=== PATIENT | female | born 1965 | race Caucasian/White ===

== ENCOUNTER 2024-02-21 22:04 | Inpatient (IN) | payer OTHER, SELFPAY ==
--- NOTE | ~2024-02-21 | CT_ITS ---
EXAMINATION: CT ABDOMEN AND PELVIS WITH CONTRAST CLINICAL INFORMATION: Abdominal pain. COMPARISON: None available. TECHNIQUE: Multidetector volumetric images were obtained from the superior aspect of the liver through the pubic symphysis following administration 85 mL of Omnipaque 350 intravenous contrast. Sagittal and coronal reformatted images were obtained on the technologist's workstation. Oral contrast: No This CT examination was performed using dose optimization techniques as appropriate, variously including the following: *Automated exposure control *Adjustment of mA and/or kV according to patient size (this includes techniques or standardized protocols for targeted exams where dose is matched to indication/reason for exam; i.e. extremities or head) *Use of iterative reconstruction technique DLP: 675 mGy-cm FINDINGS: LUNG BASES: The visualized lung bases are unremarkable. LIVER, GALLBLADDER, AND BILIARY TREE: The liver is normal in size, shape, and attenuation. No focal hepatic lesion or biliary ductal dilatation is present. Gallbladder appears to be distended. Multiple gallstones are seen] including a 6 mm calculus at the neck of the gallbladder. There also appears to be gallbladder wall thickening. PANCREAS: Unremarkable. SPLEEN: Unremarkable. ADRENAL GLANDS: Unremarkable. KIDNEYS AND URETERS: The kidneys are normal in size, shape, and attenuation. No hydronephrosis, hydroureter, or calculi seen. No perinephric stranding. There is a 1 cm cyst upper pole left kidney. BLADDER: Unremarkable. GASTROINTESTINAL TRACT: There are diverticula of the descending and the sigmoid colon without diverticulitis. There has been a prior cholecystectomy. ABDOMINAL WALL: No significant hernia is appreciated. LYMPH NODES: Normal. VASCULAR: There is mild atherosclerotic plaque of the abdominal aorta. PELVIC VISCERA: Multiple uterine fibroids is seen including a 8 cm pedunculated uterine fibroid. OSSEOUS STRUCTURES: Unremarkable. CT/CT abdomen pelvis w IV con IMPRESSION: Distended gallbladder with gallstones and gallbladder wall thickening. Findings are suspicious for cholecystitis. Diverticulosis of the colon without evidence of diverticulitis. Fibroid uterus. Fleischner guidelines were followed. Electronically signed by: Yayo Wiley MD 02/22/2024 03:46 AM EDT
--- NOTE | ~2024-02-21 | US_ITS ---
EXAMINATION: US ABDOMEN LIMITED CLINICAL INFORMATION: Epigastric pain for one day. Pain after eating. Vomiting. COMPARISON: Chest CT from 2 hours earlier the same day. TECHNIQUE: Real-time imaging of the gallbladder and common bile duct. FINDINGS: LIVER: Incidentally visualized portion of the liver appears diffusely echogenic GALLBLADDER: Distended, measuring approximately 12.6 cm in sagittal dimension. Multiple subcentimeter gallstones. Gallbladder sludge. Mild diffuse gallbladder wall thickening. Trace pericholecystic fluid. No evidence of hyperemia. COMMON BILE DUCT: Measures 0.9 cm in diameter. Cm in diameter. US/US abdomen limited IMPRESSION: Distended gallbladder. Cholelithiasis and gallbladder sludge. Mild diffuse gallbladder wall thickening. Trace pericholecystic fluid. Mildly dilated common bile duct. Incidentally visualized fatty infiltration of the liver. Electronically signed by: Alan Elliott MD 02/22/2024 07:20 AM EDT
[2024-02-21 22:51] VITALS: BP 136/81; PULSE 70; RESP 18; TEMP 36.7; O2SAT 97; BMI 31.8
[2024-02-21 23:36] LABS: MANUAL DIFF FLAG NO
[2024-02-21 23:37] LABS: Basophils Percent Auto 0.4 % (0-2); Eosinophils Absolute Auto 0.1 X10*3/uL (0.0-0.4); Hematocrit 40.2 % (37.0-47.0); Hemoglobin 14.1 g/dl (12.0-16.0); Imm Gran Abs Auto 0.05 X10*3/uL (0.00-0.03); Imm Gran Pct Auto 0.5 % (0.0-0.4); Lymphocytes Absolute Auto 1.2 X10*3/uL (1.2-4.9); Lymphocytes Percent Auto 11.6 % (20-40); Mean Corpuscular HGB Conc 35.1 g/dl (31.0-35.0); Mean Corpuscular Hemoglobin 31.5 pg (27.0-33.0); Mean Corpuscular Volume 89.7 fL (80.0-98.0); Mean Platelet Volume 8.8 fL (9.4-12.3); Monocytes Absolute Auto 0.7 X10*3/uL (0.1-1.2); Monocytes Percent Auto 6.1 % (2-11); Neutrophils Absolute Auto 8.6 x10*3/uL (2.0-8.3); Neutrophils Percent Auto 80.4 % (45-73); Platelet Count 298 X10*3/uL (160-400); Red Blood Count 4.48 X10*6/uL (4.20-5.50); White Blood Count 10.7 X10*3/uL (4.8-10.8)
[2024-02-21 23:52] LABS: Alanine Aminotransferase 48 U/L (0-31); Albumin Level 4.6 g/dL (3.5-5.0); Alkaline Phosphatase 68 U/L (39-117); Anion Gap 13 (12-20); Aspartate Amino Transferase 49 U/L (5-31); Bilirubin Total 0.8 mg/dL (0.0-1.0); Blood Urea Nitrogen 16 mg/dL (9-16); Calcium 9.9 mg/dL (8.4-10.2); Carbon Dioxide 28 mmol/L (22-29); Chloride 106 mmol/L (96-108); Estimated Glomerular Filt Rate 56; Glucose Random 125 mg/dL (60-115); Lipase 18 U/L (8-78); Sodium 143 mmol/L (135-145); Total Protein 7.6 g/dL (6.5-8.0)
[2024-02-22] VITALS (26 sets, daily range): BP systolic 92–145; BP diastolic 54–89; PULSE 70–160; RESP 12–24; TEMP 36.3–37.3; O2SAT 92–98; BMI 28.6
--- NOTE | 2024-02-22 00:38 | ECG_ITS ---
Test Reason : TACHYCARDIA Blood Pressure : / mmHG Vent. Rate : 170 BPM Atrial Rate : 000 BPM P-R Int : 000 ms QRS Dur : 088 ms QT Int : 272 ms P-R-T Axes : 000 005 165 degrees QTc Int : 457 ms Atrial fibrillation with rapid ventricular response Marked ST abnormality, possible lateral subendocardial injury Abnormal ECG When compared with ECG of 14-JUN-2004 11:21, Atrial fibrillation has replaced Sinus rhythm Vent. rate has increased BY [address] now depressed in Anterolateral leads Nonspecific T wave abnormality no longer evident in Inferior leads Referred By: Generic ED Physician Electronically Signed By:Alfred Richard
--- NOTE | 2024-02-22 01:01 | ED.ABDPAIN ---
HPI - Abdominal Pain General Chief Complaint: Abdominal Pain Stated Complaint: Abdominal pain Time Seen by Provider: 02/22/24 00:54 Source: patient Mode of arrival: ambulatory Limitations: no limitations History of Present Illness ED Provider: Dr. Warren Goss HPI narrative: 58-year-old female with a history of hypertension recently started on medications, asthma, left breast cancer 1 year prior treated with resection and 6 weeks of radiation on tamoxifen, who presents emergency department for evaluation of severe abdominal pain with gradual onset at 17:00 hours. Patient states that her pain is a hard burning pain which is greater than 10/10. She denied fever, chills. She had nausea with no vomiting. She states she has been constipated. The patient does drink 5-6 alcoholic cell 2 drinks per day. She states this is her 1st episode of this type of pain. The patient was triaged and has been in the waiting room for proximally 3 hours. She complained of chest pain and was noted to be tachycardic. Patient's 12 EKG revealed atrial fibrillation which is a new diagnosis for the patient. Patient was a rapid ventricular response with a rate of [address] segment depression in leads 1, 3, aVL, V2 through V6. Related Data Allergies Allergy/AdvReac Type Severity Reaction Status Date / Time morphine AdvReac Hives Verified 02/21/24 22:53 Review of Systems Review of Systems Yes all other systems are reviewed and are negative [facility] Past Medical History [facility] Narrative: Social history: The patient is . Her is here in the emergency department. She does vape nicotine products. She drinks at least 5-6 alcoholic fdc drinks per day. She denies drug use. Social History Social History Smoked in Last 30 Days: Yes Use of substances other than those prescribed or required for medical reasons: No Advance Directives: No Advance Directives Information Provided: Yes Do you have a plan to hurt others: No Plan Patient : No Physical Exam ED Vital Signs: Vital Signs - 24 hr 02/21/24 22:51 02/22/24 00:40 02/22/24 01:26 Temperature 98.1 F 97.4 F 97.7 F Pulse Rate 70 144 H 150 H Respiratory Rate 18 18 18 Blood Pressure 136/81 109/82 98/62 Pulse Oximetry 97 96 96 Oxygen Delivery Method Room Air Room Air Room Air 02/22/24 01:32 02/22/24 02:00 Temperature Pulse Rate 160 H 136 H Respiratory Rate 24 H 18 Blood Pressure 101/64 99/67 Pulse Oximetry 92 98 Oxygen Delivery Method Room Air Room Air BMI result Body Mass Index 31.8 Initial vital signs were normal. Exam: General: Awake, alert, appears to be in distress secondary to her abdominal pain Head: Normocephalic, atraumatic EENT: PERRL, Lids normal, sclera normal, conjunctiva normal, nose normal , ears normal, throat without erythema or exudates Neck: Supple, no adenopathy Lung: breath sounds symmetric, no wheezing, rales or rhonchi Chest: symmetric movement, nontender Heart: Irregularly irregular tachycardia, no obvious murmurs Abdomen: soft, distended, diminished bowel sounds, diffuse nonlocalizing moderate abdominal tenderness Back: no vertebral tenderness, no CVAT Extremities: no deformities, moves all extremities symmetrically Neuro: Awake, alert, oriented, normal speech, cranial nerves intact, moves all extremities symmetrically Medical Decision Making Medical Decision Making MDM Narrative: 58-year-old female with a history of hypertension recently started on medications, asthma, left breast cancer 1 year prior treated with resection and 6 weeks of radiation on tamoxifen, who presents emergency department for evaluation of severe abdominal pain with gradual onset at 17:00 hours she describes as a hard burning pain which is greater than 10/10 associated with nausea but no vomiting, fever or chills. Patient was in the emergency depart waiting room for proximally 3 hours when she developed chest pain and palpitations and was found to be in atrial fibrillation with RVR 170 beats per minute with ST segment depression in leads 1, 2, L, V2 through V 6. Patient's initial vital signs were normal when she developed atrial fibrillation with RVR her systolic blood pressure was 89. Patient's abdomen is distended with moderate diffuse tenderness with no rebound no voluntary or involuntary guarding Differential diagnosis: ?Includes but is not limited to myocardial infarction, myocardial ischemia, perforated viscus, alcoholic gastritis, anemia, electrolyte abnormalities Course: 01:21 My interpretation patient's laboratory evaluation from 23:32 hours is as follows: Glucose elevated 125. AST and ALT elevated 49 and 48. Lipase was normal. I added troponin to the initial blood draw and ordered repeat CBC, CMP, lipase, lactic acid, ethanol level, troponin. Twelve EKG is concerning for inferior lateral ischemia. Given her hypotension and I ordered 2 L of normal saline IV, fentanyl 50 mcg IV for her abdominal pain and Zofran 4 mg IV for nausea. We will obtain a CT scan of the abdomen pelvis with IV contrast, patient will get this study once we stabilize her blood pressure. 02:40 Patient's initial troponin was below detectable limits, the repeat troponin is pending. Repeat CBC and CMP were unchanged from the initial blood draw. Lactic acid was normal at 0.7. Patient's blood pressure did improve after 2 L of IV fluid. Ordered 1/3 L of normal saline IV. Patient remains in atrial fibrillation with a rate of 150 beats per minute given her low blood pressure she was treated with digoxin 0.25 mg IV. At the end of my shift, patient's CT scan is pending and the patient's care was turned over to my colleague, Dr. Charu Winters. Admission/Observation Consideration of admission/observation: Escalation of care including admission/observation considered (Yes) Lab Data MDM Lab Attestation statement: I reviewed the patient's lab results. 02/22/24 01:11 02/22/24 01:11 Labs: Lab Results 02/21/24 02/22/24 Range/Units 23:32 01:11 WBC 10.7 11.3 H (4.8-10.8) X10*3/uL RBC 4.48 4.55 (4.20-5.50) X10*6/uL Hgb 14.1 14.2 (12.0-16.0) g/dl Hct 40.2 41.1 (37.0-47.0) % MCV 89.7 90.3 (80.0-98.0) fL MCH 31.5 31.2 (27.0-33.0) pg MCHC 35.1 H 34.5 (31.0-35.0) g/dl RDW 12.0 12.0 (11.0-16.0) % Plt Count 298 286 (160-400) X10*3/uL MPV 8.8 L 9.2 L (9.4-12.3) fL Immature Gran % (Auto) 0.5 H 0.4 (0.0-0.4) % Neut % (Auto) 80.4 H 84.4 H (45-73) % Lymph % (Auto) 11.6 L 9.1 L (20-40) % [place] % (Auto) 6.1 5.3 (2-11) % Eos % (Auto) 1.0 0.4 (0-4) % Baso % (Auto) 0.4 0.4 (0-2) % Lymph # (Auto) 1.2 1.0 L (1.2-4.9) X10*3/uL [place] # (Auto) 0.7 0.6 (0.1-1.2) X10*3/uL Eos # (Auto) 0.1 0.1 (0.0-0.4) X10*3/uL Baso # (Auto) 0.0 0.0 (0.0-0.2) X10*3/uL Abs Immat Gran (auto) 0.05 H 0.05 H (0.00-0.03) X10*3/uL Absolute Neuts (auto) 8.6 H 9.5 H (2.0-8.3) x10*3/uL Absolute Nucleated RBC 0.000 0.000 (0.0-0.012) X10*3/uL Nucleated RBC % (auto) 0.0 0.0 (0.0-0.2) /100WBC Sodium 143 142 (135-145) mmol/L Potassium 4.0 3.9 (3.3-5.1) mmol/L Chloride 106 105 (96-108) mmol/L Carbon Dioxide 28 23 (22-29) mmol/L Anion Gap 13 18 (12-20) BUN 16 18 H (9-16) mg/dL Creatinine 1.02 1.00 (0.5-1.4) mg/dL Estim Creat Clear Calc 63.0 64.3 Estimated GFR 56 57 Random Glucose 125 H 125 H (60-115) mg/dL Lactic Acid 0.7 (0.5-2.0) mmol/L Calcium 9.9 10.3 H (8.4-10.2) mg/dL Total Bilirubin 0.8 0.9 (0.0-1.0) mg/dL AST 49 H 48 H (5-31) U/L ALT 48 H 51 H (0-31) U/L Alkaline Phosphatase 68 69 (39-117) U/L Troponin I High Sens < 2.7 (<3.5-17.0) ng/L Total Protein 7.6 7.7 (6.5-8.0) g/dL Albumin 4.6 4.6 (3.5-5.0) g/dL Lipase 18 19 (8-78) U/L Ethyl Alcohol < 10 mg/dL Independent Interpretation I performed an independent interpretation of an: EKG Interpretation: My interpretation patient's 12 EKG done at 00:36 hours is as follows: Atrial fibrillation with RVR of 170 beats per minute, less than [address] segment depression in leads 1, 2 and aVL, to to [address] segment depression V2 through V6, no significant T-wave abnormalities. Medications Administered Discontinued Medications Generic Name Dose Route Start Last Admin Trade Name Abi PRN Reason Stop Dose Admin Fentanyl 50 mcg 02/22/24 01:12 02/22/24 01:23 Fentanyl Citrate/Pf 100 Mcg/2 Ml Vial IVPUSH 02/22/24 01:13 50 mcg ONCE ONE Administration Protocol Fentanyl 100 mcg 02/22/24 02:03 02/22/24 02:16 Fentanyl Citrate/Pf 100 Mcg/2 Ml Vial IVPUSH 02/22/24 02:04 100 mcg ONCE ONE Administration Protocol Sodium Chloride 1,000 mls @ 999 mls/hr 02/22/24 01:07 02/22/24 01:23 Ns IV 02/22/24 02:07 999 mls/hr .Q1H1M STA Administration Sodium Chloride 1,000 mls @ 999 mls/hr 02/22/24 01:08 02/22/24 01:23 Ns IV 02/22/24 02:08 999 mls/hr .Q1H1M STA Administration Iohexol 85 ml 02/22/24 02:37 02/22/24 02:37 Iohexol 350 Mg/Ml 100 Ml Infus..Btl IV 02/22/24 02:38 85 ml ONCE ONE Administration Ondansetron HCl 4 mg 02/22/24 01:02 02/22/24 01:23 Ondansetron Hcl 4 Mg/2 Ml Vial IVPUSH 02/22/24 01:03 4 mg ONCE ONE Administration Discharge Plan Discharge Clinical Impression: Atrial fibrillation, new onset, Abdominal pain, Atrial fibrillation with RVR, Acute hypotension Patient Disposition: Still a Patient Print Language: Albanian
--- NOTE | 2024-02-22 01:17 | PC.NURSE ---
Labs drawn and sent for analysis (2 green gel tubes, 1 lavender tube, and 1 walker tube). Had technical difficulty logging into [facility] link, labs sent with regular ED patient stickers, with this RN's mneumonics (SALENA), date (02/22/2024) and time (01:11AM). Results pending. Spoke with Franki in lab regarding the techincal difficulty.
[2024-02-22] MEDS: 0.9 % Sodium Chloride 1,000 ML 999 ML IV ×3 (01:23→02:57)
[2024-02-22] MEDS: fentaNYL citrate/PF 100 MCG/2 ML VIAL 50 MCG IVPUSH ×2 (01:23→02:56)
[2024-02-22] MEDS: ondansetron HCL 4 MG/2 ML VIAL IVPUSH (01:23)
[2024-02-22 01:24] LABS: MANUAL DIFF FLAG NO
[2024-02-22 01:26] LABS: Basophils Percent Auto 0.4 % (0-2); Eosinophils Absolute Auto 0.1 X10*3/uL (0.0-0.4); Eosinophils Percent Auto 0.4 % (0-4); Hematocrit 41.1 % (37.0-47.0); Hemoglobin 14.2 g/dl (12.0-16.0); Imm Gran Abs Auto 0.05 X10*3/uL (0.00-0.03); Imm Gran Pct Auto 0.4 % (0.0-0.4); Lymphocytes Percent Auto 9.1 % (20-40); Mean Corpuscular HGB Conc 34.5 g/dl (31.0-35.0); Mean Corpuscular Hemoglobin 31.2 pg (27.0-33.0); Mean Corpuscular Volume 90.3 fL (80.0-98.0); Mean Platelet Volume 9.2 fL (9.4-12.3); Monocytes Absolute Auto 0.6 X10*3/uL (0.1-1.2); Monocytes Percent Auto 5.3 % (2-11); Neutrophils Absolute Auto 9.5 x10*3/uL (2.0-8.3); Neutrophils Percent Auto 84.4 % (45-73); Platelet Count 286 X10*3/uL (160-400); Red Blood Count 4.55 X10*6/uL (4.20-5.50); White Blood Count 11.3 X10*3/uL (4.8-10.8)
[2024-02-22 01:36] LABS: Troponin-I High Sensitivity < 2.7 ng/L (<3.5-17.0)
[2024-02-22 01:39] LABS: Lactic Acid 0.7 mmol/L (0.5-2.0)
[2024-02-22 01:45] LABS: Alanine Aminotransferase 51 U/L (0-31); Albumin Level 4.6 g/dL (3.5-5.0); Alkaline Phosphatase 69 U/L (39-117); Anion Gap 18 (12-20); Aspartate Amino Transferase 48 U/L (5-31); Bilirubin Total 0.9 mg/dL (0.0-1.0); Blood Urea Nitrogen 18 mg/dL (9-16); Calcium 10.3 mg/dL (8.4-10.2); Carbon Dioxide 23 mmol/L (22-29); Chloride 105 mmol/L (96-108); Creatinine Clr Calc Pharmacy 64.3; Estimated Glomerular Filt Rate 57; Ethanol < 10 mg/dL; Glucose Random 125 mg/dL (60-115); Lipase 19 U/L (8-78); Potassium 3.9 mmol/L (3.3-5.1); Sodium 142 mmol/L (135-145); Total Protein 7.7 g/dL (6.5-8.0)
[2024-02-22] MEDS: fentaNYL citrate/PF 100 MCG/2 ML VIAL IVPUSH (02:16)
[2024-02-22] MEDS: iohexoL 350 MG/ML 100 ML INFUS..BTL 85 ML IV (02:37)
[2024-02-22] MEDS: Digoxin 0.5 MG/2 ML AMPUL 0.25 MG IVPUSH (02:56)
[2024-02-22 02:59] LABS: Troponin-I High Sensitivity < 2.7 ng/L (<3.5-17.0)
[2024-02-22] MEDS: dilTIAZem HCL 50 MG/10 ML VIAL 10 MG IVPUSH (03:57)
[2024-02-22 04:13] LABS: Appearance Urine Clear; Color Urine Yellow; Glucose Urine UA Negative (Negative); Leukocyte Esterase Urine Small (1+) (Negative); Nitrite Urine Negative (Negative); PH 5.5 (5.0-9.0); Specific Gravity - Urine >= 1.030 (1.005-1.025); UMIC TRIGGER UACC YES; Urine Blood Negative (Negative); Urine Ketones 80 mg/dL (Negative); Urine Protein Negative (Neg-Trace)
[2024-02-22 04:18] LABS: Bacteria Urine Trace (None Seen); Hyaline Casts Urine 0-2 /LPF (0-2); RBC Urine 0-2 /HPF (0-2); UACC Culture Trigger YES
[2024-02-22] MEDS: dilTIAZem HCL 125 MG in 0.9 % Sodium Chloride 100 ML 10 MG IVCONT (04:40)
[2024-02-22] MEDS: Piperacillin Sodium/Tazobactam 3.375 GM in 0.9 % Sodium Chloride 50 ML IV (05:04)
[2024-02-22] MEDS: HYDROmorphone HCl 1 MG/ML SYRINGE IVPUSH ×4 (05:04→19:59)
[2024-02-22] MEDS: Metoprolol Tartrate 5 MG/5 ML VIAL IVPUSH (05:24)
--- NOTE | 2024-02-22 06:17 | PM.IMHP ---
History of Present Illness Date of Service: 02/22/24 Chief Complaint: Abdominal pain This is a 58-year-old female with pertinent history of hypertension, asthma not on home oxygen, left breast cancer status post resection and radiation on tamoxifen, mood disorder who presents to the emergency department for evaluation of abdominal pain. Patient states she started having right upper abdominal pain on the evening of presentation. It was constant, nonradiating and without any relieving factors. Also had an episode of nonbloody emesis and has been having nausea. No fever, chills or diarrhea. States she has never had similar pains in the past. No chest pain, palpitations, shortness of breath, changes in urinary or bowel habits. Does endorse drinking 5-6 alcoholic drinks per day. No history of alcohol withdrawal. In the emergency department, patient was found to be in AFib with RVR and initiated on diltiazem drip. Imaging concerning for acute cholecystitis. Patient was given IV Zosyn Review of Systems Constitutional: Constitutional: Reports no additional constitutional complaints Cardiovascular: Cardiovascular: Reports no additional cardiovascular complaints Respiratory: Respiratory: Reports no additional respiratory complaints Gastrointestinal: Gastrointestinal: Reports abdominal pain, Reports nausea and Reports vomiting Genitourinary: Genitourinary: Reports no additional female genitourinary complaints [facility] Medical History Breast cancer, left Hypertension Asthma Mood disorder Pertinent family history: No family history of early CAD Social History Smoked in Last 30 Days: Yes Use of substances other than those prescribed or required for medical reasons: No Advance Directives: No Advance Directives Information Provided: Yes Do you have a plan to hurt others: No Plan Patient : No Meds Allergies Allergy/AdvReac Type Severity Reaction Status Date / Time morphine AdvReac Hives Verified 02/21/24 22:53 Active Medications: Current Medications Acetaminophen (Acetaminophen 325 Mg Tablet) 650 mg PO Q6H PRN PRN Reason: Pain, Mild (Pain Scale 1-3), fever or headache Calcium Carbonate (Calcium Carbonate 750 Mg Tab.Chew) 750 mg PO Q4H PRN PRN Reason: Heartburn Diltiazem HCl 125 mg/ Sodium (Chloride) 125 mls @ 0 mls/hr IVCONT .Q0M [facility]; Protocol Last Titration: 02/22/24 05:11 Dose: 15 mg/hr, 15 mls/hr Magnesium Hydroxide (Milk Of Magnesia 30 Ml Oral.Susp) 30 ml PO DAILY PRN PRN Reason: Constipation Melatonin (Melatonin 3 Mg Tablet) 6 mg PO BEDTIME PRN PRN Reason: Insomnia Sodium Chloride (0.9 % Sodium Chloride Flush 3 Ml Syringe) 3 ml IVFLUSH QSHIFT [facility] Physical Exam Vital Signs and Narrative: Vital Signs: Last Vital Signs Temp 98.2 F 02/22/24 04:00 Pulse 124 H 02/22/24 05:50 Resp 19 02/22/24 05:50 BP 126/88 02/22/24 05:50 Pulse Ox 95 02/22/24 05:50 O2 Del Method Nasal Cannula 02/22/24 05:50 O2 Flow Rate 3 02/22/24 05:50 BMI result Body Mass Index 31.8 Middle-aged female lying in bed in no distress Neck supple, no JVD Irregularly irregular, S1-S2 heard Regular breath sounds bilaterally, no wheezing or crackles appreciated Abdomen with right-sided tenderness, no rigidity Patient is awake, alert and oriented to self, place, time and person ; no focal motor deficit Psych: Normal mood No pedal edema Results Labs 02/22/24 01:11 02/22/24 01:11 Labs: Laboratory Results - last 24 hr 02/21/24 02/22/24 02/22/24 23:32 01:11 04:04 MCV 89.7 90.3 MCH 31.5 31.2 MCHC 35.1 H 34.5 RDW 12.0 12.0 Plt Count 298 286 MPV 8.8 L 9.2 L Immature Gran % (Auto) 0.5 H 0.4 Neut % (Auto) 80.4 H 84.4 H Lymph % (Auto) 11.6 L 9.1 L [place] % (Auto) 6.1 5.3 Eos % (Auto) 1.0 0.4 Baso % (Auto) 0.4 0.4 Lymph # (Auto) 1.2 1.0 L [place] # (Auto) 0.7 0.6 Eos # (Auto) 0.1 0.1 Baso # (Auto) 0.0 0.0 Abs Immat Gran (auto) 0.05 H 0.05 H Absolute Neuts (auto) 8.6 H 9.5 H Absolute Nucleated RBC 0.000 0.000 Nucleated RBC % (auto) 0.0 0.0 Anion Gap 13 18 Estim Creat Clear Calc 63.0 64.3 Estimated GFR 56 57 Random Glucose 125 H 125 H Lactic Acid 0.7 Calcium 9.9 10.3 H Total Bilirubin 0.8 0.9 AST 49 H 48 H ALT 48 H 51 H Alkaline Phosphatase 68 69 Troponin I High Sens < 2.7 < 2.7 Total Protein 7.6 7.7 Albumin 4.6 4.6 Lipase 18 19 Urine Color Yellow Urine Appearance Clear Urine pH 5.5 Ur Specific [place] >= 1.030 H Urine Protein Negative Urine Glucose (UA) Negative Urine Ketones 80 Urine Blood Negative Urine Nitrite Negative Ur Leukocyte Esterase Small (1+) H Urine RBC 0-2 Urine WBC 11-20 H Ur Squamous Epith Cells 11-20 Urine Bacteria Trace Hyaline Casts 0-2 Ethyl Alcohol < 10 Imaging Radiologist's Impressions: Impressions Abdomen/Pelvis CT 02/22/24 01:03 IMPRESSION: Distended gallbladder with gallstones and gallbladder wall thickening. Findings are suspicious for cholecystitis. Diverticulosis of the colon without evidence of diverticulitis. Fibroid uterus. Fleischner guidelines were followed. Electronically signed by: Yayo Wiley MD 02/22/2024 03:46 AM EDT RP Assessment and Plan (1) Acute cholecystitis: Status: Acute (2) Atrial fibrillation, new onset: Status: Acute Plan This is a 58-year-old female with pertinent history of hypertension, asthma not on home oxygen, left breast cancer status post resection and radiation on tamoxifen, mood disorder who presents to the emergency department for evaluation of abdominal pain. #. Acute calculous cholecystitis: Will admit patient with IV Zosyn. Will keep patient NPO and consult General surgery. IV opioids p.r.n. for analgesia. Abdominal ultrasound pending #. AFib with RVR, new diagnosis: Initiated on IV diltiazem drip in the ER. Obtaining TSH and echocardiogram. Consulting Cardiology. Chads Vasc score 2 #. Mood disorder: Continue home mood stabilizers once no longer NPO #. Hypertension: Hold antihypertensives until able to take p.o. #. Asthma: No exacerbation during admission. Continue home inhalers Med rec pending DVT prophylaxis: Mechanical Full code Admit as inpatient and will require two night minimum hospital stay for IV antibiotics, IV opiates p.r.n. (as above), which is not possible in a lesser acute setting. General surgery consult pending Quality Stroke Does the patient have a stroke diagnosis?: No VTE Prior VTE?: No VTE Risk Level:: Medical - moderate - high VTE Device Contraindication: N/A - Device Ordered VTE Drug Contraindication: Treatment Not Indicated
--- NOTE | 2024-02-22 07:00 | CA_ITS ---
Transthoracic Echocardiogram Patient (Last, First, Middle): Nat Rodriguez M Gender: Female Date of : 1965 Age: 58 Procedure Date: 02/22/2024 Procedure Type: Transthoracic Echocardiogram Location: ER Height: 162.56 cm Weight: 70.31 kg BSA: 1.76 m2 Heart Rate: bpm BP: 116 / 62 mmHg Patient Access Coordinator: Referring MD: Jaspreet Soto MD Symptoms: afib wtih rvr Study Quality: Adequate ECG Rhythm: Sinus Conclusions: - Normal left ventricular size and systolic function. There is mildly increased left ventricular wall thickness. The visually estimated ejection fraction is between 60-65%. - Normal right ventricular cavity size and systolic function. - There is no evidence of pericardial effusion. Findings Left Ventricle Normal left ventricular size and systolic function. There is mildly increased left ventricular wall thickness. The visually estimated ejection fraction is between 60-65%. There is no evidence of regional wall motion abnormalities. Diastolic function is normal for age. Right Ventricle Normal right ventricular cavity size and systolic function. Atria The left atrium is normal in size. Aortic Valve Normal aortic valve structure and function. There is no aortic valve stenosis. There is no aortic valve regurgitation. Mitral Valve Normal mitral valve structure and function. There is no mitral valve regurgitation. There is no mitral valve stenosis. Pulmonic Valve The pulmonic valve is normal. There is trace pulmonic valve regurgitation. Tricuspid Valve Normal tricuspid valve structure. There is trace tricuspid valve regurgitation. Great Vessels All visible segments of the aorta are normal in size. Venous The inferior vena cava is normal in size and collapses greater than 50% with inspiration. Pericardium/Pleural There is no evidence of pericardial effusion. Prior Study Comparison No prior study available for comparison. Measurements 2D Linear Measurements IVSd: 0.96 0.6-0.9/0.6-1.0 cm LVIDd: 4.49 3.9-5.3/4.2-5.9 cm LVIDd Index: 2.55 2.4-3.2/2.2-3.1 cm/m2 LVIDs: 2.91 2.0-3.6 cm LVPWd: 1.04 0.7-1.1 cm Ao Root: 3.30 2.1-3.5 cm LA Diam: 3.80 2.7-3.8/3.0-4.0 cm LAIDs Index: 2.16 1.5-2.3 cm/m2 LV Mass: 190.68 67-162/88-224 g LV Mass Index: 108.34 43-95/49-115 g/m2 LVOT Diam: 2.60 3.0+(-)1.3 cm Mitral Valve MV Pk E: 0.74 MV PK A: 0.52 MV Decel Time: 241.00 E/A: 1.40 E'Lateral: 13.60 E'Medial: 10.20 E/E' Med: 7.20 E/E' Lat: 5.40 PHT: 71.00 MVA PHT: 3.10 Decel [place]: 3.06 Aortic Valve AoV Pk Fidel: 1.62 AoV Mn Fidel: 1.05 AoV VTI: 0.32 AoV Pk Grad: 10.00 Aov Mn Grad: 5.00 MIKE Cont.VTI: 3.21 LVOT LVOT Pk Fidel: 1.09 LVOT Mn Fidel: 0.68 LVOT VTI: 0.19 LVOT Pk Grad: 5.00 LVOT Mn Grad: 2.00 LVOT Diam: 2.60 LVOT Area: 5.31 Diastolic Function MV Pk E: 0.74 MV Pk A: 0.52 E/A: 1.40 E'Medial: 10.20 E/E' Med: 7.20 E' Laterial: 13.60 E/E' Lat: 5.40 Right Ventricle TAPSE (mm): 22.00 Tricuspid Valve TR Pk Fidel: 2.05 TR Pk Grad: 17.00 RA Press: 3.00 RVSP: 20.00 Great Vessels Aorta Ao Root-2D: 3.30 2.0-3.7 cm Ao Asc: 3.30 2.1-3.4 cm Pulmonary Valve PV Pk Fidel: 1.14 Peak PV Grad: 5.00 Updated in Other Vendor System with Status of Final Alfred Richard MD electronically signed on 02/23/2024 8:57:53 AM with status of Final
[2024-02-22] MEDS: 0.9 % Sodium Chloride Flush 3 ML SYRINGE IVFLUSH ×3 (07:33→23:40)
--- NOTE | 2024-02-22 07:38 | PC.NURSE ---
Care of Pt assumed at change of shift. Pt is awake, A&Ox3 VSS Cardizem drip running @ 15/hr per JUN. Pt c/o pain 12/09 to middle abd--medicated per JUN. Pt is NPO, c/o dry mouth will supply with mouth swabs. Family at bedside and Pt is awaiting bed assignment. Per overnight RN, admission worksheet completed at this time.
[2024-02-22 08:08] LABS: Thyroid Stimulating Hormone 1.41 uIU/mL (0.32-4.0)
--- NOTE | 2024-02-22 08:49 | P.CONGS_ITS ---
History of Present Illness Consult details Consult date: 02/22/24 Narrative: 58 year old female with history of left breast cancer, hypertension, asthma, admitted via the ER last night because of abdominal pain. She says this started last night. He describes this as being on the right upper quadrant. She denies any previous similar episodes in the past. Her imaging studies suggest acute cholecystitis. She denies any fever or chills. She was however diagnosed to have new onset atrial fibrillation with rapid ventricular response so she was admitted to the hospitalist service. She denies any chest pain currently. She does admit to vaping. He has a history of appendectomy, and umbilical hernia repair. She has had lumpectomy of the left breast and re-excision for wider margins in the distant past for breast cancer. Review of Systems 2 Constitutional: Constitutional: Denies chills and Denies fever(s) Cardiovascular: Cardiovascular: Denies chest pain, Denies dyspnea and Denies dyspnea on exertion Respiratory: Respiratory: Denies cough, Denies dyspnea and Denies dyspnea on exertion Gastrointestinal: Gastrointestinal: Denies hematochezia and Denies change in bowel habits Genitourinary: Genitourinary: Denies hematuria Musculoskeletal: Musculoskeletal: Denies back pain and Denies limited range of motion Neurologic: Denies focal weakness and Denies convulsions Psychiatric: Psychiatric: Denies depression and Denies mood swings PMFSH Past Medical History Medical History Breast cancer, left Hypertension Asthma Mood disorder Social History Social History Household Members: Spouse Housing: House Are you a primary care process manager to a significant other at home: No Do you presently have visiting nurse or other home services: No Patient Tobacco Use Status: Current everyday Tobacco user Tobacco use type: Smokeless Tobacco e-Cigarette/Vaping Use: Currently Using Second Hand Smoke Exposure: No service: No Meds Allergies Allergy/AdvReac Type Severity Reaction Status Date / Time morphine Allergy Diarrhea Verified 02/23/24 12:12 Active Medications: Current Medications Acetaminophen (Acetaminophen 325 Mg Tablet) 650 mg PO Q6H PRN PRN Reason: Pain, Mild (Pain Scale 1-3), fever or headache Calcium Carbonate (Calcium Carbonate 750 Mg Tab.Chew) 750 mg PO Q4H PRN PRN Reason: Heartburn Hydromorphone HCl (Hydromorphone Hcl 1 Mg/Ml Syringe) 1 mg IVPUSH Q4H PRN; Protocol PRN Reason: Pain, Severe (Pain Scale 7-10) Last Admin: 02/22/24 07:34 Dose: 1 mg Diltiazem HCl 125 mg/ Sodium (Chloride) 125 mls @ 0 mls/hr IVCONT .Q0M [facility]; Protocol Last Titration: 02/22/24 05:11 Dose: 15 mg/hr, 15 mls/hr Piperacillin Sod/Tazobactam (Sod 4.5 gm/ Sodium Chloride) 100 mls @ 200 mls/hr IV Q6H [facility] Magnesium Hydroxide (Milk Of Magnesia 30 Ml Oral.Susp) 30 ml PO DAILY PRN PRN Reason: Constipation Melatonin (Melatonin 3 Mg Tablet) 6 mg PO BEDTIME PRN PRN Reason: Insomnia Ondansetron HCl (Ondansetron Hcl 4 Mg/2 Ml Vial) 4 mg IVPUSH Q8H PRN PRN Reason: Nausea and Vomiting Sodium Chloride (0.9 % Sodium Chloride Flush 3 Ml Syringe) [facility] Last Admin: 02/22/24 07:33 Dose: 3 ml Home Medications ?Medication ?Instructions ?Recorded ?Confirmed ?Last Taken ?Type albuterol sulfate 90 mcg/actuation 2 puff inhalation Q4H PRN 02/22/24 02/22/24 Unknown History aerosol inhaler SOB/wheezing clonazepam 1 mg tablet 1 mg PO BID 02/22/24 02/22/24 02/21/24 History clonazepam 1 mg tablet 1 mg PO DAILY PRN Anxiety 02/22/24 02/22/24 02/21/24 History fluticasone 250 mcg-salmeterol 50 1 ea inhalation BID 02/22/24 02/22/24 02/21/24 History mcg/dose blistr powdr for inhalation ([employer] Inhub) ibuprofen 800 mg tablet 800 mg PO TID PRN pain 02/22/24 02/22/24 Unknown History lisinopril 10 mg tablet 10 mg PO DAILY 02/22/24 02/22/24 02/21/24 History multivitamin 1 tab PO DAILY 02/22/24 02/22/24 02/21/24 History omeprazole 20 mg capsule,delayed 20 mg PO DAILY@0630 02/22/24 02/22/24 02/21/24 History release tamoxifen 10 mg tablet 5 mg PO DAILY 02/22/24 02/22/24 02/21/24 History Physical Exam 2 Vital Signs: Vital Signs: Last Vital Signs Temp 98.2 F 02/22/24 04:00 Pulse 99 02/22/24 07:24 Resp 18 02/22/24 07:34 BP 137/88 02/22/24 07:24 Pulse Ox 96 02/22/24 07:24 O2 Del Method Room Air 02/22/24 07:24 O2 Flow Rate 3 02/22/24 05:50 BMI result Body Mass Index 31.8 Const: General: comfortable and no acute distress O rientation/consciousness: patient oriented x3 Neck: Neck: Yes no lymphadenopathy Resp: Auscultation: clear to auscultation bilaterally Cardio: Rhythm: regular rhythm GI: Other: Tender on the right upper quadrant Palpation (GI): Soft to palpation, not firm, Tenderness to palpation present (GI) and no guarding Neuro: General: patient oriented x3 Results Labs 02/24/24 05:05 02/24/24 05:05 Labs: Abnormal lab results 02/21/24 02/22/24 02/22/24 Range/Units 23:32 01:11 04:04 WBC 11.3 H (4.8-10.8) X10*3/uL MCHC 35.1 H (31.0-35.0) g/dl MPV 8.8 L 9.2 L (9.4-12.3) fL Immature Gran % (Auto) 0.5 H (0.0-0.4) % Neut % (Auto) 80.4 H 84.4 H (45-73) % Lymph % (Auto) 11.6 L 9.1 L (20-40) % Lymph # (Auto) 1.0 L (1.2-4.9) X10*3/uL Abs Immat Gran (auto) 0.05 H 0.05 H (0.00-0.03) X10*3/uL Absolute Neuts (auto) 8.6 H 9.5 H (2.0-8.3) x10*3/uL BUN 18 H (9-16) mg/dL Random Glucose 125 H 125 H (60-115) mg/dL Calcium 10.3 H (8.4-10.2) mg/dL AST 49 H 48 H (5-31) U/L ALT 48 H 51 H (0-31) U/L Ur Specific [place] >= 1.030 H (1.005-1.025) Ur Leukocyte Esterase Small (1+) H (Negative) Urine WBC 11-20 H (0-5) /HPF Short CBC 02/21/24 02/22/24 Range/Units 23:32 01:11 WBC 10.7 11.3 H (4.8-10.8) X10*3/uL Hgb 14.1 14.2 (12.0-16.0) g/dl Hct 40.2 41.1 (37.0-47.0) % Plt Count 298 286 (160-400) X10*3/uL BMP 02/21/24 02/22/24 23:32 01:11 Sodium 143 142 Potassium 4.0 3.9 Chloride 106 105 Carbon Dioxide 28 23 BUN 16 18 H Creatinine 1.02 1.00 Calcium 9.9 10.3 H Liver Function 02/21/24 02/22/24 Range/Units 23:32 01:11 Total Bilirubin 0.8 0.9 (0.0-1.0) mg/dL AST 49 H 48 H (5-31) U/L ALT 48 H 51 H (0-31) U/L Alkaline Phosphatase 68 69 (39-117) U/L Albumin 4.6 4.6 (3.5-5.0) g/dL Urine 02/22/24 Range/Units 04:04 Urine Color Yellow Urine Appearance Clear Urine pH 5.5 (5.0-9.0) Ur Specific [place] >= 1.030 H (1.005-1.025) Urine Protein Negative (Neg-Trace) mg/dL Urine Glucose (UA) Negative (Negative) mg/dL All other labs normal. Imaging Abdomen CT scan report/results: report reviewed and image reviewed CT scan - pelvis: report reviewed and image reviewed Abdominal ultrasound report/results: report reviewed and image reviewed Assessment and Plan (1) Acute cholecystitis: Status: Acute Her imaging studies show acute cholecystitis with gallstones. However, she does have new onset atrial fibrillation with RVR. She has a benign exam otherwise. Her LFTs are normal. She does not appear septic. We will have her seen by Cardiology for cardiac workup in view of her new onset atrial fibrillation. I had explained to her the option of proceeding with cholecystectomy down the line. I reviewed with her the technique of this procedure as well as the risks, benefits, alternatives. Her was with her during the visit. She is considering this in view of her severe episode of pain. She has been started on IV abx. I will follow along while she is in the hospital. Procedures Date of Service Date of Service: 02/26/24
--- NOTE | 2024-02-22 09:16 | PHA.MEDREC ---
Pharmacy Consult ? Medication Reconciliation Pharmacy has completed the medication reconciliation, spoke to the patient at bedside, she confirmed all meds. Pt stated she takes clonazepam in the morning and bedtime and takes two tablets in the morning when she experiences higher anxiety. Pt also added she takes a multivitamin. Claims had a ciprofloxacin 250mg BID record but patient stated she was supposed to pick it up today and start it for a UTI but has not because she is here.
--- NOTE | 2024-02-22 09:50 | P.CONCA_ITS ---
History of Present Illness History of Present Illness Date of Service: 02/22/24 Chief complaint: Abdominal pain Narrative: 58-year-old female presenting with abdominal pain and concern for cholecystitis. She is noticed to be tachycardic and in AFib with RVR. She said she had some palpitations when she was in the waiting room but currently has no palpitations. Her main complaint is right upper quadrant pain. She is on antibiotics currently. No chest pain or shortness of breath. On Cardizem drip. PMFSH Past Medical History Medical History Breast cancer, left Hypertension Asthma Mood disorder Social History Social History service: No Meds Allergies Allergy/AdvReac Type Severity Reaction Status Date / Time morphine AdvReac Hives Verified 02/21/24 22:53 Active Medications: Current Medications Acetaminophen (Acetaminophen 325 Mg Tablet) 650 mg PO Q6H PRN PRN Reason: Pain, Mild (Pain Scale 1-3), fever or headache Calcium Carbonate (Calcium Carbonate 750 Mg Tab.Chew) 750 mg PO Q4H PRN PRN Reason: Heartburn Hydromorphone HCl (Hydromorphone Hcl 1 Mg/Ml Syringe) 1 mg IVPUSH Q4H PRN; Protocol PRN Reason: Pain, Severe (Pain Scale 7-10) Last Admin: 02/22/24 07:34 Dose: 1 mg Diltiazem HCl 125 mg/ Sodium (Chloride) 125 mls @ 0 mls/hr IVCONT .Q0M [facility]; Protocol Last Titration: 02/22/24 05:11 Dose: 15 mg/hr, 15 mls/hr Piperacillin Sod/Tazobactam (Sod 4.5 gm/ Sodium Chloride) 100 mls @ 200 mls/hr IV Q6H [facility] Magnesium Hydroxide (Milk Of Magnesia 30 Ml Oral.Susp) 30 ml PO DAILY PRN PRN Reason: Constipation Melatonin (Melatonin 3 Mg Tablet) 6 mg PO BEDTIME PRN PRN Reason: Insomnia Ondansetron HCl (Ondansetron Hcl 4 Mg/2 Ml Vial) 4 mg IVPUSH Q8H PRN PRN Reason: Nausea and Vomiting Sodium Chloride (0.9 % Sodium Chloride Flush 3 Ml Syringe) 3 ml IVFLUSH QSHIFT [facility] Last Admin: 02/22/24 07:33 Dose: 3 ml Home Medications ?Medication ?Instructions ?Recorded ?Confirmed ?Last Taken ?Type albuterol sulfate 90 mcg/actuation 2 puff inhalation Q4H PRN 02/22/24 02/22/24 Unknown History aerosol inhaler SOB/wheezing clonazepam 1 mg tablet 1 mg PO BID 02/22/24 02/22/24 02/21/24 History clonazepam 1 mg tablet 1 mg PO DAILY PRN Anxiety 02/22/24 02/22/24 02/21/24 History fluticasone 250 mcg-salmeterol 50 1 ea inhalation BID 02/22/24 02/22/24 02/21/24 History mcg/dose blistr powdr for inhalation ([employer] Inhub) ibuprofen 800 mg tablet 800 mg PO TID PRN pain 02/22/24 02/22/24 Unknown History lisinopril 10 mg tablet 10 mg PO DAILY 02/22/24 02/22/24 02/21/24 History multivitamin 1 tab PO DAILY 02/22/24 02/22/24 02/21/24 History omeprazole 20 mg capsule,delayed 20 mg PO DAILY@0630 02/22/24 02/22/24 02/21/24 History release tamoxifen 10 mg tablet 5 mg PO DAILY 02/22/24 02/22/24 02/21/24 History Physical Exam 2 Vital Signs: Vital Signs: Last Vital Signs Temp 98.2 F 02/22/24 04:00 Pulse 99 02/22/24 07:24 Resp 18 02/22/24 07:34 BP 137/88 02/22/24 07:24 Pulse Ox 96 02/22/24 07:24 O2 Del Method Room Air 02/22/24 07:24 O2 Flow Rate 3 02/22/24 05:50 BMI result Body Mass Index 31.8 GENERAL APPEARANCE: Distressed due to abdominal pain. SKIN: no suspicious lesions, warm and dry. HEART: no murmurs, irregular rate and rhythm. Tachycardic. LUNGS: clear to auscultation bilaterally. ABDOMEN: soft, tenderness right upper quadrant. EXTREMITIES: no edema. PERIPHERAL PULSES: equal. NEUROLOGIC: No gross deficits, AAO X 3 Objective Labs and Meds 02/22/24 01:11 02/22/24 01:11 Lab results: Laboratory Results - last 24 hr 02/21/24 02/22/24 02/22/24 23:32 01:11 04:04 WBC 10.7 11.3 H RBC 4.48 4.55 Hgb 14.1 14.2 Hct 40.2 41.1 MCV 89.7 90.3 MCH 31.5 31.2 MCHC 35.1 H 34.5 RDW 12.0 12.0 Plt Count 298 286 MPV 8.8 L 9.2 L Immature Gran % (Auto) 0.5 H 0.4 Neut % (Auto) 80.4 H 84.4 H Lymph % (Auto) 11.6 L 9.1 L [place] % (Auto) 6.1 5.3 Eos % (Auto) 1.0 0.4 Baso % (Auto) 0.4 0.4 Lymph # (Auto) 1.2 1.0 L [place] # (Auto) 0.7 0.6 Eos # (Auto) 0.1 0.1 Baso # (Auto) 0.0 0.0 Abs Immat Gran (auto) 0.05 H 0.05 H Absolute Neuts (auto) 8.6 H 9.5 H Absolute Nucleated RBC 0.000 0.000 Nucleated RBC % (auto) 0.0 0.0 Sodium 143 142 Potassium 4.0 3.9 Chloride 106 105 Carbon Dioxide 28 23 Anion Gap 13 18 BUN 16 18 H Creatinine 1.02 1.00 Estim Creat Clear Calc 63.0 64.3 Estimated GFR 56 57 Random Glucose 125 H 125 H Lactic Acid 0.7 Calcium 9.9 10.3 H Magnesium 2.0 Total Bilirubin 0.8 0.9 AST 49 H 48 H ALT 48 H 51 H Alkaline Phosphatase 68 69 Troponin I High Sens < 2.7 < 2.7 Total Protein 7.6 7.7 Albumin 4.6 4.6 Lipase 18 19 TSH 1.41 Urine Color Yellow Urine Appearance Clear Urine pH 5.5 Ur Specific [place] >= 1.030 H Urine Protein Negative Urine Glucose (UA) Negative Urine Ketones 80 Urine Blood Negative Urine Nitrite Negative Ur Leukocyte Esterase Small (1+) H Urine RBC 0-2 Urine WBC 11-20 H Ur Squamous Epith Cells 11-20 Urine Bacteria Trace Hyaline Casts 0-2 Ethyl Alcohol < 10 Imaging Radiologist's impression: Impressions Abdomen/Pelvis CT 02/22/24 01:03 IMPRESSION: Distended gallbladder with gallstones and gallbladder wall thickening. Findings are suspicious for cholecystitis. Diverticulosis of the colon without evidence of diverticulitis. Fibroid uterus. Fleischner guidelines were followed. Electronically signed by: Yayo Wiley MD 02/22/2024 03:46 AM EDT RP Abdomen Ultrasound 02/22/24 04:55 IMPRESSION: Distended gallbladder. Cholelithiasis and gallbladder sludge. Mild diffuse gallbladder wall thickening. Trace pericholecystic fluid. Mildly dilated common bile duct. Incidentally visualized fatty infiltration of the liver. Electronically signed by: Alan Elliott MD 02/22/2024 07:20 AM EDT RP Assessment and Plan (1) Atrial fibrillation with RVR: Status: Acute Plan [age] year female with AFib with RVR in the setting of acute cholecystitis. On Cardizem drip. Add metoprolol 2.5 mg q.6. Intermediate risk for surgery and should proceed as per surgical plan. We will follow along with you. Currently no indication for anticoagulation. Thank you for allowing me to participate in the care of your patient. Please feel free to contact me if you have any questions. Procedures Date of Service Date of Service: 02/22/24
--- NOTE | 2024-02-22 11:05 | PM.EVENT ---
Event Note Date of Service: 02/22/24 Event Note: Day hospitalist update S: c/o RUQ pain, no N/V in AF with RVR in 130s O: Temp Pulse Resp BP Pulse Ox O2 Del Method O2 Flow Rate 98.2 F 99 18 137/88 96 Room Air 3 02/22/24 04:00 02/22/24 07:24 02/22/24 07:34 02/22/24 07:24 02/22/24 07:24 02/22/24 07:24 02/22/24 05:50 Gen: in no acute distress HEENT: sclera anicteric, moist mucus membranes Neck: supple Lungs: clear to auscultation bilaterally Heart: irregular, rapid, no murmurs Abd: soft, RUQ tender, no rebound Ext: no edema Skin: warm/well-perfused Neuro: alert and oriented x3, no focal findings Psych: appropriate affect Laboratory Results - last 24 hr 02/21/24 02/22/24 02/22/24 23:32 01:11 04:04 WBC 10.7 11.3 H RBC 4.48 4.55 Hgb 14.1 14.2 Hct 40.2 41.1 MCV 89.7 90.3 MCH 31.5 31.2 MCHC 35.1 H 34.5 RDW 12.0 12.0 Plt Count 298 286 MPV 8.8 L 9.2 L Immature Gran % (Auto) 0.5 H 0.4 Neut % (Auto) 80.4 H 84.4 H Lymph % (Auto) 11.6 L 9.1 L [place] % (Auto) 6.1 5.3 Eos % (Auto) 1.0 0.4 Baso % (Auto) 0.4 0.4 Lymph # (Auto) 1.2 1.0 L [place] # (Auto) 0.7 0.6 Eos # (Auto) 0.1 0.1 Baso # (Auto) 0.0 0.0 Abs Immat Gran (auto) 0.05 H 0.05 H Absolute Neuts (auto) 8.6 H 9.5 H Absolute Nucleated RBC 0.000 0.000 Nucleated RBC % (auto) 0.0 0.0 Sodium 143 142 Potassium 4.0 3.9 Chloride 106 105 Carbon Dioxide 28 23 Anion Gap 13 18 BUN 16 18 H Creatinine 1.02 1.00 Estim Creat Clear Calc 63.0 64.3 Estimated GFR 56 57 Random Glucose 125 H 125 H Lactic Acid 0.7 Calcium 9.9 10.3 H Magnesium 2.0 Total Bilirubin 0.8 0.9 AST 49 H 48 H ALT 48 H 51 H Alkaline Phosphatase 68 69 Troponin I High Sens < 2.7 < 2.7 Total Protein 7.6 7.7 Albumin 4.6 4.6 Lipase 18 19 TSH 1.41 Urine Color Yellow Urine Appearance Clear Urine pH 5.5 Ur Specific [place] >= 1.030 H Urine Protein Negative Urine Glucose (UA) Negative Urine Ketones 80 Urine Blood Negative Urine Nitrite Negative Ur Leukocyte Esterase Small (1+) H Urine RBC 0-2 Urine WBC 11-20 H Ur Squamous Epith Cells 11-20 Urine Bacteria Trace Hyaline Casts 0-2 Ethyl Alcohol < 10 A/P: d1 58yo F with HTN, asthma, breast CA s/p resection + radiation on tamoxifen, mood disorder presenting with RUQ pain after eating spicy ribs found to have AF/RVR, cholecystitis acute calculous cholecystitis - NPO, pip-sue 02/21-, Gen Surg consulted, likely OR tomorrow AF/RVR, new - Card consulted, IV diltiazem gtt, IV metoprolol, TTE pending, no anticoagulation for now HTN - lisinopril asthma - Breo, prn albuterol hx breast CA - tamoxifen mood disorder - clonazepam VTE ppx - SCDs dispo - eventually home In my clinical judgment, the patient requires continued hospitalization for the following reasons: rate control, operative intervention Time Spent With Patient Time: Total time managing care of this patient today ____ minutes.
[2024-02-22] MEDS: Metoprolol Tartrate 5 MG/5 ML VIAL 2.5 MG IVPUSH ×3 (11:12→23:40)
[2024-02-22] MEDS: clonazePAM 1 MG TABLET PO (11:12)
--- NOTE | 2024-02-22 11:17 | MHC.CM.PN ---
pt lives with her is indepedent has no previous services has a ride home dc plan home no services
[2024-02-22] MEDS: dilTIAZem HCL 125 MG in 0.9 % Sodium Chloride 100 ML 15 MG IVCONT (11:22)
[2024-02-22] MEDS: Piperacillin Sodium/Tazobactam 4.5 GM in 0.9 % Sodium Chloride 100 ML IV ×3 (11:24→23:39)
--- NOTE | 2024-02-22 12:10 | PC.NURSE ---
Assumed care of patient at 1100, patient alert with anxiety, medicated per mar. Remains on cardizem drip , afib on monitor with HR between 100-120. Patient without sob or chest pain. 02 titrated to 1 liter. Patient aware she is NPO
--- NOTE | 2024-02-22 13:45 | PC.NURSE ---
Cardizem drip remains paused, HR between 68-75
--- NOTE | 2024-02-22 16:14 | PC.NURSE ---
per Dr. Villagran patient not scheduled for surgery today , can be started on clear liquid diet
--- NOTE | 2024-02-22 17:08 | P.EN_ITS ---
Event Note Date of Service: 02/22/24 Event Note: Patient is seen on afternoon rounds She says she still has some pain on the right upper quadrant although not severe No fever Heart rate down to 80s, off Cardizem drip As per nutrition aides teacher, okay to proceed with cholecystectomy tomorrow I reviewed with the technique of laparoscopic cholecystectomy and possible open cholecystectomy I explained the risks including but not limited to bleeding, infections, injury to other organs, bile leak, CBD injury, retained stones, as well as the benefits and alternatives She says she wants to proceed We will re-evaluate in the morning for possible cholecystectomy tomorrow Time Spent With Patient Time: Total time managing care of this patient today ____ minutes.
--- NOTE | 2024-02-22 18:59 | PC.NURSE ---
report received from Margaret JORGE, assume care of pt at this time
--- NOTE | 2024-02-22 20:08 | PC.NURSE ---
pt medicated for pain, O2 sats decreased to 88% on RA, pt placed on O2/2L/NC.
[2024-02-22] MEDS: Lactated Ringers 1,000 ML 100 ML IVCONT (23:40)
[2024-02-23] VITALS (16 sets, daily range): BP systolic 91–157; BP diastolic 53–83; PULSE 72–88; RESP 12–20; TEMP 36.2–37.5; O2SAT 91–97; BMI 28.7
--- NOTE | 2024-02-23 | ECG_ITS ---
Test Reason : rhythm Blood Pressure : / mmHG Vent. Rate : 070 BPM Atrial Rate : 070 BPM P-R Int : 166 ms QRS Dur : 090 ms QT Int : 416 ms P-R-T Axes : 023 000 -38 degrees QTc Int : 449 ms Normal sinus rhythm Cannot rule out Inferior infarct , age undetermined T wave abnormality, consider anterolateral ischemia Abnormal ECG When compared with ECG of 22-FEB-2024 00:36, Precordial t wave inversions present Sinus rhythm has replaced Afib Referred By: Boris Soto Electronically Signed By:Alfred Richard
[2024-02-23] MEDS: Piperacillin Sodium/Tazobactam 4.5 GM in 0.9 % Sodium Chloride 100 ML IV ×4 (04:24→22:30)
[2024-02-23] MEDS: Metoprolol Tartrate 5 MG/5 ML VIAL 2.5 MG IVPUSH ×3 (04:25→22:17)
[2024-02-23] MEDS: HYDROmorphone HCl 1 MG/ML SYRINGE IVPUSH ×3 (05:54→22:30)
[2024-02-23 06:24] LABS: Hematocrit 33.8 % (37.0-47.0); Hemoglobin 12.1 g/dl (12.0-16.0); Mean Corpuscular HGB Conc 35.8 g/dl (31.0-35.0); Mean Corpuscular Hemoglobin 32.3 pg (27.0-33.0); Mean Corpuscular Volume 90.1 fL (80.0-98.0); Mean Platelet Volume 9.6 fL (9.4-12.3); Platelet Count 207 X10*3/uL (160-400); Red Blood Count 3.75 X10*6/uL (4.20-5.50); Red Cell Distribution Width 12.5 % (11.0-16.0); White Blood Count 13.5 X10*3/uL (4.8-10.8)
[2024-02-23 07:22] LABS: Anion Gap 11 (12-20); Blood Urea Nitrogen 6 mg/dL (9-16); Calcium 8.6 mg/dL (8.4-10.2); Carbon Dioxide 24 mmol/L (22-29); Chloride 107 mmol/L (96-108); Creatinine Clr Calc Pharmacy 81.4; Estimated Glomerular Filt Rate > 60; Glucose Random 127 mg/dL (60-115); Potassium 3.5 mmol/L (3.3-5.1); Sodium 138 mmol/L (135-145)
[2024-02-23] MEDS: Lactated Ringers 1,000 ML 100 ML IVCONT ×2 (07:48→22:59)
[2024-02-23] MEDS: 0.9 % Sodium Chloride Flush 3 ML SYRINGE IVFLUSH (07:48)
--- NOTE | 2024-02-23 08:24 | PM.PNGS ---
Subjective Subjective Date of Service: 02/23/24 Interval history: No events overnight Feels much better overall but still has pain and tenderness on the right upper quadrant Off Cardizem drip Heart rate has been stable Physical Exam Vital Signs: Vital Signs: Last Vital Signs Temp 97.7 F 02/23/24 07:39 Pulse 72 02/23/24 07:39 Resp 18 02/23/24 07:39 BP 91/53 L 02/23/24 07:39 Pulse Ox 96 02/23/24 07:39 O2 Del Method Nasal Cannula 02/23/24 07:39 O2 Flow Rate 2 02/23/24 07:39 BMI result Body Mass Index 28.7 Const: Other: Anxious General: comfortable and no acute distress Resp: Effort & Inspection: normal respiratory effort Cardio: Rate: regular rate GI: Palpation (GI): Soft to palpation, not firm, Tenderness to palpation present (GI) (Some tenderness on right upper quadrant, Howell's sign) and no guarding Objective Data Active Medications Acetaminophen (Acetaminophen 325 Mg Tablet) 650 mg PO Q6H PRN PRN Reason: Pain, Mild (Pain Scale 1-3), fever or headache Albuterol Sulfate (Albuterol Sulfate 90 Mcg 8 Gm Inhaler) 2 puff INHALE RQ4H PRN PRN Reason: SOB/wheezing Calcium Carbonate (Calcium Carbonate 750 Mg Tab.Chew) 750 mg PO Q4H PRN PRN Reason: Heartburn Clonazepam (Clonazepam 1 Mg Tablet) 1 mg PO DAILY PRN PRN Reason: Anxiety Clonazepam (Clonazepam 1 Mg Tablet) 1 mg PO BID [facility] Last Admin: 02/22/24 23:30 Dose: Not Given Documented By: ARGELIA Non-Admin Reason: Patient Asleep Fluticasone/Vilanterol (Fluticasone/Vilanterol 100/25 Blst.W.Dev) 1 puff INHALE RDAILY [facility] Last Admin: 02/23/24 08:20 Dose: Not Given Documented By: GILBERTO Non-Admin Reason: Patient Refused Hydromorphone HCl (Hydromorphone Hcl 1 Mg/Ml Syringe) 1 mg IVPUSH Q4H PRN; Protocol PRN Reason: Pain, Severe (Pain Scale 7-10) Last Admin: 02/23/24 05:54 Dose: 1 mg Documented By: ARGELIA Diltiazem HCl 125 mg/ Sodium (Chloride) 125 mls @ 0 mls/hr IVCONT .Q0M [facility]; Protocol Last Titration: 02/22/24 18:47 Dose: Infused Documented By: YANCI Piperacillin Sod/Tazobactam (Sod 4.5 gm/ Sodium Chloride) 100 mls @ 200 mls/hr IV Q6H [facility] Last Infusion: 02/23/24 04:55 Dose: Infused Documented By: ARGELIA Lactated Ringer's (Lr) 1,000 mls @ 100 mls/hr IVCONT .Q10H [facility] Last Admin: 02/23/24 07:48 Dose: 100 mls/hr Documented By: JAYRO Lisinopril (Lisinopril 10 Mg Tablet) 10 mg PO DAILY [facility]; Protocol Magnesium Hydroxide (Milk Of Magnesia 30 Ml Oral.Susp) 30 ml PO DAILY PRN PRN Reason: Constipation Melatonin (Melatonin 3 Mg Tablet) 6 mg PO BEDTIME PRN PRN Reason: Insomnia Metoprolol Tartrate (Metoprolol Tartrate 5 Mg/5 Ml Vial) 2.5 mg IVPUSH Q6H [facility]; Protocol Last Admin: 02/23/24 04:25 Dose: 2.5 mg Documented By: ARGELIA Multivitamins/Vitamin C (Multivitamin Tablet) 1 tab PO DAILY [facility] Last Admin: 02/23/24 08:07 Dose: Not Given Documented By: JAYRO Non-Admin Reason: npo for surgery Nicotine (Nicotine 7 Mg Patch.Td24) 7 mg TRANSDERMA DAILY [facility] Last Admin: 02/22/24 23:31 Dose: Not Given Documented By: ARGELIA Non-Admin Reason: Patient declined Omeprazole (Omeprazole 20 Mg Capsule.) 20 mg PO DAILY@0630 [facility] Last Admin: 02/23/24 07:23 Dose: Not Given Documented By: ARGELIA Non-Admin Reason: Pt NPO per MD note. Ondansetron HCl (Ondansetron Hcl 4 Mg/2 Ml Vial) 4 mg IVPUSH Q8H PRN PRN Reason: Nausea and Vomiting Sodium Chloride (0.9 % Sodium Chloride Flush 3 Ml Syringe) 3 ml IVFLUSH QSHIFT [facility] Last Admin: 02/23/24 07:48 Dose: 3 ml Documented By: JAYRO Tamoxifen Citrate (Tamoxifen Citrate 10 Mg Tablet) 5 mg PO DAILY [facility] Labs 02/23/24 06:07 02/23/24 06:07 Labs: Laboratory Results - last 24 hr 02/22/24 02/23/24 01:11 06:07 MCV 90.1 MCH 32.3 MCHC 35.8 H RDW 12.5 Plt Count 207 D MPV 9.6 Absolute Nucleated RBC 0.000 Nucleated RBC % (auto) 0.0 Anion Gap 11 L Estim Creat Clear Calc 81.4 Estimated GFR > 60 Random Glucose 127 H Calcium 8.6 D Magnesium 2.0 Procedures Date of Service Date of Service: 02/23/24 Progress Note: A&P Assessment and plan (1) Acute cholecystitis: Status: Acute Assessment and Plan: Still with pain and tenderness although much improved Gallstone may be impacted at the neck based ultrasound study I therefore explained to the option of proceeding with cholecystectomy Reviewed the technique of lap lynda, possible open Option of IR cholecystostomy also explained Extensively explained the risks including but not limited to bleeding, infections, injury to other organs including bowel, liver, bile duct, blood clots, stroke, ID She has given consent I have discussed the above with the hospitalist service Patient has been evaluated by the pullman conductor and deemed to be okay to proceed with surgery I have discussed the above with the pullman conductor as well Time Spent With Patient Time: Total time managing care of this patient today ____ minutes. Quality Stroke Does the patient have a stroke diagnosis?: No VTE Prior VTE?: No VTE Risk Level:: Medical - moderate - high VTE Device Contraindication: N/A - Device Ordered VTE Drug Contraindication: Treatment Not Indicated
--- NOTE | 2024-02-23 09:54 | HO.PM.IMPN ---
Subjective Subjective Date of Service: 02/23/24 Interval History: c/o RUQ pain now in NSR, rate in 70s no EtOH withdrawal symptoms Review of Systems Review of Systems: Yes all other systems are reviewed and are negative Physical Exam Vital Signs: Vital Signs: Last Vital Signs Temp 97.7 F 02/23/24 07:39 Pulse 72 02/23/24 07:39 Resp 18 02/23/24 07:39 BP 91/53 L 02/23/24 07:39 Pulse Ox 96 02/23/24 07:39 O2 Del Method Nasal Cannula 02/23/24 07:39 O2 Flow Rate 2 02/23/24 07:39 BMI result Body Mass Index 28.7 Gen: in no acute distress HEENT: sclera anicteric, moist mucus membranes Neck: supple Lungs: clear to auscultation bilaterally Heart: regular rate and rhythm, no murmurs Abd: soft, RUQ tender, non-distended Ext: no edema Skin: warm/well-perfused Neuro: alert and oriented x3, no focal findings Psych: appropriate affect Objective Data Active Medications Acetaminophen (Acetaminophen 325 Mg Tablet) 650 mg PO Q6H PRN PRN Reason: Pain, Mild (Pain Scale 1-3), fever or headache Albuterol Sulfate (Albuterol Sulfate 90 Mcg 8 Gm Inhaler) 2 puff INHALE RQ4H PRN PRN Reason: SOB/wheezing Calcium Carbonate (Calcium Carbonate 750 Mg Tab.Chew) 750 mg PO Q4H PRN PRN Reason: Heartburn Clonazepam (Clonazepam 1 Mg Tablet) 1 mg PO DAILY PRN PRN Reason: Anxiety Clonazepam (Clonazepam 1 Mg Tablet) 1 mg PO BID [facility] Last Admin: 02/22/24 23:30 Dose: Not Given Documented By: ARGELIA Non-Admin Reason: Patient Asleep Fluticasone/Vilanterol (Fluticasone/Vilanterol 100/25 Blst.W.Dev) 1 puff INHALE RDAILY [facility] Last Admin: 02/22/24 23:31 Dose: Not Given Hydromorphone HCl (Hydromorphone Hcl 1 Mg/Ml Syringe) 1 mg IVPUSH Q4H PRN; Protocol PRN Reason: Pain, Severe (Pain Scale 7-10) Last Admin: 02/23/24 05:54 Dose: 1 mg Documented By: ARGELIA Diltiazem HCl 125 mg/ Sodium (Chloride) 125 mls @ 0 mls/hr IVCONT .Q0M [facility]; Protocol Last Titration: 02/22/24 18:47 Dose: Infused Documented By: YANCI Piperacillin Sod/Tazobactam (Sod 4.5 gm/ Sodium Chloride) 100 mls @ 200 mls/hr IV Q6H [facility] Last Infusion: 02/23/24 04:55 Dose: Infused Documented By: ARGELIA Lactated Ringer's (Lr) 1,000 mls @ 100 mls/hr IVCONT .Q10H [facility] Last Admin: 02/23/24 07:48 Dose: 100 mls/hr Documented By: JAYRO Lisinopril (Lisinopril 10 Mg Tablet) 10 mg PO DAILY [facility]; Protocol Magnesium Hydroxide (Milk Of Magnesia 30 Ml Oral.Susp) 30 ml PO DAILY PRN PRN Reason: Constipation Melatonin (Melatonin 3 Mg Tablet) 6 mg PO BEDTIME PRN PRN Reason: Insomnia Metoprolol Tartrate (Metoprolol Tartrate 5 Mg/5 Ml Vial) 2.5 mg IVPUSH Q6H [facility]; Protocol Last Admin: 02/23/24 04:25 Dose: 2.5 mg Documented By: ARGELIA Multivitamins/Vitamin C (Multivitamin Tablet) 1 tab PO DAILY [facility] Last Admin: 02/23/24 08:07 Dose: Not Given Documented By: JAYRO Non-Admin Reason: npo for surgery Nicotine (Nicotine 7 Mg Patch.Td24) 7 mg TRANSDERMA DAILY [facility] Last Admin: 02/22/24 23:31 Dose: Not Given Documented By: ARGELIA Non-Admin Reason: Patient declined Omeprazole (Omeprazole 20 Mg Capsule.) 20 mg PO DAILY@0630 [facility] Last Admin: 02/23/24 07:23 Dose: Not Given Documented By: ARGELIA Non-Admin Reason: Pt NPO per MD note. Ondansetron HCl (Ondansetron Hcl 4 Mg/2 Ml Vial) 4 mg IVPUSH Q8H PRN PRN Reason: Nausea and Vomiting Sodium Chloride (0.9 % Sodium Chloride Flush 3 Ml Syringe) 3 ml IVFLUSH QSHIFT [facility] Last Admin: 02/23/24 07:48 Dose: 3 ml Documented By: JAYRO Tamoxifen Citrate (Tamoxifen Citrate 10 Mg Tablet) 5 mg PO DAILY [facility] Labs 02/23/24 06:07 02/23/24 06:07 Labs: Laboratory Results - last 24 hr 02/23/24 06:07 MCV 90.1 MCH 32.3 MCHC 35.8 H RDW 12.5 Plt Count 207 D MPV 9.6 Absolute Nucleated RBC 0.000 Nucleated RBC % (auto) 0.0 Anion Gap 11 L Estim Creat Clear Calc 81.4 Estimated GFR > 60 Random Glucose 127 H Calcium 8.6 D Assessment and Plan (1) Atrial fibrillation with RVR: Status: Acute (2) Acute cholecystitis: Status: Acute Plan d2 58yo F with HTN, asthma, breast CA s/p resection + radiation on tamoxifen, mood disorder presenting with RUQ pain after eating spicy ribs found to have AF/RVR, cholecystitis acute calculous cholecystitis - NPO for lap lynda today, pip-sue 02/21- AF/RVR, brief - Cardiology consulted, no AC for now, will follow-up as outpt - was on IV diltiazem gtt and now on IV metoprolol which can be changed to PO postop - TTE 02/21: - Normal left ventricular size and systolic function. There is mildly increased left ventricular wall thickness. The visually estimated ejection fraction is between 60-65%. - Normal right ventricular cavity size and systolic function. - There is no evidence of pericardial effusion. HTN - hold lisinopril- BP soft asthma - Breo, prn albuterol hx breast CA - tamoxifen mood disorder - clonazepam excess EtOH intake - no signs of withdrawal VTE ppx - SCDs dispo - eventually home In my clinical judgment, the patient requires continued hospitalization for the following reasons: operative intervention Total time managing care of this patient today: 35 minutes. Quality Stroke Does the patient have a stroke diagnosis?: No VTE Prior VTE?: No VTE Risk Level:: Medical - moderate - high VTE Device Contraindication: N/A - Device Ordered VTE Drug Contraindication: Treatment Not Indicated
[2024-02-23] MEDS: Tamoxifen Citrate 10 MG TABLET 5 MG PO (10:25)
[2024-02-23] MEDS: Lactated Ringers 1,000 ML 80 ML IVCONT (12:11)
--- NOTE | 2024-02-23 12:27 | PM.PNCARD ---
Subjective Subjective Date of Service: 02/23/24 Interval history: Seen examined at bedside. For cholecystectomy today. Back in sinus rhythm. Physical Exam Vital Signs: Last Vital Signs Temp 99.5 F 02/23/24 12:03 Pulse 81 02/23/24 12:03 Resp 12 02/23/24 12:03 BP 105/59 L 02/23/24 12:03 Pulse Ox 95 02/23/24 12:03 O2 Del Method Room Air 02/23/24 12:03 O2 Flow Rate 2 02/23/24 07:39 BMI result Body Mass Index 28.7 GENERAL APPEARANCE: In no distress. SKIN: no suspicious lesions, warm and dry. HEART: no murmurs, regular rate and rhythm. LUNGS: clear to auscultation bilaterally. ABDOMEN: soft. EXTREMITIES: no edema. PERIPHERAL PULSES: equal. NEUROLOGIC: No gross deficits, AAO X 3 Objective Labs and Meds 02/23/24 06:07 02/23/24 06:07 Lab results: Laboratory Results - last 24 hr 02/23/24 06:07 WBC 13.5 H RBC 3.75 L Hgb 12.1 Hct 33.8 L MCV 90.1 MCH 32.3 MCHC 35.8 H RDW 12.5 Plt Count 207 D MPV 9.6 Absolute Nucleated RBC 0.000 Nucleated RBC % (auto) 0.0 Sodium 138 Potassium 3.5 Chloride 107 Carbon Dioxide 24 Anion Gap 11 L BUN 6 L Creatinine 0.75 Estim Creat Clear Calc 81.4 Estimated GFR > 60 Random Glucose 127 H Calcium 8.6 D Progress Note: A&P Assessment and plan (1) Acute cholecystitis: Status: Acute (2) Atrial fibrillation with RVR: Status: Acute Plan Pleasant 58 year female with paroxysmal atrial fibrillation in the setting of acute cholecystitis. She was started on antibiotics and with improvement in clinical status she has broken out of atrial fibrillation at this point. She is going for cholecystectomy today. We will monitor closely in the postop period because there is some risk of paroxysmal atrial fibrillation again. When she is improving I would start her on oral metoprolol 25 mg twice a day. Would favor not starting anticoagulation currently. Thank you for allowing me to participate in the care of your patient. Please feel free to contact me if you have any questions. Time Spent With Patient Time: Total time managing care of this patient today ____ minutes. Progress Note: Quality Stroke Does the patient have a stroke diagnosis?: No Procedures Date of Service Date of Service: 02/23/24
--- NOTE | 2024-02-23 12:42 | HO.ANESPROP2 ---
[facility] Active Problems Active Problems: All Active Problems Mood disorder (Acute) Asthma (Acute) Hypertension (Acute) Breast cancer, left (Acute) Acute cholecystitis (Acute) Acute hypotension (Acute) Atrial fibrillation with RVR (Acute) Past Medical History Medical History Breast cancer, left Hypertension Asthma Mood disorder Family History Family history of problems with anesthesia: No Surgical History History of Problems with Anesthesia: No Social History Social History Household Members: Spouse Housing: House Are you a primary manager home healthcare to a significant other at home: No Do you presently have visiting nurse or other home services: No Patient Tobacco Use Status: Current everyday Tobacco user Tobacco use type: Smokeless Tobacco e-Cigarette/Vaping Use: Currently Using Second Hand Smoke Exposure: No service: No Meds Allergies Allergy/AdvReac Type Severity Reaction Status Date / Time morphine Allergy Diarrhea Verified 02/23/24 12:12 Active Medications: Current Medications Acetaminophen (Acetaminophen 325 Mg Tablet) 650 mg PO Q6H PRN PRN Reason: Pain, Mild (Pain Scale 1-3), fever or headache Albuterol Sulfate (Albuterol Sulfate 90 Mcg 8 Gm Inhaler) 2 puff INHALE RQ4H PRN PRN Reason: SOB/wheezing Calcium Carbonate (Calcium Carbonate 750 Mg Tab.Chew) 750 mg PO Q4H PRN PRN Reason: Heartburn Clonazepam (Clonazepam 1 Mg Tablet) 1 mg PO DAILY PRN PRN Reason: Anxiety Clonazepam (Clonazepam 1 Mg Tablet) 1 mg PO BID [facility] Last Admin: 02/23/24 10:18 Dose: Not Given Fluticasone/Vilanterol (Fluticasone/Vilanterol 100/25 Blst.W.Dev) 1 puff INHALE RDAILY [facility] Last Admin: 02/23/24 09:59 Dose: Not Given Hydromorphone HCl (Hydromorphone Hcl 1 Mg/Ml Syringe) 1 mg IVPUSH Q4H PRN; Protocol PRN Reason: Pain, Severe (Pain Scale 7-10) Last Admin: 02/23/24 05:54 Dose: 1 mg Piperacillin Sod/Tazobactam (Sod 4.5 gm/ Sodium Chloride) 100 mls @ 200 mls/hr IV Q6H [facility] Last Infusion: 02/23/24 11:05 Dose: Infused Lactated Ringer's (Lr) 1,000 mls @ 100 mls/hr IVCONT .Q10H [facility] Last Infusion: 02/23/24 11:49 Dose: 0 mls/hr Lactated Ringer's (Lr) 1,000 mls @ 80 mls/hr IVCONT .[id number] [facility] Last Admin: 02/23/24 12:11 Dose: 80 mls/hr Lisinopril (Lisinopril 10 Mg Tablet) 10 mg PO DAILY [facility]; Protocol Last Admin: 02/23/24 10:14 Dose: Not Given Magnesium Hydroxide (Milk Of Magnesia 30 Ml Oral.Susp) 30 ml PO DAILY PRN PRN Reason: Constipation Melatonin (Melatonin 3 Mg Tablet) 6 mg PO BEDTIME PRN PRN Reason: Insomnia Metoprolol Tartrate (Metoprolol Tartrate 5 Mg/5 Ml Vial) 2.5 mg IVPUSH Q6H [facility]; Protocol Last Admin: 02/23/24 10:42 Dose: Not Given Multivitamins/Vitamin C (Multivitamin Tablet) 1 tab PO DAILY [facility] Last Admin: 02/23/24 08:07 Dose: Not Given Nicotine (Nicotine 7 Mg Patch.Td24) 7 mg TRANSDERMA DAILY [facility] Last Admin: 02/23/24 10:18 Dose: Not Given Omeprazole (Omeprazole 20 Mg Capsule.Dr) 20 mg PO DAILY@0630 [facility] Last Admin: 02/23/24 07:23 Dose: Not Given Ondansetron HCl (Ondansetron Hcl 4 Mg/2 Ml Vial) 4 mg IVPUSH Q8H PRN PRN Reason: Nausea and Vomiting Sodium Chloride (0.9 % Sodium Chloride Flush 3 Ml Syringe) 3 ml IVFLUSH QSHIFT [facility] Last Admin: 02/23/24 07:48 Dose: 3 ml Tamoxifen Citrate (Tamoxifen Citrate 10 Mg Tablet) 5 mg PO DAILY [facility] Last Admin: 02/23/24 10:25 Dose: 5 mg Home Medications ?Medication ?Instructions ?Recorded ?Confirmed ?Last Taken ?Type albuterol sulfate 90 mcg/actuation 2 puff inhalation Q4H PRN 02/22/24 02/22/24 Unknown History aerosol inhaler SOB/wheezing clonazepam 1 mg tablet 1 mg PO BID 02/22/24 02/22/24 02/21/24 History clonazepam 1 mg tablet 1 mg PO DAILY PRN Anxiety 02/22/24 02/22/24 02/21/24 History fluticasone 250 mcg-salmeterol 50 1 ea inhalation BID 02/22/24 02/22/24 02/21/24 History mcg/dose blistr powdr for inhalation (Wixela Inhub) ibuprofen 800 mg tablet 800 mg PO TID PRN pain 02/22/24 02/22/24 Unknown History lisinopril 10 mg tablet 10 mg PO DAILY 02/22/24 02/22/24 02/21/24 History multivitamin 1 tab PO DAILY 02/22/24 02/22/24 02/21/24 History omeprazole 20 mg capsule,delayed 20 mg PO DAILY@0630 02/22/24 02/22/24 02/21/24 History release tamoxifen 10 mg tablet 5 mg PO DAILY 02/22/24 02/22/24 02/21/24 History Exam Height,Weight and Vital Signs: Height 5 ft 4 in Weight 75.8 kg Last Vital Signs Temp 99.5 F 02/23/24 12:03 Pulse 81 02/23/24 12:03 Resp 12 02/23/24 12:03 BP 105/59 L 02/23/24 12:03 Pulse Ox 95 02/23/24 12:03 O2 Del Method Room Air 02/23/24 12:03 O2 Flow Rate 2 02/23/24 07:39 Pertinent Lab Results Pertinent Lab Results: jiLaboratory Tests 02/21/24 02/22/24 02/22/24 23:32 01:11 04:04 WBC 10.7 11.3 H RBC 4.48 4.55 Hgb 14.1 14.2 Hct 40.2 41.1 MCV 89.7 90.3 MCH 31.5 31.2 MCHC 35.1 H 34.5 RDW 12.0 12.0 Plt Count 298 286 MPV 8.8 L 9.2 L Immature Gran % (Auto) 0.5 H 0.4 Neut % (Auto) 80.4 H 84.4 H Lymph % (Auto) 11.6 L 9.1 L [place] % (Auto) 6.1 5.3 Eos % (Auto) 1.0 0.4 Baso % (Auto) 0.4 0.4 Lymph # (Auto) 1.2 1.0 L [place] # (Auto) 0.7 0.6 Eos # (Auto) 0.1 0.1 Baso # (Auto) 0.0 0.0 Abs Immat Gran (auto) 0.05 H 0.05 H Absolute Neuts (auto) 8.6 H 9.5 H Absolute Nucleated RBC 0.000 0.000 Nucleated RBC % (auto) 0.0 0.0 Sodium 143 142 Potassium 4.0 3.9 Chloride 106 105 Carbon Dioxide 28 23 Anion Gap 13 18 BUN 16 18 H Creatinine 1.02 1.00 Estim Creat Clear Calc 63.0 64.3 Estimated GFR 56 57 Random Glucose 125 H 125 H Lactic Acid 0.7 Calcium 9.9 10.3 H Magnesium 2.0 Total Bilirubin 0.8 0.9 AST 49 H 48 H ALT 48 H 51 H Alkaline Phosphatase 68 69 Troponin I High Sens < 2.7 < 2.7 Total Protein 7.6 7.7 Albumin 4.6 4.6 Lipase 18 19 TSH 1.41 Urine Color Yellow Urine Appearance Clear Urine pH 5.5 Ur Specific [place] >= 1.030 H Urine Protein Negative Urine Glucose (UA) Negative Urine Ketones 80 Urine Blood Negative Urine Nitrite Negative Ur Leukocyte Esterase Small (1+) H Urine RBC 0-2 Urine WBC 11-20 H Ur Squamous Epith Cells 11-20 Urine Bacteria Trace Hyaline Casts 0-2 Ethyl Alcohol < 10 02/22/ 06:07 WBC 13.5 H RBC 3.75 L Hgb 12.1 Hct 33.8 L MCV 90.1 MCH 32.3 MCHC 35.8 H RDW 12.5 Plt Count 207 D MPV 9.6 Immature Gran % (Auto) Neut % (Auto) Lymph % (Auto) [place] % (Auto) Eos % (Auto) Baso % (Auto) Lymph # (Auto) [place] # (Auto) Eos # (Auto) Baso # (Auto) Abs Immat Gran (auto) Absolute Neuts (auto) Absolute Nucleated RBC 0.000 Nucleated RBC % (auto) 0.0 Sodium 138 Potassium 3.5 Chloride 107 Carbon Dioxide 24 Anion Gap 11 L BUN 6 L Creatinine 0.75 Estim Creat Clear Calc 81.4 Estimated GFR > 60 Random Glucose 127 H Lactic Acid Calcium 8.6 D Magnesium Total Bilirubin AST ALT Alkaline Phosphatase Troponin I High Sens Total Protein Albumin Lipase TSH Urine Color Urine Appearance Urine pH Ur Specific [place] Urine Protein Urine Glucose (UA) Urine Ketones Urine Blood Urine Nitrite Ur Leukocyte Esterase Urine RBC Urine WBC Ur Squamous Epith Cells Urine Bacteria Hyaline Casts Ethyl Alcohol Airway Mallampati Class: II TM Dist: >3cm Neck ROM: Full Assessment and Plan Assessment Anesthesia Assessment: Anesthesia Plan Discussed and Chart Reviewed Final Anesthetic Review Family History of Problems with Anesthesia: No History of Problems with Anesthesia: No NPO: Yes ASA Class: III Final Preanesthetic Review: No Changes in Pt Med Stat, Meds/Allgs Chart Reviewed, Consent Obtained/Reviewed and Anes Risks/Benef Reviewed Patient Risk: Intermediate Procedure Risk: Intermediate Anesthetic Plan Anesthetic Plan: GA Disposition: Standard PACU
--- NOTE | 2024-02-23 14:25 | W.PM.OPN ---
Operative Note Operative Note Date of Service: 02/23/24 Narrative: Preop diagnosis: Acute calculous cholecystitis Postop diagnosis: Acute calculous cholecystitis, with hydrops Procedure: Laparoscopic cholecystectomy Surgeon: Russell Villagran MD assistant commissioner: HENNA Musa Findings: The gallbladder was markedly inflamed, very indurated and distended. There was note of significant inflammatory changes in the hilum and the neck. Dissection was difficult in view of the steady oozing throughout the procedure in view of the acute inflammation. There were multiple stones in the gallbladder. The patient is a 58 year old female admitted this morning because of right upper quadrant pain and tenderness with note of acute cholecystitis on imaging studies. There was seemed to be a stone impacted at the neck of the gallbladder. She initially was in new onset AFib with rapid ventricular rate and was started on Cardizem. She had converted to sinus yesterday. She remained stable overnight. The crayon sorting machine feeder has deemed her to be at slightly above average risk for preop cardiac events. The patient continued to have pain and tenderness. He wanted to proceed with cholecystectomy. She understood the planned technique of the procedure as well as the risks, benefits, and alternatives. She was brought to the operating room and placed supine under general anesthesia via endotracheal tube. The abdomen was prepped and draped in the usual sterile fashion. A surgical time-out was done. The patient was receiving scheduled IV antibiotics. A short supraumbilical incision was made on the skin with a blade 15. This was carried down through the full-thickness of the skin and subcutaneous fat down to the fascia. The fascia was incised. The peritoneum was entered. Through this incision a Castro port was introduced. Pneumoperitoneum was introduced to a pressure of 15 mm Hg. From here the rest of the procedure was done under vision with the 10 mm 0 degree laparoscope. With laparoscopic visualization I inserted a 5/12 mm port in the epigastric area and 2 5 mm ports in the right subcostal region along the entire suture line and the midclavicular line. Graspers were placed through these 2 working ports. The patient was placed in head up and [id number] position Examination of the subhepatic space revealed omentum to be tethered to this area. We are able to gently separate this to allow us to examined the subhepatic space. We had a little bit of difficulty initially identifying the gallbladder. Eventually was able to identify thickened, indurated and distended gallbladder little laterally under the liver. We decompress this with an aspirating needle. The aspirated fluid appeared to be consistent with hydrops of the gallbladder. This was clear and nonbilious. We were then able to apply a grasper at the fundus to retract the gallbladder cephalad. I was able to apply another grasper towards the pouch of the gallbladder to retract this laterally. The gallbladder was therefore being retracted in cephalad and lateral fashion to put the area of the cystic duct on stretch. There was note of a lot of adhesions tethering the stomach to the inferior wall of the gallbladder so I had to carefully separate this with the [place] dissector as well as with blunt dissection. There was also a lot of indurated fatty areolar tissue with significant inflammatory changes at the neck and dissection was difficult in view of significant oozing throughout the dissection. Eventually was able to achieve separation of the neck from the adherent distal stomach. I gently dissected the neck of the gallbladder using the [place] dissector until was able to visualize what appeared to be the cystic duct and the cystic artery. We had to do a lot of careful dissection as well of the inferior wall of the gallbladder to achieve a critical view of the hepatocystic triangle. I was able to confirm confluence of the neck of the gallbladder with the cystic duct and achieve a critical view. Once this was done, I proceeded to apply clips on the cystic duct with 2 clips being applied distally. The cystic duct was transected between clips with Endo scissors. The cystic artery was also clipped with 2 clips applied distally and this was dissected between clips with Endo scissors. Proceeded to continue to retract the gallbladder away from the liver bed. I used the hook electrocautery to carefully divide the hilum and dissected the very thickened, inflamed and edematous gallbladder wall. I proceeded with this dissection to carefully separate the gallbladder wall from the liver bed. This allowed me to define any of the dissection to separate the gallbladder from the liver bed. This dissection was still difficult in view of the acute inflammatory process. I continued to separate the gallbladder from the liver bed along this dissection using a combination of blunt dissection with the tip of the electrocautery spatula and electrocautery as well. We proceeded slowly all the way to the fundus anterior the entire gallbladder was completely The gallbladder was retrieved through an endobag through the umbilical incision. I reinserted all ports and re-insufflated. There was note of a lot of clots in the subhepatic space from the steady oozing throughout the dissection. We irrigated and suctioned as much of the clot as we could. I examined the subhepatic space carefully. There was no note of significant bleeding from the dissection. I placed Surgicel into the subhepatic space because of the steady oozing from earlier Observed all 4 quadrants and there was no evidence of any bile leak, or any other pathology or any bowel injury I we observed the subhepatic space for about another minute or 2. Once hemostasis was confirmed, I desufflated through the port sites I removed all ports under vision with the laparoscope. The umbilical port was removed last The fascia of the umbilical incision was closed with a [id number] suture of 0 stitch. Skin closure was achieved on all incisions using Polysorb 4-0 subcuticular running sutures. Steri-Strips and dressings were applied. All incisions were infiltrated with Marcaine 0.5 % for postop analgesia Patient tolerated the procedure well. There were no immediate complications. Initial final counts of sponges and instruments were correct. Estimated blood loss about 250 cc The patient was extubated without difficulty and transferred to the recovery room with stable vital signs.
--- NOTE | 2024-02-23 15:52 | PM.EVENT ---
Event Note Date of Service: 02/23/24 Event Note: Seen postop Underwent laparoscopic cholecystectomy earlier - very inflamed, indurated appendix, difficult dissection She looks comfortable Pain well controlled Abdomen is soft Stable vital signs Diet as tolerated Pain management Continue IV antibiotics Possible DC home tomorrow Remains in sinus rhythm at bedside, updated Time Spent With Patient Time: Total time managing care of this patient today ____ minutes.
[2024-02-23] MEDS: Docusate Sodium 100 MG CAPSULE PO (22:17)
[2024-02-24] VITALS (9 sets, daily range): BP systolic 90–115; BP diastolic 54–69; PULSE 72–77; RESP 18–20; TEMP 36.3–37.3; O2SAT 92–94
--- NOTE | 2024-02-24 | ECG_ITS ---
Test Reason : abn ekg Blood Pressure : / mmHG Vent. Rate : 073 BPM Atrial Rate : 073 BPM P-R Int : 146 ms QRS Dur : 098 ms QT Int : 432 ms P-R-T Axes : 015 -04 -15 degrees QTc Int : 475 ms Normal sinus rhythm Cannot rule out Inferior infarct (cited on or before 22-FEB-2024) Nonspecific T wave changes present Abnormal ECG When compared with ECG of 22-FEB-2024 21:58, T wave inversion no longer evident in Anterior leads Referred By: Narinder Nava Electronically Signed By:Alfred Richard
[2024-02-24] MEDS: Metoprolol Tartrate 5 MG/5 ML VIAL 2.5 MG IVPUSH ×2 (04:18→09:21)
[2024-02-24] MEDS: Piperacillin Sodium/Tazobactam 4.5 GM in 0.9 % Sodium Chloride 100 ML IV ×2 (04:18→10:28)
[2024-02-24] MEDS: Omeprazole 20 MG CAPSULE.DR PO (04:19)
[2024-02-24] MEDS: HYDROmorphone HCl 1 MG/ML SYRINGE IVPUSH ×2 (05:02→12:39)
[2024-02-24 06:56] LABS: Hematocrit 33.1 % (37.0-47.0); Hemoglobin 11.2 g/dl (12.0-16.0); Mean Corpuscular HGB Conc 33.8 g/dl (31.0-35.0); Mean Corpuscular Volume 91.7 fL (80.0-98.0); Mean Platelet Volume 10.5 fL (9.4-12.3); Platelet Count 181 X10*3/uL (160-400); Red Blood Count 3.61 X10*6/uL (4.20-5.50); Red Cell Distribution Width 12.6 % (11.0-16.0)
[2024-02-24 07:08] LABS: Alanine Aminotransferase 79 U/L (0-31); Alkaline Phosphatase 72 U/L (39-117); Anion Gap 12 (12-20); Aspartate Amino Transferase 77 U/L (5-31); Bilirubin Total 0.9 mg/dL (0.0-1.0); Blood Urea Nitrogen 6 mg/dL (9-16); Calcium 8.7 mg/dL (8.4-10.2); Carbon Dioxide 24 mmol/L (22-29); Chloride 106 mmol/L (96-108); Estimated Glomerular Filt Rate > 60; Glucose Random 143 mg/dL (60-115); Sodium 138 mmol/L (135-145); Total Protein 6.1 g/dL (6.5-8.0)
--- NOTE | 2024-02-24 08:58 | PM.PNGS ---
Subjective Subjective Date of Service: 02/25/24 Interval history: Some incisional pain and right shoulder pain Otherwise no events reported overnight Tolerating diet Physical Exam Vital Signs: Vital Signs: Last Vital Signs Temp 97.9 F 02/24/24 07:26 Pulse 72 02/24/24 07:26 Resp 18 02/24/24 07:26 BP 107/57 L 02/24/24 07:26 Pulse Ox 93 02/24/24 07:26 O2 Del Method Room Air 02/24/24 07:26 O2 Flow Rate 2 02/24/24 02:00 BMI result Body Mass Index 28.7 Const: Other: Looks well General: comfortable and no acute distress Eyes: Sclerae: sclerae normal Resp: Effort & Inspection: normal respiratory effort Cardio: Rate: regular rate GI: Other: Dressings dry Palpation (GI): Soft to palpation, not firm and no guarding Objective Data Active Medications Acetaminophen (Acetaminophen 325 Mg Tablet) 650 mg PO Q6H PRN PRN Reason: Pain, Mild (Pain Scale 1-3), fever or headache Albuterol Sulfate (Albuterol Sulfate 90 Mcg 8 Gm Inhaler) 2 puff INHALE RQ4H PRN PRN Reason: SOB/wheezing Calcium Carbonate (Calcium Carbonate 750 Mg Tab.Chew) 750 mg PO Q4H PRN PRN Reason: Heartburn Clonazepam (Clonazepam 1 Mg Tablet) 1 mg PO DAILY PRN PRN Reason: Anxiety Clonazepam (Clonazepam 1 Mg Tablet) 1 mg PO BID [facility] Last Admin: 02/23/24 22:31 Dose: Not Given Documented By: ARGELIA Non-Admin Reason: Patient Asleep Docusate Sodium (Docusate Sodium 100 Mg Capsule) 100 mg PO BID [facility] Last Admin: 02/23/24 22:17 Dose: 100 mg Documented By: ARGELIA Fluticasone/Vilanterol (Fluticasone/Vilanterol 100/25 Blst.W.Dev) 1 puff INHALE RDAILY [facility] Last Admin: 02/24/24 08:28 Dose: Not Given Documented By: NANCY Non-Admin Reason: Patient Refused Hydromorphone HCl (Hydromorphone Hcl 1 Mg/Ml Syringe) 1 mg IVPUSH Q3H PRN; Protocol PRN Reason: Pain, Severe (Pain Scale 7-10) Last Admin: 02/24/24 05:02 Dose: 1 mg Documented By: ARGELIA Piperacillin Sod/Tazobactam (Sod 4.5 gm/ Sodium Chloride) 100 mls @ 200 mls/hr IV Q6H [facility] Last Infusion: 02/24/24 04:59 Dose: Infused Documented By: ARGELIA Lactated Ringer's (Lr) 1,000 mls @ 100 mls/hr IVCONT .Q10H [facility] Last Admin: 02/23/24 22:59 Dose: 100 mls/hr Documented By: ARGELIA Lisinopril (Lisinopril 10 Mg Tablet) 10 mg PO DAILY [facility]; Protocol Last Admin: 02/23/24 10:14 Dose: Not Given Documented By: JAYRO Non-Admin Reason: Physician Held Med Magnesium Hydroxide (Milk Of Magnesia 30 Ml Oral.Susp) 30 ml PO DAILY PRN PRN Reason: Constipation Melatonin (Melatonin 3 Mg Tablet) 6 mg PO BEDTIME PRN PRN Reason: Insomnia Metoprolol Tartrate (Metoprolol Tartrate 5 Mg/5 Ml Vial) 2.5 mg IVPUSH Q6H [facility]; Protocol Last Admin: 02/24/24 04:18 Dose: 2.5 mg Documented By: ARGELIA Multivitamins/Vitamin C (Multivitamin Tablet) 1 tab PO DAILY [facility] Last Admin: 02/23/24 08:07 Dose: Not Given Documented By: JAYRO Non-Admin Reason: npo for surgery Nicotine (Nicotine 7 Mg Patch.Td24) 7 mg TRANSDERMA DAILY [facility] Last Admin: 02/23/24 10:18 Dose: Not Given Documented By: JAYRO Non-Admin Reason: scheduled surgery Omeprazole (Omeprazole 20 Mg Capsule.) 20 mg PO DAILY@0630 [facility] Last Admin: 02/24/24 04:19 Dose: 20 mg Documented By: ARGELIA Ondansetron HCl (Ondansetron Hcl 4 Mg/2 Ml Vial) 4 mg IVPUSH Q8H PRN PRN Reason: Nausea and Vomiting Oxycodone HCl (Oxycodone Hcl Immed Release 5 Mg Tablet) 5 mg PO Q4H PRN PRN Reason: Pain, Moderate(Pain Scale 4-6) Sodium Chloride (0.9 % Sodium Chloride Flush 3 Ml Syringe) 3 ml IVFLUSH QSHIFT [facility] Last Admin: 02/23/24 23:38 Dose: Not Given Documented By: ARGELIA Non-Admin Reason: IV Running Tamoxifen Citrate (Tamoxifen Citrate 10 Mg Tablet) 5 mg PO DAILY [facility] Last Admin: 02/23/24 10:25 Dose: 5 mg Documented By: JAYRO Labs 02/24/24 05:05 02/24/24 05:05 Labs: Laboratory Results - last 24 hr 02/24/24 05:05 MCV 91.7 MCH 31.0 MCHC 33.8 RDW 12.6 Plt Count 181 MPV 10.5 Absolute Nucleated RBC 0.000 Nucleated RBC % (auto) 0.0 Anion Gap 12 Estim Creat Clear Calc 86.0 Estimated GFR > 60 Random Glucose 143 H Calcium 8.7 Total Bilirubin 0.9 AST 77 H ALT 79 H Alkaline Phosphatase 72 Total Protein 6.1 L Albumin 3.0 L Microbiology Microbiology Results: Microbiology 02/22/24 Unknown Urine Culture - Final Urine clean catch - Clean Catch Midstream Strep agalactiae (Grp B) Procedures Date of Service Date of Service: 02/25/24 Progress Note: A&P Assessment and plan (1) Acute cholecystitis: Status: Acute Assessment and Plan: Status post laparoscopic cholecystectomy Gallbladder severely inflamed Looks well Pain management Heart rate still in sinus Incentive spirometry Plan to DC home tomorrow if medically stable at bedside Time Spent With Patient Time: Total time managing care of this patient today ____ minutes. Quality Stroke Does the patient have a stroke diagnosis?: No VTE Prior VTE?: No VTE Risk Level:: Medical - moderate - high VTE Device Contraindication: N/A - Device Ordered VTE Drug Contraindication: Treatment Not Indicated
[2024-02-24] MEDS: oxyCODONE HCl Immed Release 5 MG TABLET PO ×2 (09:21→17:08)
[2024-02-24] MEDS: Docusate Sodium 100 MG CAPSULE PO ×2 (09:21→21:03)
[2024-02-24] MEDS: Tamoxifen Citrate 10 MG TABLET 5 MG PO (09:21)
[2024-02-24] MEDS: clonazePAM 1 MG TABLET PO ×2 (09:22→21:03)
[2024-02-24] MEDS: Multivitamin TABLET 1 TAB PO (09:22)
[2024-02-24] MEDS: 0.9 % Sodium Chloride Flush 3 ML SYRINGE IVFLUSH ×3 (09:22→21:02)
[2024-02-24] MEDS: Lactated Ringers 1,000 ML 100 ML IVCONT (09:22)
--- NOTE | 2024-02-24 10:31 | HO.POSTANES ---
Post Anesthesia Evaluation Post Anesthesia Evaluation Date of Service: 02/23/24 Vital Signs: Vital Signs Temp Pulse Resp BP Pulse Ox O2 Del Method O2 Flow Rate 02/24/24 07:26 97.9 F 72 18 107/57 L 93 Room Air 02/24/24 06:02 18 02/24/24 05:01 74 115/69 02/24/24 04:15 77 99/61 02/24/24 02:00 97.7 F 73 18 101/59 L 94 Nasal Cannula 2 02/23/24 23:00 20 Anesthesia: General Endotracheal-GETA Mental Status: Awake Pain Control: Satisfactory Hydration: Adequate Anesthesia-Related Issues: No Anes. Related Issues
--- NOTE | 2024-02-24 10:31 | MHC.CM.PN ---
Per rounds, pt had surgery yesterday, anticipate DC to home tomorrow. DCP is home, self care, CM to follow and assist as needed with DC plan.
--- NOTE | 2024-02-24 10:59 | P.PNIM_ITS ---
Subjective Subjective Date of Service: 02/25/24 Interval History: Post D#2 s/p lap CCY has periop pain, tolerating regular diet Had a temp of 102 this morning, temp is now normal Review of Systems Review of Systems: Yes all other systems are reviewed and are negative Physical Exam 2 Vital Signs: Vital Signs: Last Vital Signs Temp 97.9 F 02/24/24 07:26 Pulse 72 02/24/24 07:26 Resp 18 02/24/24 07:26 BP 107/57 L 02/24/24 07:26 Pulse Ox 93 02/24/24 07:26 O2 Del Method Room Air 02/24/24 07:26 O2 Flow Rate 2 02/24/24 02:00 BMI result Body Mass Index 28.7 General: AO X 3, no acute distress Resp: CTA bilateral CVS: S1,S2,RRR GI: +BS, NT, no distention Skin: No rash Neuro: motor grossly intact Psych: appropriate affect Objective Data Active Medications Acetaminophen (Acetaminophen 325 Mg Tablet) 650 mg PO Q6H PRN PRN Reason: Pain, Mild (Pain Scale 1-3), fever or headache Albuterol Sulfate (Albuterol Sulfate 90 Mcg 8 Gm Inhaler) 2 puff INHALE RQ4H PRN PRN Reason: SOB/wheezing Calcium Carbonate (Calcium Carbonate 750 Mg Tab.Chew) 750 mg PO Q4H PRN PRN Reason: Heartburn Clonazepam (Clonazepam 1 Mg Tablet) 1 mg PO DAILY PRN PRN Reason: Anxiety Clonazepam (Clonazepam 1 Mg Tablet) 1 mg PO BID [facility] Last Admin: 02/24/24 09:22 Dose: 1 mg Documented By: ALEXANDRU Docusate Sodium (Docusate Sodium 100 Mg Capsule) 100 mg PO BID [facility] Last Admin: 02/24/24 09:21 Dose: 100 mg Documented By: ALEXANDRU Fluticasone/Vilanterol (Fluticasone/Vilanterol 100/25 Blst.W.Dev) 1 puff INHALE RDAILY [facility] Last Admin: 02/24/24 08:28 Dose: Not Given Documented By: NANCY Non-Admin Reason: Patient Refused Hydromorphone HCl (Hydromorphone Hcl 1 Mg/Ml Syringe) 1 mg IVPUSH Q3H PRN; Protocol PRN Reason: Pain, Severe (Pain Scale 7-10) Last Admin: 02/24/24 05:02 Dose: 1 mg Documented By: ARGELIA Piperacillin Sod/Tazobactam (Sod 4.5 gm/ Sodium Chloride) 100 mls @ 200 mls/hr IV Q6H [facility] Last Admin: 02/24/24 10:28 Dose: 200 mls/hr Documented By: ALEXANDRU Lactated Ringer's (Lr) 1,000 mls @ 100 mls/hr IVCONT .Q10H [facility] Last Admin: 02/24/24 09:22 Dose: 100 mls/hr Documented By: ALEXANDRU Lisinopril (Lisinopril 10 Mg Tablet) 10 mg PO DAILY [facility]; Protocol Last Admin: 02/23/24 10:14 Dose: Not Given Documented By: JAYRO Non-Admin Reason: Physician Held Med Magnesium Hydroxide (Milk Of Magnesia 30 Ml Oral.Susp) 30 ml PO DAILY PRN PRN Reason: Constipation Melatonin (Melatonin 3 Mg Tablet) 6 mg PO BEDTIME PRN PRN Reason: Insomnia Metoprolol Tartrate (Metoprolol Tartrate 5 Mg/5 Ml Vial) 2.5 mg IVPUSH Q6H [facility]; Protocol Last Admin: 02/24/24 09:21 Dose: 2.5 mg Documented By: ALEXANDRU Multivitamins/Vitamin C (Multivitamin Tablet) 1 tab PO DAILY [facility] Last Admin: 02/24/24 09:22 Dose: 1 tab Documented By: ALEXANDRU Nicotine (Nicotine 7 Mg Patch.Td24) 7 mg TRANSDERMA DAILY [facility] Last Admin: 02/24/24 09:16 Dose: Not Given Documented By: ALEXANDRU Non-Admin Reason: Patient Refused Omeprazole (Omeprazole 20 Mg Capsule.) 20 mg PO DAILY@0630 [facility] Last Admin: 02/24/24 04:19 Dose: 20 mg Documented By: ARGELIA Ondansetron HCl (Ondansetron Hcl 4 Mg/2 Ml Vial) 4 mg IVPUSH Q8H PRN PRN Reason: Nausea and Vomiting Oxycodone HCl (Oxycodone Hcl Immed Release 5 Mg Tablet) 5 mg PO Q4H PRN PRN Reason: Pain, Moderate(Pain Scale 4-6) Last Admin: 02/24/24 09:21 Dose: 5 mg Documented By: ALEXANDRU Sodium Chloride (0.9 % Sodium Chloride Flush 3 Ml Syringe) 3 ml IVFLUSH QSHIFT [facility] Last Admin: 02/24/24 09:22 Dose: 3 ml Documented By: ALEXANDRU Tamoxifen Citrate (Tamoxifen Citrate 10 Mg Tablet) 5 mg PO DAILY [facility] Last Admin: 02/24/24 09:21 Dose: 5 mg Documented By: ALEXANDRU Labs 02/24/24 05:05 02/24/24 05:05 Labs: Laboratory Results - last 24 hr 02/24/24 05:05 MCV 91.7 MCH 31.0 MCHC 33.8 RDW 12.6 Plt Count 181 MPV 10.5 Absolute Nucleated RBC 0.000 Nucleated RBC % (auto) 0.0 Anion Gap 12 Estim Creat Clear Calc 86.0 Estimated GFR > 60 Random Glucose 143 H Calcium 8.7 Total Bilirubin 0.9 AST 77 H ALT 79 H Alkaline Phosphatase 72 Total Protein 6.1 L Albumin 3.0 L Microbiology Microbiology Results: Microbiology 02/22/24 Unknown Urine Culture - Final Urine clean catch - Clean Catch Midstream Strep agalactiae (Grp B) Assessment and Plan (1) Atrial fibrillation with RVR: Status: Acute (2) Acute cholecystitis: Status: Acute Plan 58yo F with HTN, asthma, breast CA s/p resection + radiation on tamoxifen, mood disorder presenting with RUQ pain after eating spicy ribs found to have AF/RVR, cholecystitis acute calculous cholecystitis - s/p lap lynda 02/22, pip-sue 02/22. Changed to Augmentin Fever of 102, blood cultures drawn. AF/RVR, brief - Cardiology consulted, no AC for now, will follow-up as outpt - was on IV diltiazem gtt and PO metoprolol - TTE 02/21: - Normal left ventricular size and systolic function. There is mildly increased left ventricular wall thickness. The visually estimated ejection fraction is between 60-65%. - Normal right ventricular cavity size and systolic function. - There is no evidence of pericardial effusion. HTN - hold lisinopril- BP normal asthma - Breo, prn albuterol hx breast CA - tamoxifen mood disorder - clonazepam excess EtOH intake - no signs of withdrawal VTE ppx - SCDs dispo - eventually home tomorrow Total time managing care of this patient today: 35 minutes. Quality Stroke Does the patient have a stroke diagnosis?: No VTE Prior VTE?: No VTE Risk Level:: Medical - moderate - high VTE Device Contraindication: N/A - Device Ordered VTE Drug Contraindication: Treatment Not Indicated
--- NOTE | 2024-02-24 12:16 | P.PNCA_ITS ---
Subjective Subjective Date of Service: 02/24/24 Interval history: seen and examined at bedside. She is status post cholecystectomy at this point. She is complaining of abdominal pain. Her ECG yesterday showed precordial T- wave inversions. She has no chest pain or shortness of breath. Physical Exam Vital Signs: Last Vital Signs Temp 99.1 F 02/24/24 11:00 Pulse 75 02/24/24 11:00 Resp 18 02/24/24 11:00 BP 108/55 L 02/24/24 11:00 Pulse Ox 93 02/24/24 11:00 O2 Del Method Room Air 02/24/24 11:00 O2 Flow Rate 2 02/24/24 02:00 BMI result Body Mass Index 28.7 GENERAL APPEARANCE: In no distress. SKIN: no suspicious lesions, warm and dry. HEART: no murmurs, regular rate and rhythm. LUNGS: clear to auscultation bilaterally. ABDOMEN: soft. EXTREMITIES: no edema. PERIPHERAL PULSES: equal. NEUROLOGIC: No gross deficits, AAO X 3 Objective Labs and Meds 02/24/24 05:05 02/24/24 05:05 Lab results: Laboratory Results - last 24 hr 02/24/24 05:05 WBC 12.0 H RBC 3.61 L Hgb 11.2 L Hct 33.1 L MCV 91.7 MCH 31.0 MCHC 33.8 RDW 12.6 Plt Count 181 MPV 10.5 Absolute Nucleated RBC 0.000 Nucleated RBC % (auto) 0.0 Sodium 138 Potassium 4.0 Chloride 106 Carbon Dioxide 24 Anion Gap 12 BUN 6 L Creatinine 0.71 Estim Creat Clear Calc 86.0 Estimated GFR > 60 Random Glucose 143 H Calcium 8.7 Total Bilirubin 0.9 AST 77 H ALT 79 H Alkaline Phosphatase 72 Total Protein 6.1 L Albumin 3.0 L Progress Note: A&P Assessment and plan (1) PAF (paroxysmal atrial fibrillation): Status: Acute (2) T wave inversion in EKG: Status: Acute Plan Pleasant 58 year female who presented with acute cholecystitis and AFib with RVR. She reverted sinus rhythm on her own. Her EKG after reverting to sinus rhythm has shown precordial T-wave inversions. She has no chest pain or shortness of breath. She is now status post cholecystectomy and has abdominal pain but denying any chest pain or shortness of breath. Her high sensitivity troponin levels were less than 2.7. Repeat EKGs today. She may need ischemic evaluation-given recent surgery I think we let her improve from this and then do any testing. Obviously if she has any chest pain or shortness of breath then we may have to do testing inpatient. Thank you for allowing me to participate in the care of your patient. Please feel free to contact me if you have any questions. Time Spent With Patient Time: Total time managing care of this patient today ____ minutes. Progress Note: Quality Stroke Does the patient have a stroke diagnosis?: No Procedures Date of Service Date of Service: 02/24/24
[2024-02-24] MEDS: Amoxicillin/Potassium Clav 875 MG TABLET PO (21:03)
[2024-02-25] VITALS (18 sets, daily range): BP systolic 89–120; BP diastolic 50–71; PULSE 70–88; RESP 15–20; TEMP 36.7–38.8; O2SAT 91–96
[2024-02-25] MEDS: Omeprazole 20 MG CAPSULE.DR PO (05:22)
[2024-02-25] MEDS: HYDROmorphone HCl 1 MG/ML SYRINGE IVPUSH ×3 (05:22→21:59)
[2024-02-25] MEDS: Acetaminophen 325 MG TABLET 650 MG PO ×2 (05:22→13:01)
--- NOTE | 2024-02-25 05:39 | PM.EVENT ---
Event Note Date of Service: 02/25/24 Event Note: Nurse reported fever of 102 degrees F. Postoperative fever versus infection. Changed Augmentin to IV Zosyn. Obtaining lactic acid and blood culture. Time Spent With Patient Time: Total time managing care of this patient today ____ minutes.
[2024-02-25] MEDS: Lactated Ringers 1,000 ML 999 ML IV (06:11)
[2024-02-25] MEDS: Piperacillin Sodium/Tazobactam 4.5 GM in 0.9 % Sodium Chloride 100 ML IV ×3 (06:20→17:32)
[2024-02-25 07:17] LABS: Lactic Acid 0.6 mmol/L (0.5-2.0)
[2024-02-25] MEDS: Multivitamin TABLET 1 TAB PO (08:59)
[2024-02-25] MEDS: 0.9 % Sodium Chloride Flush 3 ML SYRINGE IVFLUSH ×3 (08:59→20:10)
[2024-02-25] MEDS: clonazePAM 1 MG TABLET PO ×2 (08:59→20:09)
[2024-02-25] MEDS: Docusate Sodium 100 MG CAPSULE PO ×2 (08:59→20:09)
[2024-02-25] MEDS: Tamoxifen Citrate 10 MG TABLET 5 MG PO (08:59)
--- NOTE | 2024-02-25 09:52 | PM.PNGS ---
Subjective Subjective Date of Service: 02/25/24 Interval history: Has been doing well Had temperature of102 at 05:00 o'clock this morning Afebrile now Passing flatus Physical Exam Vital Signs: Vital Signs: Last Vital Signs Temp 98.5 F 02/25/24 09:00 Pulse 79 02/25/24 09:00 Resp 18 02/25/24 09:00 BP 95/50 L 02/25/24 09:00 Pulse Ox 94 02/25/24 09:00 O2 Del Method Room Air 02/25/24 09:00 O2 Flow Rate 2 02/24/24 02:00 BMI result Body Mass Index 28.7 Const: Other: Looks well General: comfortable and no acute distress Eyes: Other: Anicteric sclerae Resp: Effort & Inspection: normal respiratory effort Cardio: Rate: regular rate GI: Other: Incisions clean and dry, mildly distended but soft Palpation (GI): Soft to palpation, not firm and no guarding Objective Data Active Medications Acetaminophen (Acetaminophen 325 Mg Tablet) 650 mg PO Q6H PRN PRN Reason: Pain, Mild (Pain Scale 1-3), fever or headache Last Admin: 02/25/24 05:22 Dose: 650 mg Documented By: MANISHA Albuterol Sulfate (Albuterol Sulfate 90 Mcg 8 Gm Inhaler) 2 puff INHALE RQ4H PRN PRN Reason: SOB/wheezing Calcium Carbonate (Calcium Carbonate 750 Mg Tab.Chew) 750 mg PO Q4H PRN PRN Reason: Heartburn Clonazepam (Clonazepam 1 Mg Tablet) 1 mg PO DAILY PRN PRN Reason: Anxiety Clonazepam (Clonazepam 1 Mg Tablet) 1 mg PO BID REPLACED BY [facility] Last Admin: 02/25/24 08:59 Dose: 1 mg Documented By: ALEXANDRU Docusate Sodium (Docusate Sodium 100 Mg Capsule) 100 mg PO BID REPLACED BY [facility] Last Admin: 02/25/24 08:59 Dose: 100 mg Documented By: ALEXANDRU Fluticasone/Vilanterol (Fluticasone/Vilanterol 100/25 Blst.W.Dev) 1 puff INHALE RDAILY REPLACED BY [facility] Last Admin: 02/24/24 08:28 Dose: Not Given Documented By: NANCY Non-Admin Reason: Patient Refused Hydromorphone HCl (Hydromorphone Hcl 1 Mg/Ml Syringe) 1 mg IVPUSH Q3H PRN; Protocol PRN Reason: Pain, Severe (Pain Scale 7-10) Last Admin: 02/25/24 05:22 Dose: 1 mg Documented By: MANISHA Piperacillin Sod/Tazobactam (Sod 4.5 gm/ Sodium Chloride) 100 mls @ 200 mls/hr IV Q6H REPLACED BY [facility] Last Infusion: 02/25/24 06:50 Dose: Infused Documented By: MANISHA Magnesium Hydroxide (Milk Of Magnesia 30 Ml Oral.Susp) 30 ml PO DAILY PRN PRN Reason: Constipation Melatonin (Melatonin 3 Mg Tablet) 6 mg PO BEDTIME PRN PRN Reason: Insomnia Metoprolol Tartrate (Metoprolol Tartrate 25 Mg Tablet) 25 mg PO BID REPLACED BY [facility]; Protocol Last Admin: 02/25/24 08:37 Dose: Not Given Documented By: ALEXANDRU Non-Admin Reason: Decreased Blood Pressure Multivitamins/Vitamin C (Multivitamin Tablet) 1 tab PO DAILY REPLACED BY [facility] Last Admin: 02/25/24 08:59 Dose: 1 tab Documented By: ALEXANDRU Nicotine (Nicotine 7 Mg Patch.Td24) 7 mg TRANSDERMA DAILY REPLACED BY [facility] Last Admin: 02/25/24 08:25 Dose: Not Given Documented By: ALEXANDRU Non-Admin Reason: Patient Refused Omeprazole (Omeprazole 20 Mg Capsule.) 20 mg PO DAILY@0630 REPLACED BY [facility] Last Admin: 02/25/24 05:22 Dose: 20 mg Documented By: MANISHA Ondansetron HCl (Ondansetron Hcl 4 Mg/2 Ml Vial) 4 mg IVPUSH Q8H PRN PRN Reason: Nausea and Vomiting Oxycodone HCl (Oxycodone Hcl Immed Release 5 Mg Tablet) 5 mg PO Q4H PRN PRN Reason: Pain, Moderate(Pain Scale 4-6) Last Admin: 02/24/24 17:08 Dose: 5 mg Documented By: ALEXANDRU Sodium Chloride (0.9 % Sodium Chloride Flush 3 Ml Syringe) 3 ml IVFLUSH QSHIFT REPLACED BY [facility] Last Admin: 02/25/24 08:59 Dose: 3 ml Documented By: ALEXANDRU Tamoxifen Citrate (Tamoxifen Citrate 10 Mg Tablet) 5 mg PO DAILY REPLACED BY [facility] Last Admin: 02/25/24 08:59 Dose: 5 mg Documented By: ALEXANDRU Labs 02/24/24 05:05 02/24/24 05:05 Labs: Laboratory Results - last 24 hr 02/25/24 06:05 Lactic Acid 0.6 Microbiology Microbiology Results: Microbiology 02/22/24 Unknown Urine Culture - Final Urine clean catch - Clean Catch Midstream Strep agalactiae (Grp B) Procedures Date of Service Date of Service: 02/25/24 Progress Note: A&P Assessment and plan (1) Acute cholecystitis: Status: Acute Assessment and Plan: Status post laparoscopic cholecystectomy Looks well Had a temperature early this morning Restart Zosyn Encouraged ambulation Doing well on incentive spirometry No nausea or vomiting Hold off on discharge today in view of fever from this morning Time Spent With Patient Time: Total time managing care of this patient today ____ minutes. Quality Stroke Does the patient have a stroke diagnosis?: No VTE Prior VTE?: No VTE Risk Level:: Medical - moderate - high VTE Device Contraindication: N/A - Device Ordered VTE Drug Contraindication: Treatment Not Indicated
--- NOTE | 2024-02-25 12:21 | PM.PNCARD ---
Subjective Subjective Date of Service: 02/25/24 Interval history: Seen examined at bedside. Feeling good. Physical Exam Vital Signs: Last Vital Signs Temp 99.7 F 02/25/24 12:02 Pulse 80 02/25/24 12:02 Resp 18 02/25/24 12:02 BP 120/69 02/25/24 12:02 Pulse Ox 96 02/25/24 12:02 O2 Del Method Room Air 02/25/24 12:02 O2 Flow Rate 2 02/24/24 02:00 BMI result Body Mass Index 28.7 GENERAL APPEARANCE: In no distress. SKIN: no suspicious lesions, warm and dry. HEART: no murmurs, regular rate and rhythm. LUNGS: clear to auscultation bilaterally. ABDOMEN: soft. EXTREMITIES: no edema. PERIPHERAL PULSES: equal. NEUROLOGIC: No gross deficits, AAO X 3 Objective Labs and Meds 02/24/24 05:05 02/24/24 05:05 Lab results: Laboratory Results - last 24 hr 02/25/24 06:05 Lactic Acid 0.6 Progress Note: A&P Assessment and plan (1) T wave inversion in EKG: Status: Acute (2) PAF (paroxysmal atrial fibrillation): Status: Acute Plan Pleasant 58 year female who presented with acute cholecystitis and was noticed to be in AFib with RVR. She reverted back to sinus rhythm spontaneously. Repeat ECG showed precordial T-wave inversions. These changes have improved on subsequent EKG. She has normal troponin, wall motion and no symptoms pointing to her ischemia. It is possible that these changes were related to cholecystitis as abdominal pathology can lead to ECG changes. In any case I have discussed with her that as she gets discharged we will arrange a coronary CTA for her at [facility]. She should be started on baby aspirin at discharge. From atrial fibrillation point of view, she has CHADS-VASc 2 based on gender and history of hypertension. Atrial fibrillation episode was in the setting of sepsis and has not reoccurred. We will decide about long-term anticoagulation as outpatient. Currently no plan to start anticoagulation. Thank you for allowing me to participate in the care of your patient. Please feel free to contact me if you have any questions. Time Spent With Patient Time: Total time managing care of this patient today ____ minutes. Progress Note: Quality Stroke Does the patient have a stroke diagnosis?: No Procedures Date of Service Date of Service: 02/25/24
[2024-02-25] MEDS: oxyCODONE HCl Immed Release 5 MG TABLET PO ×2 (13:09→20:09)
[2024-02-25] MEDS: Metoprolol Tartrate 25 MG TABLET PO (20:10)
[2024-02-25] MEDS: Calcium Carbonate 750 MG TAB.CHEW PO (21:59)
[2024-02-26] VITALS (8 sets, daily range): BP systolic 96–143; BP diastolic 52–97; PULSE 68–82; RESP 15–20; TEMP 36.5–37.7; O2SAT 92–96
[2024-02-26] MEDS: Piperacillin Sodium/Tazobactam 4.5 GM in 0.9 % Sodium Chloride 100 ML IV ×4 (00:11→17:10)
[2024-02-26] MEDS: Omeprazole 20 MG CAPSULE.DR PO (05:51)
--- NOTE | 2024-02-26 09:21 | PM.PNGS ---
Subjective Subjective Date of Service: 02/27/24 Interval history: had low grade temp at noon yesterday - no fever since denies N/V describes pain on incisions and shoulder - apporpriate to procedure still took IV pain meds early this AM ambulated well yesterday Physical Exam Vital Signs: Vital Signs: Last Vital Signs Temp 99.1 F 02/26/24 08:00 Pulse 82 02/26/24 08:00 Resp 18 02/26/24 08:00 BP 143/97 H 02/26/24 08:00 Pulse Ox 96 02/26/24 08:00 O2 Del Method Room Air 02/26/24 08:00 O2 Flow Rate 2 02/24/24 02:00 BMI result Body Mass Index 28.7 Const: General: comfortable and no acute distress Eyes: Other: anicteric sclerae Resp: Effort & Inspection: normal respiratory effort Cardio: Rate: regular rate GI: Other: incisions clean Palpation (GI): Soft to palpation, not firm and no guarding Objective Data Active Medications Acetaminophen (Acetaminophen 325 Mg Tablet) 650 mg PO Q6H PRN PRN Reason: Pain, Mild (Pain Scale 1-3), fever or headache Last Admin: 02/25/24 13:01 Dose: 650 mg Documented By: ALEXANDRU Albuterol Sulfate (Albuterol Sulfate 90 Mcg 8 Gm Inhaler) 2 puff INHALE RQ4H PRN PRN Reason: SOB/wheezing Calcium Carbonate (Calcium Carbonate 750 Mg Tab.Chew) 750 mg PO Q4H PRN PRN Reason: Heartburn Last Admin: 02/25/24 21:59 Dose: 750 mg Documented By: MANISHA Clonazepam (Clonazepam 1 Mg Tablet) 1 mg PO DAILY PRN PRN Reason: Anxiety Clonazepam (Clonazepam 1 Mg Tablet) 1 mg PO BID [facility] Last Admin: 02/25/24 20:09 Dose: 1 mg Documented By: MANISHA Docusate Sodium (Docusate Sodium 100 Mg Capsule) 100 mg PO BID [facility] Last Admin: 02/25/24 20:09 Dose: 100 mg Documented By: MANISHA Fluticasone/Vilanterol (Fluticasone/Vilanterol 100/25 Blst.W.Dev) 1 puff INHALE RDAILY [facility] Last Admin: 02/26/24 07:35 Dose: Not Given Documented By: TATO Non-Admin Reason: Patient Refused Hydromorphone HCl (Hydromorphone Hcl 1 Mg/Ml Syringe) 1 mg IVPUSH Q3H PRN; Protocol PRN Reason: Pain, Severe (Pain Scale 7-10) Last Admin: 02/25/24 21:59 Dose: 1 mg Documented By: MANISHA Piperacillin Sod/Tazobactam (Sod 4.5 gm/ Sodium Chloride) 100 mls @ 200 mls/hr IV Q6H [facility] Last Infusion: 02/26/24 06:21 Dose: Infused Documented By: MANISHA Magnesium Hydroxide (Milk Of Magnesia 30 Ml Oral.Susp) 30 ml PO DAILY PRN PRN Reason: Constipation Melatonin (Melatonin 3 Mg Tablet) 6 mg PO BEDTIME PRN PRN Reason: Insomnia Metoprolol Tartrate (Metoprolol Tartrate 25 Mg Tablet) 25 mg PO BID [facility]; Protocol Last Admin: 02/25/24 20:10 Dose: 25 mg Documented By: MANISHA Multivitamins/Vitamin C (Multivitamin Tablet) 1 tab PO DAILY [facility] Last Admin: 02/25/24 08:59 Dose: 1 tab Documented By: ALEXANDRU Nicotine (Nicotine 7 Mg Patch.Td24) 7 mg TRANSDERMA DAILY [facility] Last Admin: 02/25/24 08:25 Dose: Not Given Documented By: ALEXANDRU Non-Admin Reason: Patient Refused Omeprazole (Omeprazole 20 Mg Capsule.Dr) 20 mg PO DAILY@0630 [facility] Last Admin: 02/26/24 05:51 Dose: 20 mg Documented By: MANISHA Ondansetron HCl (Ondansetron Hcl 4 Mg/2 Ml Vial) 4 mg IVPUSH Q8H PRN PRN Reason: Nausea and Vomiting Oxycodone HCl (Oxycodone Hcl Immed Release 5 Mg Tablet) 5 mg PO Q4H PRN PRN Reason: Pain, Moderate(Pain Scale 4-6) Last Admin: 02/25/24 20:09 Dose: 5 mg Documented By: MANISHA Sodium Chloride (0.9 % Sodium Chloride Flush 3 Ml Syringe) 3 ml IVFLUSH QSHIFT [facility] Last Admin: 02/25/24 20:10 Dose: 3 ml Documented By: MANISHA Tamoxifen Citrate (Tamoxifen Citrate 10 Mg Tablet) 5 mg PO DAILY [facility] Last Admin: 02/25/24 08:59 Dose: 5 mg Documented By: ALEXANDRU Labs 02/27/24 05:50 02/27/24 05:50 Microbiology Microbiology Results: Microbiology 02/25/24 06:03 Blood Culture - Preliminary Blood - Venous No growth after 24 hours. 02/25/24 06:03 Blood Culture - Preliminary Blood - Venous No growth after 24 hours. Procedures Date of Service Date of Service: 02/27/24 Progress Note: A&P Assessment and plan (1) Acute cholecystitis: Status: Acute Assessment and Plan: s/p lap cholecystectomy remains in sinus abd soft incisions clean and dry had low grade temp 100.8 yesterday at noon encouraged ambulation incentive spirometry IV abx await to have no fever episodes prior to dc home she will need cardiology ffup as outpt Time Spent With Patient Time: Total time managing care of this patient today ____ minutes. Quality Stroke Does the patient have a stroke diagnosis?: No VTE Prior VTE?: No VTE Risk Level:: Medical - moderate - high VTE Device Contraindication: N/A - Device Ordered VTE Drug Contraindication: Treatment Not Indicated
[2024-02-26] MEDS: clonazePAM 1 MG TABLET PO ×2 (10:00→20:47)
[2024-02-26] MEDS: Metoprolol Tartrate 25 MG TABLET PO ×2 (10:00→20:47)
[2024-02-26] MEDS: Multivitamin TABLET 1 TAB PO (10:00)
[2024-02-26] MEDS: 0.9 % Sodium Chloride Flush 3 ML SYRINGE IVFLUSH ×2 (10:01→12:20)
[2024-02-26] MEDS: Tamoxifen Citrate 10 MG TABLET 5 MG PO (10:01)
[2024-02-26] MEDS: Docusate Sodium 100 MG CAPSULE PO ×2 (10:01→20:47)
[2024-02-26] MEDS: oxyCODONE HCl Immed Release 5 MG TABLET PO ×3 (10:01→20:46)
--- NOTE | 2024-02-26 12:10 | HO.PM.IMPN ---
Subjective Subjective Date of Service: 02/26/24 Interval History: Post D#3 s/p lap CCY has periop pain, tolerating regular diet No temp in 24 hrs Physical Exam Vital Signs: Vital Signs: Last Vital Signs Temp 98.8 F 02/26/24 09:55 Pulse 78 02/26/24 09:54 Resp 15 02/26/24 09:54 BP 111/67 02/26/24 09:54 Pulse Ox 96 02/26/24 09:54 O2 Del Method Room Air 02/26/24 09:54 O2 Flow Rate 2 02/24/24 02:00 BMI result Body Mass Index 28.7 General: AO X 3, no acute distress Resp: CTA bilateral CVS: S1,S2,RRR GI: +BS, NT, no distention Skin: No rash Neuro: motor grossly intact Psych: appropriate affect Objective Data Active Medications Acetaminophen (Acetaminophen 325 Mg Tablet) 650 mg PO Q6H PRN PRN Reason: Pain, Mild (Pain Scale 1-3), fever or headache Last Admin: 02/25/24 13:01 Dose: 650 mg Documented By: ALEXANDRU Albuterol Sulfate (Albuterol Sulfate 90 Mcg 8 Gm Inhaler) 2 puff INHALE RQ4H PRN PRN Reason: SOB/wheezing Calcium Carbonate (Calcium Carbonate 750 Mg Tab.Chew) 750 mg PO Q4H PRN PRN Reason: Heartburn Last Admin: 02/25/24 21:59 Dose: 750 mg Documented By: MANISHA Clonazepam (Clonazepam 1 Mg Tablet) 1 mg PO DAILY PRN PRN Reason: Anxiety Clonazepam (Clonazepam 1 Mg Tablet) 1 mg PO BID [facility] Last Admin: 02/26/24 10:00 Dose: 1 mg Documented By: ALEXANDRU Docusate Sodium (Docusate Sodium 100 Mg Capsule) 100 mg PO BID [facility] Last Admin: 02/26/24 10:01 Dose: 100 mg Documented By: ALEXANDRU Fluticasone/Vilanterol (Fluticasone/Vilanterol 100/25 Blst.W.Dev) 1 puff INHALE RDAILY [facility] Last Admin: 02/26/24 07:35 Dose: Not Given Documented By: TATO Non-Admin Reason: Patient Refused Hydromorphone HCl (Hydromorphone Hcl 1 Mg/Ml Syringe) 1 mg IVPUSH Q3H PRN; Protocol PRN Reason: Pain, Severe (Pain Scale 7-10) Last Admin: 02/25/24 21:59 Dose: 1 mg Documented By: MANISHA Piperacillin Sod/Tazobactam (Sod 4.5 gm/ Sodium Chloride) 100 mls @ 200 mls/hr IV Q6H [facility] Last Infusion: 02/26/24 06:21 Dose: Infused Documented By: MANISHA Magnesium Hydroxide (Milk Of Magnesia 30 Ml Oral.Susp) 30 ml PO DAILY PRN PRN Reason: Constipation Melatonin (Melatonin 3 Mg Tablet) 6 mg PO BEDTIME PRN PRN Reason: Insomnia Metoprolol Tartrate (Metoprolol Tartrate 25 Mg Tablet) 25 mg PO BID [facility]; Protocol Last Admin: 02/26/24 10:00 Dose: 25 mg Documented By: ALEXANDRU Multivitamins/Vitamin C (Multivitamin Tablet) 1 tab PO DAILY [facility] Last Admin: 02/26/24 10:00 Dose: 1 tab Documented By: ALEXANDRU Nicotine (Nicotine 7 Mg Patch.Td24) 7 mg TRANSDERMA DAILY [facility] Last Admin: 02/26/24 09:47 Dose: Not Given Documented By: ALEXANDRU Non-Admin Reason: Patient Refused Omeprazole (Omeprazole 20 Mg Capsule.) 20 mg PO DAILY@0630 [facility] Last Admin: 02/26/24 05:51 Dose: 20 mg Documented By: MANISHA Ondansetron HCl (Ondansetron Hcl 4 Mg/2 Ml Vial) 4 mg IVPUSH Q8H PRN PRN Reason: Nausea and Vomiting Oxycodone HCl (Oxycodone Hcl Immed Release 5 Mg Tablet) 5 mg PO Q4H PRN PRN Reason: Pain, Moderate(Pain Scale 4-6) Last Admin: 02/26/24 10:01 Dose: 5 mg Documented By: ALEXANDRU Sodium Chloride (0.9 % Sodium Chloride Flush 3 Ml Syringe) 3 ml IVFLUSH QSHIFT [facility] Last Admin: 02/26/24 10:01 Dose: 3 ml Documented By: ALEXANDRU Tamoxifen Citrate (Tamoxifen Citrate 10 Mg Tablet) 5 mg PO DAILY [facility] Last Admin: 02/26/24 10:01 Dose: 5 mg Documented By: ALEXANDRU Labs 02/24/24 05:05 02/24/24 05:05 Microbiology Microbiology Results: Microbiology 02/25/24 06:03 Blood Culture - Preliminary Blood - Venous No growth after 24 hours. 02/25/24 06:03 Blood Culture - Preliminary Blood - Venous No growth after 24 hours. Assessment and Plan (1) Atrial fibrillation with RVR: Status: Acute (2) Acute cholecystitis: Status: Acute Plan 58yo F with HTN, asthma, breast CA s/p resection + radiation on tamoxifen, mood disorder presenting with RUQ pain after eating spicy ribs found to have AF/RVR, cholecystitis acute calculous cholecystitis - s/p lap lynda 02/22, pip-sue 02/22. Changed to Augmentin Fever of 102 02/24, blood cultures drawn, fever resolved AF/RVR, brief - Cardiology consulted, no AC for now, will follow-up as outpt - was on IV diltiazem gtt and PO metoprolol - TTE 02/21: - Normal left ventricular size and systolic function. There is mildly increased left ventricular wall thickness. The visually estimated ejection fraction is between 60-65%. - Normal right ventricular cavity size and systolic function. - There is no evidence of pericardial effusion. -outpatient Coronary CT HTN - hold lisinopril- BP normal asthma - Breo, prn albuterol hx breast CA - tamoxifen mood disorder - clonazepam excess EtOH intake - no signs of withdrawal VTE ppx - SCDs dispo - possible dc later tomorrow Total time managing care of this patient today: 35 minutes. Quality Stroke Does the patient have a stroke diagnosis?: No VTE Prior VTE?: No VTE Risk Level:: Medical - moderate - high VTE Device Contraindication: N/A - Device Ordered VTE Drug Contraindication: Treatment Not Indicated
--- NOTE | 2024-02-26 12:22 | P.DS_ITS ---
DS: Providers Provider Date of Service: 02/27/24 Date of admission: 02/22/24 06:18 Primary care physician: Unknown Physician Consults: 02/22/24 06:15 Consult to General Surgery Routine Consulting Provider: [facility] General Surgeons Reason for consultation: acute cholecystitis 02/22/24 06:21 Consult to Cardiology Routine Consulting Provider: [facility] Reason for consultation: afib with rvr, new diagnosis DS: Diagnosis Discharge Diagnosis (1) Atrial fibrillation with RVR: Status: Acute (2) Acute cholecystitis: Status: Acute DS: Summary Hospital Course Hospital Course: Hospital course: Patient presented wtih abdominal pain and work up revealed acute cholecystitis, she was also found have new onset of afib with RVR. acute calculous cholecystitis--Treated with Zosyn and had cholecystectomy on 02/22 and has been doing overall well post op, although she still has some pain, she had fever on post op day 2 that has resolved well over 24 hours. Cultures have been negative, will change antibiotics to Augmentin for total of 10 days. AF/RVR, brief - Cardiology consulted, no Anticoagulation for now, will follow-up as outpt - was on IV diltiazem and now PO metoprolol - TTE 02/21: - Normal left ventricular size and systolic function. There is mildly increased left ventricular wall thickness. The visually estimated ejection fraction is between 60-65%. - Normal right ventricular cavity size and systolic function. - There is no evidence of pericardial effusion. -outpatient Coronary CT and further testing with Dr. Richard HTN--Blood pressures have been on lower side and has been started on Metoprolol, so will stop Lisinopril asthma - Breo, prn albuterol hx breast CA - tamoxifen mood disorder - clonazepam excess EtOH intake - no signs of withdrawal Hypokalemia--replaced 3.1 at time of discharge, given supplement and to repeat lab during the week Time Attestation Discharge Coordination Time (in mins): 45 Quality: Safe Use of Opioids Does Pt have an Active Cancer Diagnosis on the Problem List?: No Quality: Stroke Does the patient have a stroke diagnosis?: No Physical Exam Vital Signs: Vital Signs: Last Vital Signs Temp 98.8 F 02/26/24 09:55 Pulse 78 02/26/24 09:54 Resp 15 02/26/24 09:54 BP 111/67 02/26/24 09:54 Pulse Ox 96 02/26/24 09:54 O2 Del Method Room Air 02/26/24 09:54 O2 Flow Rate 2 02/24/24 02:00 BMI result Body Mass Index 28.7 General: AO X 3, no acute distress Resp: CTA bilateral CVS: S1,S2,RRR GI: +BS, NT, no distention Skin: No rash Neuro: motor grossly intact Psych: appropriate affect DS: Data Data Completed and Pending Pending studies at discharge: Pending at discharge 02/23/24 14:55 Surgical [PTH] Routine Labs on day of discharge: Preliminary micro results at discharge 02/25/24 06:03 Blood Culture - Preliminary Blood - Venous No growth after 24 hours. 02/25/24 06:03 Blood Culture - Preliminary Blood - Venous No growth after 24 hours. Discharge Plan Discharge Anticipated Discharge Date/Time: 02/27/24 10:00 Patient Disposition: Home, Self-Care Discharge Diagnosis: Acute cholecystitis, AFIB Referrals: Russell Villagran MD [Physician] - 2 Weeks Physician,Pat J [Primary Care Provider] - 1 Week Discharge Medications: New oxycodone-acetaminophen [Percocet] 5-325 mg tablet 1 tab PO Q4-6H PRN (Reason: pain) Qty: 20 0RF Rx Instructions: Partial Fill upon patient request. amoxicillin-pot clavulanate 875-125 mg tablet 1 tab PO BID Qty: 8 0RF metoprolol tartrate 25 mg Tablet 25 mg PO BID Qty: 180 0RF Protocol: Hold for SBP/HR < HOLD for SBP < : 90 HOLD for HR < : 60 potassium chloride 20 mEq tablet extended release 20 meq PO DAILY Qty: 2 0RF Continued fluticasone propion-salmeterol [Wixela Inhub] 250-50 mcg/dose blister with device 1 ea inhalation BID ibuprofen 800 mg tablet 800 mg PO TID PRN (Reason: pain) clonazepam 1 mg tablet 1 mg PO BID tamoxifen 10 mg tablet 5 mg PO DAILY omeprazole 20 mg capsule,delayed release(DR/EC) 20 mg PO DAILY@0630 albuterol sulfate 90 mcg/actuation HFA aerosol inhaler 2 puff inhalation Q4H PRN (Reason: SOB/wheezing) multivitamin Tablet 1 tab PO DAILY clonazepam 1 mg tablet 1 mg PO DAILY PRN (Reason: Anxiety) Discontinued lisinopril 10 mg tablet 10 mg PO DAILY Discharge Orders: Discharge Order (Routine); Ordered 02/27/24 Ordered By: Narinder Nava Diet: Advance to usual diet Activity on Discharge: As tolerated Stand Alone Forms: Patient Portal Discharge page Print Language: Vietnamese Other Ambulatory Orders: Basic Metabolic Panel Fasting (Routine) Timeframe: [id number] Facility: [facility] - Location: Laboratory Ordered By: Narinder Nava Activity Restrictions/Additional Instructions: If the incision area is tender, you may apply an ice pack for short intervals (No more than 20 minutes on, followed by at least 20 minutes off). Do not apply heat. Do not use creams, lotions, or topical antibiotics. These can cause infection or allergic reaction. Ok to shower. You have steri strips (small white cloth strips) covering your incision- these w ill fall off ~1 week. Follow up in office with Dr. Villagran in 2 weeks. ([phone]) No heavy lifting (>10-20lbs) or strenuous activity! Call Your Doctor If: -Your temperature exceeds 101.5? F -You experience excessive pain or swelling -You have an unexpected reaction to medication -You have excessive bleeding -You experience continued vomiting/nausea -Your incision begins to separate -Your incision shows signs of infection such as increased redness, swelling, excessive pain, drainage (light blood or clear fluid is normal) or heat Care Plan Goals: recovery from acute cholecystitis Health Concerns: Cholecystitis Atrial fibrillation Abnormal EKG Plan of Treatment: Take Augmentin as recommended Follow-up with Dr. Villagran Follow-up with your primary care doctor within a week call for appointment Follow-up with Dr. Richard the office will call you for a follow-up appointment in the Cardiology office stop taking lisinopril, instead take metoprolol for blood pressure eat banana daily to keep potassium up check potassium level in the middle of the week take potassium tab 1 daily for 2 days Assessment: See above Discharge Date/Time: 02/27/24 18:38
[2024-02-27] MEDS: 0.9 % Sodium Chloride Flush 3 ML SYRINGE IVFLUSH ×3 (00:09→17:04)
[2024-02-27] MEDS: Piperacillin Sodium/Tazobactam 4.5 GM in 0.9 % Sodium Chloride 100 ML IV ×4 (00:12→17:04)
[2024-02-27 00:39] VITALS: BP 93/63; PULSE 68; RESP 18; TEMP 36.2; O2SAT 94
[2024-02-27] MEDS: oxyCODONE HCl Immed Release 5 MG TABLET PO ×4 (03:28→17:16)
[2024-02-27 05:00] VITALS: BP 92/54; PULSE 65; RESP 18; TEMP 36.1; O2SAT 94
[2024-02-27] MEDS: Omeprazole 20 MG CAPSULE.DR PO (05:39)
[2024-02-27 06:34] LABS: Hematocrit 31.5 % (37.0-47.0); Hemoglobin 10.5 g/dl (12.0-16.0); Mean Corpuscular HGB Conc 33.3 g/dl (31.0-35.0); Mean Corpuscular Hemoglobin 30.6 pg (27.0-33.0); Mean Corpuscular Volume 91.8 fL (80.0-98.0); Mean Platelet Volume 9.8 fL (9.4-12.3); Platelet Count 292 X10*3/uL (160-400); Red Blood Count 3.43 X10*6/uL (4.20-5.50); Red Cell Distribution Width 12.9 % (11.0-16.0); White Blood Count 8.1 X10*3/uL (4.8-10.8)
[2024-02-27 06:52] LABS: Anion Gap 11 (12-20); Blood Urea Nitrogen 6 mg/dL (9-16); Calcium 8.7 mg/dL (8.4-10.2); Carbon Dioxide 30 mmol/L (22-29); Chloride 106 mmol/L (96-108); Creatinine Clr Calc Pharmacy 89.8; Estimated Glomerular Filt Rate > 60; Glucose Random 108 mg/dL (60-115); Sodium 144 mmol/L (135-145)
--- NOTE | 2024-02-27 07:56 | PM.PNGS ---
Subjective Subjective Date of Service: 02/27/24 Interval history: Feels well this morning Says she did not get dinner last night - her order was not taken She feels ready to go home today Has been ambulating Overall feels better Physical Exam Vital Signs: Vital Signs: Last Vital Signs Temp 96.9 F 02/27/24 05:00 Pulse 65 02/27/24 05:00 Resp 18 02/27/24 05:00 BP 92/54 L 02/27/24 05:00 Pulse Ox 94 02/27/24 05:00 O2 Del Method Room Air 02/27/24 05:00 O2 Flow Rate 2 02/24/24 02:00 BMI result Body Mass Index 28.7 Const: General: comfortable and no acute distress Eyes: Other: Anicteric sclerae Resp: Effort & Inspection: normal respiratory effort Cardio: Rate: regular rate GI: Other: Incisions all clean and dry Palpation (GI): Soft to palpation, not firm and no guarding Objective Data Active Medications Acetaminophen (Acetaminophen 325 Mg Tablet) 650 mg PO Q6H PRN PRN Reason: Pain, Mild (Pain Scale 1-3), fever or headache Last Admin: 02/25/24 13:01 Dose: 650 mg Documented By: ALEXANDRU Albuterol Sulfate (Albuterol Sulfate 90 Mcg 8 Gm Inhaler) 2 puff INHALE RQ4H PRN PRN Reason: SOB/wheezing Calcium Carbonate (Calcium Carbonate 750 Mg Tab.Chew) 750 mg PO Q4H PRN PRN Reason: Heartburn Last Admin: 02/25/24 21:59 Dose: 750 mg Documented By: MANISHA Clonazepam (Clonazepam 1 Mg Tablet) 1 mg PO DAILY PRN PRN Reason: Anxiety Clonazepam (Clonazepam 1 Mg Tablet) 1 mg PO BID [facility] Last Admin: 02/26/24 20:47 Dose: 1 mg Documented By: ALEXANDRU Docusate Sodium (Docusate Sodium 100 Mg Capsule) 100 mg PO BID [facility] Last Admin: 02/26/24 20:47 Dose: 100 mg Documented By: ALEXANDRU Fluticasone/Vilanterol (Fluticasone/Vilanterol 100/25 Blst.W.Dev) 1 puff INHALE RDAILY [facility] Last Admin: 02/26/24 07:35 Dose: Not Given Documented By: TATO Non-Admin Reason: Patient Refused Hydromorphone HCl (Hydromorphone Hcl 1 Mg/Ml Syringe) 1 mg IVPUSH Q3H PRN; Protocol PRN Reason: Pain, Severe (Pain Scale 7-10) Last Admin: 02/25/24 21:59 Dose: 1 mg Documented By: MANISHA Piperacillin Sod/Tazobactam (Sod 4.5 gm/ Sodium Chloride) 100 mls @ 200 mls/hr IV Q6H [facility] Last Infusion: 02/27/24 06:12 Dose: Infused Documented By: LIYAH Magnesium Hydroxide (Milk Of Magnesia 30 Ml Oral.Susp) 30 ml PO DAILY PRN PRN Reason: Constipation Melatonin (Melatonin 3 Mg Tablet) 6 mg PO BEDTIME PRN PRN Reason: Insomnia Metoprolol Tartrate (Metoprolol Tartrate 25 Mg Tablet) 25 mg PO BID [facility]; Protocol Last Admin: 02/26/24 20:47 Dose: 25 mg Documented By: ALEXANDRU Multivitamins/Vitamin C (Multivitamin Tablet) 1 tab PO DAILY [facility] Last Admin: 02/26/24 10:00 Dose: 1 tab Documented By: ALEXANDRU Nicotine (Nicotine 7 Mg Patch.Td24) 7 mg TRANSDERMA DAILY [facility] Last Admin: 02/26/24 09:47 Dose: Not Given Documented By: ALEXANDRU Non-Admin Reason: Patient Refused Omeprazole (Omeprazole 20 Mg Capsule.) 20 mg PO DAILY@0630 [facility] Last Admin: 02/27/24 05:39 Dose: 20 mg Documented By: LIYAH Ondansetron HCl (Ondansetron Hcl 4 Mg/2 Ml Vial) 4 mg IVPUSH Q8H PRN PRN Reason: Nausea and Vomiting Oxycodone HCl (Oxycodone Hcl Immed Release 5 Mg Tablet) 5 mg PO Q4H PRN PRN Reason: Pain, Moderate(Pain Scale 4-6) Last Admin: 02/27/24 03:28 Dose: 5 mg Documented By: LIYAH Sodium Chloride (0.9 % Sodium Chloride Flush 3 Ml Syringe) 3 ml IVFLUSH QSHIFT [facility] Last Admin: 02/27/24 00:09 Dose: 3 ml Documented By: LIYAH Tamoxifen Citrate (Tamoxifen Citrate 10 Mg Tablet) 5 mg PO DAILY [facility] Last Admin: 02/26/24 10:01 Dose: 5 mg Documented By: ALEXANDUR Labs 02/27/24 05:50 02/27/24 05:50 Labs: Laboratory Results - last 24 hr 02/27/24 05:50 MCV 91.8 MCH 30.6 MCHC 33.3 RDW 12.9 Plt Count 292 D MPV 9.8 Absolute Nucleated RBC 0.000 Nucleated RBC % (auto) 0.0 Anion Gap 11 L Estim Creat Clear Calc 89.8 Estimated GFR > 60 Random Glucose 108 Calcium 8.7 Microbiology Microbiology Results: Microbiology 02/25/24 06:03 Blood Culture - Preliminary Blood - Venous No growth after 24 hours. 02/25/24 06:03 Blood Culture - Preliminary Blood - Venous No growth after 24 hours. Procedures Date of Service Date of Service: 02/27/24 Progress Note: A&P Assessment and plan (1) Acute cholecystitis: Status: Acute Assessment and Plan: Status post laparoscopic cholecystectomy Doing well Abdomen soft and benign Has been tolerating diet Good pain control Okay to DC home today Discharge instructions reinforced with patient Time Spent With Patient Time: Total time managing care of this patient today ____ minutes. Quality Stroke Does the patient have a stroke diagnosis?: No VTE Prior VTE?: No VTE Risk Level:: Medical - moderate - high VTE Device Contraindication: N/A - Device Ordered VTE Drug Contraindication: Treatment Not Indicated
[2024-02-27 08:16] VITALS: BP 106/61; PULSE 64; RESP 18; TEMP 36.7; O2SAT 94
[2024-02-27 08:31] VITALS: BP 106/61; PULSE 64
[2024-02-27] MEDS: Docusate Sodium 100 MG CAPSULE PO (08:31)
[2024-02-27] MEDS: clonazePAM 1 MG TABLET PO (08:31)
[2024-02-27] MEDS: Metoprolol Tartrate 25 MG TABLET PO (08:31)
[2024-02-27] MEDS: Tamoxifen Citrate 10 MG TABLET 5 MG PO (08:32)
[2024-02-27] MEDS: Multivitamin TABLET 1 TAB PO (08:32)
[2024-02-27] MEDS: Potassium Chloride ER 20 MEQ TAB.ER.PRT 40 MEQ PO ×2 (10:34→17:16)
[2024-02-27 12:00] VITALS: BP 91/56; PULSE 74; RESP 18; TEMP 36.2; O2SAT 96
--- NOTE | 2024-02-27 13:50 | MHC.CM.PN ---
Addendum entered by Nadege Neville 02/27/24 15:11: Pt.'s DC has been cancelled. Original Note: Pt has been medically cleared for DC, she will go home via private transport, DC plan is home, self care.
[2024-02-27 14:53] LABS: Anion Gap 11 (12-20); Carbon Dioxide 28 mmol/L (22-29); Chloride 105 mmol/L (96-108); Potassium 3.1 mmol/L (3.3-5.1); Sodium 141 mmol/L (135-145)
[2024-02-27 15:34] VITALS: BP 120/67; PULSE 75; RESP 18; TEMP 37.4; O2SAT 98
[2024-02-27] MEDS: Acetaminophen 325 MG TABLET 650 MG PO (17:04)
== END 2024-02-27 18:38 | disposition home or self-care (01) | DRG 263 ==
LOC: HO.ED 02-22 03:17 → HO.EDOVER 02-22 06:19 → HO.IMC 02-22 19:18
PROVIDERS: Emergency Medicine Emergency Medical Services; Family Medicine; Surgery; Admitting Provider Student in an Organized Health Care Education/Training Program; Emergency Provider Internal Medicine; Visit Provider Internal Medicine
PROC: 0FT44ZZ Resection of Gallbladder, Percutaneous Endoscopic Approach (ICD-10-PCS; CPT 47562; principal; 2024-02-23 13:30)
DX: K80.01 Calculus of gallbladder with acute cholecystitis with obstruction (principal); K82.1 Hydrops of gallbladder; C50.912 Malignant neoplasm of unspecified site of left female breast; J45.909 Unspecified asthma, uncomplicated; I48.0 Paroxysmal atrial fibrillation; F17.210 Nicotine dependence, cigarettes, uncomplicated; F39 Unspecified mood [affective] disorder; I10 Essential (primary) hypertension; Z92.3 Personal history of irradiation; Z90.12 Acquired absence of left breast and nipple; Z71.6 Tobacco abuse counseling; Z79.51 Long term (current) use of inhaled steroids; Z79.810 Long term (current) use of selective estrogen receptor modulators (SERMs); Z79.899 Other long term (current) drug therapy
CPT/HCPCS: 36415; 74177; 76705; 80048; 80051; 80053; 80307; 81001; 83605; 83690; 83735; 84443; 84484; 85025; 85027; 87040; 87086; 87147; 88304; 93005; 93306; 99285; J1100; J1160; J1171; J2003; J2405; J2543; J2704; J2795; J3010; J7120; Q9957; Q9967

== ENCOUNTER 2024-02-22 06:18 | Outpatient (BNV) | payer OTHER, SELFPAY | END 2024-02-24 12:10 | PROVIDERS: Admitting Provider Student in an Organized Health Care Education/Training Program; Emergency Provider Internal Medicine; Visit Provider Internal Medicine Cardiovascular Disease | DX: R94.31 Abnormal electrocardiogram [ECG] [EKG] (principal) | CPT/HCPCS: 93010 ==

== ENCOUNTER 2024-02-22 06:18 | Outpatient (BNV) | payer OTHER, SELFPAY | END 2024-02-23 | PROVIDERS: Admitting Provider Student in an Organized Health Care Education/Training Program; Emergency Provider Internal Medicine; Visit Provider Internal Medicine Cardiovascular Disease | DX: R94.31 Abnormal electrocardiogram [ECG] [EKG] (principal) | CPT/HCPCS: 93010 ==

== ENCOUNTER → 2024-02-22 06:18 | Outpatient (BNV) | payer OTHER, SELFPAY | PROVIDERS: Admitting Provider Student in an Organized Health Care Education/Training Program; Emergency Provider Internal Medicine; Visit Provider Surgery | DX: K80.00 Calculus of gallbladder with acute cholecystitis without obstruction (principal) | CPT/HCPCS: 47562; 99024; 99223; 99499 ==

== ENCOUNTER → 2024-02-22 06:18 | Outpatient (BNV) | payer OTHER, SELFPAY | PROVIDERS: Admitting Provider Student in an Organized Health Care Education/Training Program; Emergency Provider Internal Medicine; Visit Provider Internal Medicine Cardiovascular Disease | DX: I48.91 Unspecified atrial fibrillation (principal); K81.0 Acute cholecystitis | CPT/HCPCS: 93010; 93306; 99223; 99233 ==

== ENCOUNTER → 2024-02-22 06:18 | Outpatient (BNV) | payer OTHER, SELFPAY | PROVIDERS: Admitting Provider Student in an Organized Health Care Education/Training Program; Emergency Provider Internal Medicine; Visit Provider Student in an Organized Health Care Education/Training Program | DX: I48.91 Unspecified atrial fibrillation (principal); K81.0 Acute cholecystitis | CPT/HCPCS: 99223; 99232; 99239; 99499 ==

== ENCOUNTER 2024-03-01 08:36 | Outpatient (REF) | payer OTHER, SELFPAY ==
[2024-03-01 09:16] LABS: Hematocrit 36.9 % (37.0-47.0); Mean Corpuscular HGB Conc 32.5 g/dl (31.0-35.0); Mean Corpuscular Hemoglobin 30.2 pg (27.0-33.0); Mean Corpuscular Volume 92.7 fL (80.0-98.0); Mean Platelet Volume 9.2 fL (9.4-12.3); Platelet Count 560 X10*3/uL (160-400); Red Blood Count 3.98 X10*6/uL (4.20-5.50); White Blood Count 8.5 X10*3/uL (4.8-10.8)
[2024-03-01 09:37] LABS: Anion Gap 14 (12-20); Blood Urea Nitrogen 8 mg/dL (9-16); Calcium 9.8 mg/dL (8.4-10.2); Carbon Dioxide 25 mmol/L (22-29); Chloride 106 mmol/L (96-108); Estimated Glomerular Filt Rate > 60; Glucose Fasting 106 mg/dL (60-99); Potassium 3.8 mmol/L (3.3-5.1); Sodium 141 mmol/L (135-145)
== END 2024-03-01 08:37 | disposition home or self-care (01) ==
LOC: HO.LAB 08:36
PROVIDERS: Absent Provider Surgery; PCP Internal Medicine; Visit Provider Internal Medicine
DX: E87.6 Hypokalemia (principal); K81.0 Acute cholecystitis
CPT/HCPCS: 36415; 80048; 85027

== ENCOUNTER 2024-04-11 08:41 | Outpatient (AMB) | payer OTHER, SELFPAY ==
--- NOTE | 2024-04-11 08:42 | MHC.OFFVIS ---
Vital Signs 04/11/24 08:49 Height 5 ft 4 in Weight 160 lb BMI 27.5 Intake Visit Reasons: pain at surg site Intake Note: This patient presents for surgical site pain, history of laparoscopic cholecystectomy 02/23/2024. Pt c/o; reports RUQ pain when takes a deep breathe or when she presses on the area. 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 Accompanied by: Self / Same As Patient Allergies morphine Allergy (Verified 04/11/24 08:49) Diarrhea Medication List - Last Reconciled 04/11/24 by Russell Villagran MD albuterol sulfate 90 mcg/actuation 2 puffs inhalation Q4H PRN amoxicillin-pot clavulanate 875-125 mg 1 tab PO BID clonazepam 1 mg PO BID clonazepam 1 mg PO DAILY PRN fluticasone propion-salmeterol 250-50 mcg/dose (Wixela Inhub) 1 ea inhalation BID ibuprofen 800 mg PO TID PRN metoprolol tartrate 25 mg See Protocol PO BID multivitamin 1 tab PO DAILY omeprazole 20 mg PO DAILY@0630 oxycodone-acetaminophen 5-325 mg (Percocet) 1 tab PO Q4-6H PRN potassium chloride ER 20 mEq PO DAILY tamoxifen 5 mg PO DAILY HPI HPI pain at surg site: Details: 58 year old female here for postop visit. She had undergone laparoscopic cholecystectomy for acute cholecystitis as an inpatient last 02/23/2024. She currently has good oral intake. She denies GI complaints. She does describes some periodic mild pain with deep inspiration on the right upper quadrant. Otherwise, she says she has been doing well. [facility] Medical History Breast cancer, left Hypertension Asthma Mood disorder Surgical History (Updated 04/11/24 @ 09:23 by Russell Villagran MD) Status post laparoscopic cholecystectomy History of laparoscopic cholecystectomy (~02/23/24) Social History Household Members: Spouse Housing: House Are you a primary hemodialysis patient care specialist to a significant other at home: No Do you presently have visiting nurse or other home services: No Patient Tobacco Use Status: Current everyday Tobacco user Tobacco use type: Smokeless Tobacco e-Cigarette/Vaping Use: Currently Using Second Hand Smoke Exposure: No service: No Review of Systems Const Denies chills and Denies fever(s) Card Denies chest pain, Denies dyspnea and Denies dyspnea on exertion Resp Denies cough, Denies dyspnea and Denies dyspnea on exertion GI Denies hematochezia and Denies change in bowel habits Denies hematuria Musc Denies back pain and Denies limited range of motion Neuro Denies focal weakness and Denies convulsions Psych Denies depression and Denies mood swings Physical Exam Vital Signs: BMI result Body Mass Index 27.5 Const General: comfortable and no acute distress Eyes Other: Anicteric GI Palpation (GI): Soft to palpation, not firm, nontender and no guarding Assessment & Plan Assessment & Plan (1) Status post laparoscopic cholecystectomy: Code(s): Z90.49 - Acquired absence of other specified parts of digestive tract Category: Surgical Plan: She is doing very well. Her abdominal exam is very benign. She has good oral intake and denies GI complaints I told that if she has problems down the line or any concerns, she can follow up with me on a p.r.n. basis. Coding Level of Care Code Global (33289) Diagnoses Status post laparoscopic cholecystectomy Z90.49
[2024-04-11 08:49] VITALS: BMI 27.5
--- OUTSIDE RECORDS SUMMARY | 2024-04-11 23:06 | XMS_ITS | Data Portability ---
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 chirag Weir MD [address], [place], [address] , [facility] 4 18:02:08 Generali zed abdomina l pain 107237098 Completed 201211/13/2013 RECORDED 05/13/19 13 10:39AM BY LORENZO BEVERLY/KIAN Weir MD [address], [place], [address] , [facility] 6 13:42:06 Mammogra phy abnormal 649991302 Completed 201111/13/2013 STORY: MRI WAS DONE 06/2009 FOR LEFT MAMMOSYM METRIC RITA TIKI AND THE MRI REVEALED NO EVIDENCE OF LEFT BREAST MALIGANC Y. HOWEVER, THERE WAS A NEW FINDING OF SMALL LESION IN THE RIGHT BREAST WITH RECOMMEN DATION FOR U/S FOLLOW UP.; RECORDED 12/09/19 12 2:17PM BY LORENZO BEVERLY/KIAN Weir MD [address] [facility] [address], [place], [address] , [facility] 6 13:42:06 Acute pharyngi tis 235668164 Completed 201311/13/2013 IMPRESSI ON: SYMPTOM SCORE OVERALL LOW BUT EXPOSURE RISK RAISES POSSIBIL ITY FOR STREP. WILL TREAT DESPITE NEGATIVE RAPID TEST AND D/C IF CULTURE IS NEGATIVE . SUPPORTI VE/SYMPT OMATIC TREATMEN T ADVISED IN MEANTIME .; RECORDED 06/21/19 14 9:20AM BY LORENZO BEVERLY/KIAN Weir MD [address], [place], [address] , [facility] 6 13:42:05 Acute sinusiti s 53229591 Completed 200811/13/2013 DATE: 12/14/19 09; RECORDED 12/09/19 12 2:17PM BY LORENZO BEVERLY ON/ADDEN T[facility]I [facility] 9 11:24:59 Gilda slade 43613596 Active 2013 Not Available [facility] 3 12:36:04 Allergic rhinitis 25512319 Completed 200711/13/2013 RECORDED 01/03/20 08 1:25PM BY LORENZO HODGE ON/ADDCATRACHO Weir MD [address], [place], [address] , [facility] 6 13:42:06 Anxiety state 622385649 Active 2013 Not Available [facility] 3 12:36:04 Dysthymi a 29212093 Completed 201311/13/2013 IMPRESSI ON: WE WILL GIVE HER A LIST OF PROVIDER S AND SHE WILL MAKE AN APPT; SHE WILL CONTINUE WITH KLONOPIN BUT HAS REFUSED AN ANTIDEPR ESSANT.; RECORDED 06/21/19 14 9:20AM BY LORENZO BEVERLY/KIAN Weir MD [address] [facility] [address], [place], [address] , [facility] 6 13:42:05 Asthma 593741653 Active 2013 Not Available [facility] 3 12:36:04 Intrinsi c asthma 848170552 Completed 201111/13/2013 RECORDED 12/09/19 12 2:17PM BY LORENZO BEVERLY/KIAN Weir MD [address], [place], [address] , [facility] 6 13:42:06 Acute asthma 522403612 Completed 200811/13/2013 RECORDED 12/14/19 09 1:04PM BY ZO BATESATI ON/ADDEN DUM [facility]erson [facility] 9 11:25:22 Screenin g for malignan t neoplasm of breast Completed 200811/13/2013 RECORDED 12/14/19 09 1:03PM BY LORENZO BATES ON/ADDEN DUM Zenobia Weir MD [address], [place], [address] , [facility] 6 13:42:06 Solitary cyst of breast 213161224 Completed 201111/13/2013 RECORDED 12/09/19 12 2:17PM BY LORENZO BEVERLY ON/ADDEN BRITTNI Weir MD [address], [place], [address] , [facility] 6 13:42:06 Disorder of lower limb 528459058 Completed 201111/13/2013 RECORDED 12/09/19 12 2:17PM BY LORENZO BEVERLY ON/KIAN Weir MD [address], [place], [address] , [facility] 6 13:42:06 Screenin g for malignan t neoplasm of cervix Completed 201111/13/2013 RECORDED 12/09/19 12 2:17PM BY LORENZO BEVERLY ON/KIAN Weir MD [address], [place], [address] , [facility] 6 13:42:06 Screenin g for malignan t neoplasm of colon Completed 201211/13/2013 RECORDED 12/28/19 13 10:05AM BY LORENZO BEVERLY ON/KIAN Weir MD [address], [place], [address] , [facility] 6 13:42:06 Contact dermatit is 53096452 Active 2013 Not Available [facility] 3 12:36:04 Cough 92900122 Completed 201111/13/2013 IMPRESSI ON: HX OF ASTHMA, SMOKER. COUGH, WHEEZE AND CHEST TIGHTNES S > 1 WEEK. NOT RESPONDI NG TO ALBUTERO L VIA NEB, ALTHOUGH USING ONLY IN AMS OR ADVAIR, WHICH SHE IS USING ONCE DAILY. DISCUSSE D TX OPTIONS, CHECK XRAY. EXAM SUSPICIO US FOR POSSIBLE R SIDED PNA. SHE IS RELUCTAN T TO START MEDS. INCREASE ALBUTERO L TO Q 4 HRS, ADVAIR TO BID. WILL START PRED IF LITTLE BENEFIT, AUGMENTI N IF + CXR.; RECORDED 12/09/19 12 2:17PM BY LORENZO BEVERLY ON/ADDEN DUM Zenobia Weir MD [address], [place], [address] , [facility] 6 13:42:06 Tobacco dependen ce syndrome 87785105 Completed 201311/13/2013 RECORDED 06/21/19 14 9:20AM BY LORENZO BEVERLY ON/ADDEN TIKI [facility] 9 11:26:31 Single major depressi ve episode Completed 201304/24/2020 GIVEN A HANDOUT WITH MENTAL HEALTH PROVIDER S AND SHE MAY CONTACT ONE FOR COUNSELI KWADWO Weir MD [address], [place], [address] , [facility] 0 12:18:28 Dizzines s and giddines s 465060132 Completed 200811/13/2013 RECORDED 12/14/19 09 1:04PM BY LORENZO BATES ON/ADDEN BRITTNI Weir MD [address], [place], [address] , [facility] 6 13:42:06 Influenz a vaccine needed 76793095329 06 Completed 201311/13/2013 RECORDED 06/21/19 14 9:20AM BY DAVID CRAIG I, LORENZO ON/KIAN Weir MD [address] [facility] [address], [place], [address] , [facility] 6 13:42:06 General examinat ion of patient Completed 200711/13/2013 RECORDED 12/24/19 08 11:52AM BY ZENOBIA PINEDA MD, LORENZO ON/KIAN Weir MD [address] [facility] [address], [place], [address] , [facility] 6 13:42:06 Impacted cerumen 51626002 Completed 201304/04/2014 RECORDED 11/06/19 14 11:40AM BY AKHIL CAMARENA MA, OFFICE VISIT Zenobia Weir MD [address] [facility] [address], [place], [address] , [facility] 6 13:42:05 Peripher al vascular disease 189228446 Completed 201111/13/2013 RECORDED 12/09/19 12 2:16PM BY LORENZO BEVERLY ON/KIAN Weir MD [address], [place], [address] , [facility] 6 13:42:05 Disorder of upper respirat ory system 280545824 Completed 201111/13/2013 IMPRESSI ON: 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 RESOLVED WITH TOPICAL ABX OINT.; RECORDED 12/09/19 12 2:16PM BY LORENZO BEVERLY ON/KIAN Weir MD [address] [facility] [address], [place], [address] , [facility] 6 13:42:06 Administ ration of bacteria l and viral vaccine Completed 200911/13/2013 RECORDED 08/16/19 10 4:02PM BY ZENOBIA PINEDA MD, OFFICE VISIT Zenobia Weir MD [address], [place], [address] , [facility] 6 13:42:06 Open wound of nose 737804490 Completed 200711/13/2013 RECORDED 02/07/20 08 11:58AM BY GERSON FULLER MA, LORENZO ON/ADDEN DUM Zenobia Weir MD [address], [place], [address] , [facility] 6 13:42:06 Pediculo sis capitis 10497115 Completed 200711/13/2013 RECORDED 02/16/20 08 2:44PM BY NICK SEVILLA, LORENZO ON/ADDEN DUM Zenobia Weir MD [address], [place], [address] , [facility] 6 13:42:05 Verruca plantari s 39447805 Completed 201311/13/2013 IMPRESSI ON: ADVISED OTC PRODUCTS ; RECORDED 06/21/19 14 9:20AM BY LORENZO BEVERLY ON/ADDEN DUM Zenobia Weir MD [address], [place], [address] , [facility] 6 13:42:05 Eruption 704045250 Completed 200711/13/2013 RESOLVED DATE: 12/24/19 08; RECORDED 12/24/19 08 11:52AM BY ZENOBIA PINEDA MD, LORENZO ON/ELFEGOEN BRITTNI Weir MD [address], [place], [address] , [facility] 6 13:42:06 Adult health examinat ion Completed 201111/13/2013 RECORDED 12/09/19 12 2:16PM BY LORENZO BEVERLY ON/KIAN Weir MD [address], [place], [address] , [facility] 6 13:42:06 Chronic sinusiti s 37469975 Completed 201211/13/2013 RECORDED 12/28/19 13 10:05AM BY LORENZO BEVERLY ON/KIAN Weir MD [address], [place], [address] , [facility] 6 13:42:06 Candidia sis of mouth 71185556 Completed 201211/13/2013 RECORDED 12/28/19 13 10:05AM BY LORENZO BEVERLY ON/KIAN Weir MD [address], [place], [address] , [facility] 6 13:42:05 Tobacco dependen ce syndrome 09419570 Completed 201309/06/2018 Removal Reason: quit Gerson Radha ackerman MA null, [facility] 9 11:26:31 Disorder of tongue 16950678 Completed 201111/13/2013 IMPRESSI ON: ALTHOUGH BLACK I ? THRUST GIVEN THE FACT YOU CAN SCRAPE OFF AND SHE HAS BEEN USING ADVAIR MORE. DISCUSSE D USE OF NYSTATIN WHICH SHE CURRENTL Y DECLINES . WILL CHECK IN 1 WEEK, IF NO BETTER TO START.; RECORDED 12/09/19 12 2:16PM BY LORENZO BEVERLY ON/KIAN Weir MD [address], [place], [address] , [facility] 6 13:42:06 Abnormal weight loss 050551295 Completed 201306/20/2014 RECORDED 11/06/19 14 11:40AM BY AKHIL CAMARENA MA, OFFICE VISIT Zenobia Weir MD [address] [facility] [address], [place], [address] , [facility] 6 13:42:06 Disorder of bone and articula r cartilag e 610092340 Completed 201111/13/2013 IMPRESSI ON: TENDERNE SS OVER XIPHOID PROCESS, HAS BEEN DOING ALOT OF YARDWORK , WILL CHECK AN XRAY BUT SUSPECT THIS IS JUST INFLAMMA TION, RECOMMEN D NSAIDS; RECORDED 12/09/19 12 2:16PM BY DAVID CRAIG I, ANNOTATI ON/ADDEN DUM Zenobia Weir MD [address] [facility] [address], [place], [address] , [facility] 6 13:42:06 Notes:Some problems listed i n Documents: #[id number], #[id number], #[id number] could not be added to this patient's chart. Please review these documents and add these problems to the patient's chart manually as needed. Problem Notes None recorded. Procedures Surgical History Date Name Laterality Status Provider Name and Address Organization Details Recorded Time 02/22 Laparoscopic cholecystectomy completed Prema Recio [facility] 4 13:49:10 08/19 Colonoscopy completed Prema Recio [facility] 3 10:54:36 06/15 lumpectomy of left breast completed Trey Recio [facility] 3 15:33:41 05/12 Most Recent Mammogram completed Prema Recio [facility] 3 09:26:43 02/16 Date of Last Pap Smear completed Ruth Hummel [facility] 2 11:19:40 03/23 Mammogram screening completed Ruth Shaheed [facility] 11:49:59 01/13 esophagogastroduodenoscopy completed Booker low Hummel [facility] 12:01:46 10/17 Date of Last Colonoscopy completed Torie Acuña [facility] 12:59:48 05/25 Mammogram one breast completed Gerson ackerman MA [facility] 9 11:27:42 09/30 Appendectomy completed David Dennis [facility] 5 11:03:40 05/02 Hernia Repair completed David Dennis [facility] 5 11:03:40 Breast Biopsy completed Dia Ren [facility] 09:25:51 Imaging Results Imaging Date Name Status LastModified by Organization Details LastModified Time 02/18/2024 MRI, brain, w/o contrast completed [address] [place], [address], 02/27/2024 11:36:57 02/22/2024 electrocardiogram completed Inform ation not available 03/01/2024 13:59:56 02/22/2024 CT, abdomen + pelvis, w/ contrast completed Information not available 03/01/2024 13:59:57 02/22/2024 US, abdomen, limited completed Inf ormation not available 03/01/2024 13:59:43 Procedure Notes None recorded. Medical Equipment None Reported. Allergies Allergen ID Allergen Name Allergen Category Reaction Reaction Severity Criticality Documentation Date Start Date Code Code System Note Provider Name and Address Organization Details Recorded Time 76425 morphine medicatio n hives moderate Not available 06/20/2014 7052 RxNorm David villegas [facility] 5 11:03:40 28726 azithromy vj medicatio n diarrhea severe Not available 07/19/2015 44708 RxNorm TIKI Fuchs, [facility] 6 11:40:28 23195 Substance with sulfonami de structure and antibacte rial mechanism of action (substanc e) medicatio n Not available Not available Not available 12/10/2021 65745 8003 SNOMED Gerson TIKI Hardy, [facility] 2 09:41:26 Medications Name Sig Start Date Stop Date Status Note LastModified by Organization Details LastModified Time amoxicill in 500 mg capsule TAKE 1 CAPSULE BY MOUTH EVERY 8 HOURS FOR 10 DAYS 03/17 completed Not Available Not Available Not Available azithromy vj 250 mg tablet TAKE 2 TABLETS (500 MG) BY ORAL ROUTE ONCE DAILY FOR 1 DAY THEN 1 TABLET (250 MG) BY ORAL ROUTE ONCE DAILY FOR 4 DAYS 11/25 completed Not Available Not Available Not Available ibuprofen 800 mg tablet TAKE 1 TABLET 3 TIMES A DAY BY ORAL ROUTE NEEDED, FOR PAIN. active Not Available Not Available No t Available fluconazo le 150 mg tablet TAKE 1 TABLET EVERY 72 HOURS BY ORAL ROUTE DIRECTED FOR 6 DAYS. 12/14 completed Not Available Not Available Not Available citalopra m 10 mg tablet DAILY 2013 active RECORDED 06/21/19 14 1:20PM BY ZENOBIA PINEDA MD, OFFICE VISIT; Not Available Not Available Not Available senna 8.6 mg tablet Take 2 tablets every day by oral route for 30 days. 05/17 completed Not Available Not Available Not Available fluconazo le 200 mg tablet QD 12/26 completed RECORDED 12/31/19 12 11:58AM BY ZENOBIA PINEDA MD, MEDICATI ON AUTO-KIERA CTIVATIO N; Not Available Not Available Not Available meloxicam 15 mg tablet TAKE 1 TABLET EVERY DAY BY MOUTH FOR 30 DAYS, FOR KNEE PAIN. 01/11 completed Not Available Not Available Not Available clonazepa m 0.5 mg tablet TAKE 1 TABLET BY MOUTH TWICE A DAY active Not Available Not Available No t Available clonazepa m 1 mg tablet TAKE 2 TABLETS BY MOUTH IN THE MORNING AND TAKE 1 TABLET IN THE EVENING NEEDED 2023 active Not Available Not Available Not Avai lable permethri n 5 % topical cream X1 02/06 completed RECORDED 02/07/20 10 3:00PM BY TIKI ORTIZ, ANNOTATI ON/KIAN ELKINS;THIS ORDER DISCONTI NUED PER [facility]. Not Available Not Available Not Available penicilli n V potassium 500 mg tablet TWO TIMES DAILY 01/12 completed Not Available Not Available Not Available Advair Diskus 100 mcg-50 mcg/dose powder for inhalatio n Inhale 1 puff twice a day by inhalati on route. 01/12 completed Not Available Not Available Not Available ciproflox acin 250 mg tablet TAKE 1 TABLET BY MOUTH EVERY 12 HOURS FOR 3 DAYS 04/04 completed Not Available Not Available Not Available Tamiflu 75 mg capsule active Not Available Not Available Not Available sulfameth oxazole 800 mg-trimet hoprim 160 mg tablet TWO TIMES DAILY 11/19 completed RECORDED 12/01/19 10 2:38PM BY HENNA BACH, MEDICATI ON AUTO-KIERA CTIVATIO N; Not Available Not Available Not Available peg-elect rolyte solution 420 gram oral solution TAKE DIRECTED (1 FULL GLASS) EVERY 15-30 MINUTES UNTIL FINISHED 12/14 completed Not Available Not Available Not Available omeprazol e 40 mg capsule,d elayed release 03/03 completed Not Available Not Available Not Available amoxicill in 500 mg tablet TID 07/13 completed RECORDED 07/22/19 07 9:39AM BY ALLAN BRAXTON MD, MEDICATI ON AUTO-KIERA CTIVATIO N; Not Available Not Available Not Available oxycodone -acetamin ophen 5 mg-325 mg tablet TAKE 1 TABLET BY MOUTH EVERY 4 TO 6 HOURS NEEDED FOR PAIN 04/04 completed Not Available Not Available Not Available amoxicill in 875 mg tablet Take 1 tablet twice a day by oral route for 5 days. 07/09 completed Not Available Not Available Not Available hydromorp jose 2 mg tablet 09/23 completed Not Available Not Available Not Available lorazepam 0.5 mg tablet DAILY PRN 05/22 completed RECORDED 05/22/19 11 5:49PM BY ZENOBIA PINEDA MD, LORENZO ON/ DUM; Not Available Not Available Not Available dicyclomi ne 20 mg tablet 03/03 completed Not Available Not Available Not Available tamoxifen 10 mg tablet TAKE 1/2 TABLET BY MOUTH ONCE A DAY active Not Available Not Available No t Available cephalexi n 500 mg capsule TAKE 1 CAPSULE BY MOUTH EVERY 12 HOURS 09/16 completed Not Available Not Available Not Available lisinopri l 10 mg tablet Take 1 tablet every day by oral route as directed for 90 days. 03/01 completed Not Available Not Available Not Available prednison e 50 mg tablet TAKE 1 TABLET BY MOUTH EVERY DAY FOR 5 DAYS 06/18 completed Not Available Not Available Not Available Klonopin 2 mg tablet Take 1 tablet twice a day by oral route as needed for 14 days. 11/08 completed Not Available Not Available Not Available mupirocin calcium 2 % topical cream APPLY A SMALL AMOUNT TO THE AFFECTED AREA BY TOPICAL ROUTE 3 TIMES PER DAY FOR 10 DAYS 09/23 completed Not Available Not Available Not Available omeprazol e 20 mg capsule,d elayed release TAKE 1 CAPSULE BY MOUTH EVERY DAY active Not Available Not Available No t Available diclofena c sodium 75 mg tablet,de layed release Take 1 tablet twice a day by oral route as needed for 30 days. 01/21 completed Not Available Not Available Not Available Jordan's wort 1,000 mg capsule active RECORDED 04/23/20 10 2:10PM BY ZENOBIA PINEDA MD, LORENZO ON/; Not Available Not Available Not Available mupirocin 2 % topical ointment BID to qtip - insert B nares (individ ually) x 10 days 09/23 completed RECORDED 08/16/19 10 2:37PM BY LORENZO PONCE ON/ DUM; Not Available Not Available Not Available Nasal Saline 0.65 % spray aerosol 07/02 completed RECORDED 07/03/19 11 5:47PM BY LORENZO READ ON/ADDEN DUM;THIS ORDER DISCONTI NUED PER [facility]. Not Available Not Available Not Available levofloxa vj 500 mg tablet Take 1 tablet every 24 hours by oral route for 10 days. active Not Available Not Available No t Available albuterol sulfate HFA 90 mcg/actua tion aerosol inhaler INHALE 2 PUFFS EVERY 4 HOURS BY INHALATI ON ROUTE NEEDED active Not Available Not Available No t Available ketoconaz ole 2 % topical cream APPLY TO THE AFFECTED AREA(S) BY TOPICAL ROUTE ONCE DAILY x 14 days 10/07 completed Not Available Not Available Not Available clotrimaz ole 1 % topical cream APPLY TO AFFECTED AREA TWICE A DAY FOR 14 DAYS active Not Available Not Available No t Available doxycycli ne hyclate 100 mg tablet TAKE 1 TABLET BY MOUTH TWICE A DAY FOR 28 DAYS 08/31 completed Not Available Not Available Not Available tamoxifen 20 mg tablet TAKE 1 TABLET BY MOUTH EVERY DAY 01/11 completed on 5mg 1 tablet daily Not Available Not Available Not Available mometason e 0.1 % topical cream 05/17 completed Not Available Not Available Not Available diazepam 5 mg tablet 06/06 completed Not Available Not Available Not Available amoxicill in 875 mg-potass ium clavulana te 125 mg tablet TAKE 1 TABLET BY MOUTH TWICE A DAY 04/04 completed Not Available Not Available Not Available Jordan's wort 300 mg capsule Take 1 capsule 3 times a day by oral route. 06/06 completed Not Available Not Available Not Available oxycodone 5 mg tablet TAKE 1 TABLET BY MOUTH EVERY 6 HOURS NEEDED FOR PAIN 09/16 completed Not Available Not Available Not Available albuterol (refill) 90 mcg/actua tion aerosol inhaler EVERY FOUR HOURS, NEEDED 2012 active RECORDED 12/31/19 13 7:53AM BY ZENOBIA PINEDA MD, REFILL REQUEST; Not Available Not Available Not Available azithromy vj 500 mg tablet active Not Available Not Available No t Available Wellbutri n XL 150 mg 24 hr tablet, extended release Take 1 tablet every day by oral route for 30 days. 2014 active Not Available Not Available Not Avai lable Multivita min 50 Plus tablet Take 1 tablet every day by oral route. active Not Available Not Available No t Available escitalop monique 5 mg tablet Take 1 tablet every day by oral route for 90 days. 06/18 completed Not Available Not Available Not Available metoprolo l tartrate 25 mg tablet TAKE 25 MG ORALLY 2 TIMES A DAY 03/01 completed Not Available Not Available Not Available Flovent HFA 110 mcg/actua tion aerosol inhaler Inhale 1 puff twice a day by inhalati on route as directed for 30 days. 09/23 completed Not Available Not Available Not Available Atrovent HFA 17 mcg/actua tion aerosol inhaler Inhale 2 puffs twice a day by inhalati on route. 06/06 completed Not Available Not Available Not Available Triamcino lone Acetate TWO TIMES DAILY 09/14 completed RECORDED 09/16/19 10 10:42AM BY ZENOBIA PINEDA MD, MEDICATI ON AUTO-KIERA CTIVATIO N; Not Available Not Available Not Available Flovent HFA TWO TIMES DAILY 03/13 completed RECORDED 03/13/20 13 5:20PM BY ZENOBIA PINEDA MD, ANNOTATI ON/ADDEN DUM; Not Available Not Available Not Available mupirocin 2 % ointment topical kit 3 TIMES PER DAY PRN 08/08 completed RECORDED 08/09/19 13 1:09PM BY DIA REN, OFFICE VISIT; Not Available Not Available Not Available Gavilax 17 gram/dose oral powder TAKE 17 GRAMS BY MOUTH EVERY DAY 07/19 completed Not Available Not Available Not Available potassium chloride ER 20 mEq tablet,ex tended release TAKE 1 TABLET BY MOUTH EVERY DAY 04/04 completed Not Available Not Available Not Available Asmanex HFA 100 mcg/actua tion aerosol inhaler INHALE 2 PUFF(S) TWICE A DAY BY INHALATI ON ROUTE. 09/23 completed Not Available Not Available Not Available Fluarix Quad 4464-3689 (PF) 60 mcg (15 mcg x 4)/0.5 mL IM syringe active Not Available Not Available Not Available Wixela Inhub 250 mcg-50 mcg/dose powder for inhalatio n INHALE 1 PUFF INTO THE LUNGS TWICE DAILY. 2023 active Not Available Not Available Not Avai lable Magnesium Complex 2 capsules 01/11 completed Not Available Not Available Not Available BinaxNOW COVID-19 Ag Self Test kit FOLLOW PACKAGE DIRECTIO NS 09/16 completed Not Available Not Available Not Available Paxlovid 300 mg (150 mg x 2)-100 mg tablets in a dose pack Take 3 tablets twice a day by oral route as directed for 5 days. 07/09 completed Not Available Not Available Not Available Vitals Date Recorded Body height Body mass index (BMI) Body weight Heart rate Oxygen saturation Oxygen saturation in Arterial blood by Pulse oximetry Body temperature Systolic blood pressure Diastolic blood pressure Provider Name and Address Organization Details Last Updated DateTime 4 161.29 cm 29.1 kg/m2 45644.6 3 g 66 /min 95 % 95 % 97.7 [degF] 115 mm[Hg] 81 mm[Hg] Katya Dorado MA [facility] 4 08:41:54 Date Recorded Body height Body mass index (BMI) Body weight Heart rate Oxygen saturation Oxygen saturation in Arterial blood by Pulse oximetry Body temperature Systolic blood pressure Diastolic blood pressure Provider Name and Address Organization Details Last Updated DateTime 4 161.29 cm 28.8 kg/m2 91545.4 4 g 71 /min 97 % 97 % 98.3 [degF] 125 mm[Hg] 83 mm[Hg] Veronique Schmidt LPN [facility] 4 08:32:21 Date Recorded Body height Provider Name an d Address Organization Details Last Updated DateTime 02/21/2024 161.29 cm Ivanna Maurice MA [facility] 02/21/2024 14:07:28 Date Recorded Body height Body mass index (BMI) Body weight Heart rate Oxygen saturation Oxygen saturation in Arterial blood by Pulse oximetry Body temperature Systolic blood pressure Diastolic blood pressure Provider Name and Address Organization Details Last Updated DateTime 4 161.29 cm 27.9 kg/m2 39760.7 8 g 66 /min 97 % 97 % 97.8 [degF] 101 mm[Hg] 69 mm[Hg] Rj dinero MA [facility] 4 09:32:22 Date Recorded Body height Body mass index (BMI) Body weight Oxygen saturation Oxygen saturation in Arterial blood by Pulse oximetry Heart rate Body temperature Systolic blood pressure Diastolic blood pressure Provider Name and Address Organization Details Last Updated DateTime 4 161.29 cm 28.2 kg/m2 95346.9 6 g 98 % 98 % 83 /min 98.3 [degF] 119 mm[Hg] 73 mm[Hg] Dia Ren MA [facility] 4 08:50:46 Social History Question Answer Notes LastModified by Organizat ion Details LastModified Time Tobacco Smoking Status Former Smoker quit 2019 Zenobia Weir MD [address], [address] 03/17/2022 12:43:57 Do You Have An Advance Directive? Yes [email or web address] Information not available 12/14/2021 What Is Your Level Of Alcohol Consumption? Heavy [email or web address] Information not available 03/03/2021 Is Blood Transfusion Acceptable In An Emergency? Yes [id number] Information not available 03/04/2020 What Is Your Level Of Caffeine Consumption? Occasional Green Tea Information not available 07/20/2023 How Much Tobacco Do You Chew? None [id number] Information not available 03/04/2020 In The 14 Days Before Symptom Onset, Have You Had Close Contact With A Laboratory-confi rmed COVID-19 While That Case Was Ill? No Information not available 12/14/2021 In The 14 Days Before Symptom Onset, Have You Had Close Contact With A Person Who Is Under Investigation For COVID-19 While That Person Was Ill? Yes Information not available 12/14/2021 Have You Been To An Area Known To Be High Risk For COVID-19? Yes [email or web address] Information not available 12/14/2021 Are You Currently Employed? Yes [email or web address] Information not available 03/03/2021 What Type Of Diet Are You Following? REGULAR [id number] Information not available 03/04/2020 Which Illicit Or Recreational Drugs Have You Used? None [id number] Information not available 03/04/2020 Do You Or Have You Ever Used E-cigarettes Or Vape? Current User Of Electronic Cigarettes [email or web address] Information not available 12/14/2021 What Is Your Occupation? [employer] Information not available 07/20/2023 When Did You Quit Smoking? 1-5yearssince felisa [email or web address] Information not available 03/03/2021 Live Alone Or With Others? With Others ([employer] [email or web address] Information not available 12/14/2021 Do You Take Precautions To Prevent Distracted Driving? Yes Information not available 06/18/2015 How Often Do You Need To Have Someone Help You When You Read Instructions, Pamphlets, Or Other Written Material From Your Doctor Or Pharmacy? Never Information not available 06/18/2015 Have You Served In The ? No Information not available 09/23/2016 Have You Or Anyone In Your Household Had Any Of The Following Symptoms In The Last 14 Days: Sore Throat, Cough, Chills, Body Aches For Unknown Reasons, Shortness Of Breath For Unknown Reasons, Loss Of Smell, Loss Of Taste, Fever At Or Greater Than 100 Degrees Fahrenheit? No [email or web address] Information not available 03/03/2021 Are You Or Anyone In Your Household A Health Care Provider Or Emergency Responder? Yes Information not available 04/24/2020 To The Best Of Your Knowledge Have You Been In Close Proximity To Any Individual Who Tested Positive For COVID-19? No Information not available 04/24/2020 Have You Recently Traveled To A COVID-19 High Risk Area Or Gathering In The Last 10 Days? No [email or web address] Information not available 03/03/2021 What Was The Date Of Your Most Recent Tobacco Screening? 07/20/2023 Information not available 07/20/2023 How Many Children Do You Have? 3 [id number] Information not available 03/04/2020 What Is Your Current Pack Years? 30ormorepacky ears [email or web address] Information not available 12/14/2021 Do You Use Protection During Sex? No [id number] Information not available 03/04/2020 Do You Use Your Seat Belt Or Car Seat Routinely? Yes [email or web address] Information not available 03/03/2021 Seat Belts Used Routinely Yes [email or web address] Information not available 12/14/2021 Are You Sexually Active? No [email or web address] Information not available 03/03/2021 Smoke Alarm In Home Yes [email or web address] Information not available 12/14/2021 Do You Have Smoke And Carbon Monoxide Detectors In Your Home? Yes [email or web address] Information not available 03/03/2021 At What Age Did You Start Smoking Tobacco? 19 [id number] Information not available 03/04/2020 Are You Passively Exposed To Smoke? No Information not available 03/03/2021 Do You Or Have You Ever Used Smokeless Tobacco? Never Used Smokeless Tobacco [id number] Information not available 03/04/2020 How Much Tobacco Do You Smoke? 1 PPD Information not available 04/24/2020 Do You Use Sunscreen Routinely? No [id number] Information not available 03/04/2020 How Many Years Have You Smoked Tobacco? 36 [id number] Information not available 03/04/2020 Do You Or Have You Ever Used Any Other Forms Of Tobacco Or Nicotine? Yes Vaping [email or web address] Information not available 03/17/2022 Sex: Unknown Functional Status Question Answer Note LastModified by Organization D etails LastModified Time Are you able to walk? YESWOREST [email or web address] Information not available 12/14/2021 Are you able to care for yourself? Yes [id number] Information not available 03/04/2020 What is your exercise level? None Information not available 07/20/2023 Mental Status None recorded. Family History Relationship Description Onset Age of this Age Resolved Age Notes LastModified by Organization Details LastModified Time Mother Malignant tumor of colon 70 [email or web address] Not available 09/01 10:50:57 Father Malignant tumor of colon 51 [email or web address] Not available 09/01 10:50:52 Father Alcohol abuse 51 [email or web address] Not available 01/22 10:30:52 Sister Seizure disorder 51 [email or web address] Not available 09/01 10:51:16 Sister Liver problem [email or web address] Not available 01/22 10:30:52 Sister Disease of liver [email or web address] Not available 01/22 10:30:52 Sister Anxiety disorder [email or web address] Not available 01/22 10:30:52 Son Asthma Not available 01/23/2020 10:30:53 Son Allergy Not availabl e 01/23/2020 10:30:53 Daughter Anxiety disorder [email or web address] Not available 1106/2020 09:47:02 Medical History Condition Response Other N Gout N Blood Diseases N Kidney Stones N Hyperthyroidism N Breast Cancer N Lung Disease Y COPD N Depression Y Hypothyroidism N Defects or Inherited Disease N Anesthesia Complications N Headaches/Migraines N Varicose Veins Y Anxiety Disorder Y Obesity N Vision or Eye Problems N Arthritis Y Head Injury/Concussion N Polyps N Infertility N Congenital Anomalies N Acid Reflux (GERD) Y Cancer N Stroke N ADHD N Endometriosis N High Cholesterol N Liver Disease N Fibromyalgia N Kidney Disease N Heart Problems N Ear or Hearing Problems N Hospitalizations Y Thyroid Problems N GI Problems Y Acne N Skin Problems N Eating Disorder N Anemia N Constipation N Bladder Problems N Mental Illness Y Ovarian Cancer N Diabetes N Blood Transfusions N Seizures/Epilepsy N Tuberculosis N AIDS/HIV N Congestive Heart Failure (CHF) N Eczema N Diverticulitis Y Abuse/Domestic Violence N Allergies Y Asthma Y Reflux/GERD N Hepatitis N Pulmonary Embolism N Hypertension N Osteoporosis N Chicken Pox Y Autism Spectrum Disorder (ASD) N Gynecological History Statement/Question Response Date of Last Pap Smear 02/16/2022 Date of Last Colonoscopy 10/17/2020 Most Recent Mammogram 05/12/2022 Obstetrics History GPAL:G 0 P 0 0 0 0 Immunizations Vaccine Type Date Status Note Provider Nam e and Address Organization Details Recorded Time Influenza, split virus, quadrivalent, preservative 8 completed Not Available [facility] 02/11/2023 12:36:05 Influenza, split virus, trivalent, preservative 9 completed Not Available [facility] 02/11/2023 12:36:06 COVID-19, mRNA, LNP-S, PF, 30 mcg/0.3 mL dose 1 completed Not Available [facility] 02/11/2023 12:36:05 COVID-19, mRNA, LNP-S, PF, 30 mcg/0.3 mL dose 1 completed Not Available [facility] 02/11/2023 12:36:05 Influenza, split virus, trivalent, preservative 1 completed Not Available [facility] 02/11/2023 12:36:06 COVID-19, mRNA, LNP-S, PF, 30 mcg/0.3 mL dose 1 completed Not Available [facility] 02/11/2023 12:36:05 MMR 8 completed Not Available [facility] 02/11/2023 12:36:05 MMR 8 completed Not Available [facility] 02/11/2023 12:36:05 Influenza, split virus, trivalent, PF 4 completed Not Available [facility] 02/11/2023 12:36:06 Influenza, split virus, quadrivalent, PF 0 completed Not Available [facility] 02/11/2023 12:36:06 Tdap 0 completed Not Available [facility] 02/11/2023 12:36:06 COVID-19, mRNA, LNP-S, PF, 30 mcg/0.3 mL dose, xiang-sucrose 2 completed Not Available [facility] 02/11/2023 12:36:05 Influenza, split virus, quadrivalent, PF 7 completed Not Available [facility] 02/11/2023 12:36:06 Influenza, split virus, quadrivalent, PF 6 completed Not Available [facility] 02/11/2023 12:36:06 Influenza, MDCK, quadrivalent, PF 2 completed Not Available [facility] 02/11/2023 12:36:05 COVID-19, mRNA, LNP-S, bivalent, PF, 30 mcg/0.3 mL dose 2 completed Not Available [facility] 02/11/2023 12:36:06 Influenza, MDCK, quadrivalent, PF 3 completed TIKI Nunez MA [facility] 05/06/2023 09:47:00 COVID-19, mRNA, LNP-S, PF, xiang-sucrose, 30 mcg/0.3 mL 3 completed Katya Dorado MA null, [facility] 05/06/2023 09:47:00 COVID-19, mRNA, LNP-S, PF, 50 mcg/0.5 mL 4 completed MYLENE Tejeda, [facility] 02/09/2024 08:32:34 Influenza, split virus, trivalent, preservative 7 completed Not Available [facility] 02/11/2023 12:36:06 Td (adult), 2 Lf tetanus toxoid, preservative free, adsorbed 8 completed Not Available [facility] 02/11/2023 12:36:06 Influenza, split virus, trivalent, preservative 2 completed Not Available [facility] 02/11/2023 12:36:06 Influenza, split virus, trivalent, preservative 4 completed Not Available [facility] 02/11/2023 12:36:06 Influenza, split virus, trivalent, preservative 6 completed Not Available [facility] 02/11/2023 12:36:06 Influenza, split virus, trivalent, preservative 7 completed Not Available [facility] 02/11/2023 12:36:06 Influenza, split virus, trivalent, preservative 8 completed Not Available [facility] 02/11/2023 12:36:06 Influenza, split virus, trivalent, preservative 9 completed Not Available [facility] 02/11/2023 12:36:06 Tdap 0 completed Not Available [facility] 02/11/2023 12:36:06 Influenza, split virus, trivalent, preservative 0 completed Not Available [facility] 02/11/2023 12:36:06 Influenza, split virus, trivalent, preservative 1 completed Not Available [facility] 02/11/2023 12:36:06 Influenza, split virus, trivalent, preservative 2 completed Not Available [facility] 02/11/2023 12:36:06 influenza, seasonal, intradermal, preservative free 3 completed Not Available [facility] 02/11/2023 12:36:06 Influenza, split virus, trivalent, PF 4 completed HENNA JUNG [address] [address], [place], [address], [facility] 01/12/2024 09:02:46 Past Encounters Encounter ID Performer Location Encounter Start Date Encounter Closed Date Diagnosis/Indication Diagnosis SNOMED-CT Code Diagnosis ICD10 Code [id number] autoEComm erce [address] [facility] [place] [address] 02/23/2006 00:00:00 [id number] autoEComm erce [address] [facility],[address] [place] [address] 12/11/2004 00:00:00 [id number] autoEComm erce [address] [facility],[address] [place] [address] 10/08/2004 00:00:00 [id number] autoEComm erce [address] [facility],[address] [place] [address] 06/15/2004 00:00:00 [id number] autoEComm erce [address] [facility],[address] [place] [address] 06/29/2006 00:00:00 [id number] autoEComm erce [address] [facility],[address] [place] [address] 07/12/2006 00:00:00 [id number] autoEComm erce [address] [facility],[address] [place] [address] 01/04/2007 00:00:00 [id number] autoEComm erce [address] [facility],[address] [place] [address] 03/22/2007 00:00:00 [id number] autoEComm erce [address] [facility],[address] [place] [address] 10/03/2007 00:00:00 [id number] autoEComm erce [address] [facility],[address] [place] [address] 10/05/2007 00:00:00 [id number] autoEComm erce [address] [facility] [address] [place] [address] 01/03/2008 00:00:00 [id number] auto[address]Comm erce [address] [place] [address] 02/01/2008 00:00:00 [id number] auto[address]Comm erce [address] [place] [address] 02/16/2008 00:00:00 [id number] autoEComm erce [address] [facility] [address] [place] [address] 07/19/2008 00:00:00 [id number] autoEComm erce [address] [facility] [address] [place] [address] 12/13/2008 00:00:00 [id number] autoEComm erce [address] [facility],[address] [place] [address] 05/06/2009 00:00:00 [id number] autoEComm erce [address] [facility],[address] [place] [address] 06/10/2009 00:00:00 [id number] autoEComm erce [address] [facility] [address] [place] [address] 08/15/2009 00:00:00 [id number] autoEComm erce [address] [facility],[address] [place] [address] 11/12/2009 00:00:00 [id number] autoEComm erce [address] [facility] [address] [place] [address] 02/18/2010 00:00:00 [id number] autoEComm erce [address] [facility] [address] [place] [address] 04/23/2010 00:00:00 [id number] autoEComm erce [address] [facility],[address] [place] [address] 05/20/2010 00:00:00 [id number] autoEComm erce [address] [place] [address] 08/19/2010 00:00:00 [id number] auto[address]Comm erce [address] [place] [address] 11/18/2010 00:00:00 [id number] autoEComm erce [address] [place] [address] 12/03/2010 00:00:00 [id number] autoEComm erce [address] [place] [address] 04/14/2011 00:00:00 [id number] autoEComm erce [address] [facility] [address] [place] [address] 08/18/2011 00:00:00 [id number] autoEComm erce [address] [facility] [address] [place] [address] 11/11/2011 00:00:00 [id number] autoEComm erce [address] [facility],[address] [place] [address] 12/22/2011 00:00:00 [id number] autoEComm erce [address] [facility],[address] [place] [address] 08/08/2012 00:00:00 [id number] autoEComm erce [address] [facility],[address] [place] [address] 12/27/2012 00:00:00 [id number] autoEComm erce [address] [facility],[address] [place] [address] 06/01/2013 00:00:00 [id number] autoEComm erce [address] [facility],[address] [place] [address] 06/21/2013 00:00:00 [id number] autoEComm erce [address] [facility],[address] [place] [address] 11/05/2013 00:00:00 [id number] Zenobia Weir MD Main Office [address] [place] [address] 02/02/2014 09:17:23 02/02/2014 09:32:25 Needs influenza immunization 894123727 [id number] Zenobia Weir MD Main Office [address] [address] [place] [address] 04/04/2014 13:12:45 04/04/2014 14:07:47 Single major depressive episode 838052590 Anxiety state 273757553 Agoraphobia 50830851 [id number] Zenobia Weir MD Main Office [address] [address] [place] [address] 06/20/2014 10:39:37 06/20/2014 11:42:56 Adult health examination 871990051 Agoraphobia 73631938 Anxiety state 775633454 Single keny or depressive episode 817145171 [id number] David Dennis Main Office [address] [address] [place] [address] 07/18/2014 12:47:57 07/18/2014 14:13:02 Anxiety state 490522320 Single keny or depressive episode 613331341 Screening for malignant neoplasm of colon 632337993 [id number] Gerson ackerman [place] Main Office [address] [place] [address] 10/28/2014 10:25:43 10/28/2014 11:21:21 Single major depressive episode 805750005 Acute sinusitis 71144087 [id number] Main Office [address] [address] [place] [address] 01/23/2015 12:40:24 01/23/2015 13:31:36 Acute sinusitis 14440750 Acute asthma 840703984 Recurrent sinusitis 7 32328 [id number] Zenobia Weir MD Main Office [address] [address] [place] [address] 03/04/2015 10:36:06 03/04/2015 11:19:24 Anxiety state 308055198 F41.1 Asthma 826586858 J45.90 9 [id number] Stacey Lee Main Office [address] [address] [place] [address] 06/18/2015 12:50:18 06/18/2015 13:49:33 Adult health examination 967800138 Z00.00 Screening for malignant neoplasm of cervix 551680148 Z12.4 Screening for malignant neoplasm of colon 897633736 Z12.11 Single keny or depressive episode 947422839 F33.1 Tobacco de pendence syndrome 36588879 F17.290 Anxiety state 199269010 F41.1 [id number] Alison ShahPetra suh Main Office [address] [facility] [address] [place] [address] 07/19/2015 10:59:12 07/19/2015 12:21:40 Pneumonia 544831035 J18.9 Influenza 9805809 J11.1 Ex-smoker 4205735 Z87.89 1 [id number] Carin Marie Main Office [address] [address] 12/15/2015 10:32:19 12/15/2015 11:35:53 Anxiety state 267063335 F41.1 Single keny or depressive episode 289743789 F33.1 Screening for malignant neoplasm of cervix 291444874 Z12.4 Screening for malignant neoplasm of colon 063685471 Z12.11 Radial sty loid tenosynovitis 47994955 M65.4 [id number] Olegario bowman Main Office [address] [address] 01/31/2016 10:11:30 01/31/2016 12:10:52 Needs influenza immunization 145027353 Z23 [id number] Zenobia Weir MD Main Office [address] [address] 03/31/2016 13:13:09 03/31/2016 14:18:03 Upper respiratory infection 59286334 J06.9 Methicilli n resistant Staphylococcus aureus infection 968587386 A49.02 Asthma 664150681 J45.30 Tobacco de pendence syndrome 04580951 F17.290 [id number] Zenobia Weir MD Main Office [address] [address] 09/23/2016 08:46:30 09/23/2016 10:03:53 Adult health examination 241494225 Z00.00 Asthma 768844618 J45.90 9 Screening for malignant neoplasm of colon 571757031 Z12.11 Anxiety state 610418988 F41.1 Agoraphobia 25805667 F40 .00 [id number] Zenobia Weir MD Main Office [address] [place] [address] 11/25/2016 10:04:51 11/25/2016 11:14:54 Anxiety state 657765453 F41.1 [id number] Alison ShahPetra suh Main Office [address] [place] [address] 12/31/2016 10:08:31 12/31/2016 10:30:40 Needs influenza immunization 554927733 Z23 [id number] Zenobia Weir MD Main Office [address] [place] [address] 01/12/2017 12:39:35 01/12/2017 13:17:50 Asthma 805545084 J45.909 Snoring 55469128 R06.83 [id number] Allan Braxton MD Main Office [address] [facility] [address] [place] [address] 01/14/2017 10:42:00 01/14/2017 12:19:46 Visual disturbance 19761687 H53.001 [id number] Zenobia Weir MD Main Office [address] [facility] [address] [place] [address] 07/18/2017 09:49:58 07/18/2017 11:02:04 Fever 734805816 R50.9 Acute asthma 064808287 J 45.901 [id number] Zenobia Weir MD Main Office [address] [address] [place] [address] 07/28/2017 11:12:30 07/28/2017 12:07:05 Asthma 204353543 J45.909 Fatigue 97756367 R53.83 [id number] Zenobia Weir MD Main Office [address] [facility] [address] [place] [address] 09/28/2017 10:23:13 09/28/2017 11:23:40 Adult health examination 844891530 Z00.00 Asthma 280984757 J45.90 9 Tobacco de pendence syndrome 24509155 F17.290 Single keny or depressive episode 864555569 F33.1 [id number] JEANNE Delarosa Main Office [address] [address] [place] [address] 06/06/2018 10:18:45 06/06/2018 11:02:02 Fever 055863165 R50.9 Cough 92184634 R05 Candidiasis of skin 4988 3006 B37.2 [id number] Zenobia Weir MD Main Office [address] [address] [place] [address] 09/06/2018 11:10:51 09/06/2018 12:03:26 Pain in coccyx 00053286 M53.3 [id number] Zenobia Weir MD Main Office [address] [address] [place] [address] 10/03/2018 10:41:31 10/03/2018 11:47:42 Adult health examination 576878072 Z00.00 Sleep apnea 62308281 G47 .30 Single keny or depressive episode 204215041 F33.1 Asthma 969349101 J45.90 9 [id number] Zenobia Weir MD Main Office [address] [address] [place] [address] 07/30/2019 08:20:42 07/30/2019 11:55:02 Asthma 564681906 J45.909 Anxiety state 832685107 F41.1 Obstructiv e sleep apnea syndrome 43054802 G47.33 [id number] Zenobia Weir MD Main Office [address] [address] [place] [address] 01/23/2020 10:15:11 01/23/2020 11:13:59 Adult health examination 203810102 Z00.00 Needs infl uenza immunization 219341620 Z23 Single keny or depressive episode 585065392 F33.1 Anxiety state 102342155 F41.1 Administra tion of viral vaccine 20661007 Z23 [id number] JEANNE Delarosa [facility] [address] [address] [place] [address] 04/24/2020 08:40:00 04/24/2020 10:09:05 Exposure to viral disease 1850689363 03113 Z03.818 Asthma 840744529 J45.90 9 Obstructiv e sleep apnea syndrome 00439453 G47.33 [id number] Karen Cuevas PA-C [facility] [address] [address] [place] [address] 08/25/2020 12:06:53 08/25/2020 13:32:20 Diverticulitis of colon 861921397 K57.32 [id number] Fabi Boykinjulianna Main Office [address] [address] [place] [address] 09/15/2020 11:00:26 09/15/2020 12:17:26 History of polyp of colon 598720059 Z86.010 Family his tory of cancer of colon 860565060 Z80.0 Gastritis 6719403 K29.70 Generalize d anxiety disorder 92347048 F41.1 Alcohol dependence 24025 003 F10.20 [id number] Zenobia Weir MD Main Office [address] [address] [place] [address] 03/03/2021 09:24:33 03/03/2021 11:05:02 Adult health examination 543421382 Z00.00 Asthma 784626490 J45.90 9 Anxiety state 235359062 F41.1 Major depr essive disorder 049717165 F32.1 Screening for malignant neoplasm of breast 832328222 Z12.39 Screening for malignant neoplasm of cervix 348641424 Z12.4 Skin lesion 12224395 L98 .9 Alcohol dependence 00876 003 F10.20 Screening for malignant neoplasm of lung 086664242 Z87.891 Gastroesop hageal reflux disease 416288432 K21.9 [id number] Zenobia Weir MD [facility] [address] [address] [place] [address] 04/23/2021 08:21:35 04/23/2021 15:43:31 Acute sinusitis 66976234 J01.90 [id number] Zenobia Weir MD Main Office [address] [address] [place] [address] 06/09/2021 11:19:38 06/09/2021 16:04:43 Chronic recurrent sinusitis 645157552 J32.9 [id number] Zenobia Weir MD [address] [address] [facility] [place] [address] 08/31/2021 09:26:16 09/01/2021 10:34:11 Anxiety state 958076685 F41.1 Pain of bi lateral knee joints 6552227756 52732 M25.561 M25.562 [id number] Alan Sow MD [address] [place] [address] 10/09/2021 13:58:31 10/09/2021 15:20:19 Dysuria 01238883 R30.9 Acute vaginitis 58612664 N76.0 [id number] Karen Cuevas PA-C [address] [place] [address] 12/14/2021 08:14:43 12/14/2021 10:14:17 Recurrent urinary tract infection 339636390 N39.0 [id number] ARTI ZAMARRIPA MD Main Office [facility] [place] [address] 01/21/2022 08:14:51 01/21/2022 08:52:57 Abdominal pain 71540321 R10.9 Constipation 72389330 K5 9.00 Diverticul osis of colon 538890310 K57.30 [id number] Zenobia Weir MD Main Office [facility] [address] [place] [address] 03/17/2022 09:08:56 03/17/2022 10:27:34 Adult health examination 693235472 Z00.00 Family his tory of Cardiovascular disease 650242704 Z82.49 Major depr essive disorder 829209049 F32.1 Agoraphobia 70905798 F40 .00 Anxiety state 423721520 F41.1 Asthma 479591226 J45.90 9 Alcohol dependence 44462 003 F10.20 [id number] Alan Sow MD [address] [place] [address] 06/18/2022 12:53:08 06/18/2022 14:48:57 COVID-19 485044692 U07.1 Asthma 666908919 J45.90 9 [id number] Zenobia Weir MD [address] [address] [place] [address] 09/16/2022 08:37:31 09/16/2022 11:55:34 Anxiety state 869560442 F41.1 Major depr essive disorder 008523444 F32.1 Asthma 493145288 J45.20 Ductal car cinoma in situ of breast 124063209 D05.12 [id number] Zenobia Weir MD [address] [address] [place] [address] 10/07/2022 14:41:44 10/07/2022 16:03:44 Dysuria 77647729 R30.0 Blood in urine 84243499 R31.9 [id number] Zenobia Weir MD [address] [address] [place] [address] 11/04/2022 12:45:56 11/04/2022 13:30:53 Headache 44279778 R51.9 [id number] Alan Sow MD [address] [address] [place] [address] 05/06/2023 09:11:15 05/06/2023 10:36:28 Constipation 34657882 K59.00 [id number] Bill Cuevas PA-C [address] [place] [address] 05/17/2023 09:09:51 05/17/2023 10:18:35 Ductal carcinoma in situ of left breast 5229164260 014246 D05.12 Constipation 15010269 K5 9.00 Pain in coccyx 49544907 M53.3 [id number] Zenobia Weir MD Main Office [address] [place] [address] [place] [address] 07/20/2023 08:52:48 07/20/2023 10:14:05 Adult health examination 872881182 Z00.00 Acute exac erbation of intrinsic asthma 505222666 J45.901 Anxiety state 794324455 F41.1 Asthma 548519326 J45.20 Ductal car cinoma in situ of breast 951266997 D05.12 Hyperlipidemia 25708868 E78.5 [id number] Zenobia Weir MD Main Office [address] [facility] [address] [place] [address] 08/06/2023 09:00:22 08/06/2023 09:44:59 Essential hypertension 88298643 I10 Anxiety state 251670723 F41.1 Palpitations 85201350 R0 0.2 [id number] HENNA JUNG Main Office [address] [address] [place] [address] 01/12/2024 08:14:52 01/12/2024 09:04:35 Needs influenza immunization 544404696 Z23 Essential hypertension 70686425 I10 [id number] HENNA JUNG Main Office [address] [address] [place] [address] 02/01/2024 08:15:07 02/01/2024 09:06:44 Headache 96970858 R51.9 [id number] Zenobia Weir MD Main Office [address] [address] [place] [address] 02/09/2024 08:18:37 02/09/2024 09:12:36 Essential hypertension 22882406 I10 Anxiety state 867682221 F41.1 [id number] Bill Cuevas PA-C [facility] [address] [address] [place] [address] 02/21/2024 13:15:23 02/21/2024 15:32:19 Dysuria 68451459 R30.0 Constipation 02662958 K5 9.00 [id number] Carin Marie Main Office [address] [address] [place] [address] 03/01/2024 09:17:48 03/01/2024 09:57:58 History of cholecystectomy 387500455 Z90.49 Atrial fibrillation 4943 6004 I48.91 Essential hypertension 54475312 I10 [id number] Zenobia Weir MD Main Office [address] [address] [place] [address] 04/04/2024 08:36:43 04/04/2024 09:32:50 Essential hypertension 78837315 I10 Anxiety state 109694074 F41.1 Asthma 249143286 J45.20 Health Concerns Section Related Observation LastModified by Organization Detai ls LastModified Time None Recorded Concern Status LastModified by Organization Details LastModified Time None Recorded Advance Directives Directive Y: Payers Encounter Date Sequence Insurance Name Policy Number Policy [place] Covered Member ID [place] Member ID Guarantor Name 02/01/2024 1 [facility] [id number] Indra Rodriguez [id number] Nat Rush Maleko 02/09/2024 1 [facility]) [id number] 3 Indra Rodriguez [id number] Nat Rush Maleko 02/21/2024 1 [facility]) [id number] 3 Indra Rodriguez [id number] Nat Rush Maleko 03/01/2024 1 [facility] [id number] 3 Indra Malekristina [id number] Nat Rush Maleko 04/04/2024 1 [facility] ([facility]) [id number] 3 Indra Rodriguez [id number] Nat Rush Maleko Notes Date Note Type Note Provider Name and Address Organization Details Recorded Time text/html HeadacheReported bypatient.Location:frontal Quality:similar to previous headaches Severity:mild Onset/Timing:abrupt onset; occur upon awakening; occur daily Context:not related to trauma Aggravating factors:nothing makes it worse Associated Symptoms:no vomiting; no sensitivity to light; tearing/watery eyes; no confusion; no slurred speech; no preceeding aura; no double vision; normal feeling/sensation; no dizziness; no hoarseness; no sore throat; no hearing loss;nosebleeds Nat is 58yr old F who presents for cc of headaches. Report of having daily headaches for >4 weeks. Denies of any associated vision changes, photo/sound sensitivity, dizziness, or n/v. Reports of having a tight pressure like sensation in the frontal lobe that radiates to the back of her head. Reports of having occasional nosebleeds that last <10 min. Duration is all day. Onset every morning. Worsens when bending forward. Reports nothing brings relief. Has not tried OTC medications. HENNA JUNG [address] [facility] [address], [place], [address], [facility] 02/01/2024 09:20:31 4 text/html Anxiety/DepressionReported bypatient.Severity:able to maintain relationships;interference with work Associated Symptoms:anxiety;anhedonia; social withdrawalHypertension F/UReported bypatient.Associated Symptoms:no dizziness; no lightheadedness; no chest pain; no shortness of breath; no palpitations; no edema; no calf pain with exertion Lifestyle:regular exercise; limiting/avoiding salt Medications:taking medications as directed; no side effects from medication Zenobia Weir MD [address] [address], [place], [address], [facility] 02/09/2024 09:19:20 4 text/html as per recent pt case:Good Morning, I took a UTI test and it came back positive they have them over the counter now and I have pain when I urinate. I for some reason are prone to them CARLOS why. What can you do and I also don't feel that well maybe because infection CARLOS! Thank You. Bill Cuevas PA-C [address] [address], [place], [address], [facility] 02/21/2024 15:12:47 4 text/html Nat is a 58yr old F who presents for a hospital f/u. [facility]: [facility] 02/27/24 Nat was evaluated at [facility] for abdominal pain- dx with cholecystitis. Found to have new onset of afic and RVR. Underwent cholecystectomy on 02/22. Currently on augmentin course. Has an appt with cardiology for new onset afib. Do not have hospital documentation in chart. Carin villegas, [facility] 03/13/2024 13:04:49 4 text/html Anxiety/DepressionReported bypatient.Severity:able to maintain relationships;interference with work Associated Symptoms:anxiety;anhedonia; social withdrawalHypertension F/UReported bypatient.Associated Symptoms:no dizziness; no lightheadedness; no chest pain; no shortness of breath; no palpitations; no edema; no calf pain with exertion Lifestyle:regular exercise; limiting/avoiding saltNotes:She was on lisinopril which was changed to metoprolol as an inpatient at [place] because of afib. This was eventually stopped because of low readings. She follows her BP and the systolic has remained <130. Asthma has been under good control with advair which she uses daily and she rarely uses her rescue inhaler. Zenobia Weir MD [address] [address], [place], [address], [facility] 04/04/2024 09:41:43 OBGyn Episode No OBEpisode recorded.
--- OUTSIDE RECORDS SUMMARY | 2024-04-11 23:06 | XMS_ITS | Continuity of Care Document ---
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 4:02PM BY MC PINEDA MD, OFFICE VISIT Mc Weir MD [address], [place], [address] , [facility] 6 13:42:06 Open wound of nose 922603090 Completed 200711/13/2013 RECORDED 02/07/20 08 11:58AM BY NIYAH FULLER MA, LORENZO ON/ BRITTNI Weir MD [address], [place], [address] , [facility] 6 13:42:06 Pediculo sis capitis 31783686 Completed 200711/13/2013 RECORDED 02/16/20 08 2:44PM BY LORENZO CHAVIRA ON/ADD DUM Mc Weir MD [address], [place], [address] , [facility] 6 13:42:05 Verruca plantari s 86729236 Completed 201311/13/2013 IMPRESSI ON: ADVISED OTC PRODUCTS ; RECORDED 06/21/19 14 9:20AM BY DAVID CRAIG I, LORENZO ON/ADDEN DUM Mc Weir MD [address], [place], [address] , [facility] 6 13:42:05 Eruption [id number] Completed 200711/13/2013 RESOLVED DATE: 12/24/19 08; RECORDED 12/24/19 08 11:52AM BY MC PINEDA MD, LORENZO ON/KIAN Weir MD [address] [facility] [address], [place], [address] , [facility] 6 13:42:06 Adult health examinat ion Completed 201111/13/2013 RECORDED 12/09/19 12 2:16PM BY LORENZO BEVERLY ON/KIAN Weir MD [address] [address], [place], [address] , [facility] 6 13:42:06 Chronic sinusiti s 09680742 Completed 201211/13/2013 RECORDED 12/28/19 13 10:05AM BY LORENZO BEVERLY ON/KIAN Weir MD [address] [address], [place], [address] , [facility] 6 13:42:06 Candidia sis of mouth 81054775 Completed 201211/13/2013 RECORDED 12/28/19 13 10:05AM BY LORENZO BEVERLY ON/KIAN Weir MD [address] [facility] [address], [place], [address] , [facility] 6 13:42:05 Tobacco dependen ce syndrome 50878951 Completed 201309/06/2018 Removal Reason: quit [facility]ah T[facility]I [facility] 9 11:26:31 Disorder of tongue 27951748 Completed 201111/13/2013 IMPRESSI ON: ALTHOUGH BLACK I ? THRUST GIVEN THE FACT YOU CAN SCRAPE OFF AND SHE HAS BEEN USING ADVAIR MORE. DISCUSSE D USE OF NYSTATIN WHICH SHE CURRENTL Y DECLINES . WILL CHECK IN 1 WEEK, IF NO BETTER TO START.; RECORDED 12/09/19 12 2:16PM BY LORENZO BEVERLY ON/KIAN Weir MD [address] [facility] [address], [place], [address] , [facility] 6 13:42:06 Abnormal weight loss 460515838 Completed 201306/20/2014 RECORDED 11/06/19 14 11:40AM BY AKHIL CAMARENA MA, OFFICE VISIT Mc Weir MD [address] [facility] [address], [place], [address] , [facility] 6 13:42:06 Disorder of bone and articula r cartilag e 505377252 Completed 201111/13/2013 IMPRESSI ON: TENDERNE SS OVER XIPHOID PROCESS, HAS BEEN DOING ALOT OF YARDWORK , WILL CHECK AN XRAY BUT SUSPECT THIS IS JUST INFLAMMA TION, RECOMMEN D NSAIDS; RECORDED 12/09/19 12 2:16PM BY LORENZO BEVERLY ON/KIAN Weir MD [address] [facility] [address], [place], [address] , [facility] 6 13:42:06 Notes:Some problems listed i n Documents: #[id number], #[id number], #[id number] could not be added to this patient's chart. Please review these documents and add these problems to the patient's chart manually as needed. Problem Notes None recorded. Procedures Surgical History Date Name Laterality Status Provider Name and Address Organization Details Recorded Time 02/22 Laparoscopic cholecystectomy completed Prema Recio [facility] 4 13:49:10 08/19 Colonoscopy completed Prema Recoi [facility] 3 10:54:36 06/15 lumpectomy of left breast completed Trey Recio [facility] 3 15:33:41 05/12 Most Recent Mammogram completed Prema Recio [facility] 3 09:26:43 02/16 Date of Last Pap Smear completed Ruth Hummel [facility] 2 11:19:40 03/23 Mammogram screening completed Ruth Hummel [facility] 1 11:49:59 01/13 esophagogastroduodenoscopy completed Booker Hummel [facility] 1 12:01:46 10/17 Date of Last Colonoscopy completed Torie Acuña [facility] 1 12:59:48 05/25 Mammogram one breast completed Niyah ackerman MA [facility] 9 11:27:42 09/30 Appendectomy completed David Dennis [facility] 5 11:03:40 05/02 Hernia Repair completed David Dennis [facility] 5 11:03:40 Breast Biopsy completed Rajwinder Ren MA [facility] 1 09:25:51 Imaging Results None recorded. Procedure Notes None recorded. Medical Equipment None Reported. Allergies Allergen ID Allergen Name Allergen Category Reaction Reaction Severity Criticality Documentation Date Start Date Code Code System Note Provider Name and Address Organization Details Recorded Time 21030 morphine medicatio n hives moderate Not available 06/20/2014 7052 RxNorm David villegas [facility] 5 11:03:40 35959 azithromy vj medicatio n diarrhea severe Not available 07/19/2015 30213 RxNorm TIKI Fuchs [facility] 6 11:40:28 42062 Substance with sulfonami de structure and antibacte rial mechanism of action (substanc e) medicatio n Not available Not available Not available 12/10/2021 75005 8003 SNOMED Niyah gomez MA [facility] 2 09:41:26 Medications Name Sig Start Date [...] 2013 active RECORDED 06/21/19 14 1:20PM BY MC PINEDA MD, OFFICE VISIT; Not Available Not Available Not Available senna 8.6 mg tablet Take 2 tablets every day by oral route for 30 days. 05/17 completed Not Available Not Available Not Available fluconazo le 200 mg tablet QD 12/26 completed RECORDED 12/31/19 12 11:58AM BY MC PINEDA MD, MEDICATI ON AUTO-KIERA CTIVATIO N; [...] 02/07/20 10 3:00PM BY TIKI ORTIZ, ANNOTATI ON/ADDEN DUM;THIS ORDER DISCONTI NUED PER [facility] N. Not Available Not Available Not Available [...] 07/13 completed RECORDED 07/22/19 07 9:39AM BY JAMILAH COLON MD, MEDICATI ON AUTO-KIERA CTIVATIO N; Not [...] 05/22 completed RECORDED 05/22/19 11 5:49PM BY MC PINEDA MD, ANNOTATI ON/ADDEN DUM; Not Available [...] completed Not Available Not Available Not Available [place]'s wort 1,000 mg capsule active RECORDED 04/23/20 10 2:10PM BY MC PINEDA MD, LORENZO ON/ADD DUM; Not Available Not Available Not Available mupirocin 2 % topical ointment BID to qtip - insert B nares (individ ually) x 10 days 09/23 completed RECORDED 08/16/19 10 2:37PM BY LORENZO PONCE ON/KIAN DUM; Not Available Not Available Not Available Nasal Saline 0.65 % spray aerosol 07/02 completed RECORDED 07/03/19 11 5:47PM BY LORENZO READ ON/KIAN DUM;THIS ORDER DISCONTI NUED PER [facility] N. Not Available Not Available Not Available [...] 2012 active RECORDED 12/31/19 13 7:53AM BY MC PINEDA MD, REFILL REQUEST; Not Available Not [...] 09/14 completed RECORDED 09/16/19 10 10:42AM BY MC PINEDA MD, MEDICATI ON AUTO-KIERA CTIVATIO N; Not Available Not Available Not Available Flovent HFA TWO TIMES DAILY 03/13 completed RECORDED 03/13/20 13 5:20PM BY MC PINEDA MD, ANNOTATI ON/ADDEN DUM; Not Available Not Available Not Available mupirocin 2 % ointment topical kit 3 TIMES PER DAY PRN 08/08 completed RECORDED 08/09/19 13 1:09PM BY RAJWINDER REN, OFFICE VISIT; Not Available Not Available [...] Available Not Available Not Available Fluarix Quad [id number] (PF) 60 mcg (15 mcg x 4)/0.5 [...] Updated DateTime 4 161.29 cm 27.9 kg/m2 88080.7 8 g 66 /min 97 % 97 % 97.8 [degF] 101 mm[Hg] 69 mm[Hg] Rj dinero [facility] 4 09:32:22 Social History Question Answer Notes LastModified by Organizat ion Details LastModified Time Tobacco Smoking Status Former Smoker quit 2019 Mc Weir MD [address], [address], [facility] 03/17/2022 12:43:57 Do You Have An Advance Directive? Yes [email or web address] Information not available 12/14/2021 What Is Your Level Of Alcohol Consumption? Heavy [email or web address] Information not available 03/03/2021 Is Blood Transfusion Acceptable In An Emergency? Yes [id number] Information not available 03/04/2020 What Is Your Level Of Caffeine Consumption? Occasional Green Tea Information not available 07/20/2023 How Much Tobacco Do You Chew? None [id number] Information not available 03/04/2020 In The 14 Days Before Symptom Onset, Have You Had Close Contact With A Laboratory-confi rmed COVID-19 While That Case Was Ill? No Information not available 12/14/2021 In The 14 Days Before Symptom Onset, Have You Had Close Contact With A Person Who Is Under Investigation For COVID-19 While That Person Was Ill? Yes [email or web address] Information not available 12/14/2021 Have You Been To An Area Known To Be High Risk For COVID-19? Yes [email or web address] Information not available 12/14/2021 Are You Currently Employed? Yes [email or web address] Information not available 03/03/2021 What Type Of Diet Are You Following? REGULAR [id number] Information not available 03/04/2020 Which Illicit Or Recreational Drugs Have You Used? None [id number] Information not available 03/04/2020 Do You Or Have You Ever Used E-cigarettes Or Vape? Current User Of Electronic Cigarettes Information not available 12/14/2021 What Is Your Occupation? [employer] Information not available 07/20/2023 When Did You Quit Smoking? 1-5yearssince lastcigarette [email or web address] Information not available 03/03/2021 Live Alone Or With Others? With Others ([place] Information not available 12/14/2021 Do You Take Precautions To Prevent Distracted Driving? Yes [email or web address] Information not available 06/18/2015 How Often Do You Need To Have Someone Help You When You Read Instructions, Pamphlets, Or Other Written Material From Your Doctor Or Pharmacy? Never HowDo Information not available 06/18/2015 Have You Served In The ? No HowDo Information not available 09/23/2016 Have You Or Anyone In Your Household Had Any Of The Following Symptoms In The Last 14 Days: Sore Throat, Cough, Chills, Body Aches For Unknown Reasons, Shortness Of Breath For Unknown Reasons, Loss Of Smell, Loss Of Taste, Fever At Or Greater Than 100 Degrees Fahrenheit? No [email or web address] Information not available 03/03/2021 Are You Or [...] Gathering In The Last 10 Days? No [email or web address] Information not available 03/03/2021 What Was The Date Of Your Most Recent Tobacco Screening? 07/20/2023 Information not available 07/20/2023 How Many Children Do You Have? 3 [id number] Information not available 03/04/2020 What Is Your Current Pack Years? 30ormorepacky ears [email or web address] Information not available 12/14/2021 Do You Use Protection During Sex? No [id number] Information not available 03/04/2020 Do You Use Your Seat Belt Or Car Seat Routinely? Yes [email or web address] Information not available 03/03/2021 Seat Belts Used Routinely Yes [email or web address] Information not available 12/14/2021 Are You Sexually Active? No [email or web address] Information not available 03/03/2021 Smoke Alarm In Home Yes [email or web address] Information not available 12/14/2021 Do You Have Smoke And Carbon Monoxide Detectors In Your Home? Yes [email or web address] Information not available 03/03/2021 At What Age Did You Start Smoking Tobacco? 19 [id number] Information not available 03/04/2020 Are You Passively Exposed To Smoke? No [email or web address] Information not available 03/03/2021 Do You Or Have You Ever Used Smokeless Tobacco? Never Used Smokeless Tobacco [id number] Information not available 03/04/2020 How Much Tobacco Do You Smoke? 1 PPD Information not available 04/24/2020 Do You Use Sunscreen Routinely? No [id number] Information not available 03/04/2020 How Many Years Have You Smoked Tobacco? 36 [id number] Information not available 03/04/2020 Do You Or Have You Ever Used Any Other Forms Of Tobacco Or Nicotine? Yes Vaping [email or web address] Information not available 03/17/2022 Sex: Unknown Functional Status Question Answer Note LastModified by Organization D etails LastModified Time Are you able to walk? YESWOREST [email or web address] Information not available 12/14/2021 Are you able to care for yourself? Yes [id number] Information not available 03/04/2020 What is your exercise level? None Information not available 07/20/2023 Mental Status None recorded. Family History Relationship Description Onset Age of this Age Resolved Age Notes LastModified by Organization Details LastModified Time Mother Malignant tumor of colon 70 [email or web address] Not available 09/01 10:50:57 Father Malignant tumor of colon 51 [email or web address] Not available 09/01 10:50:52 Father Alcohol abuse 51 Not available 01/22 10:30:52 Sister Seizure disorder 51 [email or web address] Not available 09/01 10:51:16 Sister Liver problem [email or web address] Not available 01/22 10:30:52 Sister Disease of liver [email or web address] Not available 01/22 10:30:52 Sister Anxiety disorder [email or web address] Not available 01/22 10:30:52 Son Asthma [email or web address] Not available 01/23/2020 10:30:53 Son Allergy [email or web address] Not availabl e 01/23/2020 10:30:53 Daughter Anxiety disorder [email or web address] Not available 06/2020 09:47:02 Medical History Condition Response Other N Gout N Blood Diseases N Kidney Stones N Hyperthyroidism N Breast Cancer N Hypothyroidism N Lung Disease Y Depression Y COPD N Defects or Inherited Disease N Anesthesia Complications N Headaches/Migraines N Varicose Veins Y Anxiety Disorder Y Obesity N Vision or Eye Problems N Arthritis Y Head Injury/Concussion N Infertility N Polyps N Congenital Anomalies N Acid Reflux (GERD) Y Cancer N Stroke N ADHD N Endometriosis N High Cholesterol N Liver Disease N Fibromyalgia N Kidney Disease N Heart Problems N Ear or Hearing Problems N Hospitalizations Y Thyroid Problems N GI Problems Y Acne N Eating Disorder N Skin Problems N Anemia N Constipation N Bladder Problems N Mental Illness Y Diabetes N Ovarian Cancer N Blood Transfusions N Seizures/Epilepsy N Tuberculosis N AIDS/HIV N Congestive Heart Failure (CHF) N Eczema N Abuse/Domestic Violence N Diverticulitis Y Asthma Y Allergies Y Reflux/GERD N Hepatitis N Pulmonary Embolism N Hypertension N Chicken Pox Y Autism Spectrum Disorder (ASD) N Osteoporosis N Gynecological History Statement/Question Response Date of Last Pap Smear 02/16/2022 Date of Last Colonoscopy 10/17/2020 Most Recent Mammogram 05/12/2022 Obstetrics History GPAL:G 0 P 0 0 0 0 Immunizations Vaccine Type Date Status Note Provider Nam e and Address Organization Details Recorded Time Influenza, split virus, quadrivalent, preservative 8 completed Not Available [facility] 02/11/2023 12:36:05 Influenza, split virus, trivalent, preservative 9 completed Not Available [facility] 02/11/2023 12:36:06 COVID-19, mRNA, LNP-S, PF, 30 mcg/0.3 mL dose 1 completed Not Available [facility] 02/11/2023 12:36:05 COVID-19, mRNA, LNP-S, PF, 30 mcg/0.3 mL dose 1 completed Not Available [facility] 02/11/2023 12:36:05 Influenza, split virus, trivalent, preservative 1 completed Not Available [email or web address] 02/11/2023 12:36:06 COVID-19, mRNA, LNP-S, PF, 30 mcg/0.3 mL dose 1 completed Not Available [facility] 02/11/2023 12:36:05 MMR 8 completed Not Available [facility] 02/11/2023 12:36:05 MMR 8 completed Not Available [facility] 02/11/2023 12:36:05 Influenza, split virus, trivalent, PF 4 completed Not Available [facility] 02/11/2023 12:36:06 Influenza, split virus, quadrivalent, PF 0 completed Not Available [facility] 02/11/2023 12:36:06 Tdap 0 completed Not Available [facility] 02/11/2023 12:36:06 COVID-19, mRNA, LNP-S, PF, 30 mcg/0.3 mL dose, xiang-sucrose 2 completed Not Available [facility] 02/11/2023 12:36:05 Influenza, split virus, quadrivalent, PF 7 completed Not Available [facility] 02/11/2023 12:36:06 Influenza, split virus, quadrivalent, PF 6 completed Not Available [facility] 02/11/2023 12:36:06 Influenza, MDCK, quadrivalent, PF 2 completed Not Available [facility] 02/11/2023 12:36:05 COVID-19, mRNA, LNP-S, bivalent, PF, 30 mcg/0.3 mL dose 2 completed Not Available [facility] 02/11/2023 12:36:06 Influenza, MDCK, quadrivalent, PF 3 completed Katya Dorado MA [facility] 05/06/2023 09:47:00 COVID-19, mRNA, LNP-S, PF, xiang-sucrose, 30 mcg/0.3 mL 3 completed TIKI Nunez, [facility] 05/06/2023 09:47:00 COVID-19, mRNA, LNP-S, PF, 50 mcg/0.5 mL 4 completed MYLENE Tejeda, [facility] 02/09/2024 08:32:34 Influenza, split virus, trivalent, preservative 7 completed Not Available [facility] 02/11/2023 12:36:06 Td (adult), 2 Lf tetanus toxoid, preservative free, adsorbed 8 completed Not Available [facility] 02/11/2023 12:36:06 Influenza, split virus, trivalent, preservative 2 completed Not Available [facility] 02/11/2023 12:36:06 Influenza, split virus, trivalent, preservative 4 completed Not Available [facility] 02/11/2023 12:36:06 Influenza, split virus, trivalent, preservative 6 completed Not Available [facility] 02/11/2023 12:36:06 Influenza, split virus, trivalent, preservative 7 completed Not Available [facility] 02/11/2023 12:36:06 Influenza, split virus, trivalent, preservative 8 completed Not Available [facility] 02/11/2023 12:36:06 Influenza, split virus, trivalent, preservative 9 completed Not Available [facility] 02/11/2023 12:36:06 Tdap 0 completed Not Available [facility] 02/11/2023 12:36:06 Influenza, split virus, trivalent, preservative 0 completed Not Available [facility] 02/11/2023 12:36:06 Influenza, split virus, trivalent, preservative 1 completed Not Available [facility] 02/11/2023 12:36:06 Influenza, split virus, trivalent, preservative 2 completed Not Available [facility] 02/11/2023 12:36:06 influenza, seasonal, intradermal, preservative free 3 completed Not Available [facility] 02/11/2023 12:36:06 Influenza, split virus, trivalent, PF 4 completed HENNA JUNG [address], [address], [facility] 01/12/2024 09:02:46 Past Encounters Encounter ID Performer Location Encounter Start Date Encounter Closed Date Diagnosis/Indication Diagnosis SNOMED-CT Code Diagnosis ICD10 Code [id number] HENNA JUNG Main Office [address] [address] 02/01/2024 08:15:07 02/01/2024 09:06:44 Headache 39762567 R51.9 [id number] Mc Weir MD Main Office [address] [address] 02/09/2024 08:18:37 02/09/2024 09:12:36 Essential hypertension 28580471 I10 Anxiety state 388736131 F41.1 [id number] Bill Cuevas PA-C [facility] [address] [address] 02/21/2024 13:15:23 02/21/2024 15:32:19 Dysuria 34332372 R30.0 Constipation 06530677 K5 9.00 [id number] Carin Marie Main Office [address] [address] 03/01/2024 09:17:48 03/01/2024 09:57:58 History of cholecystectomy 649708966 Z90.49 Atrial fibrillation 4943 6004 I48.91 Essential hypertension 06019172 I10 Health Concerns Section Related Observation LastModified by Organization Ramsey kaur LastModified Time None Recorded Concern Status LastModified by Organization Details LastModified Time None Recorded Payers Encounter Date Sequence Insurance Name Policy Number Policy [place] Covered Member ID [place] Member ID Guarantor Name 03/01/[address] [place], [place] [id number] ([facility]) [id number] 3 Indra Rodriguez [id number] Nat Rodriguez Notes Date Note Type Note Provider Name and Address Organization Details Recorded Time 03/01/2024 text/html Nat is a 58yr o ld F who presents for a hospital f/u. [facility]: [facility] of [facility]: 02/27/24 Nat was evaluated at [facility] for abdominal pain- dx with cholecystitis. Found to have new onset of afic and RVR. Underwent cholecystectomy on 02/22. Currently on augmentin course. Has an appt with cardiology for new onset afib. Do not have hospital documentation in chart. Carin villegas [place] - [facility] 03/13/2024 13:04:49 OBGyn Episode No OBEpisode recorded.
--- OUTSIDE RECORDS SUMMARY | 2024-04-11 23:06 | XMS_ITS | Continuity of Care Document ---
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 examinat ion Completed 201111/13/2013 RECORDED 12/09/19 12 2:16PM BY LORENZO BEVERLY/KIAN Weir MD [address] [address], [place], [address] , [facility] 6 13:42:06 Chronic sinusiti s [id number] Completed 201211/13/2013 RECORDED 12/28/19 13 10:05AM BY LORENZO BEVERLY ON/KIAN Weir MD [address] [address], [place], [address] , [facility] 6 13:42:06 Candidia sis of mouth [id number] Completed 201211/13/2013 RECORDED 12/28/19 13 10:05AM BY LORENZO BEVERLY ON/KIAN Weir MD [address] [facility] [address], [place], [address] , [facility] 6 13:42:05 Tobacco dependen ce syndrome [id number] Completed 201309/06/2018 Removal Reason: quit Niyah Radha-Tiki ackerman, TIKI null, [facility] 9 11:26:31 Disorder of tongue [id number] Completed 201111/13/2013 IMPRESSI ON: ALTHOUGH BLACK I ? THRUST GIVEN THE FACT YOU CAN SCRAPE OFF AND SHE HAS BEEN USING ADVAIR MORE. DISCUSSE D USE OF NYSTATIN WHICH SHE CURRENTL Y DECLINES . 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 Please review these documents and add these problems to the patient's chart manually as needed. Problem Notes None recorded. Procedures Surgical History Date Name Laterality Status Provider Name and Address Organization Details Recorded Time 02/22 Laparoscopic cholecystectomy completed Prema Recio [facility] 4 13:49:10 08/19 Colonoscopy completed Prema Recio [facility] 3 10:54:36 06/15 lumpectomy of left breast completed Trey Recio [facility] 3 15:33:41 05/12 Most Recent Mammogram completed Prema Recio [facility] 3 09:26:43 02/16 Date of Last Pap Smear completed Ruth Hummel [facility] 2 11:19:40 03/23 Mammogram screening completed Ruth Hummel [facility] 1 11:49:59 01/13 esophagogastroduodenoscopy completed Booker Hummel [facility] 1 12:01:46 10/17 Date of Last Colonoscopy completed Torie Acuña [facility] 1 12:59:48 05/25 Mammogram one breast completed Niyah ackerman MA [facility] 9 11:27:42 09/30 Appendectomy completed David Dennis [facility] 5 11:03:40 05/02 Hernia Repair completed David Dennis [facility] 5 11:03:40 Breast Biopsy completed Rajwinder Ren MA [facility] 1 09:25:51 Imaging Results None recorded. Procedure Notes None recorded. Medical Equipment None Reported. Allergies Allergen ID Allergen Name Allergen Category Reaction Reaction Severity Criticality Documentation Date Start Date Code Code System Note Provider Name and Address Organization Details Recorded Time 83452 morphine medicatio n hives moderate Not available 06/20/2014 7052 RxNorm David Garciarossbashir bakari [facility] 5 11:03:40 19140 azithromy vj medicatio n diarrhea severe Not available 07/19/2015 19581 RxNorm RajwinderTIKI Blancas, [facility] 6 11:40:28 44372 Substance with sulfonami de structure and antibacte rial mechanism of action (substanc e) medicatio n Not available Not available Not available 12/10/2021 43219 8003 SNOMED Niyah TIKI Hardy, [facility] 2 09:41:26 Medications Name Sig Start Date [...] ANNOTATI ON/KIAN ELKINS;THIS ORDER DISCONTI NUED PER MEDI-SPA N. Not Available Not Available Not Available [...] 05/22/19 11 5:49PM BY MC PINEDA MD, LORENZO ON/ DUM; Not Available [...] 10 2:10PM BY MC PINEDA MD, LORENZO ON/; Not Available Not Available Not Available mupirocin 2 % topical ointment BID to qtip - insert B nares (individ ually) x 10 days 09/23 completed RECORDED 08/16/19 10 2:37PM BY LORENZO PONCE ON/ADDEN DUM; Not Available Not Available Not Available Nasal Saline 0.65 % spray aerosol 07/02 completed RECORDED 07/03/19 11 5:47PM BY LORENZO READ ON/ADDEN DUM;THIS ORDER DISCONTI NUED PER [facility] N. Not Available Not Available Not Available [...] completed Not Available Not Available Not Available Foxholm's wort 300 mg capsule Take 1 capsule [...] Available Not Available Not Available Fluarix Quad 4540-5219 (PF) 60 mcg (15 mcg x 4)/0.5 [...] Updated DateTime 4 161.29 cm 28.2 kg/m2 37562.9 6 g 98 % 98 % 83 /min 98.3 [degF] 119 mm[Hg] 73 mm[Hg] Rajwinder Ren MA [facility] 4 08:50:46 Social History Question Answer Notes LastModified by Organizat ion Details LastModified Time Tobacco Smoking Status Former Smoker quit 2019 Mc Weir MD [address] [address], [place], [address], [facility] 03/17/2022 12:43:57 Do You Have An Advance Directive? Yes Information not available 12/14/2021 What Is Your Level Of Alcohol Consumption? Heavy [email or web address] Information not available 03/03/2021 Is Blood Transfusion Acceptable In An Emergency? Yes [id number] Information not available 03/04/2020 What Is Your Level Of Caffeine Consumption? Occasional Green Tea Information not available 07/20/2023 How Much Tobacco Do You Chew? None [id number] Information not available 03/04/2020 In The 14 Days Before Symptom Onset, Have You Had Close Contact With A Laboratory-confi rmed COVID-19 While That Case Was Ill? No [email or web address] Information not available 12/14/2021 In The 14 Days Before Symptom Onset, Have You Had Close Contact With A Person Who Is Under Investigation For COVID-19 While That Person Was Ill? Yes [email or web address] Information not available 12/14/2021 Have You Been To An Area Known To Be High Risk For COVID-19? Yes Information not available 12/14/2021 Are You Currently Employed? Yes [email or web address] Information not available 03/03/2021 What Type Of Diet Are You Following? REGULAR [id number] Information not available 03/04/2020 Which Illicit Or Recreational Drugs Have You Used? None [id number] Information not available 03/04/2020 Do You Or Have You Ever Used E-cigarettes Or Vape? Current User Of Electronic Cigarettes [email or web address] Information not available 12/14/2021 What Is Your Occupation? [employer] Information not available 07/20/2023 When Did You Quit Smoking? 1-5yearssince lastcigarette [email or web address] Information not available 03/03/2021 Live Alone Or With Others? With Others ([place]) [employer] [email or web address] Information not available 12/14/2021 Do You Take Precautions To Prevent Distracted Driving? Yes ThirstyVIPvannaCytoguidekristy Information not available 06/18/2015 How Often Do You Need To Have Someone Help You When You Read Instructions, Pamphlets, Or Other Written Material From Your Doctor Or Pharmacy? Never Scali Information not available 06/18/2015 Have You Served In The ? No Scali Information not available 09/23/2016 Have You Or Anyone In Your Household Had Any Of The Following Symptoms In The Last 14 Days: Sore Throat, Cough, Chills, Body Aches For Unknown Reasons, Shortness Of Breath For Unknown Reasons, Loss Of Smell, Loss Of Taste, Fever At Or Greater Than 100 Degrees Fahrenheit? No [email or web address] Information not available 03/03/2021 Are You Or Anyone In Your Household A Health Care Provider Or Emergency Responder? Yes [email or web address] Information not available 04/24/2020 To The Best Of Your Knowledge Have You Been In Close Proximity To Any Individual Who Tested Positive For COVID-19? No Information not available 04/24/2020 Have You Recently Traveled To A COVID-19 High Risk Area Or Gathering In The Last 10 Days? No [email or web address] Information not available 03/03/2021 What Was The Date Of Your Most Recent Tobacco Screening? 07/20/2023 Information not available 07/20/2023 How Many Children Do You Have? 3 [id number] Information not available 03/04/2020 What Is Your Current Pack Years? 30ormorepacky ears [email or web address] Information not available 12/14/2021 Do You Use Protection During Sex? No [id number] Information not available 03/04/2020 Do You Use Your Seat Belt Or Car Seat Routinely? Yes [email or web address] Information not available 03/03/2021 Seat Belts Used Routinely Yes [email or web address] Information not available 12/14/2021 Are You Sexually Active? No [email or web address] Information not available 03/03/2021 Smoke Alarm In Home Yes Information not available 12/14/2021 Do You Have Smoke And Carbon Monoxide Detectors In Your Home? Yes [email or web address] Information not available 03/03/2021 At What Age Did You Start Smoking Tobacco? 19 [id number] Information not available 03/04/2020 Are You Passively Exposed To Smoke? No Information not available 03/03/2021 Do You Or Have You Ever Used Smokeless Tobacco? Never Used Smokeless Tobacco [id number] Information not available 03/04/2020 How Much Tobacco Do You Smoke? 1 PPD Information not available 04/24/2020 Do You Use Sunscreen Routinely? No [id number] Information not available 03/04/2020 How Many Years Have You Smoked Tobacco? 36 [id number] Information not available 03/04/2020 Do You Or Have You Ever Used Any Other Forms Of Tobacco Or Nicotine? Yes Vaping [email or web address] Information not available 03/17/2022 Sex: Unknown Functional Status Question Answer Note LastModified by Organization D etails LastModified Time Are you able to walk? YESWOREST Information not available 12/14/2021 Are you able to care for yourself? Yes [id number] Information not available 03/04/2020 What is your exercise level? None Information not available 07/20/2023 Mental Status None recorded. Family History Relationship Description Onset Age of this Age Resolved Age Notes LastModified by Organization Details LastModified Time Mother Malignant tumor of colon 70 [email or web address] Not available 09/01 10:50:57 Father Malignant tumor of colon 51 [email or web address] Not available 09/01 10:50:52 Father Alcohol abuse 51 [email or web address] Not available 01/22 10:30:52 Sister Seizure disorder 51 [email or web address] Not available 09/01 10:51:16 Sister Liver problem [email or web address] Not available 01/22 10:30:52 Sister Disease of liver [email or web address] Not available 01/22 10:30:52 Sister Anxiety disorder [email or web address] Not available 01/22 10:30:52 Son Asthma [email or web address] Not available 01/23/2020 10:30:53 Son Allergy [email or web address] Not availabl e 01/23/2020 10:30:53 Daughter Anxiety disorder [email or web address] Not available 06/2020 09:47:02 Medical History Condition Response Other N Gout N Kidney Stones N Blood Diseases N Hyperthyroidism N Breast Cancer N Lung Disease Y Hypothyroidism N Depression Y COPD N Defects or Inherited [...] Eczema N Diverticulitis Y Abuse/Domestic Violence N Asthma Y Allergies Y Reflux/GERD N Hepatitis [...] virus, quadrivalent, preservative 8 completed Not Available [facility] 02/11/2023 12:36:05 Influenza, split virus, trivalent, preservative 9 completed Not Available [facility] 02/11/2023 12:36:06 COVID-19, mRNA, LNP-S, PF, 30 mcg/0.3 mL dose 1 completed Not Available [facility] 02/11/2023 12:36:05 COVID-19, mRNA, LNP-S, PF, 30 mcg/0.3 mL dose 1 completed Not Available [facility] 02/11/2023 12:36:05 Influenza, split virus, trivalent, preservative 1 completed Not Available [facility] 02/11/2023 12:36:06 COVID-19, mRNA, LNP-S, PF, 30 mcg/0.3 mL dose 1 completed Not Available [facility] 02/11/2023 12:36:05 MMR 8 completed Not Available [facility] 02/11/2023 12:36:05 MMR 8 completed Not Available [facility] 02/11/2023 12:36:05 Influenza, split virus, trivalent, PF 4 completed Not Available [facility] 02/11/2023 12:36:06 Influenza, split virus, quadrivalent, PF 0 completed Not Available [facility] 02/11/2023 12:36:06 Tdap 0 completed Not Available [facility] 02/11/2023 12:36:06 COVID-19, mRNA, LNP-S, PF, 30 mcg/0.3 mL dose, xiang-sucrose 2 completed Not Available [facility] 02/11/2023 12:36:05 Influenza, split virus, quadrivalent, PF 7 completed Not Available [facility] 02/11/2023 12:36:06 Influenza, split virus, quadrivalent, PF 6 completed Not Available [facility] 02/11/2023 12:36:06 Influenza, MDCK, quadrivalent, PF 2 completed Not Available [facility] 02/11/2023 12:36:05 COVID-19, mRNA, LNP-S, bivalent, PF, 30 mcg/0.3 mL dose 2 completed Not Available [facility] 02/11/2023 12:36:06 Influenza, MDCK, quadrivalent, PF 3 completed TIKI Nunez, [facility] 05/06/2023 09:47:00 COVID-19, mRNA, LNP-S, PF, xiang-sucrose, 30 mcg/0.3 mL 3 completed TIKI Nunez, [facility] 05/06/2023 09:47:00 COVID-19, mRNA, LNP-S, PF, 50 mcg/0.5 mL 4 completed MYLENE Tejeda, [facility] 02/09/2024 08:32:34 Influenza, split virus, trivalent, preservative 7 completed Not Available [facility] 02/11/2023 12:36:06 Td (adult), 2 Lf tetanus toxoid, preservative free, adsorbed 8 completed Not Available [facility] 02/11/2023 12:36:06 Influenza, split virus, trivalent, preservative 2 completed Not Available [facility] 02/11/2023 12:36:06 Influenza, split virus, trivalent, preservative 4 completed Not Available [facility] 02/11/2023 12:36:06 Influenza, split virus, trivalent, preservative 6 completed Not Available [facility] 02/11/2023 12:36:06 Influenza, split virus, trivalent, preservative 7 completed Not Available [facility] 02/11/2023 12:36:06 Influenza, split virus, trivalent, preservative 8 completed Not Available [facility] 02/11/2023 12:36:06 Influenza, split virus, trivalent, preservative 9 completed Not Available [facility] 02/11/2023 12:36:06 Tdap 0 completed Not Available [facility] 02/11/2023 12:36:06 Influenza, split virus, trivalent, preservative 0 completed Not Available [facility] 02/11/2023 12:36:06 Influenza, split virus, trivalent, preservative 1 completed Not Available [facility] 02/11/2023 12:36:06 Influenza, split virus, trivalent, preservative 2 completed Not Available [facility] 02/11/2023 12:36:06 influenza, seasonal, intradermal, preservative free 3 completed Not Available [facility] 02/11/2023 12:36:06 Influenza, split virus, trivalent, PF 4 completed HENNA JUNG [address], [address], [facility] 01/12/2024 09:02:46 Past Encounters Encounter ID Performer Location Encounter Start Date Encounter Closed Date Diagnosis/Indication Diagnosis SNOMED-CT Code Diagnosis ICD10 Code [id number] Mc Weir MD Main Office [address] [address] 04/04/2024 08:36:43 04/04/2024 09:32:50 Essential hypertension 11067439 I10 Anxiety state 380321626 F41.1 Asthma 227922202 J45.20 Health Concerns Section Related Observation LastModified by Organization Detai ls LastModified Time None Recorded Concern Status LastModified by Organization Details LastModified Time None Recorded Payers Encounter Date Sequence Insurance Name Policy Number Policy [place] Covered Member ID [place] Member ID Guarantor Name 04/04/[address] [place] [address] ([facility]) [id number] 3 Indra Rodriguez [id number] Nat Rodriguez Notes Date Note Type Note Provider Name and Address Organization Details Recorded Time 4 text/html Anxiety/DepressionReported bypatient.Severity:able to maintain relationships;interference with work Associated Symptoms:anxiety;anhedonia; social withdrawalHypertension F/UReported bypatient.Associated Symptoms:no dizziness; no lightheadedness; no chest pain; no shortness of breath; no palpitations; no edema; no calf pain with exertion Lifestyle:regular exercise; limiting/avoiding saltNotes:She was on lisinopril which was changed to metoprolol as an inpatient at [facility] because of afib. This was eventually stopped because of low readings. She follows her BP and the systolic has remained <130. Asthma has been under good control with advair which she uses daily and she rarely uses her rescue inhaler. Mc Weir MD [address] [address], [place], [address], [facility] 04/04/2024 09:41:43 OBGyn Episode No OBEpisode recorded.
--- OUTSIDE RECORDS SUMMARY | 2024-04-11 23:07 | XMS_ITS | Continuity of Care Document ---
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 INYAH FULLER MA, ZOATI ON/ADDEN DUM Mc Weir MD [address] [facility] [address], [place], [address] , [facility] 6 13:42:06 Pediculo sis capitis 44061127 Completed 200711/13/2013 RECORDED 02/16/20 08 2:44PM BY LORENZO CHAVIRA ON/ADDEN DUM Mc Weir MD [address] [facility] [address], [place], [address] , [facility] 6 13:42:05 Verruca plantari s 92866824 Completed 201311/13/2013 IMPRESSI ON: ADVISED OTC PRODUCTS ; RECORDED 06/21/19 14 9:20AM BY LORENZO BEVERLY ON/ADDEN DUM Mc Weir MD [address] [facility] [address], [place], [address] , [facility] 6 13:42:05 Eruption [id number] Completed 200711/13/2013 RESOLVED DATE: 12/24/19 08; RECORDED 12/24/19 08 11:52AM BY MC PINEDA MD, ZOATI ON/ADDEN DUM Mc Weir MD [address] [facility] [address], [place], [address] , [facility] 6 13:42:06 Adult health examinat ion Completed 201111/13/2013 RECORDED 12/09/19 12 2:16PM BY LORENZO BEVERLY ON/KIAN Weir MD [address] [facility] [address], [place], [address] , [facility] 6 13:42:06 Chronic sinusiti s 78378364 Completed 201211/13/2013 RECORDED 12/28/19 13 10:05AM BY LORENZO BEVERLY ON/KIAN Weir MD [address] [address], [place], [address] , [facility] 6 13:42:06 Candidia sis of mouth 66284056 Completed 201211/13/2013 RECORDED 12/28/19 13 10:05AM BY LORENZO BEVERLY ON/KIAN Weir MD [address] [address], [place], [address] , [facility] 6 13:42:05 Tobacco dependen ce syndrome 89762557 Completed 201309/06/2018 Removal Reason: quit Niyah ackerman MA null, [facility] 9 11:26:31 Disorder of tongue 78590526 Completed 201111/13/2013 IMPRESSI ON: ALTHOUGH BLACK I ? THRUST GIVEN THE FACT YOU CAN SCRAPE OFF AND SHE HAS BEEN USING ADVAIR MORE. DISCUSSE D USE OF NYSTATIN WHICH SHE CURRENTL Y DECLINES . WILL CHECK IN 1 WEEK, IF NO BETTER TO START.; RECORDED 12/09/19 12 2:16PM BY LORENZO BEVERLY ON/KIAN Weir MD [address] [facility] [address], [place], [address] , [facility] 6 13:42:06 Abnormal weight loss 917158440 Completed 201306/20/2014 RECORDED 11/06/19 14 11:40AM BY AKHIL CAMARENA MA, OFFICE VISIT Mc Weir MD [address] [facility] [address], [place], [address] , [facility] 6 13:42:06 Disorder of bone and articula r cartilag e 610293450 Completed 201111/13/2013 IMPRESSI ON: TENDERNE SS OVER XIPHOID PROCESS, HAS BEEN DOING ALOT OF YARDWORK , WILL CHECK AN XRAY BUT SUSPECT THIS IS JUST INFLAMMA TION, RECOMMEN D NSAIDS; RECORDED 12/09/19 12 2:16PM BY DAVID CRAIG I, ANNOTATI ON/ADDEN DUM Mc Weir MD [address] [facility] [address], [place], [address] , [facility] 6 13:42:06 Notes:Some problems listed i n Documents: #[id number], #[id number], #[id number] could not be added to this patient's chart. Please review these documents and add these problems to the patient's chart manually as needed. Problem Notes None recorded. Procedures Surgical History Date Name Laterality Status Provider Name and Address Organization Details Recorded Time 02/22 Laparoscopic cholecystectomy completed Prema Recio [facility] 4 13:49:10 08/19 Colonoscopy completed Prema Recio [facility] 3 10:54:36 06/15 lumpectomy of left breast completed Trey Recio [facility] 3 15:33:41 05/12 Most Recent Mammogram completed Prema Recio [facility] 3 09:26:43 02/16 Date of Last Pap Smear completed Ruth Hummel [facility] 2 11:19:40 03/23 Mammogram screening completed Ruth Hummel [facility] 1 11:49:59 01/13 esophagogastroduodenoscopy completed Booker Hummel [facility] 1 12:01:46 10/17 Date of Last Colonoscopy completed Torie Acuña [facility] 1 12:59:48 05/25 Mammogram one breast completed Niyah ackerman MA [facility] 9 11:27:42 09/30 Appendectomy completed David Dennis [facility] 5 11:03:40 05/02 Hernia Repair completed David Dennis [facility] 5 11:03:40 Breast Biopsy completed Rajwinder Ren MA [facility] 1 09:25:51 Imaging Results None recorded. Procedure Notes None recorded. Medical Equipment None Reported. Allergies Allergen ID Allergen Name Allergen Category Reaction Reaction Severity Criticality Documentation Date Start Date Code Code System Note Provider Name and Address Organization Details Recorded Time 75995 morphine medicatio n hives moderate Not available 06/20/2014 7052 RxNorm David villegas [facility] 5 11:03:40 08319 azithromy vj medicatio n diarrhea severe Not available 07/19/2015 02123 RxNorm TIKI Fuchs [facility] 6 11:40:28 66158 Substance with sulfonami de structure and antibacte rial mechanism of action (substanc e) medicatio n Not available Not available Not available 12/10/2021 97078 8003 SNOMED TIKI Woody [facility] 2 09:41:26 Medications Name Sig Start Date [...] 11 5:49PM BY MC PINEDA MD, ANNOTATI ON/KIAN DUM; Not Available Not Available Not [...] completed Not Available Not Available Not Available Cow[place]'s wort 1,000 mg capsule active RECORDED 04/23/20 10 2:10PM BY MC PINEDA MD, ZOATI ON/ADDEN DUM; Not Available Not Available Not Available mupirocin 2 % topical ointment BID to qtip - insert B nares (individ ually) x 10 days 09/23 completed RECORDED 08/16/19 10 2:37PM BY LORENZO PONCE ON/ADDEN DUM; Not Available Not Available Not Available Nasal Saline 0.65 % spray aerosol 07/02 completed RECORDED 07/03/19 11 5:47PM BY LORENZO READ ON/ADDEN DUM;THIS ORDER DISCONTI NUED PER [facility] N. Not Available Not Available Not [...] Available Not Available Not Available Fluarix Quad 8027-0267 (PF) 60 mcg (15 mcg x 4)/0.5 [...] Updated DateTime 4 161.29 cm 28.8 kg/m2 45839.4 4 g 71 /min 97 % 97 % 98.3 [degF] 125 mm[Hg] 83 mm[Hg] Veronique Schmidt LPN [facility] 4 08:32:21 Social History Question Answer Notes LastModified by Organizat ion Details LastModified Time Tobacco Smoking Status Former Smoker quit 2019 Mc Weir MD [address] [facility] [address], [place], [address], [facility] 03/17/2022 12:43:57 Do You Have An Advance Directive? Yes [email or web address] Information not available 12/14/2021 What Is Your Level Of Alcohol Consumption? Heavy [email or web address] Information not available 03/03/2021 Is Blood Transfusion Acceptable In An Emergency? Yes [id number] Information not available 03/04/2020 What Is Your Level Of Caffeine Consumption? Occasional Green Tea Information not available 07/20/2023 How Much Tobacco Do You Chew? None [id number] Information not available 03/04/2020 In The 14 Days Before Symptom Onset, Have You Had Close Contact With A Laboratory-confi rmed COVID-19 While That Case Was Ill? No [email or web address] Information not available 12/14/2021 In The 14 Days Before Symptom Onset, Have You Had Close Contact With A Person Who Is Under Investigation For COVID-19 While That Person Was Ill? Yes [email or web address] Information not available 12/14/2021 Have You Been To An Area Known To Be High Risk For COVID-19? Yes [email or web address] Information not available 12/14/2021 Are You Currently Employed? Yes [email or web address] Information not available 03/03/2021 What Type Of Diet Are You Following? REGULAR [id number] Information not available 03/04/2020 Which Illicit Or Recreational Drugs Have You Used? None [id number] Information not available 03/04/2020 Do You Or Have You Ever Used E-cigarettes Or Vape? 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 1-5yearssince [email or web address] [email or web address] Information not available 03/03/2021 Live Alone Or With Others? With Others ([place] [email or web address] Information not available 12/14/2021 Do You Take [...] Or Greater Than 100 Degrees Fahrenheit? No [email or web address] Information not available 03/03/2021 Are You Or [...] Gathering In The Last 10 Days? No [email or web address] Information not available 03/03/2021 What Was The Date Of Your Most Recent Tobacco Screening? 07/20/2023 Information not available 07/20/2023 How Many Children Do You Have? 3 [id number] Information not available 03/04/2020 What Is Your Current Pack Years? 30ormorepacky ears [email or web address] Information not available 12/14/2021 Do You Use Protection During Sex? No [id number] Information not available 03/04/2020 Do You Use Your Seat Belt Or Car Seat Routinely? Yes [email or web address] Information not available 03/03/2021 Seat Belts Used Routinely Yes [email or web address] Information not available 12/14/2021 Are You Sexually Active? No [email or web address] Information not available 03/03/2021 Smoke Alarm In Home Yes [email or web address] Information not available 12/14/2021 Do You Have Smoke And Carbon Monoxide Detectors In Your Home? Yes [email or web address] Information not available 03/03/2021 At What Age Did You Start Smoking Tobacco? 19 [id number] Information not available 03/04/2020 Are You Passively Exposed To Smoke? No [email or web address] Information not available 03/03/2021 Do You Or Have You Ever Used Smokeless Tobacco? Never Used Smokeless Tobacco [id number] Information not available 03/04/2020 How Much Tobacco Do You Smoke? 1 PPD Information not available 04/24/2020 Do You Use Sunscreen Routinely? No [id number] Information not available 03/04/2020 How Many Years Have You Smoked Tobacco? 36 [id number] Information not available 03/04/2020 Do You Or Have You Ever Used Any Other Forms Of Tobacco Or Nicotine? Yes Vaping [email or web address] Information not available 03/17/2022 Sex: Unknown Functional Status Question Answer Note LastModified by Organization D etails LastModified Time Are you able to walk? YESWOREST [email or web address] Information not available 12/14/2021 Are you able to care for yourself? Yes [id number] Information not available 03/04/2020 What is your exercise level? None Information not available 07/20/2023 Mental Status None recorded. Family History Relationship Description Onset Age of this Age Resolved Age Notes LastModified by Organization Details LastModified Time Mother Malignant tumor of colon 70 [email or web address] Not available 09/01 10:50:57 Father Malignant tumor of colon 51 [email or web address] Not available 09/01 10:50:52 Father Alcohol abuse 51 [email or web address] Not available 01/22 10:30:52 Sister Seizure disorder 51 [email or web address] Not available 09/01 10:51:16 Sister Liver problem [email or web address] Not available 01/22 10:30:52 Sister Disease of liver [email or web address] Not available 01/22 10:30:52 Sister Anxiety disorder [email or web address] Not available 01/22 10:30:52 Son Asthma [email or web address] Not available 01/23/2020 10:30:53 Son Allergy Not [...] virus, quadrivalent, preservative 8 completed Not Available [facility] 02/11/2023 12:36:05 Influenza, split virus, trivalent, preservative 9 completed Not Available [facility] 02/11/2023 12:36:06 COVID-19, mRNA, LNP-S, PF, 30 mcg/0.3 mL dose 1 completed Not Available [facility] 02/11/2023 12:36:05 COVID-19, mRNA, LNP-S, PF, 30 mcg/0.3 mL dose 1 completed Not Available [facility] 02/11/2023 12:36:05 Influenza, split virus, trivalent, preservative 1 completed Not Available [facility] 02/11/2023 12:36:06 COVID-19, mRNA, LNP-S, PF, 30 mcg/0.3 mL dose 1 completed Not Available [facility] 02/11/2023 12:36:05 MMR 8 completed Not Available [facility] 02/11/2023 12:36:05 MMR 8 completed Not Available [facility] 02/11/2023 12:36:05 Influenza, split virus, trivalent, PF 4 completed Not Available [facility] 02/11/2023 12:36:06 Influenza, split virus, quadrivalent, PF 0 completed Not Available [facility] 02/11/2023 12:36:06 Tdap 0 completed Not Available [facility] 02/11/2023 12:36:06 COVID-19, mRNA, LNP-S, PF, 30 mcg/0.3 mL dose, xiang-sucrose 2 completed Not Available [facility] 02/11/2023 12:36:05 Influenza, split virus, quadrivalent, PF 7 completed Not Available [facility] 02/11/2023 12:36:06 Influenza, split virus, quadrivalent, PF 6 completed Not Available [facility] 02/11/2023 12:36:06 Influenza, MDCK, quadrivalent, PF 2 completed Not Available [facility] 02/11/2023 12:36:05 COVID-19, mRNA, LNP-S, bivalent, PF, 30 mcg/0.3 mL dose 2 completed Not Available [facility] 02/11/2023 12:36:06 Influenza, MDCK, quadrivalent, PF 3 completed TIKI Nunez [facility] 05/06/2023 09:47:00 COVID-19, mRNA, LNP-S, PF, xiang-sucrose, 30 mcg/0.3 mL 3 completed TIKI Nunez [facility] 05/06/2023 09:47:00 COVID-19, mRNA, LNP-S, PF, 50 mcg/0.5 mL 4 completed [facility] 02/09/2024 08:32:34 Influenza, split virus, trivalent, preservative 7 completed Not Available [facility] 02/11/2023 12:36:06 Td (adult), 2 Lf tetanus toxoid, preservative free, adsorbed 8 completed Not Available [facility] 02/11/2023 12:36:06 Influenza, split virus, trivalent, preservative 2 completed Not Available [facility] 02/11/2023 12:36:06 Influenza, split virus, trivalent, preservative 4 completed Not Available [facility] 02/11/2023 12:36:06 Influenza, split virus, trivalent, preservative 6 completed Not Available [facility] 02/11/2023 12:36:06 Influenza, split virus, trivalent, preservative 7 completed Not Available [facility] 02/11/2023 12:36:06 Influenza, split virus, trivalent, preservative 8 completed Not Available [facility] 02/11/2023 12:36:06 Influenza, split virus, trivalent, preservative 9 completed Not Available [facility] 02/11/2023 12:36:06 Tdap 0 completed Not Available [facility] 02/11/2023 12:36:06 Influenza, split virus, trivalent, preservative 0 completed Not Available [facility] 02/11/2023 12:36:06 Influenza, split virus, trivalent, preservative 1 completed Not Available [facility] 02/11/2023 12:36:06 Influenza, split virus, trivalent, preservative 2 completed Not Available [facility] 12:36:06 influenza, seasonal, intradermal, preservative free 3 completed Not Available [facility] 02/11/2023 12:36:06 Influenza, split virus, trivalent, PF 4 completed HENNA JUNG [address] [address], [place], [address], [facility] 01/12/2024 09:02:46 Past Encounters Encounter ID Performer Location Encounter Start Date Encounter Closed Date Diagnosis/Indication Diagnosis SNOMED-CT Code Diagnosis ICD10 Code [id number] HENNA JUNG Main Office [address] [address] [place] [address] 01/12/2024 08:14:52 01/12/2024 09:04:35 Needs influenza immunization 086710024 Z23 Essential hypertension 05022998 I10 [id number] HENNA JUNG Main Office [address] [address] 02/01/2024 08:15:07 02/01/2024 09:06:44 Headache 94019633 R51.9 [id number] Mc Weir MD Main Office [address] [address] 02/09/2024 08:18:37 02/09/2024 09:12:36 Essential hypertension 31542544 I10 Anxiety state 078017547 F41.1 Health Concerns Section Related Observation LastModified by Organization Detai ls LastModified Time None Recorded Concern Status LastModified by Organization Details LastModified Time None Recorded Payers Encounter Date Sequence Insurance Name Policy Number Policy [place] Covered Member ID [place] Member ID Guarantor Name 02/09/2024 1 [facility]) [id number] 3 Indra Rodriguez [id number] Nat Rodriguez Notes Date Note Type Note Provider Name and Address Organization Details Recorded Time text/html Anxiety/DepressionReported bypatient.Severity:able to maintain relationships;interference with work Associated Symptoms:anxiety;anhedonia; social withdrawalHypertension F/UReported bypatient.Associated Symptoms:no dizziness; no lightheadedness; no chest pain; no shortness of breath; no palpitations; no edema; no calf pain with exertion Lifestyle:regular exercise; limiting/avoiding salt Medications:taking medications as directed; no side effects from medication Mc Weir MD [address], [address], [facility] 02/09/2024 09:19:20 OBGyn Episode No OBEpisode recorded.
--- OUTSIDE RECORDS SUMMARY | 2024-04-11 23:07 | XMS_ITS | Continuity of Care Document ---
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 Mc Weir MD [address] [address], [place], [address] , [facility] 6 13:42:06 Pediculo sis capitis 95278042 Completed 200711/13/2013 RECORDED 02/16/20 08 2:44PM BY LORENZO CHAVIRA ON/ADDCATRACHO DUM Mc Weir MD [address] [address], [place], [address] , [facility] 6 13:42:05 Verruca plantari s 32175130 Completed 201311/13/2013 IMPRESSI ON: ADVISED OTC PRODUCTS ; RECORDED 06/21/19 14 9:20AM BY LORENZO BEVERLY ON/ADDCATRACHO Weir MD [address] [facility] [address], [place], [address] , [facility] 6 13:42:05 Eruption [id number] Completed 200711/13/2013 RESOLVED DATE: 12/24/19 08; RECORDED 12/24/19 08 11:52AM BY MC PINEDA MD, LORENZO ON/KIAN Weir MD [address] [facility] [address], [place], [address] , [facility] 6 13:42:06 Adult health examinat ion Completed 201111/13/2013 RECORDED 12/09/19 12 2:16PM BY LORENZO BEVERLY ON/KIAN Weir MD [address] [facility] [address], [place], [address] , [facility] 6 13:42:06 Chronic sinusiti s 05375815 Completed 201211/13/2013 RECORDED 12/28/19 13 10:05AM BY LORENZO BEVERLY ON/KIAN Weir MD [address] [facility] [address], [place], [address] , [facility] 6 13:42:06 Candidia sis of mouth 38512801 Completed 201211/13/2013 RECORDED 12/28/19 13 10:05AM BY LORENZO BEVERLY ON/KIAN Weir MD [address] [facility] [address], [place], [address] , [facility] 6 13:42:05 Tobacco dependen ce syndrome 35535127 Completed 201309/06/2018 Removal Reason: quit Niyah Radha-Tiki ackerman MA null, [facility] 9 11:26:31 Disorder of tongue 20527045 Completed 201111/13/2013 IMPRESSI ON: ALTHOUGH BLACK I ? THRUST GIVEN THE FACT YOU CAN SCRAPE OFF AND SHE HAS BEEN USING ADVAIR MORE. DISCUSSE D USE OF NYSTATIN WHICH SHE CURRENTL Y DECLINES . WILL CHECK IN 1 WEEK, IF NO BETTER TO START.; RECORDED 12/09/19 12 2:16PM BY DAVID CRAIG I, LORENZO ON/KIAN Weir MD [address] [facility] [address], [place], [address] , [facility] 6 13:42:06 Abnormal weight loss 461958301 Completed 201306/20/2014 RECORDED 11/06/19 14 11:40AM BY AKHIL CAMARENA MA, OFFICE VISIT Mc Weir MD [address] [facility] [address], [place], [address] , [facility] 6 13:42:06 Disorder of bone and articula r cartilag e 634915920 Completed 201111/13/2013 IMPRESSI ON: TENDERNE SS OVER XIPHOID PROCESS, HAS BEEN DOING ALOT OF YARDWORK , WILL CHECK AN XRAY BUT SUSPECT THIS IS JUST INFLAMMA TION, RECOMMEN D NSAIDS; RECORDED 12/09/19 12 2:16PM BY DAVID CRAIG I, LORENZO ON/KIAN Weir MD [address] [facility] [address], [place], [address] , [facility] 6 13:42:06 Notes:Some problems listed i n Documents: #[id number], #[id number], #[id number] could not be added to this patient's chart. Please review these documents and add these problems to the patient's chart manually as needed. Problem Notes None recorded. Procedures Surgical History Date Name Laterality Status Provider Name and Address Organization Details Recorded Time 02/22 Laparoscopic cholecystectomy completed Prema Recio [facility] 4 13:49:10 08/19 Colonoscopy completed Prema Recio [facility] 3 10:54:36 06/15 lumpectomy of left breast completed Trey Recio [facility] 3 15:33:41 05/12 Most Recent Mammogram completed Prema Recio [facility] 3 09:26:43 02/16 Date of Last Pap Smear completed Ruth Hummel [facility] 2 11:19:40 03/23 Mammogram screening completed Ruth Hummel [facility] 1 11:49:59 01/13 esophagogastroduodenoscopy completed Booker Hummel [facility] 1 12:01:46 10/17 Date of Last Colonoscopy completed Torie Acuña [facility] 1 12:59:48 05/25 Mammogram one breast completed Niyah ackerman MA [facility] 9 11:27:42 09/30 Appendectomy completed David Dennis [facility] 5 11:03:40 05/02 Hernia Repair completed David Dennis [facility] 5 11:03:40 Breast Biopsy completed Rajwinder Ren MA [facility] 1 09:25:51 Imaging Results None recorded. Procedure Notes None recorded. Medical Equipment None Reported. Allergies Allergen ID Allergen Name Allergen Category Reaction Reaction Severity Criticality Documentation Date Start Date Code Code System Note Provider Name and Address Organization Details Recorded Time 63247 morphine medicatio n hives moderate Not available 06/20/2014 7052 RxNorm David villegas [facility] 5 11:03:40 73150 azithromy vj medicatio n diarrhea severe Not available 07/19/2015 22741 RxNorm TIKI [facility] 6 11:40:28 64618 Substance with sulfonami de structure and antibacte rial mechanism of action (substanc e) medicatio n Not available Not available Not available 12/10/2021 14752 8003 SNOMED Niyah gomez MA bakari, [facility] 2 09:41:26 Medications Name Sig Start [...] ANNOTATI ON/KIAN ELKINS;THIS ORDER DISCONTI NUED PER [facility]. Not Available Not Available Not [...] completed Not Available Not Available Not Available Walker [place]'s wort 1,000 mg capsule active RECORDED 04/23/20 10 2:10PM BY MC PINEDA MD, LORENZO ON/ DUM; Not Available Not Available Not Available mupirocin 2 % topical ointment BID to qtip - insert B nares (individ ually) x 10 days 09/23 completed RECORDED 08/16/19 10 2:37PM BY LORENZO PONCE ON/ DUM; Not Available Not Available Not Available Nasal Saline 0.65 % spray aerosol 07/02 completed RECORDED 07/03/19 11 5:47PM BY LORENZO READ ON/ DUM;THIS ORDER DISCONTI NUED PER MEDI-SPA N. Not [...] completed Not Available Not Available Not Available [place]'s wort 300 mg capsule Take 1 capsule [...] Available Not Available Not Available Fluarix Quad 8970-3569 (PF) 60 mcg (15 mcg x 4)/0.5 [...] Not Available Vitals Date Recorded Body height Provider Name an d Address Organization Details Last Updated DateTime 02/21/2024 161.29 cm Ivanna Maurice MA [facility] 02/21/2024 14:07:28 Social History Question Answer Notes LastModified by Organizat ion Details LastModified Time Tobacco Smoking Status Former Smoker quit 2019 Mc Weir MD [address] [facility] [address], [place], [address] 03/17/2022 12:43:57 Do You Have An Advance Directive? Yes [email or web address] Information not available 12/14/2021 What Is Your Level Of Alcohol Consumption? Heavy [email or web address] Information not available 03/03/2021 Is Blood Transfusion Acceptable In An Emergency? Yes [id number] Information not available 03/04/2020 What Is Your Level Of Caffeine Consumption? Occasional Green Tea Information not available 07/20/2023 How Much Tobacco Do You Chew? None [id number] Information not available 03/04/2020 In The 14 Days Before Symptom Onset, Have You Had Close Contact With A Laboratory-confi rmed COVID-19 While That Case Was Ill? No Information not available 12/14/2021 In The 14 Days Before Symptom Onset, Have You Had Close Contact With A Person Who Is Under Investigation For COVID-19 While That Person Was Ill? Yes [email or web address] Information not available 12/14/2021 Have You Been To An Area Known To Be High Risk For COVID-19? Yes [email or web address] Information not available 12/14/2021 Are You Currently Employed? Yes [email or web address] Information not available 03/03/2021 What Type Of Diet Are You Following? REGULAR [id number] Information not available 03/04/2020 Which Illicit Or Recreational Drugs Have You Used? None [id number] Information not available 03/04/2020 Do You Or Have You Ever Used E-cigarettes Or Vape? Current User Of Electronic Cigarettes Information not available 12/14/2021 What Is Your Occupation? [employer] Information not available 07/20/2023 When Did You Quit Smoking? 1-5yearssince felisa [email or web address] Information not available 03/03/2021 Live Alone Or [...] Or Greater Than 100 Degrees Fahrenheit? No [email or web address] Information not available 03/03/2021 Are You Or [...] Gathering In The Last 10 Days? No [email or web address] Information not available 03/03/2021 What Was The Date Of Your Most Recent Tobacco Screening? 07/20/2023 Information not available 07/20/2023 How Many Children Do You Have? 3 [id number] Information not available 03/04/2020 What Is Your Current Pack Years? 30ormorepacky ears [email or web address] Information not available 12/14/2021 Do You Use Protection During Sex? No [id number] Information not available 03/04/2020 Do You Use Your Seat Belt Or Car Seat Routinely? Yes [email or web address] Information not available 03/03/2021 Seat Belts Used Routinely Yes [email or web address] Information not available 12/14/2021 Are You Sexually Active? No Information not available 03/03/2021 Smoke Alarm In Home Yes [email or web address] Information not available 12/14/2021 Do You Have Smoke And Carbon Monoxide Detectors In Your Home? Yes [email or web address] Information not available 03/03/2021 At What Age Did You Start Smoking Tobacco? 19 [id number] Information not available 03/04/2020 Are You Passively Exposed To Smoke? No [email or web address] Information not available 03/03/2021 Do You Or Have You Ever Used Smokeless Tobacco? Never Used Smokeless Tobacco [id number] Information not available 03/04/2020 How Much Tobacco Do You Smoke? 1 PPD Information not available 04/24/2020 Do You Use Sunscreen Routinely? No [id number] Information not available 03/04/2020 How Many Years Have You Smoked Tobacco? 36 [id number] Information not available 03/04/2020 Do You Or Have You Ever Used Any Other Forms Of Tobacco Or Nicotine? Yes Vaping [email or web address] Information not available 03/17/2022 Sex: Unknown Functional Status Question Answer Note LastModified by Organization D etails LastModified Time Are you able to walk? YESWOREST Information not available 12/14/2021 Are you able to care for yourself? Yes [id number] Information not available 03/04/2020 What is your exercise level? None Information not available 07/20/2023 Mental Status None recorded. Family History Relationship Description Onset Age of this Age Resolved Age Notes LastModified by Organization Details LastModified Time Mother Malignant tumor of colon 70 [email or web address] Not available 09/01 10:50:57 Father Malignant tumor of colon 51 [email or web address] Not available 09/01 10:50:52 Father Alcohol abuse 51 [email or web address] Not available 01/22 10:30:52 Sister Seizure disorder 51 [email or web address] Not available 09/01 10:51:16 Sister Liver problem Not available 01/22 10:30:52 Sister Disease of liver [email or web address] Not available 01/22 10:30:52 Sister Anxiety disorder [email or web address] Not available 01/22 10:30:52 Son Asthma [email or web address] Not available 01/23/2020 10:30:53 Son Allergy [email or web address] Not availabl e 01/23/2020 10:30:53 Daughter Anxiety disorder [email or web address] Not available 06/2020 09:47:02 Medical History Condition Response Gout N Other N Kidney Stones N Blood Diseases N Hyperthyroidism N Breast Cancer N COPD N Depression Y Lung Disease Y Hypothyroidism N Defects or Inherited Disease N Anesthesia Complications N Headaches/Migraines N Anxiety Disorder Y Varicose Veins Y Obesity N Vision or Eye Problems [...] virus, quadrivalent, preservative 8 completed Not Available [facility] 02/11/2023 12:36:05 Influenza, split virus, trivalent, preservative 9 completed Not Available [facility] 02/11/2023 12:36:06 COVID-19, mRNA, LNP-S, PF, 30 mcg/0.3 mL dose 1 completed Not Available [facility] 02/11/2023 12:36:05 COVID-19, mRNA, LNP-S, PF, 30 mcg/0.3 mL dose 1 completed Not Available [facility] 02/11/2023 12:36:05 Influenza, split virus, trivalent, preservative 1 completed Not Available [facility] 02/11/2023 12:36:06 COVID-19, mRNA, LNP-S, PF, 30 mcg/0.3 mL dose 1 completed Not Available [facility] 02/11/2023 12:36:05 MMR 8 completed Not Available [facility] 02/11/2023 12:36:05 MMR 8 completed Not Available [facility] 02/11/2023 12:36:05 Influenza, split virus, trivalent, PF 4 completed Not Available [facility] 02/11/2023 12:36:06 Influenza, split virus, quadrivalent, PF 0 completed Not Available [facility] 02/11/2023 12:36:06 Tdap 0 completed Not Available [facility] 02/11/2023 12:36:06 COVID-19, mRNA, LNP-S, PF, 30 mcg/0.3 mL dose, xiang-sucrose 2 completed Not Available [facility] 02/11/2023 12:36:05 Influenza, split virus, quadrivalent, PF 7 completed Not Available [facility] 02/11/2023 12:36:06 Influenza, split virus, quadrivalent, PF 6 completed Not Available [facility] 02/11/2023 12:36:06 Influenza, MDCK, quadrivalent, PF 2 completed Not Available [facility] 02/11/2023 12:36:05 COVID-19, mRNA, LNP-S, bivalent, PF, 30 mcg/0.3 mL dose 2 completed Not Available [facility] 02/11/2023 12:36:06 Influenza, MDCK, quadrivalent, PF 3 completed Katya Dorado MA [facility] 05/06/2023 09:47:00 COVID-19, mRNA, LNP-S, PF, xiang-sucrose, 30 mcg/0.3 mL 3 completed Katya Dorado MA null, [facility] 05/06/2023 09:47:00 COVID-19, mRNA, LNP-S, PF, 50 mcg/0.5 mL 4 completed Veronique Schmidt LPN null, [facility] 02/09/2024 08:32:34 Influenza, split virus, trivalent, preservative 7 completed Not Available [facility] 02/11/2023 12:36:06 Td (adult), 2 Lf tetanus toxoid, preservative free, adsorbed 8 completed Not Available [facility] 02/11/2023 12:36:06 Influenza, split virus, trivalent, preservative 2 completed Not Available [facility] 02/11/2023 12:36:06 Influenza, split virus, trivalent, preservative 4 completed Not Available [facility] 02/11/2023 12:36:06 Influenza, split virus, trivalent, preservative 6 completed Not Available [facility] 02/11/2023 12:36:06 Influenza, split virus, trivalent, preservative 7 completed Not Available [facility] 02/11/2023 12:36:06 Influenza, split virus, trivalent, preservative 8 completed Not Available [facility] 02/11/2023 12:36:06 Influenza, split virus, trivalent, preservative 9 completed Not Available [facility] 02/11/2023 12:36:06 Tdap 0 completed Not Available [facility] 02/11/2023 12:36:06 Influenza, split virus, trivalent, preservative 0 completed Not Available [facility] 02/11/2023 12:36:06 Influenza, split virus, trivalent, preservative 1 completed Not Available [facility] 02/11/2023 12:36:06 Influenza, split virus, trivalent, preservative 2 completed Not Available [facility] 02/11/2023 12:36:06 influenza, seasonal, intradermal, preservative free 3 completed Not Available [facility] 02/11/2023 12:36:06 Influenza, split virus, trivalent, PF 4 completed HENNA JUNG [address] [facility] [address], [place], [address], [facility] 01/12/2024 09:02:46 Past Encounters Encounter ID Performer Location Encounter Start Date Encounter Closed Date Diagnosis/Indication Diagnosis SNOMED-CT Code Diagnosis ICD10 Code [id number] HENNA JUNG Main Office [address] [facility] [address] [place] [address] 02/01/2024 08:15:07 02/01/2024 09:06:44 Headache 22137396 R51.9 [id number] Mc Weir MD Main Office [address] [facility] [address] [place] [address] 02/09/2024 08:18:37 02/09/2024 09:12:36 Essential hypertension 35415779 I10 Anxiety state 343175973 F41.1 [id number] Bill Cuevas PA-C [facility] [address] [facility] [address] [place] [address] 02/21/2024 13:15:23 02/21/2024 15:32:19 Dysuria 74858949 R30.0 Constipation 65229597 K5 9.00 Health Concerns Section Related Observation LastModified by Organization Detai ls LastModified Time None Recorded Concern Status LastModified by Organization Details LastModified Time None Recorded Payers Encounter Date Sequence Insurance Name Policy Number Policy [place] Covered Member ID [place] Member ID Guarantor Name 02/21/2024 1 [facility] [id number] 3 Indra Rodriguez [id number] Nat Rodriguez Notes Date Note Type Note Provider Name and Address Organization Details Recorded Time 02/21/2024 text/html as per recent pt case:Good Morning, I took a UTI test and it came back positive they have them over the counter now and I have pain when I urinate. I for some reason are prone to them CARLOS why. What can you do and I also don't feel that well maybe because infection CARLOS! Thank You. Bill Cuevas PA-C [address] [facility] [address], [place], [address], [facility] 02/21/2024 15:12:47 OBGyn Episode No OBEpisode recorded.
--- OUTSIDE RECORDS SUMMARY | 2024-04-11 23:08 | XMS_ITS | Continuity of Care Document ---
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 [address] [facility] [address], [place], [address] , [facility] 6 13:42:06 Administ ration of bacteria l and viral vaccine Completed 200911/13/2013 RECORDED 08/16/19 10 4:02PM BY MC PINEDA MD, OFFICE VISIT Mc Weir MD [address] [address], [place], [address] , [facility] 6 13:42:06 Open wound of nose [id number] Completed 200711/13/2013 RECORDED 02/07/20 08 11:58AM BY NIYAH FULLER MA, LORENZO ON/ DUM Mc Weir MD [address] [facility] [address], [place], [address] , [facility] 6 13:42:06 Pediculo sis capitis 14505574 Completed 200711/13/2013 RECORDED 02/16/20 08 2:44PM BY LORENZO CHAVIRA ON/ DUM Mc Weir MD [address] [facility] [address], [place], [address] , [facility] 6 13:42:05 Verruca plantari s [id number] Completed 201311/13/2013 IMPRESSI ON: ADVISED OTC PRODUCTS ; RECORDED 06/21/19 14 9:20AM BY LORENZO BEVERLY ON/IKAN Weir MD [address] [facility] [address], [place], [address] , [facility] 6 13:42:05 Eruption [id number] Completed 200711/13/2013 RESOLVED DATE: 12/24/19 08; RECORDED 12/24/19 08 11:52AM BY MC PINEDA MD, LORENZO ON/KIAN Weir MD [address] [facility] [address], [place], [address] , [facility] 6 13:42:06 Adult health examinat ion Completed 201111/13/2013 RECORDED 12/09/19 12 2:16PM BY LORENZO BEVERLY ON/KIAN Weir MD [address] [facility] [address], [place], [address] , [facility] 6 13:42:06 Chronic sinusiti s 37608127 Completed 201211/13/2013 RECORDED 12/28/19 13 10:05AM BY LORENZO BEVERLY/KIAN Weir MD [address] [facility] [address], [place], [address] , [facility] 6 13:42:06 Candidia sis of mouth 47842882 Completed 201211/13/2013 RECORDED 12/28/19 13 10:05AM BY LORENZO BEVERLY ON/KIAN Weir MD [address] [facility] [address], [place], [address] , [facility] 6 13:42:05 Tobacco dependen ce syndrome 84715026 Completed 201309/06/2018 Removal Reason: quit Niyah Radha ackerman MA null, [facility] 9 11:26:31 Disorder of tongue 34020835 Completed 201111/13/2013 IMPRESSI ON: ALTHOUGH BLACK I ? THRUST GIVEN THE FACT YOU CAN SCRAPE OFF AND SHE HAS BEEN USING ADVAIR MORE. DISCUSSE D USE OF NYSTATIN WHICH SHE CURRENTL Y DECLINES . WILL CHECK IN 1 WEEK, IF NO BETTER TO START.; RECORDED 12/09/19 12 2:16PM BY DAVID CRAIG I, LORENZO ON/KIAN Weir MD [address] [facility] [address], [place], [address] , [facility] 6 13:42:06 Abnormal weight loss 812018632 Completed 201306/20/2014 RECORDED 11/06/19 14 11:40AM BY AKHIL CAMARENA MA, OFFICE VISIT Mc Weir MD [address] [facility] [address], [place], [address] , [facility] 6 13:42:06 Disorder of bone and articula r cartilag e [id number] Completed 201111/13/2013 IMPRESSI ON: TENDERNE SS OVER XIPHOID PROCESS, HAS BEEN DOING ALOT OF YARDWORK , WILL CHECK AN XRAY BUT SUSPECT THIS IS JUST INFLAMMA TION, RECOMMEN D NSAIDS; RECORDED 12/09/19 12 2:16PM BY DAVID CRAIG I, LORENZO ON/KIAN Weir MD [address] [facility] [address], [place], [address] , [facility] 6 13:42:06 Notes:Some problems listed i n Documents: #[id number], #[id number], #[id number] could not be added to this patient's chart. Please review these documents and add these problems to the patient's chart manually as needed. Problem Notes None recorded. Procedures Surgical History Date Name Laterality Status Provider Name and Address Organization Details Recorded Time 02/22 Laparoscopic cholecystectomy completed Prema Recio [facility] 4 13:49:10 08/19 Colonoscopy completed Prema Recio [facility] 3 10:54:36 06/15 lumpectomy of left breast completed Trey Recio [facility] 3 15:33:41 05/12 Most Recent Mammogram completed Prema Recio [facility] 3 09:26:43 02/16 Date of Last Pap Smear completed Ruth Hummel [facility] 2 11:19:40 03/23 Mammogram screening completed Ruth Hummel [facility] 1 11:49:59 01/13 esophagogastroduodenoscopy completed Booker Hummel [facility] 1 12:01:46 10/17 Date of Last Colonoscopy completed Torie Acuña [facility] 1 12:59:48 05/25 Mammogram one breast completed Niyah ackerman MA [facility] 9 11:27:42 09/30 Appendectomy completed David Dennis [facility] 5 11:03:40 05/02 Hernia Repair completed David Dennis [facility] 5 11:03:40 Breast Biopsy completed Rajwinder Ren MA [facility] 1 09:25:51 Imaging Results None recorded. Procedure Notes None recorded. Medical Equipment None Reported. Allergies Allergen ID Allergen Name Allergen Category Reaction Reaction Severity Criticality Documentation Date Start Date Code Code System Note Provider Name and Address Organization Details Recorded Time 92998 morphine medicatio n hives moderate Not available 06/20/2014 7052 RxNorm David villegas [facility] 5 11:03:40 15039 azithromy vj medicatio n diarrhea severe Not available 07/19/2015 57363 RxNorm TIKI Fuchs [facility] 6 11:40:28 03136 Substance with sulfonami de structure and antibacte rial mechanism of action (substanc e) medicatio n Not available Not available Not available 12/10/2021 84557 8003 SNMELISSA AlexandreTIKI [place], [facility] 2 09:41:26 Medications Name Sig Start [...] permethri n 5 % topical cream X1 06/05/ 2008 10/08 /2010 completed RECORDED 02/07/20 10 3:00PM BY TIKI ORTIZ, ANNOTATI ON/KIAN ELKINS;THIS ORDER DISCONTI NUED PER [facility]. Not Available Not Available Not [...] 11 5:49PM BY MC PINEDA MD, ANNOTATI ON/ DUM; Not Available Not Available Not [...] completed Not Available Not Available Not Available Wawona's wort 1,000 mg capsule active RECORDED 04/23/20 10 2:10PM BY MC IPNEDA MD, LORENZO ON/ DUM; Not Available Not Available Not Available mupirocin 2 % topical ointment BID to qtip - insert B nares (individ ually) x 10 days 09/23 completed RECORDED 08/16/19 10 2:37PM BY LORENZO PONCE ON/ DUM; Not Available Not Available Not Available Nasal Saline 0.65 % spray aerosol 07/02 completed RECORDED 07/03/19 11 5:47PM BY LORENZO READ ON/ADD DUM;THIS ORDER DISCONTI NUED PER [facility]-SP[facility] N. [...] Available Not Available Not Available Fluarix Quad 6068-2409 (PF) 60 mcg (15 mcg x 4)/0.5 [...] Updated DateTime 4 161.29 cm 28.8 kg/m2 38473.7 4 g 75 /min 98 % 98 % 97.9 [degF] 156 mm[Hg] 103 mm[Hg] Katya Salamanca [facility] 08:30:40 Date Recorded Systolic blood pressure Diastolic blood pressure Provider Name and Address Organization Details Last Updated DateTime 01/12/2024 142 mm[Hg] 88 mm[Hg] HENNA JUNG [address], [address], [facility] 01/12/2024 09:03:03 Social History Question Answer Notes LastModified by Organizat ion Details LastModified Time Tobacco Smoking Status Former Smoker quit 2019 Mc Weir MD [address], [address], [facility] 03/17/2022 12:43:57 Do You Have An Advance Directive? Yes [email or web address] Information not available 12/14/2021 What Is Your Level Of Alcohol Consumption? Heavy [email or web address] Information not available 03/03/2021 Is Blood Transfusion Acceptable In An Emergency? Yes [id number] Information not available 03/04/2020 What Is Your Level Of Caffeine Consumption? Occasional Green Tea Information not available 07/20/2023 How Much Tobacco Do You Chew? None [id number] Information not available 03/04/2020 In The 14 Days Before Symptom Onset, Have You Had Close Contact With A [facility] While That Case Was Ill? No [email or web address] Information not available 12/14/2021 In The 14 Days Before Symptom Onset, Have You Had Close Contact With A Person Who Is Under Investigation For COVID-19 While That Person Was Ill? Yes [email or web address] Information not available 12/14/2021 Have You Been To An Area Known To Be High Risk For COVID-19? Yes [email or web address] Information not available 12/14/2021 Are You Currently Employed? Yes [email or web address] Information not available 03/03/2021 What Type Of Diet Are You Following? REGULAR [id number] Information not available 03/04/2020 Which Illicit Or Recreational Drugs Have You Used? None [id number] Information not available 03/04/2020 Do You Or Have You Ever Used E-cigarettes Or Vape? Current User Of Electronic Cigarettes Information not available 12/14/2021 What Is Your Occupation? [employer] Information not available 07/20/2023 When Did You Quit Smoking? 1-5yearssince lastcigarette [email or web address] Information not available 03/03/2021 Live Alone Or With Others? With Others ([place] Information not available 12/14/2021 Do You Take Precautions To Prevent Distracted Driving? Yes [employer] Information not available 06/18/2015 How Often Do You Need To Have Someone Help You When You Read Instructions, Pamphlets, Or Other Written Material From Your Doctor Or Pharmacy? Never [employer] Information not available 06/18/2015 Have You Served In The ? No [employer] Information not available 09/23/2016 Have You Or Anyone In Your Household Had Any Of The Following Symptoms In The Last 14 Days: Sore Throat, Cough, Chills, Body Aches For Unknown Reasons, Shortness Of Breath For Unknown Reasons, Loss Of Smell, Loss Of Taste, Fever At Or Greater Than 100 Degrees Fahrenheit? No [email or web address] Information not available 03/03/2021 Are You Or [...] Gathering In The Last 10 Days? No [email or web address] Information not available 03/03/2021 What Was The Date Of Your Most Recent Tobacco Screening? 07/20/2023 Information not available 07/20/2023 How Many Children Do You Have? 3 [id number] Information not available 03/04/2020 What Is Your Current Pack Years? 30ormorepacky ears [email or web address] Information not available 12/14/2021 Do You Use Protection During Sex? No [id number] Information not available 03/04/2020 Do You Use Your Seat Belt Or Car Seat Routinely? Yes [email or web address] Information not available 03/03/2021 Seat Belts Used Routinely Yes Information not available 12/14/2021 Are You Sexually Active? No [email or web address] Information not available 03/03/2021 Smoke Alarm In Home Yes [email or web address] Information not available 12/14/2021 Do You Have Smoke And Carbon Monoxide Detectors In Your Home? Yes [email or web address] Information not available 03/03/2021 At What Age Did You Start Smoking Tobacco? 19 [id number] Information not available 03/04/2020 Are You Passively Exposed To Smoke? No [email or web address] Information not available 03/03/2021 Do You Or Have You Ever Used Smokeless Tobacco? Never Used Smokeless Tobacco [id number] Information not available 03/04/2020 How Much Tobacco Do You Smoke? 1 PPD Information not available 04/24/2020 Do You Use Sunscreen Routinely? No [id number] Information not available 03/04/2020 How Many Years Have You Smoked Tobacco? 36 [id number] Information not available 03/04/2020 Do You Or Have You Ever Used Any Other Forms Of Tobacco Or Nicotine? Yes Vaping [email or web address] Information not available 03/17/2022 Sex: Unknown Functional Status Question Answer Note LastModified by Organization D etails LastModified Time Are you able to walk? YESWOREST [email or web address] Information not available 12/14/2021 Are you able to care for yourself? Yes [id number] Information not available 03/04/2020 What is your exercise level? None Information not available 07/20/2023 Mental Status None recorded. Family History Relationship Description Onset Age of this Age Resolved Age Notes LastModified by Organization Details LastModified Time Mother Malignant tumor of colon 70 [email or web address] Not available 09/01 10:50:57 Father Malignant tumor of colon 51 [email or web address] Not available 09/01 10:50:52 Father Alcohol abuse 51 [email or web address] Not available 01/22 10:30:52 Sister Seizure disorder 51 [email or web address] Not available 09/01 10:51:16 Sister Liver problem [email or web address] Not available 01/22 10:30:52 Sister Disease of liver [email or web address] Not available 01/22 10:30:52 Sister Anxiety disorder [email or web address] Not available 01/22 10:30:52 Son Asthma [email or web address] Not available 01/23/2020 10:30:53 Son Allergy Not [...] virus, quadrivalent, preservative 8 completed Not Available [facility] 02/11/2023 12:36:05 Influenza, split virus, trivalent, preservative 9 completed Not Available [facility] 02/11/2023 12:36:06 COVID-19, mRNA, LNP-S, PF, 30 mcg/0.3 mL dose 1 completed Not Available [facility] 02/11/2023 12:36:05 COVID-19, mRNA, LNP-S, PF, 30 mcg/0.3 mL dose 1 completed Not Available [facility] 02/11/2023 12:36:05 Influenza, split virus, trivalent, preservative 1 completed Not Available [facility] 02/11/2023 12:36:06 COVID-19, mRNA, LNP-S, PF, 30 mcg/0.3 mL dose 1 completed Not Available [facility] 02/11/2023 12:36:05 MMR 8 completed Not Available [facility] 02/11/2023 12:36:05 MMR 8 completed Not Available [facility] 02/11/2023 12:36:05 Influenza, split virus, trivalent, PF 4 completed Not Available [facility] 02/11/2023 12:36:06 Influenza, split virus, quadrivalent, PF 0 completed Not Available [facility] 02/11/2023 12:36:06 Tdap 0 completed Not Available [facility] 02/11/2023 12:36:06 COVID-19, mRNA, LNP-S, PF, 30 mcg/0.3 mL dose, xiang-sucrose 2 completed Not Available [facility] 02/11/2023 12:36:05 Influenza, split virus, quadrivalent, PF 7 completed Not Available [facility] 02/11/2023 12:36:06 Influenza, split virus, quadrivalent, PF 6 completed Not Available [facility] 02/11/2023 12:36:06 Influenza, MDCK, quadrivalent, PF 2 completed Not Available [facility] 02/11/2023 12:36:05 COVID-19, mRNA, LNP-S, bivalent, PF, 30 mcg/0.3 mL dose 2 completed Not Available [facility] 02/11/2023 12:36:06 Influenza, MDCK, quadrivalent, PF 3 completed Katya Dorado MA null, [facility] 05/06/2023 09:47:00 COVID-19, mRNA, LNP-S, PF, xiang-sucrose, 30 mcg/0.3 mL 3 completed Katya Dorado MA null, [facility] 05/06/2023 09:47:00 COVID-19, mRNA, LNP-S, PF, 50 mcg/0.5 mL 4 completed Veronique Schmidt LPN null, [facility] 02/09/2024 08:32:34 Influenza, split virus, trivalent, preservative 7 completed Not Available [facility] 02/11/2023 12:36:06 Td (adult), 2 Lf tetanus toxoid, preservative free, adsorbed 8 completed Not Available [facility] 02/11/2023 12:36:06 Influenza, split virus, trivalent, preservative 2 completed Not Available [facility] 02/11/2023 12:36:06 Influenza, split virus, trivalent, preservative 4 completed Not Available [facility] 02/11/2023 12:36:06 Influenza, split virus, trivalent, preservative 6 completed Not Available [facility] 02/11/2023 12:36:06 Influenza, split virus, trivalent, preservative 7 completed Not Available [facility] 02/11/2023 12:36:06 Influenza, split virus, trivalent, preservative 8 completed Not Available [facility] 02/11/2023 12:36:06 Influenza, split virus, trivalent, preservative 09/21/200 9 completed Not Available [facility] 02/11/2023 12:36:06 Tdap 0 completed Not Available [facility] 02/11/2023 12:36:06 Influenza, split virus, trivalent, preservative 0 completed Not Available [facility] 02/11/2023 12:36:06 Influenza, split virus, trivalent, preservative 1 completed Not Available [facility] 02/11/2023 12:36:06 Influenza, split virus, trivalent, preservative 2 completed Not Available [facility] 02/11/2023 12:36:06 influenza, seasonal, intradermal, preservative free 3 completed Not Available [facility] 02/11/2023 12:36:06 Influenza, split virus, trivalent, PF 4 completed HENNA JUNG [address], [address], [facility] 01/12/2024 09:02:46 Past Encounters Encounter ID Performer Location Encounter Start Date Encounter Closed Date Diagnosis/Indication Diagnosis SNOMED-CT Code Diagnosis ICD10 Code [id number] HENNA JUNG Main Office [address] [address] 01/12/2024 08:14:52 01/12/2024 09:04:35 Needs influenza immunization 594134518 Z23 Essential hypertension 26755451 I10 Health Concerns Section Related Observation LastModified by Organization Detai ls LastModified Time None Recorded Concern Status LastModified by Organization Details LastModified Time None Recorded Payers Encounter Date Sequence Insurance Name Policy Number Policy [place] Covered Member ID [place] Member ID Guarantor Name 01/12/2024 1 [facility] [id number] Indra Rodriguez [id number] Nat Rodriguez Notes Date Note Type Note Provider Name and Address Organization Details Recorded Time 01/12/2024 text/html Nat is a 58yr old F who presents for elevated BP readings at home and at an OV with breast specialist. At breast specialist BP was 173/110 then 162/93. Has been monitoring BP at home with systolic readings remaining in the 150-160s range. Assocated symptoms of BAÑUELOS. Denies of any cardiac symptoms or SOB. Reports she does exercise on a treadmill every morning. HENNA JUNG [address] [address], [place], [address], [facility] 01/12/2024 09:09:57 OBGyn Episode No OBEpisode recorded.
--- OUTSIDE RECORDS SUMMARY | 2024-04-11 23:08 | XMS_ITS | Continuity of Care Document ---
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 and viral vaccine Completed 200911/13/2013 RECORDED 08/16/19 10 4:02PM BY MC PINEDA MD, OFFICE VISIT Mc Weir MD [address] [facility] [address] [facility] [address], [place], [address] , [facility] 6 13:42:06 Open wound of nose 073654928 Completed 200711/13/2013 RECORDED 02/07/20 08 11:58AM BY NIYAH FULLER MA, LORENZO ON/KIAN Weir MD [address], [place], [address] , [facility] 6 13:42:06 Pediculo sis capitis 93596629 Completed 200711/13/2013 RECORDED 02/16/20 08 2:44PM BY LORENZO CHAVIRA ON/KIAN Weir MD [address], [place], [address] , [facility] 6 13:42:05 Verruca plantari s [id number] Completed 201311/13/2013 IMPRESSI ON: ADVISED OTC PRODUCTS ; RECORDED 06/21/19 14 9:20AM BY LORENZO BEVERLY ON/KIAN Weir MD [address] [facility] [address] [facility] [address], [place], [address] , [facility] 6 13:42:05 Eruption [id number] Completed 200711/13/2013 RESOLVED DATE: 12/24/19 08; RECORDED 12/24/19 08 11:52AM BY MC PINEDA MD, LORENZO ON/KIAN Weir MD [address] [facility] [address], [place], [address] , [facility] 6 13:42:06 Adult health examinat ion Completed 201111/13/2013 RECORDED 12/09/19 12 2:16PM BY LORENZO BEVERLY ON/KIAN Weir MD [address] [facility] [address], [place], [address] , [facility] 6 13:42:06 Chronic sinusiti s 79429540 Completed 201211/13/2013 RECORDED 12/28/19 13 10:05AM BY LORENZO BEVERLY ON/KIAN Weir MD [address] [facility] [address], [place], [address] , [facility] 6 13:42:06 Candidia sis of mouth 44563515 Completed 201211/13/2013 RECORDED 12/28/19 13 10:05AM BY LORENZO BEVERLY ON/KIAN Weir MD [address] [facility] [address], [place], [address] , [facility] 6 13:42:05 Tobacco dependen ce syndrome 66853059 Completed 201309/06/2018 Removal Reason: [facility] 9 11:26:31 Disorder of tongue 30369091 Completed 201111/13/2013 IMPRESSI ON: ALTHOUGH BLACK I ? THRUST GIVEN THE FACT YOU CAN SCRAPE OFF AND SHE HAS BEEN USING ADVAIR MORE. DISCUSSE D USE OF NYSTATIN WHICH SHE CURRENTL Y DECLINES . WILL CHECK IN 1 WEEK, IF NO BETTER TO START.; RECORDED 12/09/19 12 2:16PM BY LORENZO BEVERLY ON/KIAN Weir MD [address] [facility] [address] [facility] [address], [place], [address] , [facility] 6 13:42:06 Abnormal weight loss 422267818 Completed 201306/20/2014 RECORDED 11/06/19 14 11:40AM BY AKHIL CAMARENA MA, OFFICE VISIT Mc Weir MD [address] [facility] [address], [place], [address] , [facility] 6 13:42:06 Disorder of bone and articula r cartilag e 605089928 Completed 201111/13/2013 IMPRESSI ON: TENDERNE SS OVER XIPHOID PROCESS, HAS BEEN DOING ALOT OF YARDWORK , WILL CHECK AN XRAY BUT SUSPECT THIS IS JUST INFLAMMA TION, RECOMMEN D NSAIDS; RECORDED 12/09/19 12 2:16PM BY LORENZO BEVERLY ON/KIAN Weir MD [address] [facility] [address] [facility] [address], [place], [address] , [facility] 6 13:42:06 Notes:Some problems listed i n Documents: #[id number], #[id number], #[id number] could not be added to this patient's chart. Please review these documents and add these problems to the patient's chart manually as needed. Problem Notes None recorded. Procedures Surgical History Date Name Laterality Status Provider Name and Address Organization Details Recorded Time 02/22 Laparoscopic cholecystectomy completed Prema Recio [facility] 4 13:49:10 08/19 Colonoscopy completed Prema Recio [facility] 3 10:54:36 06/15 lumpectomy of left breast completed Trey Recio [facility] 3 15:33:41 05/12 Most Recent Mammogram completed Premaangie Recio [facility] 3 09:26:43 02/16 Date of Last Pap Smear completed Rtuh Shaheed [facility] 2 11:19:40 03/23 Mammogram screening completed Ruth Shaheed [facility] 1 11:49:59 01/13 esophagogastroduodenoscopy completed Veronikamichael maranda Shaheed [facility] 1 12:01:46 10/17 Date of Last Colonoscopy completed Torie Domenico [facility] 1 12:59:48 05/25 Mammogram one breast completed Niyah ackerman MA [facility] 9 11:27:42 09/30 Appendectomy completed David Dennis [facility] 5 11:03:40 05/02 Hernia Repair completed David Dennis [facility] 5 11:03:40 Breast Biopsy completed Rajwinder Ren MA [facility] 1 09:25:51 Imaging Results None recorded. Procedure Notes None recorded. Medical Equipment None Reported. Allergies Allergen ID Allergen Name Allergen Category Reaction Reaction Severity Criticality Documentation Date Start Date Code Code System Note Provider Name and Address Organization Details Recorded Time 25188 morphine medicatio n hives moderate Not available 06/20/2014 [address] [facility] 5 11:03:40 53583 azithromy vj medicatio n diarrhea severe Not available 07/19/[address] [facility] 6 11:40:28 29819 Substance with sulfonami de structure and antibacte rial mechanism of action (substanc e) medicatio n Not available Not available Not available 12/10/2021 77987 8003 SNOMED Niyah TIKI Hardy [facility] 2 09:41:26 Medications Name Sig [...] completed Not Available Not Available Not Available [place]'s wort 1,000 mg capsule active RECORDED 04/23/20 10 2:10PM BY MC PINEDA MD, LORENZO ON/KIAN DUM; Not Available Not Available Not Available mupirocin 2 % topical ointment BID to qtip - insert B nares (individ ually) x 10 days 09/23 completed RECORDED 08/16/19 10 2:37PM BY LORENZO PONCE ON/KIAN DUM; Not Available Not Available Not Available Nasal Saline 0.65 % spray aerosol 07/02 completed RECORDED 07/03/19 11 5:47PM BY LORENZO READ ON/KIAN DUM;THIS ORDER DISCONTI NUED PER [facility] Not Available Not Available [...] Available Not Available Not Available Fluarix Quad 8436-5820 (PF) 60 mcg (15 mcg x 4)/0.5 [...] oral route as directed for 5 days. 03/10 /2023 completed Not Available Not Available Not Available Vitals Date Recorded Body height Body mass index (BMI) Body weight Heart rate Oxygen saturation Oxygen saturation in Arterial blood by Pulse oximetry Body temperature Systolic blood pressure Diastolic blood pressure Provider Name and Address Organization Details Last Updated DateTime 4 161.29 cm 29.1 kg/m2 85227.6 3 g 66 /min 95 % 95 % 97.7 [degF] 115 mm[Hg] 81 mm[Hg] [facility] 4 08:41:54 Social History Question Answer Notes LastModified by Organizat ion Details LastModified Time Tobacco Smoking Status Former Smoker quit 2019 Mc Weir MD [address], [address] 03/17/2022 12:43:57 Do You Have An Advance Directive? Yes [email or web address] Information not available 12/14/2021 What Is Your Level Of Alcohol Consumption? Heavy [email or web address] Information not available 03/03/2021 Is Blood Transfusion Acceptable In An Emergency? Yes [id number] Information not available 03/04/2020 What Is Your Level Of Caffeine Consumption? Occasional Green Tea Information not available 07/20/2023 How Much Tobacco Do You Chew? None [id number] Information not available 03/04/2020 In The 14 Days Before Symptom Onset, Have You Had Close Contact With A Laboratory-confi rmed COVID-19 While That Case Was Ill? No [email or web address] Information not available 12/14/2021 In The 14 Days Before Symptom Onset, Have You Had Close Contact With A Person Who Is Under Investigation For COVID-19 While That Person Was Ill? Yes [email or web address] Information not available 12/14/2021 Have You Been To An Area Known To Be High Risk For COVID-19? Yes [email or web address] Information not available 12/14/2021 Are You Currently Employed? Yes [email or web address] Information not available 03/03/2021 What Type Of Diet Are You Following? REGULAR [id number] Information not available 03/04/2020 Which Illicit Or Recreational Drugs Have You Used? None [id number] Information not available 03/04/2020 Do You Or Have You Ever Used E-cigarettes Or Vape? Current User Of Electronic Cigarettes [email or web address] Information not available 12/14/2021 What Is Your Occupation? [employer] Information not available 07/20/2023 When Did You Quit Smoking? 1-5yearssince lastcigarryette [email or web address] Information not available 03/03/2021 Live Alone Or With Others? With Others ([place] [email or web address] Information not available 12/14/2021 Do You Take Precautions To Prevent Distracted Driving? Yes Information not available 06/18/2015 How Often Do You Need To Have Someone Help You When You Read Instructions, Pamphlets, Or Other Written Material From Your Doctor Or Pharmacy? Never Information not available 06/18/2015 Have You Served In The ? No [email or web address] Information not available 09/23/2016 Have You Or Anyone In Your Household Had Any Of The Following Symptoms In The Last 14 Days: Sore Throat, Cough, Chills, Body Aches For Unknown Reasons, Shortness Of Breath For Unknown Reasons, Loss Of Smell, Loss Of Taste, Fever At Or Greater Than 100 Degrees Fahrenheit? No [email or web address] Information not available 03/03/2021 Are You Or [...] Gathering In The Last 10 Days? No [email or web address] Information not available 03/03/2021 What Was The Date Of Your Most Recent Tobacco Screening? 07/20/2023 Information not available 07/20/2023 How Many Children Do You Have? 3 [id number] Information not available 03/04/2020 What Is Your Current Pack Years? 30ormorepacky ears [email or web address] Information not available 12/14/2021 Do You Use Protection During Sex? No [id number] Information not available 03/04/2020 Do You Use Your Seat Belt Or Car Seat Routinely? Yes [email or web address] Information not available 03/03/2021 Seat Belts Used Routinely Yes [email or web address] Information not available 12/14/2021 Are You Sexually Active? No [email or web address] Information not available 03/03/2021 Smoke Alarm In Home Yes [email or web address] Information not available 12/14/2021 Do You Have Smoke And Carbon Monoxide Detectors In Your Home? Yes [email or web address] Information not available 03/03/2021 At What Age Did You Start Smoking Tobacco? 19 [id number] Information not available 03/04/2020 Are You Passively Exposed To Smoke? No [email or web address] Information not available 03/03/2021 Do You Or Have You Ever Used Smokeless Tobacco? Never Used Smokeless Tobacco [id number] Information not available 03/04/2020 How Much Tobacco Do You Smoke? 1 PPD Information not available 04/24/2020 Do You Use Sunscreen Routinely? No [id number] Information not available 03/04/2020 How Many Years Have You Smoked Tobacco? 36 [id number] Information not available 03/04/2020 Do You Or Have You Ever Used Any Other Forms Of Tobacco Or Nicotine? Yes Vaping [email or web address] Information not available 03/17/2022 Sex: Unknown Functional Status Question Answer Note LastModified by Organization D etails LastModified Time Are you able to walk? YESWOREST [email or web address] Information not available 12/14/2021 Are you able to care for yourself? Yes [id number] Information not available 03/04/2020 What is your exercise level? None Information not available 07/20/2023 Mental Status None recorded. Family History Relationship Description Onset Age of this Age Resolved Age Notes LastModified by Organization Details LastModified Time Mother Malignant tumor of colon 70 [email or web address] Not available 09/01 10:50:57 Father Malignant tumor of colon 51 [email or web address] Not available 09/01 10:50:52 Father Alcohol abuse 51 [email or web address] Not available 01/22 10:30:52 Sister Seizure disorder 51 [email or web address] Not available 09/01 10:51:16 Sister Liver problem [email or web address] Not available 01/22 10:30:52 Sister Disease of liver [email or web address] Not available 01/22 10:30:52 Sister Anxiety disorder Not available 01/22 10:30:52 Son Asthma [email or web address] Not available 01/23/2020 10:30:53 Son Allergy [email or web address] Not availabl e 01/23/2020 10:30:53 Daughter Anxiety [...] virus, quadrivalent, preservative 8 completed Not Available [facility] 02/11/2023 12:36:05 Influenza, split virus, trivalent, preservative 9 completed Not Available [facility] 02/11/2023 12:36:06 COVID-19, mRNA, LNP-S, PF, 30 mcg/0.3 mL dose 1 completed Not Available [facility] 02/11/2023 12:36:05 COVID-19, mRNA, LNP-S, PF, 30 mcg/0.3 mL dose 1 completed Not Available [facility] 02/11/2023 12:36:05 Influenza, split virus, trivalent, preservative 1 completed Not Available [facility] 02/11/2023 12:36:06 COVID-19, mRNA, LNP-S, PF, 30 mcg/0.3 mL dose 1 completed Not Available [facility] 02/11/2023 12:36:05 MMR 8 completed Not Available [facility] 02/11/2023 12:36:05 MMR 8 completed Not Available [facility] 02/11/2023 12:36:05 Influenza, split virus, trivalent, PF 4 completed Not Available [facility] 02/11/2023 12:36:06 Influenza, split virus, quadrivalent, PF 0 completed Not Available [facility] 02/11/2023 12:36:06 Tdap 0 completed Not Available [facility] 02/11/2023 12:36:06 COVID-19, mRNA, LNP-S, PF, 30 mcg/0.3 mL dose, xiang-sucrose 2 completed Not Available [facility] 02/11/2023 12:36:05 Influenza, split virus, quadrivalent, PF 7 completed Not Available [facility] 02/11/2023 12:36:06 Influenza, split virus, quadrivalent, PF 6 completed Not Available [facility] 02/11/2023 12:36:06 Influenza, MDCK, quadrivalent, PF 2 completed Not Available [facility] 02/11/2023 12:36:05 COVID-19, mRNA, LNP-S, bivalent, PF, 30 mcg/0.3 mL dose 2 completed Not Available [facility] 02/11/2023 12:36:06 Influenza, MDCK, quadrivalent, PF [address] [facility] 05/06/2023 09:47:00 COVID-19, mRNA, LNP-S, PF, xiang-sucrose, 30 mcg/0.3 mL 3 completed Katya Dorado MA null, [facility] 05/06/2023 09:47:00 COVID-19, mRNA, LNP-S, PF, 50 mcg/0.5 mL 4 completed Veronique Schmidt LPN null, [facility] 02/09/2024 08:32:34 Influenza, split virus, trivalent, preservative 7 completed Not Available [facility] 02/11/2023 12:36:06 Td (adult), 2 Lf tetanus toxoid, preservative free, adsorbed 8 completed Not Available [facility] 02/11/2023 12:36:06 Influenza, split virus, trivalent, preservative 2 completed Not Available [facility] 02/11/2023 12:36:06 Influenza, split virus, trivalent, preservative 4 completed Not Available [facility] 02/11/2023 12:36:06 Influenza, split virus, trivalent, preservative 6 completed Not Available [facility] 02/11/2023 12:36:06 Influenza, split virus, trivalent, preservative 7 completed Not Available [facility] 02/11/2023 12:36:06 Influenza, split virus, trivalent, preservative 8 completed Not Available [facility] 02/11/2023 12:36:06 Influenza, split virus, trivalent, preservative 9 completed Not Available [facility] 02/11/2023 12:36:06 Tdap 0 completed Not Available [facility] 02/11/2023 12:36:06 Influenza, split virus, trivalent, preservative 0 completed Not Available [facility] 02/11/2023 12:36:06 Influenza, split virus, trivalent, preservative 1 completed Not Available [facility] 02/11/2023 12:36:06 Influenza, split virus, trivalent, preservative 2 completed Not Available [facility] 02/11/2023 12:36:06 influenza, seasonal, intradermal, preservative free 3 completed Not Available [facility] 02/11/2023 12:36:06 Influenza, split virus, trivalent, PF 4 completed HENNA JUNG [address], [place], [address], [facility] 01/12/2024 09:02:46 Past Encounters Encounter ID Performer Location Encounter Start Date Encounter Closed Date Diagnosis/Indication Diagnosis SNOMED-CT Code Diagnosis ICD10 Code [id number] HENNA JUNG Main Office [address] [facility] [address] [place] [address] 01/12/2024 08:14:52 01/12/2024 09:04:35 Needs influenza immunization 563567542 Z23 Essential hypertension 49890083 I10 [id number] HENNA JUNG Main Office [address] [address] 02/01/2024 08:15:07 02/01/2024 09:06:44 Headache 97316680 R51.9 Health Concerns Section Related Observation LastModified by Organization Detai ls LastModified Time None Recorded Concern Status LastModified by Organization Details LastModified Time None Recorded Payers Encounter Date Sequence Insurance Name Policy Number Policy [place] Covered Member ID [place] Member ID Guarantor Name 02/01/2024 1 [employer] [facility] [id number] Indra Rodriguez [id number] Nat Rodriguez Notes Date Note Type Note Provider Name and Address Organization Details Recorded Time 02/01/2024 text/html HeadacheReported bypatient.Location:[facility] Quality:similar to previous headaches Severity:mild Onset/Timing:abrupt onset; [...] not tried OTC medications. HENNA JUNG [address] [address], [place], [address], [facility] 02/01/2024 09:20:31 OBGyn Episode No OBEpisode recorded.
== END 2024-04-11 09:17 | disposition home or self-care (01) ==
PROVIDERS: PCP Internal Medicine; Visit Provider Surgery
DX: Z90.49 Acquired absence of other specified parts of digestive tract (principal)
CPT/HCPCS: 99024

== ENCOUNTER 2024-05-04 06:30 | Outpatient (REF) | payer OTHER, SELFPAY ==
--- OUTSIDE RECORDS SUMMARY | 2024-05-04 06:33 | XMS_ITS | Continuity of Care Document ---
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 [facility] [address], [place], [address] , [facility] 6 13:42:06 Adult health examinat ion Completed 201111/13/2013 RECORDED 12/09/19 12 2:16PM BY LORENZO BEVERLY ON/KIAN Weir MD [address] [address], [place], [address] , [facility] 6 13:42:06 Chronic sinusiti s 32130118 Completed 201211/13/2013 RECORDED 12/28/19 13 10:05AM BY LORENZO BEVERLY/KIAN Weir MD [address] [address], [place], [address] , [facility] 6 13:42:06 Candidia sis of mouth 43071855 Completed 201211/13/2013 RECORDED 12/28/19 13 10:05AM BY LORENZO BEVERLY/KIAN BRITTNI Weir MD [address] [facility] [address], [place], [address] , [facility] 6 13:42:05 Tobacco dependen ce syndrome 88775279 Completed 201309/06/2018 Removal Reason: quit Niyah Radha-Tiki ackerman [facility] 9 11:26:31 Disorder of tongue 56098355 Completed 201111/13/2013 IMPRESSI ON: ALTHOUGH BLACK I ? THRUST GIVEN THE FACT YOU CAN SCRAPE OFF AND SHE HAS BEEN USING ADVAIR MORE. DISCUSSE D USE OF NYSTATIN WHICH SHE CURRENTL Y DECLINES . WILL CHECK IN 1 WEEK, IF NO BETTER TO START.; RECORDED 12/09/19 12 2:16PM BY LORNEZO BEVERLY ON/ BRITTNI Weir MD [address] [address], [place], [address] , [facility] 6 13:42:06 Abnormal weight loss [id number] Completed 201306/20/2014 RECORDED 11/06/19 14 11:40AM BY AKHIL CAMARENA MA, OFFICE VISIT Mc Weir MD [address] [address], [place], [address] , [facility] 6 13:42:06 Disorder of bone and articula r cartilag e [id number] Completed 201111/13/2013 IMPRESSI ON: TENDERNE SS OVER XIPHOID PROCESS, HAS BEEN DOING ALOT OF YARDWORK , WILL CHECK AN XRAY BUT SUSPECT THIS IS JUST INFLAMMA TION, RECOMMEN D NSAIDS; RECORDED 12/09/19 12 2:16PM BY LORENZO BEVERLY ON/KIAN Weir MD [address] [facility] [address], [place], [address] , [facility] 6 13:42:06 Notes:Some problems listed i n Documents: #[id number], #[id number], #[id number] could not be added to this patient's chart. Please review these documents and add these problems to the patient's chart manually as needed. Problem Notes None recorded. Procedures Surgical History Date Name Laterality Status Provider Name and Address Organization Details Recorded Time 02/22 Laparoscopic cholecystectomy completed Prema Recio [facility] 4 13:49:10 08/19 Colonoscopy completed Prema Recio [facility] 3 10:54:36 06/15 lumpectomy of left breast completed Trey Recio [facility] 3 15:33:41 05/12 Most Recent Mammogram completed Prema Recio [facility] 3 09:26:43 02/16 Date of Last Pap Smear completed Ruth Hummel [facility] 2 11:19:40 03/23 Mammogram screening completed Ruth Hummel [facility] 1 11:49:59 01/13 esophagogastroduodenoscopy completed Booker Hummel [facility] 1 12:01:46 10/17 Date of Last Colonoscopy completed Torie Acuña [facility] 1 12:59:48 05/25 Mammogram one breast completed Niyah ackerman MA [facility] 9 11:27:42 09/30 Appendectomy completed David Dennis [facility] 5 11:03:40 05/02 Hernia Repair completed David Dennis [facility] 5 11:03:40 Breast Biopsy completed Rajwinder Ren MA [facility] 1 09:25:51 Imaging Results None recorded. Procedure Notes None recorded. Medical Equipment None Reported. Allergies Allergen ID Allergen Name Allergen Category Reaction Reaction Severity Criticality Documentation Date Start Date Code Code System Note Provider Name and Address Organization Details Recorded Time 63891 morphine medicatio n hives moderate Not available 06/20/2014 7052 RxNorm David Garciadon villegas [facility] 5 11:03:40 54467 azithromy vj medicatio n diarrhea severe Not available 07/19/2015 95257 RxNorm TIKI Fuchs, [facility] 6 11:40:28 88804 Substance with sulfonami de structure and antibacte rial mechanism of action (substanc e) medicatio n Not available Not available Not available 12/10/2021 96871 8003 SNOMED Niyah TIKI Hardy, [facility] 2 09:41:26 Medications Name Sig Start [...] Available Not Available ibuprofen 800 mg tablet Take 1 tablet 3 times a day by oral route as needed, for pain. active Not Available Not Available No t [...] TAKE 1 TABLET IN THE EVENING NEEDED active Not Available Not Available No t Available permethri n 5 % topical cream X1 02/06 completed RECORDED 02/07/20 10 3:00PM BY TIKI ORTIZ, ANNOTATI ON/KIAN DUM;THIS ORDER DISCONTI NUED PER MEDI-SPA N. [...] READ ON/ADDEN DUM;THIS ORDER DISCONTI NUED PER [facility]. Not Available Not Available Not Available levofloxa vj 500 mg tablet Take 1 tablet every 24 hours by oral route for 10 days. active Not Available Not Available No t Available albuterol sulfate HFA 90 mcg/actua tion aerosol inhaler Inhale 2 puffs every 4 hours by inhalati on route as needed. active Not Available Not Available No t [...] completed Not Available Not Available Not Available Dennard's wort 300 mg capsule Take 1 capsule [...] Available Not Available Not Available Fluarix Quad 4772-5946 (PF) 60 mcg (15 mcg x 4)/0.5 [...] Updated DateTime 4 161.29 cm 28.2 kg/m2 39915.9 6 g 98 % 98 % 83 /min 98.3 [degF] 119 mm[Hg] 73 mm[Hg] Rajwinder Ren MA [facility] [place] 08:50:46 Social History Question Answer Notes LastModified by Organizat ion Details LastModified Time Tobacco Smoking Status Former Smoker quit 2019 Mc Weir MD [address] [address], [place], [address], [facility] [place] 03/17/2022 12:43:57 Do You Have An Advance Directive? Yes [email or web address] Information not available 12/14/2021 What Is Your Level Of Alcohol Consumption? Heavy [email or web address] Information not available 03/03/2021 Is Blood Transfusion Acceptable In An Emergency? Yes [id number] Information not available 03/04/2020 What Is Your Level Of Caffeine Consumption? Occasional Green Tea Information not available 07/20/2023 How Much Tobacco Do You Chew? None [id number] Information not available 03/04/2020 In The 14 Days Before Symptom Onset, Have You Had Close Contact With A Laboratory-confi rmed COVID-19 While That Case Was Ill? No [email or web address] Information not available 12/14/2021 In The 14 Days Before Symptom Onset, Have You Had Close Contact With A Person Who Is Under Investigation For COVID-19 While That Person Was Ill? Yes [email or web address] Information not available 12/14/2021 Have You Been To An Area Known To Be High Risk For COVID-19? Yes [email or web address] Information not available 12/14/2021 Are You Currently Employed? Yes [email or web address] Information not available 03/03/2021 What Type Of Diet Are You Following? REGULAR [id number] Information not available 03/04/2020 Which Illicit Or Recreational Drugs Have You Used? None [id number] Information not available 03/04/2020 Do You Or Have You Ever Used E-cigarettes Or Vape? Current User Of Electronic Cigarettes [email or web address] Information not available 12/14/2021 What Is Your Occupation? [employer] Information not available 07/20/2023 When Did You Quit Smoking? 1-5yearssince lastcigarette [email or web address] Information not available 03/03/2021 Live Alone Or With Others? With Others ([place]) [employer] 2 Sons [email or web address] Information not available 12/14/2021 Do You Take Precautions To Prevent Distracted Driving? Yes [email or web address] Information not available 06/18/2015 How Often Do You Need To Have Someone Help You When You Read Instructions, Pamphlets, Or Other Written Material From Your Doctor Or Pharmacy? Never [email or web address] Information not available 06/18/2015 Have You Served In The ? No OutTrippin Information not available 09/23/2016 Have You Or Anyone In Your Household Had Any Of The Following Symptoms In The Last 14 Days: Sore Throat, Cough, Chills, Body Aches For Unknown Reasons, Shortness Of Breath For Unknown Reasons, Loss Of Smell, Loss Of Taste, Fever At Or Greater Than 100 Degrees Fahrenheit? No [email or web address] Information not available 03/03/2021 Are You Or Anyone In Your Household A Health Care Provider Or Emergency Responder? Yes [email or web address] Information not available 04/24/2020 To The Best Of Your Knowledge Have You Been In Close Proximity To Any Individual Who Tested Positive For COVID-19? No Information not available 04/24/2020 Have You Recently Traveled To A COVID-19 High Risk Area Or Gathering In The Last 10 Days? No [email or web address] Information not available 03/03/2021 What Was The Date Of Your Most Recent Tobacco Screening? 07/20/2023 Information not available 07/20/2023 How Many Children Do You Have? 3 [id number] Information not available 03/04/2020 What Is Your Current Pack Years? 30ormorepacky ears [email or web address] Information not available 12/14/2021 Do You Use Protection During Sex? No [id number] Information not available 03/04/2020 Do You Use Your Seat Belt Or Car Seat Routinely? Yes [email or web address] Information not available 03/03/2021 Seat Belts Used Routinely Yes [email or web address] Information not available 12/14/2021 Are You Sexually Active? No [email or web address] Information not available 03/03/2021 Smoke Alarm In Home Yes [email or web address] Information not available 12/14/2021 Do You Have Smoke And Carbon Monoxide Detectors In Your Home? Yes [email or web address] Information not available 03/03/2021 At What Age Did You Start Smoking Tobacco? 19 [id number] Information not available 03/04/2020 Are You Passively Exposed To Smoke? No [email or web address] Information not available 03/03/2021 Do You Or Have You Ever Used Smokeless Tobacco? Never Used Smokeless Tobacco [id number] Information not available 03/04/2020 How Much Tobacco Do You Smoke? 1 PPD Information not available 04/24/2020 Do You Use Sunscreen Routinely? No [id number] Information not available 03/04/2020 How Many Years Have You Smoked Tobacco? 36 [id number] Information not available 03/04/2020 Do You Or Have You Ever Used Any Other Forms Of Tobacco Or Nicotine? Yes Vaping [email or web address] Information not available 03/17/2022 Sex: Unknown Functional Status Question Answer Note LastModified by Organization D etails LastModified Time Are you able to walk? YESWOREST [email or web address] Information not available 12/14/2021 Are you able to care for yourself? Yes [id number] Information not available 03/04/2020 What is your exercise level? None Information not available 07/20/2023 Mental Status None recorded. Family History Relationship Description Onset Age of this Age Resolved Age Notes LastModified by Organization Details LastModified Time Mother Malignant tumor of colon 70 [email or web address] Not available 09/01 10:50:57 Father Malignant tumor of colon 51 [email or web address] Not available 09/01 10:50:52 Father Alcohol abuse 51 [email or web address] Not available 01/22 10:30:52 Sister Seizure disorder 51 [email or web address] Not available 09/01 10:51:16 Sister Liver problem [email or web address] Not available 01/22 10:30:52 Sister Disease of liver [email or web address] Not available 01/22 10:30:52 Sister Anxiety disorder [email or web address] Not available 01/22 10:30:52 Son Asthma [email or web address] Not available 01/23/2020 10:30:53 Son Allergy [email or web address] Not availabl e 01/23/2020 10:30:53 Daughter Anxiety [...] virus, quadrivalent, preservative 8 completed Not Available [facility] 02/11/2023 12:36:05 Influenza, split virus, trivalent, preservative 9 completed Not Available [facility] 02/11/2023 12:36:06 COVID-19, mRNA, LNP-S, PF, 30 mcg/0.3 mL dose 1 completed Not Available [facility] 02/11/2023 12:36:05 COVID-19, mRNA, LNP-S, PF, 30 mcg/0.3 mL dose 1 completed Not Available [facility] 02/11/2023 12:36:05 Influenza, split virus, trivalent, preservative 1 completed Not Available [facility] 02/11/2023 12:36:06 COVID-19, mRNA, LNP-S, PF, 30 mcg/0.3 mL dose 1 completed Not Available [facility] 02/11/2023 12:36:05 MMR 8 completed Not Available [facility] 02/11/2023 12:36:05 MMR 8 completed Not Available [facility] 02/11/2023 12:36:05 Influenza, split virus, trivalent, PF 4 completed Not Available [facility] 02/11/2023 12:36:06 Influenza, split virus, quadrivalent, PF 0 completed Not Available [facility] 02/11/2023 12:36:06 Tdap 0 completed Not Available [facility] 02/11/2023 12:36:06 COVID-19, mRNA, LNP-S, PF, 30 mcg/0.3 mL dose, xiang-sucrose 2 completed Not Available [facility] 02/11/2023 12:36:05 Influenza, split virus, quadrivalent, PF 7 completed Not Available [facility] 02/11/2023 12:36:06 Influenza, split virus, quadrivalent, PF 6 completed Not Available [facility] 02/11/2023 12:36:06 Influenza, MDCK, quadrivalent, PF 2 completed Not Available [facility] 02/11/2023 12:36:05 COVID-19, mRNA, LNP-S, bivalent, PF, 30 mcg/0.3 mL dose 2 completed Not Available [facility] 02/11/2023 12:36:06 Influenza, MDCK, quadrivalent, PF 3 completed TIKI Nunez, [facility] 05/06/2023 09:47:00 COVID-19, mRNA, LNP-S, PF, xiang-sucrose, 30 mcg/0.3 mL 3 completed TIKI Nunez, [facility] 05/06/2023 09:47:00 COVID-19, mRNA, LNP-S, PF, 50 mcg/0.5 mL 4 completed MYLENE Tejeda, [facility] 02/09/2024 08:32:34 Influenza, split virus, trivalent, preservative 7 completed Not Available [facility] 02/11/2023 12:36:06 Td (adult), 2 Lf tetanus toxoid, preservative free, adsorbed 8 completed Not Available [facility] 02/11/2023 12:36:06 Influenza, split virus, trivalent, preservative 2 completed Not Available [facility] 02/11/2023 12:36:06 Influenza, split virus, trivalent, preservative 4 completed Not Available [facility] 02/11/2023 12:36:06 Influenza, split virus, trivalent, preservative 6 completed Not Available [facility] 02/11/2023 12:36:06 Influenza, split virus, trivalent, preservative 7 completed Not Available [facility] 02/11/2023 12:36:06 Influenza, split virus, trivalent, preservative 8 completed Not Available [facility] 02/11/2023 12:36:06 Influenza, split virus, trivalent, preservative 9 completed Not Available [facility] 02/11/2023 12:36:06 Tdap 0 completed Not Available [facility] 02/11/2023 12:36:06 Influenza, split virus, trivalent, preservative 0 completed Not Available [facility] 02/11/2023 12:36:06 Influenza, split virus, trivalent, preservative 1 completed Not Available [facility] 02/11/2023 12:36:06 Influenza, split virus, trivalent, preservative 2 completed Not Available [facility] 02/11/2023 12:36:06 influenza, seasonal, intradermal, preservative free 3 completed Not Available [facility] 02/11/2023 12:36:06 Influenza, split virus, trivalent, PF 4 completed HENNA JUNG [address], [address], [facility] 01/12/2024 09:02:46 Past Encounters Encounter ID Performer Location Encounter Start Date Encounter Closed Date Diagnosis/Indication Diagnosis SNOMED-CT Code Diagnosis ICD10 Code Diagnosis Note [id number] Mc Weir MD Main Office [address] [address] 04/04/2024 08:36:43 04/04/2024 09:32:50 Essential hypertension 16790384 I10 Good control w/o meds. She will continue to follow at home and will send a message if the systolic is consistent ly>130. Anxiety state 842715213 F41.1 Currently taking clonazepam which has been controllin g her anxiety. She tried an SSRI which didn't help and she doesn't want to try another one. Asthma 852712790 J45.20 Continue with advair daily and proair as needed. Currently under good control and rarely needs to use her rescue inhaler. Health Concerns Section Related Observation LastModified by Organization Detai ls LastModified Time None Recorded Concern Status LastModified by Organization Details LastModified Time None Recorded Payers Encounter Date Sequence Insurance Name Policy Number Policy [place] Covered Member ID [place] Member ID Guarantor Name 04/04/2024 1 [facility] [id number] Indra Rodriguez [id number] Nat Rodriguez Notes Date Note Type Note [...] changed to metoprolol as an inpatient at [place] because of afib. This was eventually stopped because of low readings. She follows her BP and the systolic has remained <130. Asthma has been under good control with advair which she uses daily and she rarely uses her rescue inhaler. Mc Weir MD [address] [address], [place], [address], [facility] 04/04/2024 09:41:43 OBGyn Episode No OBEpisode recorded.
--- OUTSIDE RECORDS SUMMARY | 2024-05-04 06:33 | XMS_ITS | Continuity of Care Document ---
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 [address] , [facility] 6 13:42:06 Adult health examinat ion Completed 201111/13/2013 RECORDED 12/09/19 12 2:16PM BY LORENZO BEVERLY ON/KIAN Weir MD [address] [address], [place], [address] , [facility] 6 13:42:06 Chronic sinusiti s 58327946 Completed 201211/13/2013 RECORDED 12/28/19 13 10:05AM BY LORENZO BEVERLY ON/KIAN Weir MD [address] [facility] [address], [place], [address] , [facility] 6 13:42:06 Candidia sis of mouth 81006607 Completed 201211/13/2013 RECORDED 12/28/19 13 10:05AM BY LORENZO BEVERLY ON/KIAN Weir MD [address] [facility] [address], [place], [address] , [facility] 6 13:42:05 Tobacco dependen ce syndrome 39862929 Completed 201309/06/2018 Removal Reason: quit Niyah TIKI Hood, [facility] 9 11:26:31 Disorder of tongue 42319962 Completed 201111/13/2013 IMPRESSI ON: ALTHOUGH BLACK I ? THRUST GIVEN THE FACT YOU CAN SCRAPE OFF AND SHE HAS BEEN USING ADVAIR MORE. DISCUSSE D USE OF NYSTATIN WHICH SHE CURRENTL Y DECLINES . WILL CHECK IN 1 WEEK, IF NO BETTER TO START.; RECORDED 12/09/19 12 2:16PM BY LORENZO BEVERLY ON/KIAN Weir MD [address] [facility] [address], [place], [address] , [facility] 6 13:42:06 Abnormal weight loss 008411590 Completed 201306/20/2014 RECORDED 11/06/19 14 11:40AM BY AKHIL CAMARENA MA, OFFICE VISIT Mc Weir MD [address] [facility] [address], [place], [address] , [facility] 6 13:42:06 Disorder of bone and articula r cartilag e 588149684 Completed 201111/13/2013 IMPRESSI ON: TENDERNE SS OVER XIPHOID PROCESS, HAS BEEN DOING ALOT OF YARDWORK , WILL CHECK AN XRAY BUT SUSPECT THIS IS JUST INFLAMMA TION, RECOMMEN D NSAIDS; RECORDED 12/09/19 12 2:16PM BY LORENZO BEEVRLY ON/KIAN Weir MD [address] [facility] [address], [place], [address] , [facility] 6 13:42:06 Notes:Some problems listed i n Documents: #[id number], #[id number], #[id number] could not be added to this patient's chart. Please review these documents and add these problems to the patient's chart manually as needed. Problem Notes None recorded. Procedures Surgical History Date Name Laterality Status Provider Name and Address Organization Details Recorded Time 02/22 Laparoscopic cholecystectomy completed Prema Recio [facility] 4 13:49:10 08/19 Colonoscopy completed Prema Recio [facility] 3 10:54:36 06/15 lumpectomy of left breast completed Trey Recio [facility] 3 15:33:41 05/12 Most Recent Mammogram completed Prema Recio [facility] 3 09:26:43 02/16 Date of Last Pap Smear completed Ruth Hummel [facility] 2 11:19:40 03/23 Mammogram screening completed Ruth Hummel [facility] 1 11:49:59 01/13 esophagogastroduodenoscopy completed Booker Hummel [facility] 1 12:01:46 10/17 Date of Last Colonoscopy completed Torie Acuña [facility] 1 12:59:48 05/25 Mammogram one breast completed Niyah ackerman MA [facility] 9 11:27:42 09/30 Appendectomy completed David Dennis [facility] 5 11:03:40 05/02 Hernia Repair completed David Dennis [facility] 5 11:03:40 Breast Biopsy completed Rajwinder Ren MA [facility] 1 09:25:51 Imaging Results None recorded. Procedure Notes None recorded. Medical Equipment None Reported. Allergies Allergen ID Allergen Name Allergen Category Reaction Reaction Severity Criticality Documentation Date Start Date Code Code System Note Provider Name and Address Organization Details Recorded Time 16109 morphine medicatio n hives moderate Not available 06/20/2014 7052 RxNorm David villegas [facility] 5 11:03:40 99627 azithromy vj medicatio n diarrhea severe Not available 07/19/2015 49149 RxNorm TIKI Fuchs [facility] 6 11:40:28 76185 Substance with sulfonami de structure and antibacte rial mechanism of action (substanc e) medicatio n Not available Not available Not available 12/10/2021 39002 8003 SNOMED TIKI Woody, [facility] 09:41:26 Medications Name Sig Start Date Stop [...] ANNOTATI ON/ADDEN DUM;THIS ORDER DISCONTI NUED PER [facility]. Not Available Not Available Not Available [...] RECORDED 08/16/19 10 2:37PM BY LORENZO PONCE ON/ADD DUM; Not Available Not Available Not Available Nasal Saline 0.65 % spray aerosol 07/02 completed RECORDED 07/03/19 11 5:47PM BY LORENZO READ ON/KIAN DUM;THIS ORDER DISCONTI NUED PER [facility]. Not Available Not Available Not Available [...] Available Not Available Not Available Fluarix Quad [id number] (PF) 60 mcg (15 mcg x 4)/0.5 [...] Updated DateTime 4 161.29 cm 27.9 kg/m2 86162.7 8 g 66 /min 97 % 97 % 97.8 [degF] 101 mm[Hg] 69 mm[Hg] Rj dinero [facility] 4 09:32:22 Social History Question Answer Notes LastModified by Organizat ion Details LastModified Time Tobacco Smoking Status Former Smoker quit 2019 Mc Weir MD [address], [address], [facility] 03/17/2022 12:43:57 Do You Have An Advance Directive? Yes [email or web address] Information not available 12/14/2021 What Is Your Level Of Alcohol Consumption? Heavy [email or web address] Information not available 03/03/2021 Is Blood Transfusion Acceptable In An Emergency? Yes [id number] Information not available 03/04/2020 What Is Your Level Of Caffeine Consumption? Occasional Green Tea Information not available 07/20/2023 How Much Tobacco Do You Chew? None [id number] Information not available 03/04/2020 In The 14 Days Before Symptom Onset, Have You Had Close Contact With A Laboratory-confi rmed COVID-19 While That Case Was Ill? No [email or web address] Information not available 12/14/2021 In The 14 Days Before Symptom Onset, Have You Had Close Contact With A Person Who Is Under Investigation For COVID-19 While That Person Was Ill? Yes [email or web address] Information not available 12/14/2021 Have You Been To An Area Known To Be High Risk For COVID-19? Yes Information not available 12/14/2021 Are You Currently Employed? Yes Information not available 03/03/2021 What Type Of Diet Are You Following? REGULAR [id number] Information not available 03/04/2020 Which Illicit Or Recreational Drugs Have You Used? None [id number] Information not available 03/04/2020 Do You Or Have You Ever Used E-cigarettes Or Vape? Current User Of Electronic Cigarettes [email or web address] Information not available 12/14/2021 What Is Your Occupation? [employer] Information not available 07/20/2023 When Did You Quit Smoking? 1-5yearssince lastcigarette [email or web address] Information not available 03/03/2021 Live Alone Or With Others? With Others ([place] [email or web address] Information not available 12/14/2021 Do You Take Precautions To Prevent Distracted Driving? Yes GMI Ratingskristy Information not available 06/18/2015 How Often Do You Need To Have Someone Help You When You Read Instructions, Pamphlets, Or Other Written Material From Your Doctor Or Pharmacy? Never [place] Information not available 06/18/2015 Have You Served In The ? No [place] Information not available 09/23/2016 Have You Or Anyone In Your Household Had Any Of The Following Symptoms In The Last 14 Days: Sore Throat, Cough, Chills, Body Aches For Unknown Reasons, Shortness Of Breath For Unknown Reasons, Loss Of Smell, Loss Of Taste, Fever At Or Greater Than 100 Degrees Fahrenheit? No [email or web address] Information not available 03/03/2021 Are You Or [...] Gathering In The Last 10 Days? No [email or web address] Information not available 03/03/2021 What Was The Date Of Your Most Recent Tobacco Screening? 07/20/2023 Information not available 07/20/2023 How Many Children Do You Have? 3 [id number] Information not available 03/04/2020 What Is Your Current Pack Years? 30ormorepacky ears [email or web address] Information not available 12/14/2021 Do You Use Protection During Sex? No [id number] Information not available 03/04/2020 Do You Use Your Seat Belt Or Car Seat Routinely? Yes [email or web address] Information not available 03/03/2021 Seat Belts Used Routinely Yes Information not available 12/14/2021 Are You Sexually Active? No [email or web address] Information not available 03/03/2021 Smoke Alarm In Home Yes Information not available 12/14/2021 Do You Have Smoke And Carbon Monoxide Detectors In Your Home? Yes [email or web address] Information not available 03/03/2021 At What Age Did You Start Smoking Tobacco? 19 [id number] Information not available 03/04/2020 Are You Passively Exposed To Smoke? No [email or web address] Information not available 03/03/2021 Do You Or Have You Ever Used Smokeless Tobacco? Never Used Smokeless Tobacco [id number] Information not available 03/04/2020 How Much Tobacco Do You Smoke? 1 PPD Information not available 04/24/2020 Do You Use Sunscreen Routinely? No [id number] Information not available 03/04/2020 How Many Years Have You Smoked Tobacco? 36 [id number] Information not available 03/04/2020 Do You Or Have You Ever Used Any Other Forms Of Tobacco Or Nicotine? Yes Vaping [email or web address] Information not available 03/17/2022 Sex: Unknown Functional Status Question Answer Note LastModified by Organization D etails LastModified Time Are you able to walk? YESWOREST [email or web address] Information not available 12/14/2021 Are you able to care for yourself? Yes [id number] Information not available 03/04/2020 What is your exercise level? None Information not available 07/20/2023 Mental Status None recorded. Family History Relationship Description Onset Age of this Age Resolved Age Notes LastModified by Organization Details LastModified Time Mother Malignant tumor of colon 70 [email or web address] Not available 09/01 10:50:57 Father Malignant tumor of colon 51 [email or web address] Not available 09/01 10:50:52 Father Alcohol abuse 51 [email or web address] Not available 01/22 10:30:52 Sister Seizure disorder 51 [email or web address] Not available 09/01 10:51:16 Sister Liver problem [email or web address] Not available 01/22 10:30:52 Sister Disease of liver [email or web address] Not available 01/22 10:30:52 Sister Anxiety disorder [email or web address] Not available 01/22 10:30:52 Son Asthma [email or web address] Not available 01/23/2020 10:30:53 Son Allergy [email or web address] Not availabl e 01/23/2020 10:30:53 Daughter Anxiety [...] virus, quadrivalent, preservative 8 completed Not Available [facility] 02/11/2023 12:36:05 Influenza, split virus, trivalent, preservative 9 completed Not Available [facility] 02/11/2023 12:36:06 COVID-19, mRNA, LNP-S, PF, 30 mcg/0.3 mL dose 1 completed Not Available [facility] 02/11/2023 12:36:05 COVID-19, mRNA, LNP-S, PF, 30 mcg/0.3 mL dose 1 completed Not Available [facility] 02/11/2023 12:36:05 Influenza, split virus, trivalent, preservative 1 completed Not Available [facility] 02/11/2023 12:36:06 COVID-19, mRNA, LNP-S, PF, 30 mcg/0.3 mL dose 1 completed Not Available [facility] 02/11/2023 12:36:05 MMR 8 completed Not Available [facility] 02/11/2023 12:36:05 MMR 8 completed Not Available [facility] 02/11/2023 12:36:05 Influenza, split virus, trivalent, PF 4 completed Not Available [facility] 02/11/2023 12:36:06 Influenza, split virus, quadrivalent, PF 0 completed Not Available [facility] 02/11/2023 12:36:06 Tdap 0 completed Not Available [facility] 02/11/2023 12:36:06 COVID-19, mRNA, LNP-S, PF, 30 mcg/0.3 mL dose, xiang-sucrose 2 completed Not Available [facility] 02/11/2023 12:36:05 Influenza, split virus, quadrivalent, PF 7 completed Not Available [facility] 02/11/2023 12:36:06 Influenza, split virus, quadrivalent, PF 6 completed Not Available [facility] 02/11/2023 12:36:06 Influenza, MDCK, quadrivalent, PF 2 completed Not Available [facility] 02/11/2023 12:36:05 COVID-19, mRNA, LNP-S, bivalent, PF, 30 mcg/0.3 mL dose 2 completed Not Available [facility] 02/11/2023 12:36:06 Influenza, MDCK, quadrivalent, PF 3 completed TIKI Nunez [facility] 05/06/2023 09:47:00 COVID-19, mRNA, LNP-S, PF, xiang-sucrose, 30 mcg/0.3 mL 3 completed Katya Dorado MA null, [facility] 05/06/2023 09:47:00 COVID-19, mRNA, LNP-S, PF, 50 mcg/0.5 mL 4 completed Veronique Schmidt LPN [facility], [facility] 02/09/2024 08:32:34 Influenza, split virus, trivalent, preservative 7 completed Not Available [facility] 02/11/2023 12:36:06 Td (adult), 2 Lf tetanus toxoid, preservative free, adsorbed 8 completed Not Available [facility] 02/11/2023 12:36:06 Influenza, split virus, trivalent, preservative 2 completed Not Available [facility] 02/11/2023 12:36:06 Influenza, split virus, trivalent, preservative 4 completed Not Available [facility] 02/11/2023 12:36:06 Influenza, split virus, trivalent, preservative 6 completed Not Available [facility] 02/11/2023 12:36:06 Influenza, split virus, trivalent, preservative 7 completed Not Available [facility] 02/11/2023 12:36:06 Influenza, split virus, trivalent, preservative 8 completed Not Available [facility] 02/11/2023 12:36:06 Influenza, split virus, trivalent, preservative 9 completed Not Available [facility] 02/11/2023 12:36:06 Tdap 0 completed Not Available [facility] 02/11/2023 12:36:06 Influenza, split virus, trivalent, preservative 0 completed Not Available [facility] 02/11/2023 12:36:06 Influenza, split virus, trivalent, preservative 1 completed Not Available [facility] 02/11/2023 12:36:06 Influenza, split virus, trivalent, preservative 2 completed Not Available [facility] 02/11/2023 12:36:06 influenza, seasonal, intradermal, preservative free 3 completed Not Available [facility] 02/11/2023 12:36:06 Influenza, split virus, trivalent, PF 4 completed HENNA JUNG [address], [address], [facility] 01/12/2024 09:02:46 Past Encounters Encounter ID Performer Location Encounter Start Date Encounter Closed Date Diagnosis/Indication Diagnosis SNOMED-CT Code Diagnosis ICD10 Code [id number] HENNA JUNG Main Office [address] [address] 02/01/2024 08:15:07 02/01/2024 09:06:44 Headache 51436772 R51.9 [id number] Mc Weir MD Main Office [address] [address] 02/09/2024 08:18:37 02/09/2024 09:12:36 Essential hypertension 35592106 I10 Anxiety state 657408206 F41.1 [id number] Bill Cuevas PA-C [facility] [address] [address] 02/21/2024 13:15:23 02/21/2024 15:32:19 Dysuria 86968086 R30.0 Constipation 85008011 K5 9.00 [id number] Carin Marie Main Office [address] [address] 03/01/2024 09:17:48 03/01/2024 09:57:58 History of cholecystectomy 788901517 Z90.49 Atrial fibrillation 4943 6004 I48.91 Essential hypertension 35029245 I10 Health Concerns Section Related Observation LastModified by Organization Detai ls LastModified Time None Recorded Concern Status LastModified by Organization Details LastModified Time None Recorded Payers Encounter Date Sequence Insurance Name Policy Number Policy [place] Covered Member ID [place] Member ID Guarantor Name 03/01/2024 1 [facility] ([facility] [id number] Indra Rodriguez [id number] Nat Rodriguez Notes Date Note Type Note Provider Name and Address Organization Details Recorded Time 03/01/2024 text/html Nat is a 58yr o ld F who presents for a hospital f/u. [facility]: 02/27/24 Nat was evaluated at [facility] for abdominal pain- dx with cholecystitis. Found to have new onset of afic and RVR. Underwent cholecystectomy on 02/22. Currently on augmentin course. Has an appt with cardiology for new onset afib. Do not have hospital documentation in chart. Carin villegas [place] - [facility] 03/13/2024 13:04:49 OBGyn Episode No OBEpisode recorded.
--- OUTSIDE RECORDS SUMMARY | 2024-05-04 06:34 | XMS_ITS | Continuity of Care Document ---
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 , [facility], [place] 6 13:42:06 Administ ration of bacteria l and viral vaccine Completed 200911/13/2013 RECORDED 08/16/19 10 4:02PM BY MC PINEDA MD, OFFICE VISIT Mc Weir MD [address], [place], [address] , [facility], [place] 6 13:42:06 Open wound of nose 181973322 Completed 200711/13/2013 RECORDED 02/07/20 08 11:58AM BY NIYAH FULLER MA, LORENZO ON/ Mc Weir MD [address] [facility] [address], [place], [address] , [facility], [place] 6 13:42:06 Pediculo sis capitis 59563185 Completed 200711/13/2013 RECORDED 02/16/20 08 2:44PM BY LORENZO CHAVIRA ON/ Mc Weir MD [address], [place], [address] , [facility], [place] 6 13:42:05 Verruca plantari s 74020822 Completed 201311/13/2013 IMPRESSI ON: ADVISED OTC PRODUCTS ; RECORDED 06/21/19 14 9:20AM BY LORENZO BEVERLY ON/KIAN Weir MD [address] [address], [place], [address] , [facility], [place] 6 13:42:05 Eruption [id number] Completed 200711/13/2013 RESOLVED DATE: 12/24/19 08; RECORDED 12/24/19 08 11:52AM BY MC PINEDA MD, LORENZO ON/KIAN Weir MD [address] [address], [place], [address] , [facility], [place] 6 13:42:06 Adult health examinat ion Completed 201111/13/2013 RECORDED 12/09/19 12 2:16PM BY LORENZO BEVERLY/KIAN Weir MD [address] [address], [place], [address] , [facility], [place] 6 13:42:06 Chronic sinusiti s 11404366 Completed 201211/13/2013 RECORDED 12/28/19 13 10:05AM BY LORENZO BEVERLY/KIAN Weir MD [address] [address], [place], [address] , [facility], [place] 6 13:42:06 Candidia sis of mouth 35696719 Completed 201211/13/2013 RECORDED 12/28/19 13 10:05AM BY LORENZO BEVERLY/KIAN Weir MD [address] [address], [place], [address] , [facility], [place] 6 13:42:05 Tobacco dependen ce syndrome 93561397 Completed 201309/06/2018 Removal Reason: quit Niyah Radha ackerman MA null, [facility] 9 11:26:31 Disorder of tongue 62765180 Completed 201111/13/2013 IMPRESSI ON: ALTHOUGH BLACK I ? THRUST GIVEN THE FACT YOU CAN SCRAPE OFF AND SHE HAS BEEN USING ADVAIR MORE. DISCUSSE D USE OF NYSTATIN WHICH SHE CURRENTL Y DECLINES . WILL CHECK IN 1 WEEK, IF NO BETTER TO START.; RECORDED 12/09/19 12 2:16PM BY LORENZO BEVERLY ON/KIAN Weir MD [address] [facility] [address], [place], [address] , [facility], [place] 6 13:42:06 Abnormal weight loss 402576588 Completed 201306/20/2014 RECORDED 11/06/19 14 11:40AM BY AKHIL CAMARENA MA, OFFICE VISIT Mc Weir MD [address] [facility] [address], [place], [address] , [facility], [place] 6 13:42:06 Disorder of bone and articula r cartilag e 236875170 Completed 201111/13/2013 IMPRESSI ON: TENDERNE SS OVER XIPHOID PROCESS, HAS BEEN DOING ALOT OF YARDWORK , WILL CHECK AN XRAY BUT SUSPECT THIS IS JUST INFLAMMA TION, RECOMMEN D NSAIDS; RECORDED 12/09/19 12 2:16PM BY LORENZO BEVERLY ON/KIAN Weir MD [address] [facility] [address], [place], [address] , [facility], [place] 6 13:42:06 Notes:Some problems listed i n Documents: #[id number], #[id number], #[id number] could not be added to this patient's chart. Please review these documents and add these problems to the patient's chart manually as needed. Problem Notes None recorded. Procedures Surgical History Date Name Laterality Status Provider Name and Address Organization Details Recorded Time 02/22 Laparoscopic cholecystectomy completed Prema Recio [facility] 4 13:49:10 08/19 Colonoscopy completed Prema Recio [facility] 3 10:54:36 06/15 lumpectomy of left breast completed Trey rohit Hasmukh Recio [facility] 3 15:33:41 05/12 Most Recent Mammogram completed Prema Recio [facility] 3 09:26:43 02/16 Date of Last Pap Smear completed Ruth Hummel [facility] 2 11:19:40 03/23 Mammogram screening completed Ruth Hummel [facility] 1 11:49:59 01/13 esophagogastroduodenoscopy completed Booker Hummel [facility] 1 12:01:46 10/17 Date of Last Colonoscopy completed Torie Acuña [facility] 1 12:59:48 05/25 Mammogram one breast completed Niyah ackerman [place] [facility] 9 11:27:42 09/30 Appendectomy completed David Dennis [facility] 5 11:03:40 05/02 Hernia Repair completed David Dennis [facility] 5 11:03:40 Breast Biopsy completed Rajwinder Ren MA [facility] 1 09:25:51 Imaging Results None recorded. Procedure Notes None recorded. Medical Equipment None Reported. Allergies Allergen ID Allergen Name Allergen Category Reaction Reaction Severity Criticality Documentation Date Start Date Code Code System Note Provider Name and Address Organization Details Recorded Time 10014 morphine medicatio n hives moderate Not available 06/20/2014 7052 RxNorm David villegas [facility] 5 11:03:40 52297 azithromy vj medicatio n diarrhea severe Not available 07/19/2015 92271 RxNorm TIKI Fuchs, [facility] [place] 6 11:40:28 39880 Substance with sulfonami de structure and antibacte rial mechanism of action (substanc e) medicatio n Not available Not available Not available 12/10/2021 00353 8003 SNOMED Niyah gomezTIKI, [facility] 2 09:41:26 Medications Name Sig [...] ANNOTATI ON/KIAN ELKINS;THIS ORDER DISCONTI NUED PER [facility] Not Available Not Available Not Available [...] READ ON/ DUM;THIS ORDER DISCONTI NUED PER [facility] Not Available Not Available Not Available [...] completed Not Available Not Available Not Available Pembine's wort 300 mg capsule Take 1 capsule [...] Available Not Available Not Available Fluarix Quad 4297-8530 (PF) 60 mcg (15 mcg x 4)/0.5 [...] DateTime 02/21/2024 161.29 cm Ivanna Maurice MA [facility] 02/21/2024 14:07:28 Social History Question Answer Notes LastModified by Organizat ion Details LastModified Time Tobacco Smoking Status Former Smoker quit 2019 Mc Weir MD [address] [address], [place], [address], [facility] 03/17/2022 12:43:57 Do You Have An Advance Directive? Yes [email or web address] Information not available 12/14/2021 What Is Your Level Of Alcohol Consumption? Heavy [email or web address] Information not available 03/03/2021 Is Blood Transfusion Acceptable In An Emergency? Yes [id number] Information not available 03/04/2020 What Is Your Level Of Caffeine Consumption? Occasional Green Tea Information not available 07/20/2023 How Much Tobacco Do You Chew? None [id number] Information not available 03/04/2020 In The 14 Days Before Symptom Onset, Have You Had Close Contact With A Laboratory-confi rmed COVID-19 While That Case Was Ill? No Information not available 12/14/2021 In The 14 Days Before Symptom Onset, Have You Had Close Contact With A Person Who Is Under Investigation For COVID-19 While That Person Was Ill? Yes [email or web address] Information not available 12/14/2021 Have You Been To An Area Known To Be High Risk For COVID-19? Yes [email or web address] Information not available 12/14/2021 Are You Currently Employed? Yes [email or web address] Information not available 03/03/2021 What Type Of Diet Are You Following? REGULAR [id number] Information not available 03/04/2020 Which Illicit Or Recreational Drugs Have You Used? None [id number] Information not available 03/04/2020 Do You Or Have You Ever Used E-cigarettes Or Vape? Current User Of Electronic Cigarettes Information not available 12/14/2021 What Is Your Occupation? [employer] Information not available 07/20/2023 When Did You Quit Smoking? 1-5yearssince lastcigarryette [email or web address] Information not available 03/03/2021 Live Alone Or With Others? With Others ([employer] [email or web address] Information not available 12/14/2021 Do You Take Precautions To Prevent Distracted Driving? Yes Information not available 06/18/2015 How Often Do You Need To Have Someone Help You When You Read Instructions, Pamphlets, Or Other Written Material From Your Doctor Or Pharmacy? Never Information not available 06/18/2015 Have You Served In The ? No [employer] Information not available 09/23/2016 Have You Or Anyone In Your Household Had Any Of The Following Symptoms In The Last 14 Days: Sore Throat, Cough, Chills, Body Aches For Unknown Reasons, Shortness Of Breath For Unknown Reasons, Loss Of Smell, Loss Of Taste, Fever At Or Greater Than 100 Degrees Fahrenheit? No [email or web address] Information not available 03/03/2021 Are You Or [...] Gathering In The Last 10 Days? No [email or web address] Information not available 03/03/2021 What Was The Date Of Your Most Recent Tobacco Screening? 07/20/2023 Information not available 07/20/2023 How Many Children Do You Have? 3 [id number] Information not available 03/04/2020 What Is Your Current Pack Years? 30ormorepacky ears [email or web address] Information not available 12/14/2021 Do You Use Protection During Sex? No [id number] Information not available 03/04/2020 Do You Use Your Seat Belt Or Car Seat Routinely? Yes [email or web address] Information not available 03/03/2021 Seat Belts Used Routinely Yes [email or web address] Information not available 12/14/2021 Are You Sexually Active? No [email or web address] Information not available 03/03/2021 Smoke Alarm In Home Yes [email or web address] Information not available 12/14/2021 Do You Have Smoke And Carbon Monoxide Detectors In Your Home? Yes [email or web address] Information not available 03/03/2021 At What Age Did You Start Smoking Tobacco? 19 [id number] Information not available 03/04/2020 Are You Passively Exposed To Smoke? No [email or web address] Information not available 03/03/2021 Do You Or Have You Ever Used Smokeless Tobacco? Never Used Smokeless Tobacco [id number] Information not available 03/04/2020 How Much Tobacco Do You Smoke? 1 PPD Information not available 04/24/2020 Do You Use Sunscreen Routinely? No [id number] Information not available 03/04/2020 How Many Years Have You Smoked Tobacco? 36 [id number] Information not available 03/04/2020 Do You Or Have You Ever Used Any Other Forms Of Tobacco Or Nicotine? Yes Vaping [email or web address] Information not available 03/17/2022 Sex: Unknown Functional Status Question Answer Note LastModified by Organization D etails LastModified Time Are you able to walk? YESWOREST [email or web address] Information not available 12/14/2021 Are you able to care for yourself? Yes [id number] Information not available 03/04/2020 What is your [...] Not available 09/01 10:51:16 Sister Liver problem [email or web address] Not available 01/22 10:30:52 Sister Disease of liver [email or web address] Not available 01/22 10:30:52 Sister Anxiety disorder [email or web address] Not available 01/22 10:30:52 Son Asthma [email or web address] Not available 01/23/2020 10:30:53 Son Allergy [email or web address] Not availabl e 01/23/2020 10:30:53 Daughter Anxiety [...] virus, quadrivalent, preservative 8 completed Not Available [facility] 02/11/2023 12:36:05 Influenza, split virus, trivalent, preservative 9 completed Not Available [facility] 02/11/2023 12:36:06 COVID-19, mRNA, LNP-S, PF, 30 mcg/0.3 mL dose 1 completed Not Available [facility] 02/11/2023 12:36:05 COVID-19, mRNA, LNP-S, PF, 30 mcg/0.3 mL dose 1 completed Not Available [facility] 02/11/2023 12:36:05 Influenza, split virus, trivalent, preservative 1 completed Not Available [facility] 02/11/2023 12:36:06 COVID-19, mRNA, LNP-S, PF, 30 mcg/0.3 mL dose 1 completed Not Available [facility] 02/11/2023 12:36:05 MMR 8 completed Not Available [facility] 02/11/2023 12:36:05 MMR 8 completed Not Available [facility] 02/11/2023 12:36:05 Influenza, split virus, trivalent, PF 4 completed Not Available [facility] 02/11/2023 12:36:06 Influenza, split virus, quadrivalent, PF 0 completed Not Available [facility] 02/11/2023 12:36:06 Tdap 0 completed Not Available [facility] 02/11/2023 12:36:06 COVID-19, mRNA, LNP-S, PF, 30 mcg/0.3 mL dose, xiang-sucrose 2 completed Not Available [facility] 02/11/2023 12:36:05 Influenza, split virus, quadrivalent, PF 7 completed Not Available [facility] 02/11/2023 12:36:06 Influenza, split virus, quadrivalent, PF 6 completed Not Available [facility] 02/11/2023 12:36:06 Influenza, MDCK, quadrivalent, PF 2 completed Not Available [facility] 02/11/2023 12:36:05 COVID-19, mRNA, LNP-S, bivalent, PF, 30 mcg/0.3 mL dose 2 completed Not Available [facility] 02/11/2023 12:36:06 Influenza, MDCK, quadrivalent, PF 3 completed TIKI Nunez [facility] 05/06/2023 09:47:00 COVID-19, mRNA, LNP-S, PF, xiang-sucrose, 30 mcg/0.3 mL 3 completed Katya Dorado MA null, [facility] 05/06/2023 09:47:00 COVID-19, mRNA, LNP-S, PF, 50 mcg/0.5 mL 4 completed Veronique Schmidt LPN null, [facility] 02/09/2024 08:32:34 Influenza, split virus, trivalent, preservative 7 completed Not Available [facility] 02/11/2023 12:36:06 Td (adult), 2 Lf tetanus toxoid, preservative free, adsorbed 8 completed Not Available [facility] 02/11/2023 12:36:06 Influenza, split virus, trivalent, preservative 2 completed Not Available [facility] 02/11/2023 12:36:06 Influenza, split virus, trivalent, preservative 4 completed Not Available [facility] 02/11/2023 12:36:06 Influenza, split virus, trivalent, preservative 6 completed Not Available [facility] 02/11/2023 12:36:06 Influenza, split virus, trivalent, preservative 7 completed Not Available [facility] 02/11/2023 12:36:06 Influenza, split virus, trivalent, preservative 8 completed Not Available [facility] 02/11/2023 12:36:06 Influenza, split virus, trivalent, preservative 9 completed Not Available [facility] 02/11/2023 12:36:06 Tdap 0 completed Not Available [facility] 02/11/2023 12:36:06 Influenza, split virus, trivalent, preservative 0 completed Not Available [facility] 02/11/2023 12:36:06 Influenza, split virus, trivalent, preservative 1 completed Not Available [facility] 02/11/2023 12:36:06 Influenza, split virus, trivalent, preservative 2 completed Not Available [facility] 02/11/2023 12:36:06 influenza, seasonal, intradermal, preservative free 3 completed Not Available [facility] 02/11/2023 12:36:06 Influenza, split virus, trivalent, PF 4 completed HENNA JUNG [address] [facility] [address], [place], [address], [facility], [place] 01/12/2024 09:02:46 Past Encounters Encounter ID Performer Location Encounter Start Date Encounter Closed Date Diagnosis/Indication Diagnosis SNOMED-CT Code Diagnosis ICD10 Code [id number] HENNA JUNG Main Office [address] [facility] [address] [place] [address] 02/01/2024 08:15:07 02/01/2024 09:06:44 Headache 29919643 R51.9 [id number] Mc Weir MD Main Office [address] [facility] [address] [place] [address] 02/09/2024 08:18:37 02/09/2024 09:12:36 Essential hypertension 27062437 I10 Anxiety state 070727399 F41.1 [id number] Bill Cuevas PA-C [facility] [address] [facility] [address] [place] [address] 02/21/2024 13:15:23 02/21/2024 15:32:19 Dysuria 19649658 R30.0 Constipation 07297713 K5 9.00 Health Concerns Section Related Observation LastModified by Organization Detai ls LastModified Time None Recorded Concern Status LastModified by Organization Details LastModified Time None Recorded Payers Encounter Date Sequence Insurance Name Policy Number Policy [place] Covered Member ID [place] Member ID Guarantor Name 02/21/2024 1 [facility] [id number] 3 Indra Rodriguez [id number] Nat Rodriguez Notes Date Note Type Note [...] CARLOS! Thank You. Bill Cuevas PA-C [address] [facility] [address], [place], [address], [facility], [place] 02/21/2024 15:12:47 OBGyn Episode No OBEpisode recorded.
--- OUTSIDE RECORDS SUMMARY | 2024-05-04 06:34 | XMS_ITS | Continuity of Care Document ---
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 02/07/20 08 11:58AM BY NIYAH FULLER MA, ZOATI ON/KIAN Weir MD [address] [address], [place], [address] , [facility] [place], [place] 6 13:42:06 Pediculo sis capitis 75000270 Completed 200711/13/2013 RECORDED 02/16/20 08 2:44PM BY LORENZO CHAVIRA ON/KIAN Weir MD [address] [address], [place], [address] , [facility] [place], [place] 6 13:42:05 Verruca plantari s 03673127 Completed 201311/13/2013 IMPRESSI ON: ADVISED OTC PRODUCTS ; RECORDED 06/21/19 14 9:20AM BY DAVID CRAIG I, LORENZO ON/KIAN Weir MD [address] [address], [place], [address] , [facility] [place], [place] 6 13:42:05 Eruption [id number] Completed 200711/13/2013 RESOLVED DATE: 12/24/19 08; RECORDED 12/24/19 08 11:52AM BY MC PINEDA MD, ZOATI ON/KIAN Weir MD [address] [facility] [address], [place], [address] , [facility] [place], [place] 6 13:42:06 Adult health examinat ion Completed 201111/13/2013 RECORDED 12/09/19 12 2:16PM BY LORENZO BEVERLY/KIAN Weir MD [address] [address], [place], [address] , [facility] [place], [place] 6 13:42:06 Chronic sinusiti s 88003332 Completed 201211/13/2013 RECORDED 12/28/19 13 10:05AM BY LORENZO BEVERLY/KIAN Weir MD [address] [address], [place], [address] , [facility] [place], [place] 6 13:42:06 Candidia sis of mouth 50951562 Completed 201211/13/2013 RECORDED 12/28/19 13 10:05AM BY LORENZO BEVERLY/KIAN Weir MD [address] [address], [place], [address] , [facility] [place], [place] 6 13:42:05 Tobacco dependen ce syndrome 76783105 Completed 201309/06/2018 Removal Reason: quit Niyah ackerman MA null, [facility] 9 11:26:31 Disorder of tongue 92585192 Completed 201111/13/2013 IMPRESSI ON: ALTHOUGH BLACK I ? THRUST GIVEN THE FACT YOU CAN SCRAPE OFF AND SHE HAS BEEN USING ADVAIR MORE. DISCUSSE D USE OF NYSTATIN WHICH SHE CURRENTL Y DECLINES . WILL CHECK IN 1 WEEK, IF NO BETTER TO START.; RECORDED 12/09/19 12 2:16PM BY LORENZO BEVERLY/KIAN Weir MD [address] [address], [place], [address] , [facility], [place] 6 13:42:06 Abnormal weight loss 547002287 Completed 201306/20/2014 RECORDED 11/06/19 14 11:40AM BY AKHIL CAMARENA MA, OFFICE VISIT Mc Weir MD [address] [facility] [address], [place], [address] , [facility], [place] 6 13:42:06 Disorder of bone and articula r cartilag e 074459596 Completed 201111/13/2013 IMPRESSI ON: TENDERNE SS OVER XIPHOID PROCESS, HAS BEEN DOING ALOT OF YARDWORK , WILL CHECK AN XRAY BUT SUSPECT THIS IS JUST INFLAMMA TION, RECOMMEN D NSAIDS; RECORDED 12/09/19 12 2:16PM BY LORENZO BEVERLY ON/ADDEN DUM Mc Weir MD [address] [facility] [address], [place], [address] , [facility], [place] 6 13:42:06 Notes:Some problems listed i n Documents: #[id number], #[id number], #[id number] could not be added to this patient's chart. Please review these documents and add these problems to the patient's chart manually as needed. Problem Notes None recorded. Procedures Surgical History Date Name Laterality Status Provider Name and Address Organization Details Recorded Time 02/22 Laparoscopic cholecystectomy completed Prema Recio [facility] 4 13:49:10 08/19 Colonoscopy completed Prema Recio [facility] 3 10:54:36 06/15 lumpectomy of left breast completed Trey Recio [facility] 3 15:33:41 05/12 Most Recent Mammogram completed Prema Recio [facility] 3 09:26:43 02/16 Date of Last Pap Smear completed Ruth Hummel [facility] 2 11:19:40 03/23 Mammogram screening completed Ruth Hummel [facility] 1 11:49:59 01/13 esophagogastroduodenoscopy completed Booker Ramiresilla [facility] 1 12:01:46 10/17 Date of Last Colonoscopy completed Torie Acuña [facility] 1 12:59:48 05/25 Mammogram one breast completed Niyah ackerman MA [facility] 9 11:27:42 09/30 Appendectomy completed David Dennis [facility] 5 11:03:40 05/02 Hernia Repair completed David Dennis [facility] 5 11:03:40 Breast Biopsy completed Rajwinder Ren MA [facility] 1 09:25:51 Imaging Results None recorded. Procedure Notes None recorded. Medical Equipment None Reported. Allergies Allergen ID Allergen Name Allergen Category Reaction Reaction Severity Criticality Documentation Date Start Date Code Code System Note Provider Name and Address Organization Details Recorded Time 36332 morphine medicatio n hives moderate Not available 06/20/2014 7052 RxNorm David villegas [facility] 5 11:03:40 09488 azithromy vj medicatio n diarrhea severe Not available 07/19/2015 70799 RxNorm TIKI Fuchs [facility] 6 11:40:28 71758 Substance with sulfonami de structure and antibacte rial mechanism of action (substanc e) medicatio n Not available Not available Not available 12/10/2021 71272 8003 SNOMED TIKI Woody [facility] 2 09:41:26 Medications Name Sig Start Date [...] 04/23/20 10 2:10PM BY MC PINEDA MD, ANNOTATI ON/ADDEN DUM; [...] READ ON/ADDEN DUM;THIS ORDER DISCONTI NUED PER [facility]. Not Available Not Available Not [...] completed Not Available Not Available Not Available Burlingame's wort 300 mg capsule Take 1 capsule [...] completed RECORDED 08/09/19 13 1:09PM BY RAJWINDER RNE, OFFICE VISIT; Not Available Not Available Not [...] Available Not Available Not Available Fluarix Quad 6018-9048 (PF) 60 mcg (15 mcg x 4)/0.5 [...] Updated DateTime 4 161.29 cm 28.8 kg/m2 71044.4 4 g 71 /min 97 % 97 % 98.3 [degF] 125 mm[Hg] 83 mm[Hg] Veronique Schmidt LPN [facility] 4 08:32:21 Social History Question Answer Notes LastModified by Organizat ion Details LastModified Time Tobacco Smoking Status Former Smoker quit 2019 Mc Weir MD [address] [facility] [address], [place], [address] 03/17/2022 12:43:57 Do You Have An Advance Directive? Yes [email or web address] Information not available 12/14/2021 What Is Your Level Of Alcohol Consumption? Heavy [email or web address] Information not available 03/03/2021 Is Blood Transfusion Acceptable In An Emergency? Yes [id number] Information not available 03/04/2020 What Is Your Level Of Caffeine Consumption? Occasional Green Tea Information not available 07/20/2023 How Much Tobacco Do You Chew? None [id number] Information not available 03/04/2020 In The 14 Days Before Symptom Onset, Have You Had Close Contact With A Laboratory-confi rmed COVID-19 While That Case Was Ill? No [email or web address] Information not available 12/14/2021 In The 14 Days Before Symptom Onset, Have You Had Close Contact With A Person Who Is Under Investigation For COVID-19 While That Person Was Ill? Yes [email or web address] Information not available 12/14/2021 Have You Been To An Area Known To Be High Risk For COVID-19? Yes [email or web address] Information not available 12/14/2021 Are You Currently Employed? Yes [email or web address] Information not available 03/03/2021 What Type Of Diet Are You Following? REGULAR [id number] Information not available 03/04/2020 Which Illicit Or Recreational Drugs Have You Used? None [id number] Information not available 03/04/2020 Do You Or Have You Ever Used E-cigarettes Or Vape? Current User Of Electronic Cigarettes [email or web address] Information not available 12/14/2021 What Is Your Occupation? [employer] Information not available 07/20/2023 When Did You Quit Smoking? 1-5yearssince lastcimeredith [email or web address] Information not available 03/03/2021 Live Alone Or With Others? With Others ([employer] [email or web address] Information not available 12/14/2021 Do You Take [...] Or Greater Than 100 Degrees Fahrenheit? No [email or web address] Information not available 03/03/2021 Are You Or [...] Gathering In The Last 10 Days? No [email or web address] Information not available 03/03/2021 What Was The Date Of Your Most Recent Tobacco Screening? 07/20/2023 Information not available 07/20/2023 How Many Children Do You Have? 3 [id number] Information not available 03/04/2020 What Is Your Current Pack Years? 30ormorepacky ears [email or web address] Information not available 12/14/2021 Do You Use Protection During Sex? No [id number] Information not available 03/04/2020 Do You Use Your Seat Belt Or Car Seat Routinely? Yes [email or web address] Information not available 03/03/2021 Seat Belts Used Routinely Yes [email or web address] Information not available 12/14/2021 Are You Sexually Active? No [email or web address] Information not available 03/03/2021 Smoke Alarm In Home Yes [email or web address] Information not available 12/14/2021 Do You Have Smoke And Carbon Monoxide Detectors In Your Home? Yes [email or web address] Information not available 03/03/2021 At What Age Did You Start Smoking Tobacco? 19 [id number] Information not available 03/04/2020 Are You Passively Exposed To Smoke? No [email or web address] Information not available 03/03/2021 Do You Or Have You Ever Used Smokeless Tobacco? Never Used Smokeless Tobacco [id number] Information not available 03/04/2020 How Much Tobacco Do You Smoke? 1 PPD Information not available 04/24/2020 Do You Use Sunscreen Routinely? No [id number] Information not available 03/04/2020 How Many Years Have You Smoked Tobacco? 36 [id number] Information not available 03/04/2020 Do You Or Have You Ever Used Any Other Forms Of Tobacco Or Nicotine? Yes Vaping [email or web address] Information not available 03/17/2022 Sex: Unknown Functional Status Question Answer Note LastModified by Organization D etails LastModified Time Are you able to walk? YESWOREST [email or web address] Information not available 12/14/2021 Are you able to care for yourself? Yes [id number] Information not available 03/04/2020 What is your exercise level? None Information not available 07/20/2023 Mental Status None recorded. Family History Relationship Description Onset Age of this Age Resolved Age Notes LastModified by Organization Details LastModified Time Mother Malignant tumor of colon 70 [email or web address] Not available 09/01 10:50:57 Father Malignant tumor of colon 51 [email or web address] Not available 09/01 10:50:52 Father Alcohol abuse 51 [email or web address] Not available 01/22 10:30:52 Sister Seizure disorder 51 [email or web address] Not available 09/01 10:51:16 Sister Liver problem Not available 01/22 10:30:52 Sister Disease of liver [email or web address] Not available 01/22 10:30:52 Sister Anxiety disorder [email or web address] Not available 01/22 10:30:52 Son Asthma Not available 01/23/2020 10:30:53 Son Allergy [email or web address] Not availabl e 01/23/2020 10:30:53 Daughter Anxiety [...] preservative 8 completed Not Available [facility] 02/11/2023 12:36:05 Influenza, split virus, trivalent, preservative 9 completed Not Available [facility] 02/11/2023 12:36:06 COVID-19, mRNA, LNP-S, PF, 30 mcg/0.3 mL dose 1 completed Not Available [facility] 02/11/2023 12:36:05 COVID-19, mRNA, LNP-S, PF, 30 mcg/0.3 mL dose 1 completed Not Available [facility] 02/11/2023 12:36:05 Influenza, split virus, trivalent, preservative 1 completed Not Available [facility] 02/11/2023 12:36:06 COVID-19, mRNA, LNP-S, PF, 30 mcg/0.3 mL dose 1 completed Not Available [facility] 02/11/2023 12:36:05 MMR 8 completed Not Available [facility] 02/11/2023 12:36:05 MMR 8 completed Not Available [facility] 02/11/2023 12:36:05 Influenza, split virus, trivalent, PF 4 completed Not Available [facility] 02/11/2023 12:36:06 Influenza, split virus, quadrivalent, PF 0 completed Not Available [facility] 02/11/2023 12:36:06 Tdap 0 completed Not Available [facility] 02/11/2023 12:36:06 COVID-19, mRNA, LNP-S, PF, 30 mcg/0.3 mL dose, xiang-sucrose 2 completed Not Available [facility] 02/11/2023 12:36:05 Influenza, split virus, quadrivalent, PF 7 completed Not Available [facility] 02/11/2023 12:36:06 Influenza, split virus, quadrivalent, PF 6 completed Not Available [facility] 02/11/2023 12:36:06 Influenza, MDCK, quadrivalent, PF 2 completed Not Available [facility] 02/11/2023 12:36:05 COVID-19, mRNA, LNP-S, bivalent, PF, 30 mcg/0.3 mL dose 2 completed Not Available [facility] 02/11/2023 12:36:06 Influenza, MDCK, quadrivalent, PF 3 completed TIKI Nunez [facility] 05/06/2023 09:47:00 COVID-19, mRNA, LNP-S, PF, xiang-sucrose, 30 mcg/0.3 mL 3 completed TIKI Nunez [facility] 05/06/2023 09:47:00 COVID-19, mRNA, LNP-S, PF, 50 mcg/0.5 mL 4 completed [facility] 02/09/2024 08:32:34 Influenza, split virus, trivalent, preservative 7 completed Not Available [facility] 02/11/2023 12:36:06 Td (adult), 2 Lf tetanus toxoid, preservative free, adsorbed 8 completed Not Available [facility] 02/11/2023 12:36:06 Influenza, split virus, trivalent, preservative 2 completed Not Available [facility] 02/11/2023 12:36:06 Influenza, split virus, trivalent, preservative 4 completed Not Available [facility] 02/11/2023 12:36:06 Influenza, split virus, trivalent, preservative 6 completed Not Available [facility] 02/11/2023 12:36:06 Influenza, split virus, trivalent, preservative 7 completed Not Available [facility] 02/11/2023 12:36:06 Influenza, split virus, trivalent, preservative 8 completed Not Available [facility] 02/11/2023 12:36:06 Influenza, split virus, trivalent, preservative 9 completed Not Available [facility] 02/11/2023 12:36:06 Tdap 0 completed Not Available [facility] 02/11/2023 12:36:06 Influenza, split virus, trivalent, preservative 0 completed Not Available [facility] 02/11/2023 12:36:06 Influenza, split virus, trivalent, preservative 1 completed Not Available [facility] 02/11/2023 12:36:06 Influenza, split virus, trivalent, preservative 2 completed Not Available [facility] 02/11/2023 12:36:06 influenza, seasonal, intradermal, preservative free 3 completed Not Available [facility] 02/11/2023 12:36:06 Influenza, split virus, trivalent, PF 4 completed HENNA JUNG [address], [address], [facility], [place] 01/12/2024 09:02:46 Past Encounters Encounter ID Performer Location Encounter Start Date Encounter Closed Date Diagnosis/Indication Diagnosis SNOMED-CT Code Diagnosis ICD10 Code [id number] HENNA JUNG Main Office [address] [address] [place] [address] 01/12/2024 08:14:52 01/12/2024 09:04:35 Needs influenza immunization 419699584 Z23 Essential hypertension 29605693 I10 [id number] HENNA JUNG Main Office [address] [place] [address] 02/01/2024 08:15:07 02/01/2024 09:06:44 Headache 95919270 R51.9 [id number] Mc Weir MD Main Office [address] [address] 02/09/2024 08:18:37 02/09/2024 09:12:36 Essential hypertension 92665525 I10 Anxiety state 848170752 F41.1 Health Concerns Section Related Observation LastModified by Organization Detai ls LastModified Time None Recorded Concern Status LastModified by Organization Details LastModified Time None Recorded Payers Encounter Date Sequence Insurance Name Policy Number Policy [place] Covered Member ID [place] Member ID Guarantor Name 02/09/2024 1 [facility]) [id number] Indra Rodriguez [id number] Nat Rodriguez Notes Date Note Type Note [...] effects from medication Mc Weir MD [address], [address], [facility], [place] 02/09/2024 09:19:20 OBGyn Episode No OBEpisode recorded.
[2024-05-04 10:23] LABS: Anion Gap 10 (12-20); Blood Urea Nitrogen 14 mg/dL (9-16); Calcium 8.9 mg/dL (8.4-10.2); Carbon Dioxide 26 mmol/L (22-29); Chloride 105 mmol/L (96-108); Estimated Glomerular Filt Rate > 60; Glucose Random 121 mg/dL (60-115); Potassium 4.1 mmol/L (3.3-5.1); Sodium 137 mmol/L (135-145)
== END 2024-05-04 06:31 | disposition home or self-care (01) ==
LOC: HO.HMGCLDS 06:30
PROVIDERS: PCP Internal Medicine; Visit Provider Nurse Practitioner Family
DX: R94.31 Abnormal electrocardiogram [ECG] [EKG] (principal); I48.91 Unspecified atrial fibrillation
CPT/HCPCS: 36415; 80048

== ENCOUNTER 2024-07-04 08:48 | Outpatient (AMB) | payer OTHER, SELFPAY ==
--- NOTE | 2024-07-04 09:16 | A.OFFVIS_ITS ---
Vital Signs 07/04/24 09:18 Height 5 ft 4 in Weight 164 lb 0.383 oz BMI 28.2 BP 120/64 Blood Pressure Location Rt brachial Position Sitting Pulse 75 Pulse Source Monitor Intake Visit Reasons: f/up after CTA 05/17 Intake Note: f/up CTA 05/17 Dining Car Server Required: No Accompanied by: Significant Other Allergies morphine Allergy (Verified 04/11/24 08:49) Diarrhea Medication List - Last Reconciled 07/04/24 by Alfred Richard MD albuterol sulfate 90 mcg/actuation 2 puffs inhalation Q4H PRN clonazepam 1 mg PO BID clonazepam 1 mg PO DAILY PRN fluticasone propion-salmeterol 250-50 mcg/dose (Wixela Inhub) 1 ea inhalation BID ibuprofen 800 mg PO TID PRN multivitamin 1 tab PO DAILY omeprazole 20 mg PO DAILY@0630 tamoxifen 5 mg PO DAILY HPI Comments Details: Pleasant 59 year female who is here for follow-up. She was seen in the hospital in 02/19/2024 when she presented with acute cholecystitis. She had short run of atrial fibrillation and reverted back to sinus rhythm after that. Her ECG showed T-wave inversions in the precordial leads. Echocardiography did not show any wall motion abnormalities. Troponin was negative. She had no chest discomfort. Subsequent to that she had a coronary CTA performed which did not show any significant coronary disease. Focal calcified plaque at the proximal aspect of diagonal 2 resulting in less than 25% stenosis was noted. She has been doing well. No chest discomfort or shortness of breath. She is saying she still gets some right-sided abdominal pain and she has discuss this with Dr. Villagran. Well controlled blood pressure. [facility] Medical History (Updated 07/04/24 @ 09:43 by Alfred Richard MD) Breast cancer, left Hypertension Asthma Mood disorder Surgical History Status post laparoscopic cholecystectomy History of laparoscopic cholecystectomy (~02/23/24) Social History Household Members: Spouse Housing: House Are you a primary managed care director to a significant other at home: No Do you presently have visiting nurse or other home services: No Patient Tobacco Use Status: Current everyday Tobacco user Tobacco use type: Smokeless Tobacco e-Cigarette/Vaping Use: Currently Using Second Hand Smoke Exposure: No service: No Review of Systems Const Denies chills, Denies fatigue, Denies fever(s), Denies frequent falls, Denies weakness, Denies weight gain and Denies weight loss ENT Denies dizziness Card Denies chest pain, Denies leg edema, Denies lightheadedness, Denies palpitations, Denies dyspnea and Denies dyspnea on exertion Resp Denies cough, Denies dyspnea and Denies dyspnea on exertion GI Denies hematochezia Musc Denies abnormal gait, Denies muscle weakness, Denies numbness, Denies radiating pain into limb and Denies tingling Neuro Denies abnormal gait, Denies dizziness, Denies frequent falls, Denies numbness, Denies tingling and Denies weakness Endo Denies fatigue and Denies palpitations Physical Exam Vital Signs: Last Vital Signs Pulse 75 07/04/24 09:18 BP 120/64 07/04/24 09:18 BMI result Body Mass Index 28.2 GENERAL APPEARANCE: in no acute distress, pleasant. NECK: no carotid bruit, no jugular venous distention. SKIN: no suspicious lesions, warm and dry. HEART: no murmurs, regular rate and rhythm. LUNGS: clear to auscultation bilaterally. ABDOMEN: soft, nontender. EXTREMITIES: no edema. PERIPHERAL PULSES: equal. NEUROLOGIC: No gross deficits, AAO X 3 Office Procedures EKG Details: Sinus rhythm 75 beats per minute, normal axis, inferior and lateral T-wave inversions (improved compared to previous ECGs), QTC 448 milliseconds. [id number], Complete Assessment & Plan Assessment & Plan (1) Abnormal ECG: Code(s): R94.31 - Abnormal electrocardiogram [ECG] [EKG] Category: Medical (2) Hypertension: Code(s): I10 - Essential (primary) hypertension Category: Medical (3) PAF (paroxysmal atrial fibrillation): Code(s): I48.0 - Paroxysmal atrial fibrillation Category: Medical Plan 59 year female who is here for follow-up. She was seen in the hospital when she presented with acute cholecystitis. She is now status post laparoscopic cholecystectomy. She had some precordial T-wave inversions without significant symptoms or biomarker rise. Echocardiography was normal. She subsequently had coronary CTA performed which did not show any significant plaque other than some focal calcification in diagonal 2. I currently have reassured her that her presentation was not acute coronary syndrome and she does not have any significant coronary artery disease. I think she should get fasting lipid panel performed to make sure she does not have any significant hyperlipidemia because that would warrant starting her on statin therapy. She had paroxysmal atrial fibrillation while she was in the hospital. This was in the setting of cholecystitis. She continues to be in sinus rhythm since then. Chads Vasc is 2 for hypertension and gender but female gender is more of a risk modifier than a risk factor based on recent research. Also she is less than 65 years old and currently I think she does not need anticoagulation. We will monitor her closely for atrial fibrillation. Thank you for allowing me to participate in the care of your patient. Please feel free to contact me if you have any questions. Orders: Orders Lipid Panel Today R94.31 - Abnormal electrocardiogram [ECG] [EKG] Coding Level of Care Code Est Pt Level 4 (86596) Diagnoses Abnormal ECG R94.31 Hypertension I10 PAF (paroxysmal atrial fibrillation) I48.0 CPT Codes EKG - CPT: 32957-[id number], Complete ([id number])
[2024-07-04 09:18] VITALS: BP 120/64; PULSE 75; BMI 28.2
--- OUTSIDE RECORDS SUMMARY | 2024-07-04 09:33 | XMS_ITS | Data Portability ---
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 RECORDED 12/14/19 09 1:04PM BY ZO BATESATI ON/ADDEN DUM Gerson ackerman MA [facility] 9 11:25:22 Screenin g for malignan t neoplasm of breast Completed 200811/13/2013 RECORDED 12/14/19 09 1:03PM BY LORENZO BATES ON/ADDEN DUM Zenobia Weir MD [address], [place], [address] , [facility] 6 13:42:06 Solitary cyst of breast 400686092 Completed 201111/13/2013 RECORDED 12/09/19 12 2:17PM BY LORENZO BEVERLY ON/KIAN Weir MD [facility] [address] [facility], [place], [address] , [facility] 6 13:42:06 Disorder of lower limb 886762224 Completed 201111/13/2013 RECORDED 12/09/19 12 2:17PM BY LORENZO BEVERLY ON/KIAN Weir MD [address] [facility] [address], [place], [address] , [facility] 6 13:42:06 Screenin g for malignan t neoplasm of cervix Completed 201111/13/2013 RECORDED 12/09/19 12 2:17PM BY LORENZO BEVERLY ON/KIAN Weir MD [address], [place], [address] , [facility] 6 13:42:06 Screenin g for malignan t neoplasm of colon Completed 201211/13/2013 RECORDED 12/28/19 13 10:05AM BY LORENZO BEVERLY ON/KIAN Weir MD [address] [facility] [address], [place], [address] , [facility] 6 13:42:06 Contact dermatit is 39063287 Active 2013 Not Available [facility] 3 12:36:04 Cough 33281260 Completed 201111/13/2013 IMPRESSI ON: HX OF ASTHMA, [...] BEVERLY ON/ADDEN DUM Zenobia Weir MD [address] [facility] [address], [place], [address] , [facility] 6 13:42:06 Tobacco dependen ce syndrome 95049269 Completed 201311/13/2013 RECORDED 06/21/19 14 9:20AM BY LORENZO BEVERLY ON/ADDEN TIKI [facility] 9 11:26:31 Single major depressi ve episode Completed 201304/24/2020 GIVEN A HANDOUT WITH MENTAL HEALTH PROVIDER S AND SHE MAY CONTACT ONE FOR COUNSELI KWADWO Weir MD [address] [facility] [address], [place], [address] , [facility] 0 12:18:28 Dizzines s and giddines s 655276373 Completed 200811/13/2013 RECORDED 12/14/19 09 1:04PM BY LORENZO BATES ON/ADDEN DUM Zenobia Weir MD [address] [facility] [address], [place], [address] , [facility] 6 13:42:06 Influenz a vaccine needed 76481581919 06 Completed 201311/13/2013 RECORDED 06/21/19 14 9:20AM BY DAVID CRAIG I, LORENZO ON/KIAN Weir MD [address] [facility] [address], [place], [address] , [facility] 6 13:42:06 General examinat ion of patient Completed 200711/13/2013 RECORDED 12/24/19 08 11:52AM BY ZENOBIA PINEDA MD, LORENZO ON/KIAN Weir MD [address] [facility] [address], [place], [address] , [facility] 6 13:42:06 Impacted cerumen 91517405 Completed 201304/04/2014 RECORDED 11/06/19 14 11:40AM BY AKHIL CAMARENA MA, OFFICE VISIT Zenobia Weir MD [address] [facility] [address], [place], [address] , [facility] 6 13:42:05 Peripher al vascular disease 060747669 Completed 201111/13/2013 RECORDED 12/09/19 12 2:16PM BY LORENZO BEVERLY ON/KIAN Weir MD [address] [facility] [address], [place], [address] , [facility] 6 13:42:05 Disorder of upper respirat ory system 066409116 Completed 201111/13/2013 IMPRESSI ON: 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 RESOLVED WITH TOPICAL ABX OINT.; RECORDED 12/09/19 12 2:16PM BY LORENZO BEVERLY ON/KIAN Weir MD [address] [address], [place], [address] , [facility] 6 13:42:06 Administ ration of bacteria l and viral vaccine Completed 200911/13/2013 RECORDED 08/16/19 10 4:02PM BY ZENOBIA PINEDA MD, OFFICE VISIT Zenobia Weir MD [address] [address], [place], [address] , [facility] 6 13:42:06 Open wound of nose 538558495 Completed 200711/13/2013 RECORDED 02/07/20 08 11:58AM BY GERSON FULLER MA, LORENZO ON/ADDEN DUM Zenobia Weir MD [address] [address], [place], [address] , [facility] 6 13:42:06 Pediculo sis capitis 17860883 Completed 200711/13/2013 RECORDED 02/16/20 08 2:44PM BY NICK SEVILLA, LORENZO ON/ADDEN DUM Zenobia Weir MD [address] [address], [place], [address] , [facility] 6 13:42:05 Verruca plantari s 86048025 Completed 201311/13/2013 IMPRESSI ON: ADVISED OTC PRODUCTS ; RECORDED 06/21/19 14 9:20AM BY LORENZO BEVERLY ON/ADDEN BRITTNI Weir MD [address] [address], [place], [address] , [facility] 6 13:42:05 Eruption 710241034 Completed 200711/13/2013 RESOLVED DATE: 12/24/19 08; RECORDED 12/24/19 08 11:52AM BY ZENOBIA PINEDA MD, LORENZO ON/ADDEN BRITTNI Weir MD [address] [address], [place], [address] , [facility] 6 13:42:06 Adult health examinat ion Completed 201111/13/2013 RECORDED 12/09/19 12 2:16PM BY LORENZO BEVERLY ON/KIAN Weir MD [address] [address], [place], [address] , [facility] 6 13:42:06 Chronic sinusiti s 53808344 Completed 201211/13/2013 RECORDED 12/28/19 13 10:05AM BY LORENZO BEVERLY ON/KIAN Weir MD [address] [address], [place], [address] , [facility] 6 13:42:06 Candidia sis of mouth 53075254 Completed 201211/13/2013 RECORDED 12/28/19 13 10:05AM BY LORENZO BEVERLY ON/KIAN Weir MD [address] [address], [place], [address] , [facility] 6 13:42:05 Tobacco dependen ce syndrome 26953507 Completed 201309/06/2018 Removal Reason: quit Gerson ackerman MA null, [facility] 9 11:26:31 Disorder of tongue 19315233 Completed 201111/13/2013 IMPRESSI ON: ALTHOUGH BLACK I ? THRUST GIVEN THE FACT YOU CAN SCRAPE OFF AND SHE HAS BEEN USING ADVAIR MORE. DISCUSSE D USE OF NYSTATIN WHICH SHE CURRENTL Y DECLINES . WILL CHECK IN 1 WEEK, IF NO BETTER TO START.; RECORDED 12/09/19 12 2:16PM BY LORENZO BEVERLY ON/KIAN Weir MD [address] [address], [place], [address] , [facility] 6 13:42:06 Abnormal weight loss 275200960 Completed 201306/20/2014 RECORDED 11/06/19 14 11:40AM BY AKHIL CAMARENA MA, OFFICE VISIT Zenobia Weir MD [address] [facility] [address], [place], [address] , [facility] 6 13:42:06 Disorder of bone and articula r cartilag e 394713843 Completed 201111/13/2013 IMPRESSI ON: TENDERNE SS OVER XIPHOID PROCESS, HAS BEEN DOING ALOT OF YARDWORK , WILL CHECK AN XRAY BUT SUSPECT THIS IS JUST INFLAMMA TION, RECOMMEN D NSAIDS; RECORDED 12/09/19 12 2:16PM BY DAVID CRAIG I, ANNOTATI ON/ADDEN DUM Zenobia Weir MD [address] [facility] [address], [place], [address] , [facility] 6 13:42:06 Notes:Some problems listed i n Documents: #[id number], #[id number], #[id number] could not be added to this patient's chart. Please review these documents and add these problems to the patient's chart manually as needed. Problem Notes None recorded. Procedures Surgical History Date Name Laterality Status Provider Name and Address Organization Details Recorded Time 02/22 Laparoscopic cholecystectomy completed Prema Recio [facility] 4 13:49:10 08/19 Colonoscopy completed Prema Recio [facility] 3 10:54:36 06/15 lumpectomy of left breast completed Trey Recio [facility] 3 15:33:41 05/12 Most Recent Mammogram completed Prema Recio [facility] 3 09:26:43 02/16 Date of Last Pap Smear completed Ruth Hummel [facility] 2 11:19:40 03/23 Mammogram screening completed Ruth Hummel [facility] 1 11:49:59 01/13 esophagogastroduodenoscopy completed Booker Hummel [facility] 1 12:01:46 10/17 Date of Last Colonoscopy completed Torie Acuña [facility] 1 12:59:48 05/25 Mammogram one breast completed Gerson ackerman MA [facility] 9 11:27:42 09/30 Appendectomy completed David Dennis [facility] 5 11:03:40 05/02 Hernia Repair completed David Dennis [facility] 5 11:03:40 Breast Biopsy completed Dia Ren MA [facility] 1 09:25:51 Imaging Results Imaging Date Name Status LastModified by Organization Details LastModified Time 02/18/2024 MRI, brain, w/o contrast completed [address] [place], [address], 02/27/2024 11:36:57 02/22/2024 electrocardiogram completed Inform ation [...] Name and Address Organization Details Recorded Time 71515 morphine medicatio n hives moderate Not available 06/20/2014 7052 RxNorm David villegas [facility] 5 11:03:40 05611 azithromy vj medicatio n diarrhea severe Not available 07/19/2015 30363 RxNorm TIKI Fuchs, [facility] 6 11:40:28 86757 Substance with sulfonami de structure and antibacte rial mechanism of action (substanc e) medicatio n Not available Not available Not available 12/10/2021 62528 8003 SNOMED Gerson TIKI Hardy, [facility] 2 09:41:26 Medications Name Sig Start [...] TAKE 1 TABLET IN THE EVENING NEEDED 2024 active Not Available Not Available Not Avai [...] completed Not Available Not Available Not Available Christi's wort 1,000 mg capsule active RECORDED 04/23/20 10 2:10PM BY ZENOBIA PINEDA MD, LORENZO ON/ DUM; Not Available Not Available Not Available mupirocin 2 % topical ointment BID to qtip - insert B nares (individ ually) x 10 days 09/23 completed RECORDED 08/16/19 10 2:37PM BY LORENZO PONCE ON/ADDCATRACHO DUM; Not Available Not Available Not Available Nasal Saline 0.65 % spray aerosol 07/02 completed RECORDED 07/03/19 11 5:47PM BY SAMIR DEGUTIS, ANNOTATI ON/ADDEN DUM;THIS ORDER DISCONTI NUED PER [facility]. Not Available Not Available Not Available [...] completed Not Available Not Available Not Available [place]'s wort 300 mg capsule Take 1 capsule [...] Available Not Available Not Available Fluarix Quad 7536-2749 (PF) 60 mcg (15 mcg x 4)/0.5 [...] Updated DateTime 4 161.29 cm 29.1 kg/m2 82384.6 3 g 66 /min 95 % 95 % 97.7 [degF] 115 mm[Hg] 81 mm[Hg] Katya Dorado MA [facility] 4 08:41:54 Date Recorded Body height Body mass index (BMI) Body weight Heart rate Oxygen saturation Oxygen saturation in Arterial blood by Pulse oximetry Body temperature Systolic blood pressure Diastolic blood pressure Provider Name and Address Organization Details Last Updated DateTime 4 161.29 cm 28.8 kg/m2 92306.4 4 g 71 /min 97 % 97 % 98.3 [degF] 125 mm[Hg] 83 mm[Hg] Veronique Schmidt LPN [facility] 4 08:32:21 Date Recorded Body height Provider Name an d Address Organization Details Last Updated DateTime 02/21/2024 161.29 cm Ivanna Maurice MA [facility] 02/21/2024 14:07:28 Date Recorded Body height Body mass index (BMI) Body weight Heart rate Oxygen saturation Oxygen saturation in Arterial blood by Pulse oximetry Body temperature Systolic blood pressure Diastolic blood pressure Provider Name and Address Organization Details Last Updated DateTime 4 161.29 cm 27.9 kg/m2 97966.7 8 g 66 /min 97 % 97 % 97.8 [degF] 101 mm[Hg] 69 mm[Hg] Rj dinero MA [facility] 4 09:32:22 Date Recorded Body height Body mass index (BMI) Body weight Oxygen saturation Oxygen saturation in Arterial blood by Pulse oximetry Heart rate Body temperature Systolic blood pressure Diastolic blood pressure Provider Name and Address Organization Details Last Updated DateTime 4 161.29 cm 28.2 kg/m2 19502.9 6 g 98 % 98 % 83 /min 98.3 [degF] 119 mm[Hg] 73 mm[Hg] Dia Ren MA [facility] 4 08:50:46 Social History Question Answer Notes LastModified by Organizat ion Details LastModified Time Tobacco Smoking Status Former Smoker quit 2019 Zenobia Weir MD [address], [address] 03/17/2022 12:43:57 Do You Have An Advance Directive? Yes [email or web address] Information not available 12/14/2021 What Is Your Level Of Alcohol Consumption? Heavy Information not available 03/03/2021 Is Blood Transfusion Acceptable In An Emergency? Yes [id number] Information not available 03/04/2020 What Is Your Level Of Caffeine Consumption? Occasional Green Tea Information not available 07/20/2023 How Much Tobacco Do You Chew? None [id number] Information not available 03/04/2020 In The 14 Days Before Symptom Onset, Have You Had Close Contact With A Laboratory-confi rmed COVID-19 While That Case Was Ill? No [email or web address] Information not available 12/14/2021 In The 14 Days Before Symptom Onset, Have You Had Close Contact With A Person Who Is Under Investigation For COVID-19 While That Person Was Ill? Yes [email or web address] Information not available 12/14/2021 Have You Been To An Area Known To Be High Risk For COVID-19? Yes [email or web address] Information not available 12/14/2021 Are You Currently Employed? Yes [email or web address] Information not available 03/03/2021 What Type Of Diet Are You Following? REGULAR [id number] Information not available 03/04/2020 Which Illicit Or Recreational Drugs Have You Used? None [id number] Information not available 03/04/2020 Do You Or Have You Ever Used E-cigarettes Or Vape? Current User Of Electronic Cigarettes [email or web address] Information not available 12/14/2021 What Is Your Occupation? [employer] Information not available 07/20/2023 When Did You Quit Smoking? 1-5yearssince lastcigarette [email or web address] Information not available 03/03/2021 Live Alone Or With Others? With Others ([employer] [email or web address] Information not available 12/14/2021 Do You Take [...] Or Greater Than 100 Degrees Fahrenheit? No [email or web address] Information not available 03/03/2021 Are You Or [...] Gathering In The Last 10 Days? No [email or web address] Information not available 03/03/2021 What Was The Date Of Your Most Recent Tobacco Screening? 07/20/2023 Information not available 07/20/2023 How Many Children Do You Have? 3 [id number] Information not available 03/04/2020 What Is Your Current Pack Years? 30ormorepacky ears [email or web address] Information not available 12/14/2021 Do You Use Protection During Sex? No [id number] Information not available 03/04/2020 Do You Use Your Seat Belt Or Car Seat Routinely? Yes [email or web address] Information not available 03/03/2021 Seat Belts Used Routinely Yes [email or web address] Information not available 12/14/2021 Are You Sexually Active? No [email or web address] Information not available 03/03/2021 Smoke Alarm In Home Yes Information not available 12/14/2021 Do You Have Smoke And Carbon Monoxide Detectors In Your Home? Yes [email or web address] Information not available 03/03/2021 At What Age Did You Start Smoking Tobacco? 19 [id number] Information not available 03/04/2020 Are You Passively Exposed To Smoke? No [email or web address] Information not available 03/03/2021 Do You Or Have You Ever Used Smokeless Tobacco? Never Used Smokeless Tobacco [id number] Information not available 03/04/2020 How Much Tobacco Do You Smoke? 1 PPD Information not available 04/24/2020 Do You Use Sunscreen Routinely? No [id number] Information not available 03/04/2020 How Many Years Have You Smoked Tobacco? 36 [id number] Information not available 03/04/2020 Do You Or Have You Ever Used Any Other Forms Of Tobacco Or Nicotine? Yes Vaping [email or web address] Information not available 03/17/2022 Sex: Unknown Functional Status Question Answer Note LastModified by Organization D etails LastModified Time Are you able to walk? YESWOREST [email or web address] Information not available 12/14/2021 Are you able to care for yourself? Yes [id number] Information not available 03/04/2020 What is your exercise level? None Information not available 07/20/2023 Mental Status None recorded. Family History Relationship Description Onset Age of this Age Resolved Age Notes LastModified by Organization Details LastModified Time Mother Malignant tumor of colon 70 [email or web address] Not available 09/01 10:50:57 Father Malignant tumor of colon 51 [email or web address] Not available 09/01 10:50:52 Father Alcohol abuse 51 [email or web address] Not available 01/22 10:30:52 Sister Seizure disorder 51 [email or web address] Not available 09/01 10:51:16 Sister Liver problem [email or web address] Not available 01/22 10:30:52 Sister Disease of liver [email or web address] Not available 01/22 10:30:52 Sister Anxiety disorder [email or web address] Not available 01/22 10:30:52 Son Asthma [email or web address] Not available 01/23/2020 10:30:53 Son Allergy [email or web address] Not availabl e 01/23/2020 10:30:53 Daughter Anxiety disorder [email or web address] Not available 06/2020 09:47:02 Medical History Condition Response Gout N Other N Kidney Stones N Blood Diseases N Hyperthyroidism N Breast Cancer N Hypothyroidism [...] virus, trivalent, preservative 1 completed Not Available [facility] 02/11/2023 12:36:06 COVID-19, mRNA, LNP-S, PF, 30 mcg/0.3 mL dose 1 completed Not Available [facility] 02/11/2023 12:36:05 MMR 8 completed Not [...] mRNA, LNP-S, PF, 30 mcg/0.3 mL dose, xinag-sucrose 2 completed Not Available [facility] 02/11/2023 12:36:05 Influenza, split virus, quadrivalent, PF 7 completed Not Available [facility] 02/11/2023 12:36:06 Influenza, split virus, quadrivalent, PF 6 completed Not Available [facility] 02/11/2023 12:36:06 Influenza, MDCK, quadrivalent, PF 2 completed [facility] 02/11/[facility]23 12:36:05 COVID-19, mRNA, LNP-S, bivalent, PF, 30 mcg/0.3 mL dose 2 completed Not Available [facility] 02/11/2023 12:36:06 Influenza, MDCK, quadrivalent, PF 3 completed TIKI Nunez [facility] 05/06/2023 09:47:00 COVID-19, mRNA, LNP-S, PF, xiang-sucrose, 30 mcg/0.3 mL 3 completed Katya Dorado MA null, [facility] 05/06/2023 09:47:00 COVID-19, mRNA, LNP-S, PF, 50 mcg/0.5 mL 4 completed Veronique Schmidt LPN null, [facility] 02/09/2024 08:32:34 Influenza, split virus, trivalent, [...] virus, trivalent, preservative 0 completed Not Available [facility] 02/11/2023 12:36:06 Influenza, split virus, trivalent, preservative 1 completed Not Available [facility] 02/11/2023 12:36:06 Influenza, split virus, trivalent, preservative 2 completed Not Available [facility] 02/11/2023 12:36:06 influenza, seasonal, intradermal, preservative free 3 completed Not Available [facility] 02/11/2023 12:36:06 Influenza, split virus, trivalent, PF 4 completed HENNA JUNG [address] [address], [place], [address], [facility] 01/12/2024 09:02:46 Past Encounters Encounter ID Performer Location Encounter Start Date Encounter Closed Date Diagnosis/Indication Diagnosis SNOMED-CT Code Diagnosis ICD10 Code Diagnosis Note [id number] [facility]Comm [facility]ce [address] [facility] [place] [address] 02/23/2006 00:00:00 [id number] autoEComm erce [address] [facility] [place] [address] 12/11/2004 00:00:00 [id number] auto[employer]Comm erce [address] [facility] [place] [address] 10/08/2004 00:00:00 [id number] autoEComm erce [address] [facility] [place] [address] 06/15/2004 00:00:00 [id number] auto[employer]Comm erce [address] [facility] [place] [address] 06/29/2006 00:00:00 [id number] auto[employer]Comm erce [address] [facility] [place] [address] 07/12/2006 00:00:00 [id number] auto[employer]Comm erce [address] [facility] [place] [address] 01/04/2007 00:00:00 [id number] auto[employer]Comm erce [address] [facility] [place] [address] 03/22/2007 00:00:00 [id number] auto[employer] erce [address] [facility] [place] [address] 10/03/2007 00:00:00 [id number] [address] [address] [place] [address] 10/05/2007 00:00:00 [id number] autoEComm erce [address] [facility] [address] [place] [address] 01/03/2008 00:00:00 [id number] [employer] erce [address] [facility] [place] [address] 02/01/2008 00:00:00 [id number] auto[employer]Comm erce [address] [address] [facility] [address] [place] [address] 02/16/2008 00:00:00 [id number] [employer] [address] [facility] [place] [address] 07/19/2008 00:00:00 [id number] [employer] [address] [facility],[address] [place] [address] 12/13/2008 00:00:00 [id number] [employer]ce [address] [facility] [place] [address] 05/06/2009 00:00:00 [id number] [employer]ce [address] [facility],[address] [place] [address] 06/10/2009 00:00:00 [id number] [employer]ce [address] [facility],[address] [place] [address] 08/15/2009 00:00:00 [id number] [employer] erce [address] [facility] [place] [address] 11/12/2009 00:00:00 [id number] [employer]ce [address] [facility] [place] [address] 02/18/2010 00:00:00 [id number] [employer] erce [address] [facility] [address] [place] [address] 04/23/2010 00:00:00 [id number] [employer]ce [address] [facility] [place] [address] 05/20/2010 00:00:00 [id number] [address] [address] [place] [address] 08/19/2010 00:00:00 [id number] [employer] [address] [place] [address] 11/18/2010 00:00:00 [id number] [employer] [address] [place] [address] 12/03/2010 00:00:00 [id number] [employer] [address] [place] [address] 04/14/2011 00:00:00 [id number] auto[employer]ce [address] [facility] [address] [place] [address] 08/18/2011 00:00:00 [id number] [employer]ce [address] [facility] [place] [address] 11/11/2011 00:00:00 [id number] [employer] erce [address] [facility] [place] [address] 12/22/2011 00:00:00 [id number] auto[employer] erce [address] [facility] [place] [address] 08/08/2012 00:00:00 [id number] [employer]ce [address] [facility] [place] [address] 12/27/2012 00:00:00 [id number] auto[employer]ce [address] [facility] [place] [address] 06/01/2013 00:00:00 [id number] [employer] erce [address] [facility] [place] [address] 06/21/2013 00:00:00 [id number] auto[employer] erce [address] [facility] [place] [address] 11/05/2013 00:00:00 [id number] Zenobia Weir MD Main Office [address] [place] [address] 02/02/2014 09:17:23 02/02/2014 09:32:25 Needs influenza immunization [id number] Zenobia Weir MD Main Office [address] [place] [address] 04/04/2014 13:12:45 04/04/2014 14:07:47 Single major depressive episode 835253699 Anxiety state 972281866 Agoraphobia 42948376 [id number] Zenobia Weir MD Main Office [address] [place] [address] [place] [address] 06/20/2014 10:39:37 06/20/2014 11:42:56 Adult health examination 150639977 Agoraphobia 81716823 Anxiety state 333416664 Single keny or depressive episode 178673519 her mental health issues have been becoming worse over the years. She started seeing Ce at [facility] who will be setting her up with a psychiatri . She is currently only a clonazepam and has been reluctant in the past to take an anti-depre ssant. She has agreed that this is now necessary so we will start and see her back in 1 month. [id number] David Dennis Main Office [address] [place] [address] [place] [address] 07/18/2014 12:47:57 07/18/2014 14:13:02 Anxiety state 966087024 getting some relief from wellbutrin . We discussed going up on her dose to twice a day but she is hesitant because of fatigue. She will try taking the pill at night to see if this helps. Single keny or depressive episode 314314472 She started seeing Ce at [facility] and is [facility] She is c/w wellbutrin 150 daily. I instructed her to take it at bedtime to see if this helps with the daytime fatigue and she will then try to increase it to twice a day. Screening for malignant neoplasm of colon 116246865 [id number] Gerson ackerman [place] Main Office [address] [place] [address] [place] [address] 10/28/2014 10:25:43 10/28/2014 11:21:21 Single major depressive episode 047533174 She started seeing Ce at [facility] and is awaiting an [facility]men t [facility] She is c/w wellbutrin 150 daily. I instructed her to take it at bedtime to see if this helps with the daytime fatigue. We discussed increasing the dose or adding an SSRI but she is hesitant about making any changes. Acute sinusitis 65648915 [id number] Main Office [address] [place] [address] [place] [address] 01/23/2015 12:40:24 01/23/2015 13:31:36 Acute sinusitis 25191088 Acute asthma 717655572 Recurrent sinusitis 555838318 [id number] Zenobia Weir MD Main Office [address] [place] [address] 03/04/2015 10:36:06 03/04/2015 11:19:24 Anxiety state 914902598 F41.1 followed by psych and her anxiety has been doing a little better. Taking clonazepam 1 mg bid and wellbutrin 150 at bedtime. Asthma 712265559 J45.90 9 she had an exacerbati on a couple of months ago after an infection but is back to her baseline [id number] Stacey Lee Main Office [address] [place], [place] [address] 06/18/2015 12:50:18 06/18/2015 13:49:33 Adult health examination 155561039 Z00.00 she is UTD with immunizati ons and is due for cervical and colon cancer screening. Screening for malignant neoplasm of cervix 015997428 Z12.4 Screening for malignant neoplasm of colon 762903764 Z12.11 Single keny or depressive episode 054371195 F33.1 She saw Ce from [facility] and [facility] She tried an SSRI but didn't like it and feels that she is doing well and doesn't need anything right now. She still takes clonazepam for anxiety. Tobacco de pendence syndrome 98080085 F17.290 Anxiety state 641384555 F41.1 Taking clonazepam 1 mg bid and she feels that this helps. [id number] Alison suh Main Office [address] [place] [address] 07/19/2015 10:59:12 07/19/2015 12:21:40 Pneumonia 087325672 J18.9 right base with abnormal exam in a smoker with dx flu and worsening respirator y status and increased cough. treat with levaquin, not sure if zmax is a true allergy, may be related to illness. stop smking, hydrate rest Influenza 9517310 J11.1 dx by swab, no tx now since days later Ex-smoker 8890998 Z87.89 1 using E cigarette [id number] Carin Marie Main Office 3640 [facility] 207 [facility] [place] [address] 12/15/2015 10:32:19 12/15/2015 11:35:53 Anxiety state 977844431 F41.1 Taking clonazepam 1 mg bid and she feels that this helps. Single keny or depressive episode 711787304 F33.1 She saw Ce from [facility] and also went to a psychiatri . She tried an SSRI but didn't like it and feels that she is doing well and doesn't need anything right now. She still takes clonazepam for anxiety. 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 [id number] Olegario bowman Main Office 3640 [facility] 207 [facility] [place] [address] 01/31/2016 10:11:30 01/31/2016 12:10:52 Needs influenza immunization 688585285 Z23 [id number] Zenobia Weir MD Main Office 3640 [facility] [address] [place] [address] 03/31/2016 13:13:09 03/31/2016 14:18:03 Upper respiratory infection 08660942 J06.9 Methicilli n resistant Staphylococcus aureus infection 286848438 A49.02 h/o nasal mrsa, curr sxs feel similar - will empiricall y rx Asthma 429653934 J45.30 since advair not covered by her ins., will try other inhaled steroid--- pt has proair - cont use prn Tobacco de pendence syndrome 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 sm. cess. [id number] Zenobia Weir MD Main Office 36[address] [facility] 207 [facility] [place] [address] 09/23/2016 08:46:30 09/23/2016 10:03:53 Adult health examination 685699156 Z00.00 she is UTD with immunizati ons and is due for cervical and colon cancer screening. Asthma 996159616 J45.90 9 Uses advair only once daily and uses proair in the evening. I advised her to use the proair twice a day and to call if she needs the proair more than a few times a week. Screening for malignant neoplasm of colon 694094585 Z12.11 Anxiety state 592395207 F41.1 Taking clonazepam 1 mg bid and she feels that this helps. 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 we decided pt will re-try christi's wort since she tolerated that yrs ago - urged pt to start at lowest dose and slowly increase to max of otc dose 25 minute office visit with greater than 50% of the visit face-to-fa ce with the patient and/or family providing counseling and/or coordinati on of care. [id number] Alison suh Main Office [address] [place] [address] 12/31/2016 10:08:31 12/31/2016 10:30:40 Needs influenza immunization 503115118 Z23 [id number] Zenobia Weir MD Main Office [address] [place] [address] 01/12/2017 12:39:35 01/12/2017 13:17:50 Asthma 072324816 J45.909 Will increase her advair dose from 100 to 250 and encouraged her to use it twice a day instead of once. She will call if her use of proair does not decrease. Snoring 59806244 R06.83 [id number] Allan Braxton MD Main Office [address] [place] [address] 01/14/2017 10:42:00 01/14/2017 12:19:46 Visual disturbance 59648833 H53.001 [id number] Zenobia Weir MD Main Office 36[address] [facility] [address] [place] [address] 07/18/2017 09:49:58 07/18/2017 11:02:04 Fever 487902664 R50.9 Flu was negative. OOW for next 3 days. Acute asthma 134616532 J 45.901 She will hold her advair while taking the prednisone . [id number] Zenobia Weir MD Main Office 36[address] [facility] [address] [place] [address] 07/28/2017 11:12:30 07/28/2017 12:07:05 Asthma 218027123 J45.909 Continue with advair twice a day and proair prn. cannot tolerate prednisone so will add atrovent inhaler to her regimen and see her back next week. Fatigue 77758322 R53.83 This is probably from lack of adequate sleep and stress from her new job. [id number] Zenobia Weir MD Main Office 36[address] [facility] [address] [place] [address] 09/28/2017 10:23:13 09/28/2017 11:23:40 Adult health examination 912638018 Z00.00 she is UTD with immunizati ons and is due for cervical cancer screening. She had a colonoscop y done by Dr Valle May 2017 and is due for a repeat in 2019. Asthma 919410439 J45.90 9 Continue with advair twice a day and proair prn. Tobacco de pendence syndrome 61747515 F17.290 Single keny or depressive episode 111748765 F33.1 She saw Ce from [facility] and also went to a psychiatri . She tried an SSRI but didn't like it and feels that she is doing well and doesn't need anything right now. She still takes clonazepam for anxiety. [id number] JEANNE Delarosa Main Office 36[address] [facility] [address] [place] [address] 06/06/2018 10:18:45 06/06/2018 11:02:02 Fever 753921130 R50.9 Rapid flu negative. Cough 52707427 R05 chest tightness, fever 103, hx asthma. will get CXR. hydration, rest, use proair inhaler at least twice daily but every 4 hours as needed. patient declined nebulizer tx todaya nd rx for steroid. she will call on tuesday if not better and I will send script for prednisone . Candidiasis of skin 4988 3006 B37.2 under left breast, use med x at least 1 week after rash resolves then may use medicated powder to keep area dry. [id number] Zenobia Weir MD Main Office [address] [place] [address] [place] [address] 09/06/2018 11:10:51 09/06/2018 12:03:26 Pain in coccyx 61017766 M53.3 We discussed an xray but she decided against it since it would probably not change mgmt. [id number] Zenobia Weir MD Main Office [address] [place], [place] [address] [address] 10/03/2018 10:41:31 10/03/2018 11:47:42 Adult health examination 404170284 Z00.00 she is UTD with immunizati ons and is due for cervical cancer screening. She had a colonoscop y done by Dr Valle May 2017 and is due for a repeat in 2019. Sleep apnea 50911952 G47 .30 Single keny or depressive episode 843624363 F33.1 She saw Ce from [facility] and also went to a psychiatri . She tried an SSRI but didn't like it and feels that she is doing well and doesn't need anything right now. She still takes clonazepam for anxiety. Asthma 556875978 J45.90 9 Continue with advair twice a day and proair prn. [id number] Zenobia Weir MD Main Office [address] [place] [address] [place] [address] 07/30/2019 08:20:42 07/30/2019 11:55:02 Asthma 120578640 J45.909 Continue with advair daily and proair as needed. Anxiety state 964636703 F41.1 Currently under control with clonazepam as prescribed . Obstructiv e sleep apnea syndrome 37608093 G47.33 I advised her to call sleep medicine to let them know that she has been having daily morning headaches since starting the CPAP. [id number] Zenobia Weir MD Main Office 3640 [facility] 207 [facility] [place] [address] 01/23/2020 10:15:11 01/23/2020 11:13:59 Adult health examination 428816843 Z00.00 We will update her immunizati ons today. She is due for cervical cancer screening. She had a colonoscop y done by Dr Valle May 2017 and is scheduled for a repeat next month at [facility]. Needs infl uenza immunization 321683329 Z23 Single keny or depressive episode 273176874 F33.1 She saw Ce from [facility] and also went to a psychiatri st. She has tried SSRI's in the past stopped because of perceived SE's. Increased anxiety and depression since the start of COVID. Will start an SSRI at low dose and increase slowly. Reevaluate in 4 weeks. Anxiety state 078964928 F41.1 Currently taking clonazepam but increased anxiety and depression since the start of COVID. Will start an SSRI at low dose and increase slowly. Reevaluate in 4 weeks. Administra tion of viral vaccine 69277384 Z23 [id number] JEANNE Delarosa [facility] [address] [address] 04/24/2020 08:40:00 04/24/2020 10:09:05 Exposure to viral disease 4003495747 96657 Z03.818 quarantine until test results back, isolate from family, rest, hydration, tylenol/ ibuprofen as needed. Asthma 558786696 J45.90 9 has been using wixela daily but has not needed albuterol in 7 months. continue wixela and re-start proair as needed for any sx of SOB/ chest tightness. Should you develop any resp distress please call 911. Obstructiv e sleep apnea syndrome 91672489 G47.33 [id number] Karen Cuevas PA-C [facility] 3640 [facility] 207 [facility] [address] 08/25/2020 12:06:53 08/25/2020 13:32:20 Diverticulitis of colon 089481066 K57.32 GI side effects from Augmentin discussed. Pt. is advised to take it on full stomach , add probiotics . Avoid high fiber foods. She has been eating bananas and rice. Increase fluids. After acute episode is resolved, pt. is advised to start high fiber diet in 2-3 weeks time. Pt. is advised to call office if pain persists or worsens or fever and pain occur. Discussed having to have colonoscop y as soon as safe after acute infection. So far, she was advised by the GI to be seen in December and she is booked for an john. [id number] Fabi Engle Main Office 3640 [facility] 207 [facility] [place] [address] 09/15/2020 11:00:26 09/15/2020 12:17:26 History of polyp of colon 184068515 Z86.010 Due for colon screen, had 2 cm adenoma with high grade dysplasia (clear margins) in 2018, along with strong FH colon cancer. Recent diverticul itis. Pt agrees to go for colonoscop y, would move appt up to September or October Family his tory of cancer of colon 336099590 Z80.0 Gastritis 0591149 K29.70 PPI for 2 weeks, avoid acidic food, caffeine, alcohol, spicy foods, eating before bed Generalize d anxiety disorder 83899053 F41.1 Pt declines meds, will call Priya to start counseling . 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 Alcohol dependence 40228 003 F10.20 Discussed need to stop drinking, declines need for AA but agrees to counseling for anxiety and depression [id number] Zenobia Weir MD Main Office 3640 [facility] 207 [facility] [place] [address] 03/03/2021 09:24:33 03/03/2021 11:05:02 Adult health examination 549041288 Z00.00 She is UTD with immunizati ons including COVID and flu. She is due for cervical cancer screening and will make her own appointmen t. She had a colonoscop y done by Dr Casas 09/2020 and is due for a repeat next year. Asthma 638587291 J45.90 9 Continue with advair daily and proair as needed. Anxiety state 849562478 F41.1 Currently taking clonazepam but increased anxiety and depression since the start of COVID. We tried an SSRI but she stopped because of SE's. Major depr essive disorder 596441109 F32.1 Not much of a problem. Her main issue is her anxiety. Unable to tolerate an SSRI. Screening for malignant neoplasm of breast 846032079 Z12.39 She is schedule already for next week. Screening for malignant neoplasm of cervix 436983782 Z12.4 She will make her own appointmen t with Dr Salazar. Skin lesion 57494180 L98 .9 Suspicious lesion at right upper back. Alcohol dependence 50938 003 F10.20 We discussed cutting back to a drink a day. Screening for malignant neoplasm of lung 633657657 Z87.891 Eligible patients must have >=30 pack years Gastroesop hageal reflux disease 417129571 K21.9 [id number] Zenobia Weir MD [facility] [address] [place] [address] [place] [address] 04/23/2021 08:21:35 04/23/2021 15:43:31 Acute sinusitis 25876566 J01.90 [id number] Zenobia Weir MD Main Office [address] [place] [address] 06/09/2021 11:19:38 06/09/2021 16:04:43 Chronic recurrent sinusitis 718860539 J32.9 She was treated at least twice over the past year with abx and improved but then her symptoms returned. The first time she was treated was in August 2020 with a 14 -day course of augmentin. She was treated again with augmentin for 7 days in April 2021. Her symptoms returned so we will do a longer course of a different abx and see her back in 4 weeks. [id number] Zenobia Weir MD [address] [place] [address] 08/31/2021 09:26:16 09/01/2021 10:34:11 Anxiety state 778443136 F41.1 Currently taking clonazepam but increased anxiety and depression since the start of COVID. We tried an SSRI but she stopped because of SE's. She agrees to a TH with [facility] psych for a med consult. Pain of bi lateral knee joints 4304850860 08501 M25.561 M25.562 [id number] Alan Sow MD [facility] h 3640 [facility] 207 [facility] [place] [address] 10/09/2021 13:58:31 10/09/2021 15:20:19 Dysuria 75401604 R30.9 Will cover empiricall y for uncomplica ana luisa cystitis while waiting for culture result. Will modify regimen depending. Acute vaginitis 87601883 N76.0 Suspect that her perineal discomfort is related to this vs intertrigo . Topical barrier cream advised as well. Advised to pursue formal eval if symptoms worsen/per sist. [id number] Karen Cuevas PA-C [facility] 3640 [facility] 207 [facility] [place] [address] 12/14/2021 08:14:43 12/14/2021 10:14:17 Recurrent urinary tract infection 114835023 N39.0 Increase fluids and cranberry tablets or juice for 2 weeks, then repeat U/A and urine culture. [id number] ARTI ZAMARRIPA MD Main Office 3640 [facility] 207 [facility] [place] [address] 01/21/2022 08:14:51 01/21/2022 08:52:57 Abdominal pain 98383736 R10.9 - pt having pain in the LLQ and suprapubic region, intermitte nt, started approximat gerda one month ago- pt has been treated for UTI therefore pain is not likely to be the etiology- differenti als: diverticul osis vs IBS> diverticul osis: pt has a history of diverticul itis and pain also in the LLQ waxing and waning for one month> there is currently no concern for diverticul itis: pt does have a fever, no anorexia or reduced appetite. However ordered a CBC and CRP to ensure no white count or increased inflammati on.> IBS: pt has history of anxiety currently having constipati on. Has only been going on for one month. Associated with constipati on. Plan:- Ordered CMP, ESR, CRP and CBC: ensure no white count, check inflammato ry markers and to check eletrolyte s/liver function- ordered US of the abdomen and pelvis: pt is also having bloating suprapubic pain which is why pelvis was added to check the ovaries/bl adder- if all examinatio n is within normal limits will consider a CT abdomen and pelvis especially if symptoms do not improve- pt counselled that if pain to limit to tylenol- counselled on trying enteric coated peppermint oil Constipation 27725691 K5 9.00 - pt having constipati on- counselled on high fiber diet and ensuring to drink water- counselled on trying Metamucil and Konsul Diverticul osis of colon 508942346 K57.30 - hx of diverticul itis therefore pain diagnosed wtih diverticul osis- pain located in the LLQ and 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 She recently had a PAP but has not yet received the results. She had a colonoscop y done by Dr Casas 09/2020 and we will get the path results. Family his tory of Cardiovascular disease 193560786 Z82.49 Major depr essive disorder 936232431 F32.1 Not much of a problem. Her main issue is her anxiety. Unable to tolerate an SSRI. Agoraphobia 21995039 F40 .00 Not interested in trying an SSRI Anxiety state 222975216 F41.1 Currently taking clonazepam which has been controllin g her anxiety. She tried an SSRI which didn't help and she doesn't want to try another one. Asthma 939496263 J45.90 9 Continue with advair daily and proair as needed. Alcohol dependence 88848 003 F10.20 We discussed cutting back to a drink a day. [id number] Alan Sow MD [facility] 3640 [facility] 207 [facility] [place] [address] 06/18/2022 12:53:08 06/18/2022 14:48:57 COVID-19 458596944 U07.1 Based on duration of symptoms and comorbidit ies pt is a candidate for antiviral therapy. Common/ser ious potential side effects discussed. Advised to call if noted. Current isolation guidelines based on immunizati on status discussed as well as isolation if rebound infection occurs. Medication s reviewed and no dosing adjustment s indicated with. Asthma 718640155 J45.90 9 Well controlled . Monitoring O2 sat at home. Advised to call.go to ED with dyspnea/hy poxia. [id number] Zenobia Weir MD [place] [address]40590 [facility] 207 [facility] [place] [address] 09/16/2022 08:37:31 09/16/2022 11:55:34 Anxiety state 554165313 F41.1 Currently taking clonazepam which has been controllin g her anxiety. She tried an SSRI which didn't help and she doesn't want to try another one. Major depr essive disorder 365035343 F32.1 Not much of a problem. Her main issue is her anxiety. Unable to tolerate an SSRI. Asthma 053496846 J45.20 Continue with advair daily and proair as needed. Currently under good control and rarely needs to use her rescue inhaler. Ductal car cinoma in situ of breast [id number] D05.12 She had surgery and is now deciding on whether to do radiation and/or chemo. She met with the radiation oncologist and has an appointmen t with Dr Valiente next week to discuss chemo. I advised her to speak with family members and friends to help her to come to an informed decision. [id number] Zenobia Weir MD [facility] [address] [facility] [address] [facility] [place] [address] 10/07/2022 14:41:44 10/07/2022 16:03:44 Dysuria [id number] R30.0 SYMPTOMS:b urning with urination? {{yes* no} }frequency ? {{yes* no} }hematuria ? {{yes* no} }lower abdominal pain? {{yes no*} }symptoms similar to previous UTI? {{yes* no NA}} POSSIBLE CONTRAINDI CATIONS TO TELEPHONE TREATMENT: > 65 years of age? {{yes no*} }fevers? {{yes no*} }recent UTI (within 1 month)? {{yes no*} }new low back pain? {{yes* no} }nausea or vomiting? {{yes no*} }? {{yes no*} }history of interstiti al cystitis? {{yes no*} } PROVIDER ACTION: Reviewed nursing notes? {{yes no}} Recommende d action {{appropri ate for telephone treatment needs appointmen t must drop off urine for culture}} Antibiotic treatment {{Bactrim DS x 3 days Bactr im DS x 7 days Macro bid x 7 days Cipro x 3 days Cipro x 7days anot her medication (provider will prescribe) NA}} Blood in urine [id number] R31.9 It is unclear if this is coming from her urethra or her vagina. We will do a urine culture first as well as a UA and will treat for a UTI if positive. If negative she will need to see her [employer] to evaluate for vaginal bleeding. [id number] Zenobia Weir MD [facility] [address] [facility] [address] [place] [address] 11/04/2022 12:45:56 11/04/2022 13:30:53 Headache [id number] R51.9 Will r/o PMR since she has left bahai pain. Will also get a head CT given her recent cancer dx. This may be secondary to her cancer treatment. [id number] Alan Sow MD [facility] [address] [facility] [address] [place] [address] 05/06/2023 09:11:15 05/06/2023 10:36:28 Constipation 73487540 K59.00 Sounds like she may be having some overflow obstipatio n symptoms. Will add laxative and check XR to assess stool burden. Consider enema/supp ository depending on results of imaging and response to laxative. May need further imaging if pain worsens to rule out diverticul itis or mass effect from fibroids impacting bowel mechanics. [id number] Bill Cuevas PA-C [facility] [address] [facility] [address] [place] [address] 05/17/2023 09:09:51 05/17/2023 10:18:35 Ductal carcinoma in situ of left breast [id number] D05.12 She had surgery and is now deciding on whether to do radiation and/or chemo. She met with the radiation oncologist and has an appointmen t with Dr Valiente next week to discuss chemo. I advised her to speak with family members and friends to help her to come to an informed decision. 1.24 - pt's last mammo last week - stable Constipation [id number] K5 9.00 Sounds like she may be having some overflow obstipatio n symptoms. Will add laxative and check XR to assess stool burden. Consider enema/supp ository depending on results of imaging and response to laxative. May need further imaging if pain worsens to rule out diverticul itis or mass effect from fibroids impacting bowel mechanics. 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 She recently had a PAP but has not yet received the results. She had a colonoscop y done by Dr Casas 09/2020 and we will get the path results. Acute exac erbation of intrinsic asthma [id number] J45.901 This has been stable and she rarely uses her rescue inhaler. Anxiety state 075730571 F41.1 Currently taking clonazepam which has been controllin g her anxiety. She tried an SSRI which didn't help and she doesn't want to try another one. Asthma 130049849 J45.20 Continue with advair daily and proair as needed. Currently under good control and rarely needs to use her rescue inhaler. Ductal car cinoma in situ of breast 259750716 D05.12 She had surgery and then had radiation. She is currently taking a low dose of tamoxifen because she couldn't tolerate the normal dose of 20 mg. Hyperlipidemia 67810489 E78.5 Not on meds and 10-year risk of heart disease or stroke is only around 3%. [id number] Zenobia Weir MD Main Office [address] [facility] [address] [facility] [place] [address] 08/06/2023 09:00:22 08/06/2023 09:44:59 Essential hypertension 70977715 I10 Good control; continue current mgmt. Anxiety state 494200006 F41.1 Currently taking clonazepam which has been controllin g her anxiety. She tried an SSRI which didn't help and she doesn't want to try another one. Palpitations 84652671 R0 0.2 Possibly secondary to anxiety. No further w/u or treatment needed. [id number] HENNA JUNG Main Office [address] [place] [address] 01/12/2024 08:14:52 01/12/2024 09:04:35 Needs influenza immunization [id number] Z23 19 YEARS AND OLDER ONLY Essential hypertension [id number] I10 -elevated BP readings both at home and at breast specialist office-in office BP readings 156/103 and 142/88-ass ociated symptoms of BAEZ, denies of any cardiac symptoms or SOB-is active and walks on the treadmill every morning-de nies of any recent medication changes-wi ll start pt on lisinopril 10mg QD; discussed risks, AE, benefits, etc-will f/u in 4 weeks Pt counselled on:-Dietar y Approaches to Stop Hypertensi on (DASH) is an eating plan rich in fruits, vegetables , whole grains, fish, poultry, nuts, legumes, and low-fat dairy. These foods are high in newell nutrients such as potassium, magnesium, calcium, fiber, and protein.-A dvised continued adherence to medication s and low salt diet - extensive counsellin g done regarding dietary habits.-En couraged regular aerobic exercise 30 min for 4-5 x week.-BP monitoring at home advised to bring log at every visit-Side -effects of high BP can cause Stroke, Heart attack and even d/w pt-D/w pt when to call 911 or reach out to Health care provider:> Think you are having a reaction to a medicine you are taking.>Baez ve headaches that keep coming back (recurring ).>Feel dizzy.>Hav e swelling in your ankles.>Baez ve trouble with your vision. [id number] HENNA JUNG Main Office [address] [place] [address] 02/01/2024 08:15:07 02/01/2024 09:06:44 Headache 57502761 R51.9 >4 weeks-occu rs daily, each morning and lasts majority of the day-denies of any associated symptoms, no URI symptoms-s harp/tight pain in frontal lobe that radiates to the back of head-bendi ng forward worsens symptoms-n othing provides relief-has had occasional nose bleeds, <10 min in the mornings-h as not taken any OTC medication s; rec. tylenol to trial-pt interested in imaging, prefers not to take medication at this time [id number] Zenobia Weir MD Main Office [address] [place] [address] [place] [address] 02/09/2024 08:18:37 02/09/2024 09:12:36 Essential hypertension 03854037 I10 Good control; continue current mgmt. Anxiety state 419972990 F41.1 Currently taking clonazepam which has been controllin g her anxiety. She tried an SSRI which didn't help and she doesn't want to try another one. [id number] Bill Cuevas PA-C [facility] [address] [place] [address] 02/21/2024 13:15:23 02/21/2024 15:32:19 Dysuria 89610821 R30.0 pt to give urine sample - will rx empiricall y c cipro cont push fluids, consider cranberry juice, also consider prn pyridium recommend probiotics while on abx Constipation 24586898 K5 9.00 Sounds like she may be having some overflow obstipatio n symptoms. Will add laxative and check XR to assess stool burden. Consider enema/supp ository depending on results of imaging and response to laxative. May need further imaging if pain worsens to rule out diverticul itis or mass effect from fibroids impacting bowel mechanics. 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 - rec cont miralax [id number] Carin Patelo Main Office [address] [facility] [place] [address] 03/01/2024 09:17:48 03/01/2024 09:57:58 History of cholecystectomy [id number] Z90.49 reviewed hospital documentat ion-was evaluated at [facility] for abdominal pain, dx with cholecysti tis and underwent cholecyste ctomy on 02/22-on 10 day course of augmentin- symptoms resolved; incision sites are healing well Atrial fibrillation 4943 6004 I48.91 -new onset episode of atrial fibrillati on while in the hospital-c ardiology was consulted> has a f/u appt with cardiology >was not started on anticoagul ation-had TTE on 02/21; EF 60-65%, no evidence of pericardia l effusion-w ill have outpatient coronary CT and further testing with Dr. Richard Essential hypertension 02326067 I10 -BP in the hospital was on the lower side>lisin opril was held and switch to metoprolol >was still experienci ng low BP and has been holding off BP medication s-in office BP of 101/69-elba l continue to hold and f/u in 4 weeks Pt counselled on:-Dietar y Approaches to Stop Hypertensi on (DASH) is an eating plan rich in fruits, vegetables , whole grains, fish, poultry, nuts, legumes, and low-fat dairy. These foods are high in newell nutrients such as potassium, magnesium, calcium, fiber, and protein.-A dvised continued adherence to medication s and low salt diet - extensive counsellin g done regarding dietary habits.-En couraged regular aerobic exercise 30 min for 4-5 x week.-BP monitoring at home advised to bring log at every visit-Side -effects of high BP can cause Stroke, Heart attack and even d/w pt-D/w pt when to call 911 or reach out to Health care provider:> Think you are having a reaction to a medicine you are taking.>Baez ve headaches that keep coming back (recurring ).>Feel dizzy.>Hav e swelling in your ankles.>Baez ve trouble with your vision. [id number] Zenobia Weir MD Main Office [address] [facility] 207 [place] [address] 04/04/2024 08:36:43 04/04/2024 09:32:50 Essential hypertension 70548610 I10 Good control w/o meds. She will continue to follow at home and will send a message if the systolic is consistent ly>130. Anxiety state 659319312 F41.1 Currently taking clonazepam which has been controllin g her anxiety. She tried an SSRI which didn't help and she doesn't want to try another one. Asthma [id number] J45.20 Continue with advair daily and proair [...] [place] Member ID Guarantor Name 02/01/2024 1 [facility] [id number] 3 Indra Rodriguez [id number] Nat Rodriguez 02/09/2024 1 [facility] [id number] 3 Indra Rodriguez [id number] Nat Escobarkristina 02/21/2024 1 [facility] [id number] 3 Indra Rodriguez [id number] Nat Rodriguez 03/01/2024 1 [facility] [id number] 3 Indra Rodriguez [id number] Nat Rodriguez 04/04/2024 1 [facility] [id number] 3 Indra Rodriguez [id number] Nat Rodriguez Notes Date Note Type Note Provider Name and Address Organization Details Recorded Time 10/02/202 4 text/html HeadacheReported bypatient.Location:frontal Quality:similar to previous headaches [...] Has not tried OTC medications. HENNA JUNG [address], [address], [facility] 02/01/2024 09:20:31 4 text/html Anxiety/DepressionReported bypatient.Severity:able to maintain relationships;interference with work Associated Symptoms:anxiety;anhedonia; social withdrawalHypertension F/UReported bypatient.Associated Symptoms:no dizziness; no lightheadedness; no chest pain; no shortness of breath; no palpitations; no edema; no calf pain with exertion Lifestyle:regular exercise; limiting/avoiding salt Medications:taking medications as directed; no side effects from medication Zenobia Weir MD [address], [address], [facility] 02/09/2024 09:19:20 4 text/html as per recent [...] infection CARLOS! Thank You. Bill Cuevas PA-C [address] [facility] [address], [place], [address], [facility] 02/21/2024 15:12:47 4 text/html Nat is a 58yr old F who presents for a hospital f/u. [facility]: [facility] 02/27/24 Nat was evaluated at [facility] for abdominal pain- dx with cholecystitis. Found to have new onset of afic and RVR. Underwent cholecystectomy on 02/22. Currently on augmentin course. Has an appt with cardiology for new onset afib. Do not have hospital documentation in chart. Carin villegas, [facility] 03/13/2024 13:04:49 4 text/html Anxiety/DepressionReported bypatient.Severity:able to maintain relationships;interference with work Associated Symptoms:anxiety;anhedonia; social withdrawalHypertension F/UReported bypatient.Associated Symptoms:no dizziness; no lightheadedness; no chest pain; no shortness of breath; no palpitations; no edema; no calf pain with exertion Lifestyle:regular exercise; limiting/avoiding saltNotes:She was on lisinopril which was changed to metoprolol as an inpatient at [place] because of afib. This was eventually stopped because of low readings. She follows her BP and the systolic has remained <130. Asthma has been under good control with advair which she uses daily and she rarely uses her rescue inhaler. Zenobia Weir MD [address] [facility] [address], [place], [address], [facility] 04/04/2024 09:41:43 OBGyn Episode No OBEpisode recorded.
--- OUTSIDE RECORDS SUMMARY | 2024-07-04 09:33 | XMS_ITS | Continuity of Care Document ---
Author Organization [facility] Address [address] [place] [address]- Care Team Providers Care Pulmonary Physician Name Role Phone Carmella CHACON, Mc Daly Primary Care Phys[id number]s): 05/22/24 - 06/21/24 [facility] [address] [place] [address]- Attending Physician: Henri Mansfield Admitting Physician: Henri Mansfield Referring Physician: Henri Mansfield Encounter Type: Triage Allergies, Adverse Reactions, Alerts Substance Criticality Severity Reaction Reaction Severity Status erythromycin unknown Active morphine rash Active sulfa drugs GI Distress Active Medications albuterol 90 mcg/inh inhalation aerosol See Instructions, 1-2 puffs qd prn for SOB, 0 Refills Start Date: 04/23/07 Status: Ordered Repeat number: 1 clotrimazole 1% topical cream See Instructions, APPLY TO AFFECTED AREA TWICE A DAY FOR 14 DAYS, # 15 Gm, 0 Refills, Maintenance, 04/17/24 8:28:00 AM EST, [facility], 7, APPLY TO AFFECTED AREA TWICE A DAY FOR 14 DAYS, 162.6, cm, 01/09/24 7:56:00 EDT, Height, 72.2, kg, 11/18/22 9:13:00 EDT, Dry Weight Start Date: 04/17/24 Status: Ordered Quantity: 15.0 Unit: g Repeat number: 1 fluticasone-salmeterol 100 mcg-50 mcg inhalation powder 1, puffs, Inhalation, 2 times a day, # 28 each, Refills 3, Tot. Refills 3, Maintenance, 10/08/19 11:34:00 AM EDT, Powder, Route to Pharmacy Electronically, [id number], [facility]/pharmacy #[id number], 162.5, cm, 04/06/19 15:39:00 EST, Height Start Date: 10/08/19 Status: Ordered Quantity: 28.0 Unit: each Repeat number: 4 KlonoPIN 1 mg oral tablet 1 tablet = 1 mg, By Mouth, 3 times a day, 0 Refills, Maintenance, 09/14/17 11:45:36 AM EDT Start Date: 09/14/17 Status: Ordered Repeat number: 1 Metamucil 400 mg oral capsule 1 capsule - Gummy, By Mouth, Daily, 0 Refills, Maintenance, 07/22/22 11:20:00 AM EDT, Partial fill upon patient request if the prescription is for a schedule II opioid drug. Start Date: 07/22/22 Status: Ordered Repeat number: 1 motrin motrin, Refills 0, Maintenance, 09/14/17 11:46:06 AM EDT, Compound Start Date: 09/14/17 Status: Ordered Repeat number: 1 Multivitamin 1 tablet, By Mouth, Daily, 0 Refills, 04/23/07 1:31:20 AM EST Start Date: 04/23/07 Status: Ordered Repeat number: 1 Omeprazole = 20 mg, By Mouth, Daily, 0 Refills, Maintenance, 07/22/22 11:21:00 AM EDT, Partial fill upon patient request if the prescription is for a schedule II opioid drug. Start Date: 07/22/22 Status: Ordered Repeat number: 1 tamoxifen 10 mg oral tablet See Instructions, 1/2 tablet By Mouth once a day, # 45 tablet, Refills 3, Tot. Refills 3, Maintenance, 01/09/24 10:58:00 AM EDT, Instructions Replace Required Details, Route to Pharmacy Electronically,[facility]/pharmacy #[id number], Partial fill upon patient request if the prescription is for a schedule II opioid drug., 162.6, cm, 01/09/24 7:56:00 EDT, Height, 72.2, kg, 11/18/22 9:13:00 EDT, Dry Weight Start Date: 01/09/24 Status: Ordered Quantity: 45.0 Unit: tablet Repeat number: 4 Problem List Condition Confirmation Course Effective Dates Status Health St atus Informant Anxiety Confirmed Active Asthma Confirmed Active Family history of colon cancer in father @ 51 Confirmed 11/05/20 Active IGGY on CPAP Confirmed Active 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 Other: quit 2017. Sex Sex Representation Female (finding) Patient Care team information Care Team Personnel Name: Carmella CHACON, Mc Daly Position: [facility] Outreach Member Role: PCP Address: [address] [place] [address] Telecom: Care Team Related Persons Name: SAMMIEHAYLIE Insurance Providers Guarantor name: KATHIE COCHRAN Health Plan Information #: 1 Payer: JAYNE [facility] PPO Member Number: NA Policy Number: NA Group Number: NA
== END 2024-07-04 09:48 | disposition home or self-care (01) ==
PROVIDERS: PCP Internal Medicine; Visit Provider Internal Medicine Cardiovascular Disease
DX: R94.31 Abnormal electrocardiogram [ECG] [EKG] (principal); I10 Essential (primary) hypertension; I48.0 Paroxysmal atrial fibrillation
CPT/HCPCS: 93010; 99214

== ENCOUNTER → 2024-07-04 08:48 | Outpatient (BNVA) | payer OTHER, SELFPAY | PROVIDERS: PCP Internal Medicine; Visit Provider Internal Medicine Cardiovascular Disease | DX: R94.31 Abnormal electrocardiogram [ECG] [EKG] (principal); I10 Essential (primary) hypertension; I48.0 Paroxysmal atrial fibrillation; Z90.49 Acquired absence of other specified parts of digestive tract | CPT/HCPCS: 93005 ==

== ENCOUNTER 2024-07-05 06:04 | Outpatient (REF) | payer OTHER, SELFPAY ==
--- OUTSIDE RECORDS SUMMARY | 2024-07-05 06:07 | XMS_ITS | Data Portability ---
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 neoplasm of colon Completed 201211/13/2013 RECORDED 12/28/19 13 10:05AM BY LORENZO BEVERLY ON/KIAN Weir MD [address] [facility] [address], [place], [address] , [facility] 6 13:42:06 Contact dermatit is 63915562 Active 2013 Not Available [facility] 3 12:36:04 Cough 66151608 Completed 201111/13/2013 IMPRESSI ON: HX OF ASTHMA, [...] BEVERLY ON/ADDEN DUM Zenobia Weir MD [address] [facility] [address], [place], [address] , [facility] 6 13:42:06 Tobacco dependen ce syndrome 56304135 Completed 201311/13/2013 RECORDED 06/21/19 14 9:20AM BY LORENZO BEVERLY ON/ADDEN [facility] 9 11:26:31 Single major depressi ve episode Completed 201304/24/2020 GIVEN A HANDOUT WITH MENTAL HEALTH PROVIDER S AND SHE MAY CONTACT ONE FOR COUNSELI KWADWO Weir MD [address] [facility] [address], [place], [address] , [facility] 0 12:18:28 Dizzines s and giddines s 048586546 Completed 200811/13/2013 RECORDED 12/14/19 09 1:04PM BY LORENZO BATES ON/ADDEN DUM Zenobia Weir MD [address] [facility] [address], [place], [address] , [facility] 6 13:42:06 Influenz a vaccine needed [id number] 06 Completed 201311/13/2013 RECORDED 06/21/19 14 9:20AM BY DAVID CRAIG I, LORENZO ON/KIAN Weir MD [address] [facility] [address], [place], [address] , [facility] 6 13:42:06 General examinat ion of patient Completed 200711/13/2013 RECORDED 12/24/19 08 11:52AM BY ZENOBIA PINEDA MD, LORENZO ON/KIAN Weir MD [address] [facility] [address], [place], [address] , [facility] 6 13:42:06 Impacted cerumen 63681322 Completed 201304/04/2014 RECORDED 11/06/19 14 11:40AM BY AKHIL CAMARENA MA, OFFICE VISIT Zenobia Weir MD [address] [facility] [address], [place], [address] , [facility] 6 13:42:05 Peripher al vascular disease 984966680 Completed 201111/13/2013 RECORDED 12/09/19 12 2:16PM BY LORENZO BEVERLY ON/KIAN Weir MD [address] [facility] [address], [place], [address] , [facility] 6 13:42:05 Disorder of upper respirat ory system 851836590 Completed 201111/13/2013 IMPRESSI ON: 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 RESOLVED WITH TOPICAL ABX OINT.; RECORDED 12/09/19 12 2:16PM BY LORENZO BEVERLY ON/KIAN Weir MD [address] [address], [place], [address] , [facility] 6 13:42:06 Administ ration of bacteria l and viral vaccine Completed 200911/13/2013 RECORDED 08/16/19 10 4:02PM BY ZENOBIA PINEDA MD, OFFICE VISIT Zenobia Weir MD [address] [address], [place], [address] , [facility] 6 13:42:06 Open wound of nose 304090486 Completed 200711/13/2013 RECORDED 02/07/20 08 11:58AM BY GERSON FULLER MA, LORENZO ON/ADDEN DUM Zenobia Weir MD [address] [address], [place], [address] , [facility] 6 13:42:06 Pediculo sis capitis 80191634 Completed 200711/13/2013 RECORDED 02/16/20 08 2:44PM BY NICK SEVILLA, LORENZO ON/ADDEN DUM Zenobia Weir MD [address] [address], [place], [address] , [facility] 6 13:42:05 Verruca plantari s 76442675 Completed 201311/13/2013 IMPRESSI ON: ADVISED OTC PRODUCTS ; RECORDED 06/21/19 14 9:20AM BY LORENZO BEVERLY ON/ADDEN BRITTNI Weir MD [address] [address], [place], [address] , [facility] 6 13:42:05 Eruption 107346249 Completed 200711/13/2013 RESOLVED DATE: 12/24/19 08; RECORDED 12/24/19 08 11:52AM BY ZENOBIA PINEDA MD, LORENZO ON/ADDEN BRITTNI Weir MD [address] [address], [place], [address] , [facility] 6 13:42:06 Adult health examinat ion Completed 201111/13/2013 RECORDED 12/09/19 12 2:16PM BY LORENZO BEVERLY ON/KIAN Weir MD [address] [address], [place], [address] , [facility] 6 13:42:06 Chronic sinusiti s 94896448 Completed 201211/13/2013 RECORDED 12/28/19 13 10:05AM BY LORENZO BEVERLY ON/KIAN Weir MD [address] [address], [place], [address] , [facility] 6 13:42:06 Candidia sis of mouth 77307491 Completed 201211/13/2013 RECORDED 12/28/19 13 10:05AM BY LORENZO BEVERLY ON/KIAN Weir MD [address] [address], [place], [address] , [facility] 6 13:42:05 Tobacco dependen ce syndrome 54614324 Completed 201309/06/2018 Removal Reason: quit Gerson ackerman MA null, [place] 9 11:26:31 Disorder of tongue 93496211 Completed 201111/13/2013 IMPRESSI ON: ALTHOUGH BLACK I ? THRUST GIVEN THE FACT YOU CAN SCRAPE OFF AND SHE HAS BEEN USING ADVAIR MORE. DISCUSSE D USE OF NYSTATIN WHICH SHE CURRENTL Y DECLINES . WILL CHECK IN 1 WEEK, IF NO BETTER TO START.; RECORDED 12/09/19 12 2:16PM BY LORENZO BEVERLY ON/KIAN Weir MD [address] [address], [place], [address] , [facility] 6 13:42:06 Abnormal weight loss 523558782 Completed 201306/20/2014 RECORDED 11/06/19 14 11:40AM BY AKHIL CAMARENA MA, OFFICE VISIT Zenobia Weir MD [address] [facility] [address], [place], [address] , [facility] 6 13:42:06 Disorder of bone and articula r cartilag e 424526953 Completed 201111/13/2013 IMPRESSI ON: TENDERNE SS OVER XIPHOID PROCESS, HAS BEEN DOING ALOT OF YARDWORK , WILL CHECK AN XRAY BUT SUSPECT THIS IS JUST INFLAMMA TION, RECOMMEN D NSAIDS; RECORDED 12/09/19 12 2:16PM BY DAVID CRAIG I, ANNOTATI ON/ADDEN DUM Zenobia Weir MD [address] [facility] [address], [place], [address] , [facility] 6 13:42:06 Notes:Some problems listed i n Documents: #[id number], #[id number], #[id number] could not be added to this patient's chart. Please review these documents and add these problems to the patient's chart manually as needed. Problem Notes None recorded. Procedures Surgical History Date Name Laterality Status Provider Name and Address Organization Details Recorded Time 02/22 Laparoscopic cholecystectomy completed Prema Recio [place] 4 13:49:10 08/19 Colonoscopy completed Prema Recio [place] 3 10:54:36 06/15 lumpectomy of left breast completed Trey Recio [place] 3 15:33:41 05/12 Most Recent Mammogram completed Prema Recio [place] 3 09:26:43 02/16 Date of Last Pap Smear completed Ruth Hummel [place] 2 11:19:40 03/23 Mammogram screening completed Ruth Hummel [place] 1 11:49:59 01/13 esophagogastroduodenoscopy completed Booker Hummel [facility] 1 12:01:46 10/17 Date of Last Colonoscopy completed Torie Acuña [facility] 1 12:59:48 05/25 Mammogram one breast completed Gerson ackerman MA [facility] 9 11:27:42 09/30 Appendectomy completed David Dennis [facility] 5 11:03:40 05/02 Hernia Repair completed David Dennis [facility] 5 11:03:40 Breast Biopsy completed Dia Ren MA [facility] 1 09:25:51 Imaging Results Imaging Date Name Status LastModified by Organization Details LastModified Time 02/18/2024 MRI, brain, w/o contrast completed [address] [place], [address], 02/27/2024 11:36:57 02/22/2024 electrocardiogram completed Inform ation [...] Name and Address Organization Details Recorded Time 75653 morphine medicatio n hives moderate Not available 06/20/2014 7052 RxNorm David villegas [place] 5 11:03:40 39524 azithromy vj medicatio n diarrhea severe Not available 07/19/2015 98991 RxNorm TIKI Fuchs, [place] 6 11:40:28 77975 Substance with sulfonami de structure and antibacte rial mechanism of action (substanc e) medicatio n Not available Not available Not available 12/10/2021 65983 8003 SNOMED Gerson TIKI Hardy, [place] [facility] 2 09:41:26 Medications Name Sig Start Date [...] ANNOTATI ON/ADDEN DUM;THIS ORDER DISCONTI NUED PER [facility]. Not Available Not Available [...] completed Not Available Not Available Not Available Schubert's wort 300 mg capsule Take 1 capsule [...] Available Not Available Not Available Fluarix Quad 5892-8695 (PF) 60 mcg (15 mcg x 4)/0.5 [...] Updated DateTime 4 161.29 cm 29.1 kg/m2 04831.6 3 g 66 /min 95 % 95 % 97.7 [degF] 115 mm[Hg] 81 mm[Hg] Katya Dorado MA [facility] 4 08:41:54 Date Recorded Body height Body mass index (BMI) Body weight Heart rate Oxygen saturation Oxygen saturation in Arterial blood by Pulse oximetry Body temperature Systolic blood pressure Diastolic blood pressure Provider Name and Address Organization Details Last Updated DateTime 4 161.29 cm 28.8 kg/m2 32351.4 4 g 71 /min 97 % 97 % 98.3 [degF] 125 mm[Hg] 83 mm[Hg] Veronique Schmidt LPN [place] [facility] 4 08:32:21 Date Recorded Body height Provider Name an d Address Organization Details Last Updated DateTime 02/21/2024 161.29 cm Ivanna Maurice MA [facility] 02/21/2024 14:07:28 Date Recorded Body height Body mass index (BMI) Body weight Heart rate Oxygen saturation Oxygen saturation in Arterial blood by Pulse oximetry Body temperature Systolic blood pressure Diastolic blood pressure Provider Name and Address Organization Details Last Updated DateTime 4 161.29 cm 27.9 kg/m2 39932.7 8 g 66 /min 97 % 97 % 97.8 [degF] 101 mm[Hg] 69 mm[Hg] Rj dinero MA [facility] 4 09:32:22 Date Recorded Body height Body mass index (BMI) Body weight Oxygen saturation Oxygen saturation in Arterial blood by Pulse oximetry Heart rate Body temperature Systolic blood pressure Diastolic blood pressure Provider Name and Address Organization Details Last Updated DateTime 4 161.29 cm 28.2 kg/m2 08943.9 6 g 98 % 98 % 83 /min 98.3 [degF] 119 mm[Hg] 73 mm[Hg] Dia Ren MA [facility] 4 08:50:46 Social History Question Answer Notes LastModified by Organizat ion Details LastModified Time Tobacco Smoking Status Former Smoker quit 2019 Zenobia Weir MD [address], [address] 03/17/2022 12:43:57 Do You Have An Advance Directive? Yes [email or web address] Information not available 12/14/2021 What Is Your Level Of Alcohol Consumption? Heavy [email or web address] Information not available 03/03/2021 Is Blood Transfusion Acceptable In An Emergency? Yes [id number] Information not available 03/04/2020 What Is Your Level Of Caffeine Consumption? Occasional Green Tea Information not available 07/20/2023 How Much Tobacco Do You Chew? None [id number] Information not available 03/04/2020 In The 14 Days Before Symptom Onset, Have You Had Close Contact With A Laboratory-confi rmed COVID-19 While That Case Was Ill? No [email or web address] Information not available 12/14/2021 In The 14 Days Before Symptom Onset, Have You Had Close Contact With A Person Who Is Under Investigation For COVID-19 While That Person Was Ill? Yes [email or web address] Information not available 12/14/2021 Have You Been To An Area Known To Be High Risk For COVID-19? Yes [email or web address] Information not available 12/14/2021 Are You Currently Employed? Yes [email or web address] Information not available 03/03/2021 What Type Of Diet Are You Following? REGULAR [id number] Information not available 03/04/2020 Which Illicit Or Recreational Drugs Have You Used? None [id number] Information not available 03/04/2020 Do You Or Have You Ever Used E-cigarettes Or Vape? Current User Of Electronic Cigarettes [email or web address] Information not available 12/14/2021 What Is Your Occupation? [employer] Information not available 07/20/2023 When Did You Quit Smoking? 1-5yearssince lastcigarette [email or web address] Information not available 03/03/2021 Live Alone Or With Others? With Others ([employer] [email or web address] Information not available 12/14/2021 Do You Take [...] Or Greater Than 100 Degrees Fahrenheit? No [email or web address] Information not available 03/03/2021 Are You Or [...] Gathering In The Last 10 Days? No [email or web address] Information not available 03/03/2021 What Was The Date Of Your Most Recent Tobacco Screening? 07/20/2023 Information not available 07/20/2023 How Many Children Do You Have? 3 [id number] Information not available 03/04/2020 What Is Your Current Pack Years? 30ormorepacky ears [email or web address] Information not available 12/14/2021 Do You Use Protection During Sex? No [id number] Information not available 03/04/2020 Do You Use Your Seat Belt Or Car Seat Routinely? Yes [email or web address] Information not available 03/03/2021 Seat Belts Used Routinely Yes [email or web address] Information not available 12/14/2021 Are You Sexually Active? No [email or web address] Information not available 03/03/2021 Smoke Alarm In Home Yes [email or web address] Information not available 12/14/2021 Do You Have Smoke And Carbon Monoxide Detectors In Your Home? Yes [email or web address] Information not available 03/03/2021 At What Age Did You Start Smoking Tobacco? 19 [id number] Information not available 03/04/2020 Are You Passively Exposed To Smoke? No Information not available 03/03/2021 Do You Or Have You Ever Used Smokeless Tobacco? Never Used Smokeless Tobacco [id number] Information not available 03/04/2020 How Much Tobacco Do You Smoke? 1 PPD Information not available 04/24/2020 Do You Use Sunscreen Routinely? No [id number] Information not available 03/04/2020 How Many Years Have You Smoked Tobacco? 36 [id number] Information not available 03/04/2020 Do You Or Have You Ever Used Any Other Forms Of Tobacco Or Nicotine? Yes Vaping [email or web address] Information not available 03/17/2022 Sex: Unknown Functional Status Question Answer Note LastModified by Organization D etails LastModified Time Are you able to walk? YESWOREST [email or web address] Information not available 12/14/2021 Are you able to care for yourself? Yes [id number] Information not available 03/04/2020 What is your exercise level? None Information not available 07/20/2023 Mental Status None recorded. Family History Relationship Description Onset Age of this Age Resolved Age Notes LastModified by Organization Details LastModified Time Mother Malignant tumor of colon 70 [email or web address] Not available 09/01 10:50:57 Father Malignant tumor of colon 51 [email or web address] Not available 09/01 10:50:52 Father Alcohol abuse 51 [email or web address] Not available 01/22 10:30:52 Sister Seizure disorder 51 [email or web address] Not available 09/01 10:51:16 Sister Liver problem [email or web address] Not available 01/22 10:30:52 Sister Disease of liver [email or web address] Not available 01/22 10:30:52 Sister Anxiety disorder Not available 01/22 10:30:52 Son Asthma Not available 01/23/2020 10:30:53 Son Allergy [email or web address] Not availabl e 01/23/2020 10:30:53 Daughter Anxiety [...] virus, quadrivalent, preservative 8 completed Not Available [facility] 02/11/2023 12:36:05 Influenza, split virus, trivalent, preservative 9 completed Not Available [facility] 02/11/2023 12:36:06 COVID-19, mRNA, LNP-S, PF, 30 mcg/0.3 mL dose 1 completed Not Available [facility] 02/11/2023 12:36:05 COVID-19, mRNA, LNP-S, PF, 30 mcg/0.3 mL dose 1 completed Not Available [facility] 02/11/2023 12:36:05 Influenza, split virus, trivalent, preservative 1 completed Not Available [facility] 02/11/2023 12:36:06 COVID-19, mRNA, LNP-S, PF, 30 mcg/0.3 mL dose 1 completed Not Available [facility] 02/11/2023 12:36:05 MMR 8 completed Not Available [facility] 02/11/2023 12:36:05 MMR 8 completed Not Available [facility] 02/11/2023 12:36:05 Influenza, split virus, trivalent, PF 4 completed Not Available [facility] 02/11/2023 12:36:06 Influenza, split virus, quadrivalent, PF 0 completed Not Available [facility] 02/11/2023 12:36:06 Tdap 0 completed Not Available [facility] 02/11/2023 12:36:06 COVID-19, mRNA, LNP-S, PF, 30 mcg/0.3 mL dose, xiang-sucrose 2 completed Not Available [facility] 02/11/2023 12:36:05 Influenza, split virus, quadrivalent, PF 7 completed Not Available [facility] 02/11/2023 12:36:06 Influenza, split virus, quadrivalent, PF 6 completed Not Available [facility] 02/11/2023 12:36:06 Influenza, MDCK, quadrivalent, PF 2 completed Not Available [facility] 02/11/2023 12:36:05 COVID-19, mRNA, LNP-S, bivalent, PF, 30 mcg/0.3 mL dose 2 completed Not Available [facility] 02/11/2023 12:36:06 Influenza, MDCK, quadrivalent, PF 3 completed TIKI Nunez [place] 05/06/2023 09:47:00 COVID-19, mRNA, LNP-S, PF, xiang-sucrose, 30 mcg/0.3 mL 3 completed Katya Dorado MA null, [place] 05/06/2023 09:47:00 COVID-19, mRNA, LNP-S, PF, 50 mcg/0.5 mL 4 completed Veronique Schmidt LPN null, [place] 02/09/2024 08:32:34 Influenza, split virus, trivalent, preservative 7 completed Not Available [facility] 02/11/2023 12:36:06 Td (adult), 2 Lf tetanus toxoid, preservative free, adsorbed 8 completed Not Available [facility] 02/11/2023 12:36:06 Influenza, split virus, trivalent, preservative 2 completed Not Available [facility] 02/11/2023 12:36:06 Influenza, split virus, trivalent, preservative 4 completed Not Available [facility] 02/11/2023 12:36:06 Influenza, split virus, trivalent, preservative 6 completed Not Available [facility] 02/11/2023 12:36:06 Influenza, split virus, trivalent, preservative 7 completed Not Available [facility] 02/11/2023 12:36:06 Influenza, split virus, trivalent, preservative 8 completed Not Available [facility] 02/11/2023 12:36:06 Influenza, split virus, trivalent, preservative 9 completed Not Available [facility] 02/11/2023 12:36:06 Tdap 0 completed Not Available [facility] 02/11/2023 12:36:06 Influenza, split virus, trivalent, preservative 0 completed Not Available [facility] 02/11/2023 12:36:06 Influenza, split virus, trivalent, preservative 1 completed Not Available [facility] 02/11/2023 12:36:06 Influenza, split virus, trivalent, preservative 2 completed Not Available [facility] 02/11/2023 12:36:06 influenza, seasonal, intradermal, preservative free 3 completed Not Available [facility] 02/11/2023 12:36:06 Influenza, split virus, trivalent, PF 4 completed HENNA JUNG [address] [address], [place], [address], [facility] 01/12/2024 09:02:46 Past Encounters Encounter ID Performer Location Encounter Start Date Encounter Closed Date Diagnosis/Indication Diagnosis SNOMED-CT Code Diagnosis ICD10 Code Diagnosis Note [id number] autoEComm erce [address] [facility] [place] [address] 02/23/2006 00:00:00 [id number] autoEComm erce [address] [facility] [place] [address] 12/11/2004 00:00:00 [id number] autoEComm erce [address] [facility] [place] [address] 10/08/2004 00:00:00 [id number] autoEComm erce [address] [facility] [place] [address] 06/15/2004 00:00:00 [id number] autoEComm erce [address] [facility] [place] [address] 06/29/2006 00:00:00 [id number] autoEComm erce [address] [facility] [place] [address] 07/12/2006 00:00:00 [id number] autoEComm erce [address] [facility] [place] [address] 01/04/2007 00:00:00 [id number] autoEComm erce [address] [facility] [place] [address] 03/22/2007 00:00:00 [id number] autoEComm erce [address] [facility] [place] [address] 10/03/2007 00:00:00 [id number] [employer] [address] [place] [address] 10/05/2007 00:00:00 [id number] [employer] [address] [facility] [address] [place] [address] 01/03/2008 00:00:00 53284 [employer] [address] [facility],[address] [place] [address] 02/01/2008 00:00:00 13784 [employer] [address] [facility] [address] [place] [address] 02/16/2008 00:00:00 13288 [employer] [address] [facility],[address] [place] [address] 07/19/2008 00:00:00 [id number] [employer] [address] [facility],[address] [place] [address] 12/13/2008 00:00:00 [id number] [employer] [address] [facility],[address] [place] [address] 05/06/2009 00:00:00 56414 [employer] [address] [facility],[address] [place] [address] 06/10/2009 00:00:00 47912 [employer] [address] [facility],[address] [place] [address] 08/15/2009 00:00:00 49068 [employer] [address] [facility],[address] [place] [address] 11/12/2009 00:00:00 11004 [employer] [address] [facility],[address] [place] [address] 02/18/2010 00:00:00 36351 [employer] [address] [facility] [address] [place] [address] 04/23/2010 00:00:00 20830 [employer] [address] [facility],[address] [place] [address] 05/20/2010 00:00:00 [id number] [employer] [address] [place] [address] 08/19/2010 00:00:00 [id number] [employer] [address] [place] [address] 11/18/2010 00:00:00 40320 [employer] [address] [place] [address] 12/03/2010 00:00:00 84404 [employer] [address] [place] [address] 04/14/2011 00:00:00 10370 [employer] [address] [facility] [address] [place] [address] 08/18/2011 00:00:00 56839 [employer] [address] [facility] [place] [address] 11/11/2011 00:00:00 21821 [employer] [address] [facility],[address] [place] [address] 12/22/2011 00:00:00 05241 [employer] [address] [facility],[address] [place] [address] 08/08/2012 00:00:00 09370 [employer] [address] [facility],[address] [place] [address] 12/27/2012 00:00:00 41357 [employer] [address] [facility] [place] [address] 06/01/2013 00:00:00 58751 [employer] [address] [facility],[address] [place] [address] 06/21/2013 00:00:00 41253 [employer] [address] [facility] [place] [address] 11/05/2013 00:00:00 [id number] Zenobia Weir MD Main Office [address] [place] [address] 02/02/2014 09:17:23 02/02/2014 09:32:25 Needs influenza immunization [id number] Zenobia Weir MD Main Office [address] [place] [address] 04/04/2014 13:12:45 04/04/2014 14:07:47 Single major depressive episode 531220618 Anxiety state 334183109 Agoraphobia 26176174 [id number] Zenobia Weir MD Main Office [address] [place] [address] [place] [address] 06/20/2014 10:39:37 06/20/2014 11:42:56 Adult health examination 920037402 Agoraphobia 75049399 Anxiety state 186022365 Single keny or depressive episode 933560652 her mental health issues have been becoming worse over the years. She started seeing Ce at [facility] who will be setting her up with a psychiatri . She is currently only a clonazepam and has been reluctant in the past to take an anti-depre ssant. She has agreed that this is now necessary so we will start and see her back in 1 month. [id number] David Dennis Main Office [address] [place] [address] [place] [address] 07/18/2014 12:47:57 07/18/2014 14:13:02 Anxiety state 264186533 getting some relief from wellbutrin . We discussed going up on her dose to twice a day but she is hesitant because of fatigue. She will try taking the pill at night to see if this helps. Single keny or depressive episode 042392111 She started seeing Ce at [facility] and is awaiting an [facility]men [facility]. She is c/w wellbutrin 150 daily. I instructed her to take it at bedtime to see if this helps with the daytime fatigue and she will then try to increase it to twice a day. Screening for malignant neoplasm of colon 823126208 [id number] Gerson ackerman [place] Main Office [address] [place] [address] [place] [address] 10/28/2014 10:25:43 10/28/2014 11:21:21 Single major depressive episode 802785194 She started seeing Ce at [facility] and is awaiting an appointmen t with a [facility]. She is c/w wellbutrin 150 daily. I instructed her to take it at bedtime to see if this helps with the daytime fatigue. We discussed increasing the dose or adding an SSRI but she is hesitant about making any changes. Acute sinusitis 73087076 [id number] Main Office [address] [address] [place] [address] 01/23/2015 12:40:24 01/23/2015 13:31:36 Acute sinusitis 87397270 Acute asthma 982397287 Recurrent sinusitis 534443757 [id number] Zenobia Weir MD Main Office [address] [place] [address] 03/04/2015 10:36:06 03/04/2015 11:19:24 Anxiety state 964232633 F41.1 followed by psych and her anxiety has been doing a little better. Taking clonazepam 1 mg bid and wellbutrin 150 at bedtime. Asthma 899827613 J45.90 9 she had an exacerbati on a couple of months ago after an infection but is back to her baseline [id number] Stacey Lee Main Office [address] [place] [address] 06/18/2015 12:50:18 06/18/2015 13:49:33 Adult health examination 624225744 Z00.00 she is UTD with immunizati ons and is due for cervical and colon cancer screening. Screening for malignant neoplasm of cervix 638851814 Z12.4 Screening for malignant neoplasm of colon 067187392 Z12.11 Single keny or depressive episode 405023951 F33.1 She saw Ce from [facility] and [facility]. She tried an SSRI but didn't like it and feels that she is doing well and doesn't need anything right now. She still takes clonazepam for anxiety. Tobacco de pendence syndrome 68014883 F17.290 Anxiety state 661006523 F41.1 Taking clonazepam 1 mg bid and she feels that this helps. [id number] Alison suh Main Office [address] [place] [address] 07/19/2015 10:59:12 07/19/2015 12:21:40 Pneumonia 987469433 J18.9 right base with abnormal exam in a smoker with dx flu and worsening respirator y status and increased cough. treat with levaquin, not sure if zmax is a true allergy, may be related to illness. stop smking, hydrate rest Influenza 1574391 J11.1 dx by swab, no tx now since days later Ex-smoker 0839340 Z87.89 1 using E cigarette [id number] Carin Marie Main Office [address] [facility] 207 [facility] [place] [address] 12/15/2015 10:32:19 12/15/2015 11:35:53 Anxiety state 826641555 F41.1 Taking clonazepam 1 mg bid and she feels that this helps. Single keny or depressive episode 603747135 F33.1 She saw Ce from [facility] and also went to a psychiatri . She tried an SSRI but didn't like it and feels that she is doing well and doesn't need anything right now. She still takes clonazepam for anxiety. Screening for malignant neoplasm of cervix 686340165 Z12.4 Screening for malignant neoplasm of colon 151526425 Z12.11 Radial sty loid tenosynovitis 15115199 M65.4 [id number] Olegario bowman Main Office [address] [facility] 207 [facility] [place] [address] 01/31/2016 10:11:30 01/31/2016 12:10:52 Needs influenza immunization 986628132 Z23 [id number] Zenobia Weir MD Main Office [address] [facility] [address] [place] [address] 03/31/2016 13:13:09 03/31/2016 14:18:03 Upper respiratory infection 98719081 J06.9 Methicilli n resistant Staphylococcus aureus infection 912208587 A49.02 h/o nasal mrsa, curr sxs feel similar - will empiricall y rx Asthma 402292332 J45.30 since advair not covered by her ins., will try other inhaled steroid--- pt has proair - cont use prn Tobacco de pendence syndrome 63424175 F17.290 enc. sm. cess. [id number] Zenobia Weir MD Main Office [address] [facility] 207 [facility] [place] [address] 09/23/2016 08:46:30 09/23/2016 10:03:53 Adult health examination 800354587 Z00.00 she is UTD with immunizati ons and is due for cervical and colon cancer screening. Asthma 518743992 J45.90 9 Uses advair only once daily and uses proair in the evening. I advised her to use the proair twice a day and to call if she needs the proair more than a few times a week. Screening for malignant neoplasm of colon 166878998 Z12.11 Anxiety state 070919346 F41.1 Taking clonazepam 1 mg bid and she feels that this helps. Agoraphobia 27896166 F40 .00 Not interested in trying an SSRI [id number] Zenobia Weir MD Main Office [address] [place] [address] 11/25/2016 10:04:51 11/25/2016 11:14:54 Anxiety state 020317065 F41.1 reviewed a few ssri meds and [...] providing counseling and/or coordinati on of care. [id number] Alison suh Main Office [address] [place] [address] 12/31/2016 10:08:31 12/31/2016 10:30:40 Needs influenza immunization 201268092 Z23 [id number] Zenobia Weir MD Main Office [address] [place] [address] 01/12/2017 12:39:35 01/12/2017 13:17:50 Asthma 002110097 J45.909 Will increase her advair dose from 100 to 250 and encouraged her to use it twice a day instead of once. She will call if her use of proair does not decrease. Snoring 37678589 R06.83 [id number] Allan Braxton MD Main Office [address] [place] [address] 01/14/2017 10:42:00 01/14/2017 12:19:46 Visual disturbance 05584344 H53.001 [id number] Zenobia Weir MD Main Office [address] [facility] [address] [place] [address] 07/18/2017 09:49:58 07/18/2017 11:02:04 Fever 076208136 R50.9 Flu was negative. OOW for next 3 days. Acute asthma 822968750 J 45.901 She will hold her advair while taking the prednisone . [id number] Zenobia Weir MD Main Office [address] [facility] [address] [place] [address] 07/28/2017 11:12:30 07/28/2017 12:07:05 Asthma 931238905 J45.909 Continue with advair twice a day and proair prn. cannot tolerate prednisone so will add atrovent inhaler to her regimen and see her back next week. Fatigue 43623989 R53.83 This is probably from lack of adequate sleep and stress from her new job. [id number] Zenobia Weir MD Main Office [address] [facility] [address] [place] [address] 09/28/2017 10:23:13 09/28/2017 11:23:40 Adult health examination 604583378 Z00.00 she is UTD with immunizati ons and is due for cervical cancer screening. She had a colonoscop y done by Dr Valle May 2017 and is due for a repeat in 2019. Asthma 882598824 J45.90 9 Continue with advair twice a day and proair prn. Tobacco de pendence syndrome 30270039 F17.290 Single keny or depressive episode 030969802 F33.1 She saw Ce from [facility] and also went to a psychiatri . She tried an SSRI but didn't like it and feels that she is doing well and doesn't need anything right now. She still takes clonazepam for anxiety. [id number] JEANNE Delarosa Main Office [address] [facility] [address] [place] [address] 06/06/2018 10:18:45 06/06/2018 11:02:02 Fever 613493080 R50.9 Rapid flu negative. Cough 46198376 R05 chest tightness, fever 103, hx asthma. [...] use medicated powder to keep area dry. [id number] Zenobia Weir MD Main Office [address] [address] [place] [address] 09/06/2018 11:10:51 09/06/2018 12:03:26 Pain in coccyx 82145896 M53.3 We discussed an xray but she decided against it since it would probably not change mgmt. [id number] Zenobia Weir MD Main Office [address] [place], [place] [address] [address] 10/03/2018 10:41:31 10/03/2018 11:47:42 Adult health examination 323062721 Z00.00 she is UTD with immunizati ons and is due for cervical cancer screening. She had a colonoscop y done by Dr Valle May 2017 and is due for a repeat in 2019. Sleep apnea 66032928 G47 .30 Single keny or depressive episode 510894169 F33.1 She saw Ce from [facility] and also went to a psychiatri . She tried an SSRI but didn't like it and feels that she is doing well and doesn't need anything right now. She still takes clonazepam for anxiety. Asthma 057293603 J45.90 9 Continue with advair twice a day and proair prn. [id number] Zenobia Weir MD Main Office [address] [address] [place] [address] 07/30/2019 08:20:42 07/30/2019 11:55:02 Asthma 002610627 J45.909 Continue with advair daily and proair as needed. Anxiety state 995768601 F41.1 Currently under control with clonazepam as prescribed . Obstructiv e sleep apnea syndrome 91290762 G47.33 I advised her to call sleep medicine to let them know that she has been having daily morning headaches since starting the CPAP. [id number] Zenobia Weir MD Main Office [address] [facility] 207 [facility] [place] [address] 01/23/2020 10:15:11 01/23/2020 11:13:59 Adult health examination 746123548 Z00.00 We will update her immunizati ons today. She is due for cervical cancer screening. She had a colonoscop y done by Dr Valle May 2017 and is scheduled for a repeat next month at [facility]. Needs infl uenza immunization 313026275 Z23 Single keny or depressive episode 429462661 F33.1 She saw Ce from [facility] and also went to a psychiatri st. She has tried SSRI's in the past stopped because of perceived SE's. Increased anxiety and depression since the start of COVID. Will start an SSRI at low dose and increase slowly. Reevaluate in 4 weeks. Anxiety state 558435045 F41.1 Currently taking clonazepam but increased anxiety and depression since the start of COVID. Will start an SSRI at low dose and increase slowly. Reevaluate in 4 weeks. Administra tion of viral vaccine 39501492 Z23 [id number] JEANNE Delarosa [facility] [address] [address] 04/24/2020 08:40:00 04/24/2020 10:09:05 Exposure to viral disease 0978034482 15623 Z03.818 quarantine until test results back, isolate from family, rest, hydration, tylenol/ ibuprofen as needed. Asthma 766954184 J45.90 9 has been using wixela daily but has not needed albuterol in 7 months. continue wixela and re-start proair as needed for any sx of SOB/ chest tightness. Should you develop any resp distress please call 911. Obstructiv e sleep apnea syndrome 79431518 G47.33 [id number] Karen Cuevas PA-C [facility] [address] [facility] [address] 08/25/2020 12:06:53 08/25/2020 13:32:20 Diverticulitis of colon 311449752 K57.32 GI side effects from Augmentin discussed. [...] and she is booked for an john. [id number] Fabi Engle Main Office [address]40 [facility] 207 [place] [address] 09/15/2020 11:00:26 09/15/2020 12:17:26 History of polyp of colon 281978094 Z86.010 Due for colon screen, had 2 cm adenoma with high grade dysplasia (clear margins) in 2018, along with strong FH colon cancer. Recent diverticul itis. Pt agrees to go for colonoscop y, would move appt up to September or October Family his tory of cancer of colon 824884144 Z80.0 Gastritis 9903157 K29.70 PPI for 2 weeks, avoid acidic food, caffeine, alcohol, spicy foods, eating before bed Generalize d anxiety disorder 59195561 F41.1 Pt declines meds, will call Priya to start counseling . 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 Alcohol dependence 44903 003 F10.20 Discussed need to stop drinking, declines need for AA but agrees to counseling for anxiety and depression [id number] Zenobia Weir MD Main Office [address] [facility] 207 [place] [address] 03/03/2021 09:24:33 03/03/2021 11:05:02 Adult health examination 704992187 Z00.00 She is UTD with immunizati ons including COVID and flu. She is due for cervical cancer screening and will make her own appointmen t. She had a colonoscop y done by Dr Casas 09/2020 and is due for a repeat next year. Asthma 166170256 J45.90 9 Continue with advair daily and proair as needed. Anxiety state 870217400 F41.1 Currently taking clonazepam but increased anxiety and depression since the start of COVID. We tried an SSRI but she stopped because of SE's. Major depr essive disorder 721085711 F32.1 Not much of a problem. Her main issue is her anxiety. Unable to tolerate an SSRI. Screening for malignant neoplasm of breast 284807702 Z12.39 She is schedule already for next week. Screening for malignant neoplasm of cervix 059530683 Z12.4 She will make her own appointmen t with Dr Salazar. Skin lesion 41547999 L98 .9 Suspicious lesion at right upper back. Alcohol dependence 21219 003 F10.20 We discussed cutting back to a drink a day. Screening for malignant neoplasm of lung 107935292 Z87.891 Eligible patients must have >=30 pack years Gastroesop hageal reflux disease 610633305 K21.9 [id number] Zenobia Weir MD [facility] [address] [place] [address] [place] [address] 04/23/2021 08:21:35 04/23/2021 15:43:31 Acute sinusitis 68582166 J01.90 [id number] Zenobia Weir MD Main Office [address] [place] [address] 06/09/2021 11:19:38 06/09/2021 16:04:43 Chronic recurrent sinusitis 874120894 J32.9 She was treated at least twice [...] and see her back in 4 weeks. [id number] Zenobia Weir MD [address] [place] [address] 08/31/2021 09:26:16 09/01/2021 10:34:11 Anxiety state 113743310 F41.1 Currently taking clonazepam but increased anxiety and depression since the start of COVID. We tried an SSRI but she stopped because of SE's. She agrees to a TH with [facility] psych for a med consult. Pain of bi lateral knee joints 1372722401 81258 M25.561 M25.562 [id number] Alan Sow MD [facility] [address] [facility] 207 [facility] [place] [address] 10/09/2021 13:58:31 10/09/2021 15:20:19 Dysuria 57246721 R30.9 Will cover empiricall y for uncomplica ana luisa cystitis while waiting for culture result. Will modify regimen depending. Acute vaginitis 33999121 N76.0 Suspect that her perineal discomfort is related to this vs intertrigo . Topical barrier cream advised as well. Advised to pursue formal eval if symptoms worsen/per sist. [id number] Karen Cuevas PA-C [facility] [address] [facility] 207 [facility] [place] [address] 12/14/2021 08:14:43 12/14/2021 10:14:17 Recurrent urinary tract infection 044128958 N39.0 Increase fluids and cranberry tablets or juice for 2 weeks, then repeat U/A and urine culture. 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 She recently had a PAP but has not yet received the results. She had a colonoscop y done by Dr Casas 09/2020 and we will get the path results. Family his tory of Cardiovascular disease 265953588 Z82.49 Major depr essive disorder 063500041 F32.1 Not much of a problem. Her main issue is her anxiety. Unable to tolerate an SSRI. Agoraphobia 08294881 F40 .00 Not interested in trying an SSRI Anxiety state 382877117 F41.1 Currently taking clonazepam which has been controllin g her anxiety. She tried an SSRI which didn't help and she doesn't want to try another one. Asthma 513390773 J45.90 9 Continue with advair daily and proair as needed. Alcohol dependence 36736 003 F10.20 We discussed cutting back to a drink a day. [id number] Alan Sow MD [facility] [address] [facility] [address] [place] [address] 06/18/2022 12:53:08 06/18/2022 14:48:57 COVID-19 072686970 U07.1 Based on duration of symptoms and comorbidit ies pt is a candidate for antiviral therapy. Common/ser ious potential side effects discussed. Advised to call if noted. Current isolation guidelines based on immunizati on status discussed as well as isolation if rebound infection occurs. Medication s reviewed and no dosing adjustment s indicated with. Asthma 729795202 J45.90 9 Well controlled . Monitoring O2 sat at home. Advised to call.go to ED with dyspnea/hy poxia. [id number] Zenobia Weir MD [place] [address] [facility] 207 [facility] [place] [address] 09/16/2022 08:37:31 09/16/2022 11:55:34 Anxiety state 713152848 F41.1 Currently taking clonazepam which has been controllin g her anxiety. She tried an SSRI which didn't help and she doesn't want to try another one. Major depr essive disorder 096687508 F32.1 Not much of a problem. Her main issue is her anxiety. Unable to tolerate an SSRI. Asthma 155552316 J45.20 Continue with advair daily and proair as needed. Currently under good control and rarely needs to use her rescue inhaler. Ductal car cinoma in situ of breast 328585110 D05.12 She had surgery and is now deciding on whether to do radiation and/or chemo. She met with the radiation oncologist and has an appointmen t with Dr Valiente next week to discuss chemo. I advised her to speak with family members and friends to help her to come to an informed decision. [id number] Zenobia Weir MD [facility] 3640 [facility] 207 [facility] [place] [address] 10/07/2022 14:41:44 10/07/2022 16:03:44 Dysuria 80284071 R30.0 SYMPTOMS:b urning with urination? {{yes* no} [...] (provider will prescribe) NA}} Blood in urine 92238974 R31.9 It is unclear if this is coming from her urethra or her vagina. We will do a urine culture first as well as a UA and will treat for a UTI if positive. 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 [id number] Zenobia Weir MD [facility] [address]40 [facility] [address] [place] [address] 11/04/2022 12:45:56 11/04/2022 13:30:53 Headache 39090427 R51.9 Will r/o PMR since she has left synagogue pain. Will also get a head CT given her recent cancer dx. This may be secondary to her cancer treatment. [id number] Alan Sow MD [facility] 3640 [facility] [address] [place] [address] 05/06/2023 09:11:15 05/06/2023 10:36:28 Constipation 14980504 K59.00 Sounds like she may be having some overflow obstipatio n symptoms. Will add laxative and check XR to assess stool burden. Consider enema/supp ository depending on results of imaging and response to laxative. May need further imaging if pain worsens to rule out diverticul itis or mass effect from fibroids impacting bowel mechanics. [id number] Bill Cuevas PA-C [facility] 3640 [facility] [address] [place] [address] 05/17/2023 09:09:51 05/17/2023 10:18:35 Ductal carcinoma in situ of left breast [id number] 441431 D05.12 She had surgery and is now deciding on whether to do radiation and/or chemo. She met with the radiation oncologist and has an appointmen t with Dr Valiente next week to discuss chemo. I advised her to speak with family members and friends to help her to come to an informed decision. 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 She recently had a PAP but has not yet received the results. She had a colonoscop y done by Dr Casas 09/2020 and we will get the path results. Acute exac erbation of intrinsic asthma [id number] J45.901 This has been stable and she rarely uses her rescue inhaler. Anxiety state [id number] F41.1 Currently taking clonazepam which has been controllin g her anxiety. She tried an SSRI which didn't help and she doesn't want to try another one. Asthma 230271420 J45.20 Continue with advair daily and proair as needed. Currently under good control and rarely needs to use her rescue inhaler. Ductal car cinoma in situ of breast 159226177 D05.12 She had surgery and then had radiation. She is currently taking a low dose of tamoxifen because she couldn't tolerate the normal dose of 20 mg. Hyperlipidemia [id number] E78.5 Not on meds and 10-year risk of heart disease or stroke is only around 3%. [id number] Zenobia Weir MD Main Office [address] [facility] [address] [facility] [place] [address] 08/06/2023 09:00:22 08/06/2023 09:44:59 Essential hypertension 49435596 I10 Good control; continue current mgmt. Anxiety state [id number] F41.1 Currently taking clonazepam which has been controllin g her anxiety. She tried an SSRI which didn't help and she doesn't want to try another one. Palpitations 44354748 R0 0.2 Possibly secondary to anxiety. No further w/u or treatment needed. [id number] HENNA JUNG Main Office [address] [place] [address] 01/12/2024 08:14:52 01/12/2024 09:04:35 Needs influenza immunization [id number] Z23 19 YEARS AND OLDER ONLY Essential hypertension 03074522 I10 -elevated BP readings both at home [...] your ankles.>Baez ve trouble with your vision. [id number] HENNA JUNG Main Office [address] [place] [address] 02/01/2024 08:15:07 02/01/2024 09:06:44 Headache 98544227 R51.9 >4 weeks-occu rs daily, each morning [...] not to take medication at this time [id number] Zenobia Weir MD Main Office [address] [place] [address] [place] [address] 02/09/2024 08:18:37 02/09/2024 09:12:36 Essential hypertension 50824434 I10 Good control; continue current mgmt. Anxiety state 998164011 F41.1 Currently taking clonazepam which has been controllin g her anxiety. She tried an SSRI which didn't help and she doesn't want to try another one. 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 - rec cont miralax [id number] Carin Patelo Main Office [address] [facility] [place] [address] 03/01/2024 09:17:48 03/01/2024 09:57:58 History of cholecystectomy [id number] Z90.49 reviewed hospital documentat ion-was [place] [facility] [place], dx with cholecysti tis [...] further testing with Dr. Richard Essential hypertension 28132921 I10 -BP in the hospital was on [...] your ankles.>Baez ve trouble with your vision. [id number] Zenobia Weir MD Main Office [address] [facility] [address] [place] [address] 04/04/2024 08:36:43 04/04/2024 09:32:50 Essential hypertension 24418903 I10 Good control w/o meds. She will continue to follow at home and will send a message if the systolic is consistent ly>130. Anxiety state 389448710 F41.1 Currently taking clonazepam which has been controllin g her anxiety. She tried an SSRI which didn't help and she doesn't want to try another one. Asthma 549770298 J45.20 Continue with advair daily and proair [...] [place] Member ID Guarantor Name 02/01/2024 1 [facility] [id number] Indra Rodriguez [id number] Nat Rodriguez 02/09/2024 1 [facility] [id number] 3 Indra Rodriguez [id number] Nat Escobarkristina 02/21/2024 1 [facility] [id number] 3 Indra Rodriguez [id number] Nat Rodriguez 03/01/2024 1 [facility] [id number] 3 Indra Rodriguez [id number] Nat Rodriguez 04/04/2024 1 [facility] [id number] 3 Indra Rodriguez [id number] Nat Rodriguez Notes Date Note Type Note [...] Has not tried OTC medications. HENNA JUNG [address], [phone], [facility] 02/01/2024 09:20:31 4 text/html Anxiety/DepressionReported bypatient.Severity:able to maintain relationships;interference with work Associated Symptoms:anxiety;anhedonia; social withdrawalHypertension F/UReported bypatient.Associated Symptoms:no dizziness; no lightheadedness; no chest pain; no shortness of breath; no palpitations; no edema; no calf pain with exertion Lifestyle:regular exercise; limiting/avoiding salt Medications:taking medications as directed; no side effects from medication Zenobia Weir MD [address], [address], [facility] [place] 02/09/2024 09:19:20 4 text/html as [...] infection CARLOS! Thank You. Bill Cuevas PA-C [address] [facility] [address], [place], [address], [facility] 02/21/2024 15:12:47 4 text/html Nat is a 58yr old F who presents for a hospital f/u. [facility] 02/27/24 Nat was evaluated [place] [facility] [place]- dx with cholecystitis. Found to have new onset of afic and RVR. Underwent cholecystectomy on 02/22. Currently on augmentin course. Has an appt with cardiology for new onset afib. Do not have hospital documentation in chart. Carin villegas, [place] 03/13/2024 13:04:49 4 text/html Anxiety/DepressionReported bypatient.Severity:able to maintain relationships;interference with work Associated Symptoms:anxiety;anhedonia; social withdrawalHypertension F/UReported bypatient.Associated Symptoms:no dizziness; no lightheadedness; no chest pain; no shortness of breath; no palpitations; no edema; no calf pain with exertion Lifestyle:regular exercise; limiting/avoiding saltNotes:She was on lisinopril which was changed to metoprolol as an inpatient at [facility] because of afib. This was eventually stopped because of low readings. She follows her BP and the systolic has remained <130. Asthma has been under good control with advair which she uses daily and she rarely uses her rescue inhaler. Zenobia Weir MD [address] [facility] [address], [place], [address], [facility] 04/04/2024 09:41:43 OBGyn Episode No OBEpisode recorded.
[2024-07-05 11:05] LABS: Cholesterol 196 mg/dL (<200); HDL Cholesterol 74 mg/dL (>40); LDL Cholesterol Calculated 110 mg/dL (<100); Triglycerides 61 mg/dL (<150)
== END 2024-07-05 06:05 | disposition home or self-care (01) ==
LOC: HO.HMGCLDS 06:04
PROVIDERS: PCP Internal Medicine; Visit Provider Internal Medicine Cardiovascular Disease
DX: Z13.6 Encounter for screening for cardiovascular disorders (principal); R94.31 Abnormal electrocardiogram [ECG] [EKG]
CPT/HCPCS: 36415; 80061